=== PATIENT | female | born 1945 | race Caucasian/White ===

== ENCOUNTER → 2017-01-09 | Outpatient (CLI) | payer OTHER ==
[~2017-01-09] MED LIST: ALBU1AER9 INH; ASPCH81X PO; CHOL200010 PO; ESTR0.5T5 PO; FRS/40 PO; IRBE-37 PO; LACT10SO30 PO; MISCCAP80 PO; MULT-506 PO; NXM/40 PO; PARO1TAB27 PO; PROP1TAB PO; VITA400C3 PO
[2017-01-09 15:12] LABS: ALT/SGPT 37 U/L (12-78); AST/SGOT 30 U/L (15-37); BLOOD UREA NITROGEN 23 mg/dl (7-18); BUN/CREATININE RATIO 17.8 (10-20); CALCIUM 9.3 mg/dl (8.5-10.1); CARBON DIOXIDE 31 mmol/L (21-32); CHLORIDE 100 mmol/L (98-107); GLUCOSE 104 mg/dl (70-99); MAGNESIUM 1.8 mg/dl (1.8-2.4); POTASSIUM 3.8 mmol/L (3.5-5.1); SODIUM 140 mmol/L (136-145)
[2017-01-09 15:15] LABS: ALB/GLOB RATIO 0.9 (0.9-2); ALKALINE PHOSPHATASE 105 U/L (45-117)
[2017-01-09 15:38] LABS: BASO % 0.2 %; BASO ABS # 0.01 K/uL (0-0.2); COMPLETE YES; IG% 0.2 %; LYMPH % 35.3 %; LYMPH ABS # 1.73 K/uL (1.2-3.4); MEAN CELL VOLUME 85.5 fL (80-100); MEAN CORPUSCULAR HEMOGLOBIN 29.8 pg (25-34); MEAN CORPUSCULAR HGB CONC 34.9 g/dl (32-36); MEAN PLATELET VOLUME 11.2 fL (7.4-10.4); MONO % 11.6 %; NEUT % 51.7 %; PLATELET COUNT 78 K/uL (130-400); RED BLOOD COUNT 4.33 M/uL (4.2-5.4)
[2017-01-09 16:00] LABS: ESTIMATED AVERAGE GLUCOSE 120 mg/dl; HA1C FLAG Normal (Normal)
== END | disposition home or self-care (01) ==
LOC: C.LAB 13:18
PROVIDERS: ATTEND Internal Medicine
DX: E11.9 Type 2 diabetes mellitus without complications (principal); K74.60 Unspecified cirrhosis of liver

== ENCOUNTER → 2017-02-07 | Outpatient (CLI) | payer OTHER ==
[2017-02-07 10:20] LABS: BLOOD UREA NITROGEN 20 mg/dl (7-18); BUN/CREATININE RATIO 14.6 (10-20); CALCIUM 9.3 mg/dl (8.5-10.1); CARBON DIOXIDE 31 mmol/L (21-32); CHLORIDE 99 mmol/L (98-107); GLUCOSE 108 mg/dl (70-99); PHOSPHORUS 3.3 mg/dl (2.5-4.9); POTASSIUM 3.6 mmol/L (3.5-5.1); SODIUM 140 mmol/L (136-145)
== END | disposition home or self-care (01) ==
LOC: C.LAB 09:03
PROVIDERS: ATTEND Internal Medicine
DX: N28.9 Disorder of kidney and ureter, unspecified (principal)

== ENCOUNTER → 2017-02-22 | Outpatient (CLI) | payer OTHER ==
[~2017-02-22] MED LIST changes: +CIPR-255 PO; +GLC/500 PO; +LIRA18IN SQ; +PHEN-876 PO; +PROAIR INH
[2017-02-22 12:21] LABS: BLOOD UREA NITROGEN 14 mg/dl (7-18); BUN/CREATININE RATIO 11.1 (10-20); CALCIUM 9.1 mg/dl (8.5-10.1); CARBON DIOXIDE 32 mmol/L (21-32); CHLORIDE 102 mmol/L (98-107); GLUCOSE 144 mg/dl (70-99); PHOSPHORUS 3.4 mg/dl (2.5-4.9); POTASSIUM 3.8 mmol/L (3.5-5.1); SODIUM 139 mmol/L (136-145)
== END | disposition home or self-care (01) ==
LOC: C.LAB1850 09:37
PROVIDERS: ATTEND Physician Assistant Medical
DX: I10 Essential (primary) hypertension (principal)

== ENCOUNTER → 2017-05-30 | Outpatient (CLI) | payer OTHER ==
[~2017-05-30] MED LIST changes: -CIPR-255 PO; -GLC/500 PO; -LIRA18IN SQ; -PHEN-876 PO; -PROAIR INH
[2017-05-30 12:44] LABS: BLOOD UREA NITROGEN 22 mg/dl (7-18)
== END | disposition home or self-care (01) ==
LOC: C.LAB 10:30
PROVIDERS: ATTEND Internal Medicine
DX: K74.60 Unspecified cirrhosis of liver (principal)

== ENCOUNTER → 2017-07-17 | Outpatient (CLI) | payer OTHER ==
[2017-07-17 10:18] LABS: HEMATOCRIT 37.4 % (37-47); MEAN CELL VOLUME 88.2 fL (80-100); MEAN CORPUSCULAR HEMOGLOBIN 28.8 pg (25-34); MEAN CORPUSCULAR HGB CONC 32.6 g/dl (32-36); MEAN PLATELET VOLUME 10.6 fL (7.4-10.4); PLATELET COUNT 79 K/uL (130-400); RED BLOOD COUNT 4.24 M/uL (4.2-5.4)
[2017-07-17 10:32] LABS: BASO % 0.3 %; BASO ABS # 0.01 K/uL (0-0.2); COMPLETE YES; EOS % 1.5 %; IG% 0.3 %; LYMPH % 32.8 %; LYMPH ABS # 1.31 K/uL (1.2-3.4); MONO % 8.8 %; NEUT % 56.3 %
[2017-07-17 10:35] LABS: ESTIMATED AVERAGE GLUCOSE 123 mg/dl; HA1C FLAG Normal (Normal)
[2017-07-17 10:40] LABS: ALT/SGPT 25 U/L (12-78); BLOOD UREA NITROGEN 26 mg/dl (7-18); BUN/CREATININE RATIO 19.8 (10-20); CALCIUM 9.2 mg/dl (8.5-10.1); CARBON DIOXIDE 32 mmol/L (21-32); CHLORIDE 100 mmol/L (98-107); CHOLESTEROL 224 mg/dl (0-200); GLUCOSE 114 mg/dl (70-99); POTASSIUM 4.2 mmol/L (3.5-5.1); SODIUM 138 mmol/L (136-145); TRIGLYCERIDES 216 mg/dl (0-150); VERY LOW DENSITY LIPOPROT CALC 43 mg/dl
[2017-07-17 10:43] LABS: ALB/GLOB RATIO 0.9 (0.9-2); ALKALINE PHOSPHATASE 123 U/L (45-117); AST/SGOT 29 U/L (15-37); CHOLESTEROL/HDL RATIO 3.8; HDL CHOLESTEROL 59 mg/dl; LDL CHOLESTEROL CALCULATED 122 mg/dl
[2017-07-17 11:28] LABS: URINE APPEARANCE CLEAR (CLEAR); URINE BILIRUBIN NEG (NEG); URINE COLOR YELLOW; URINE EPITHELIAL CELL AUTO >30 /lpf (0-5); URINE NITRITE NEG (NEG); URINE PH 6.5 (4.5-7.5); URINE SPECIFIC GRAVITY 1.013 (1.000-1.030); UROBILINOGEN NEG (NEG); ZZUR CULT IF INDIC CLEAN CATCH NO
[2017-07-17 11:30] LABS: MANUAL MICROSCOPIC REQUIRED? NO; REVIEW REQ? NO
== END | disposition home or self-care (01) ==
LOC: C.LAB 09:21
PROVIDERS: ATTEND Internal Medicine
DX: E11.9 Type 2 diabetes mellitus without complications (principal); M85.80 Other specified disorders of bone density and structure, unspecified site

== ENCOUNTER → 2017-08-21 | Outpatient (CLI) | payer OTHER ==
[2017-08-21 10:18] LABS: ALT/SGPT 21 U/L (12-78); BLOOD UREA NITROGEN 23 mg/dl (7-18); BUN/CREATININE RATIO 17.5 (10-20); CALCIUM 8.9 mg/dl (8.5-10.1); CARBON DIOXIDE 29 mmol/L (21-32); CHLORIDE 102 mmol/L (98-107); GLUCOSE 120 mg/dl (70-99); POTASSIUM 3.5 mmol/L (3.5-5.1); SODIUM 139 mmol/L (136-145)
[2017-08-21 10:29] LABS: ALB/GLOB RATIO 0.9 (0.9-2); ALKALINE PHOSPHATASE 118 U/L (45-117); AST/SGOT 23 U/L (15-37)
== END ==
LOC: C.LAB 08:42
PROVIDERS: ATTEND Internal Medicine Endocrinology, Diabetes & Metabolism

== ENCOUNTER 2017-10-11 21:20 | Emergency (ER) | payer OTHER ==
[~2017-10-11] VITALS: Ht 157.5 cm; Wt 79.9 kg
[2017-10-11 21:29] VITALS: TEMP 36.5; Ht 157.5 cm; Wt 79.9 kg
[2017-10-11] MEDS ORDERED: SODIUM CHLORIDE 0.9% 1000ML 1,000 ML IV STA (21:38)
--- NOTE | 2017-10-11 21:46 | EMERGENCY ROOM VISIT NOTE ---
History Report prepared by Vega: Zuri Huffman Under the Supervision of: Dr. Thony Booker D.O. First contact with patient: 21:31 Chief Complaint: ABDOMINAL PAIN Stated Complaint: PAIN ON LEFT SIDE, POSSIBLE BLADDER INFECTION History of Present Illness The patient is a 72 year old female who presents to the Emergency Room with complaints of persistent abdominal pain starting earlier this evening. The pain is located in her lower abdomen bilaterally. She describes the pain as burning. She currently rates her discomfort as a 6/10 in severity. The pain worsens to an 8/10 in severity with urination. The patient started drinking cranberry juice yesterday. She suspected something was wrong with her urinary tract. She thinks she might have a kidney infection. She also reports right flank pain, dysuria, and hematuria. She started having diarrhea this evening. She feels cold. She denies any nausea, vomiting, or fever. She had a kidney stone last summer. She states the pain was not this bad. Source of History: patient Onset: earlier this evening Position: abdomen (bilateral lower) Symptom Intensity: 6/10, 8/10 with urination Quality: burning Timing: other (persistent) Modifying Factors (Worsening): urination Associated Symptoms: + chills, + diarrhea, + urinary symptoms, No fevers, No nausea, No vomiting Note: Pt reports right flank pain. Review of Systems See HPI for pertinent positives and negatives. A total of ten systems were reviewed and were otherwise negative. Past Medical & Surgical Medical Problems: (1) Cirrhosis (2) Hypertension (3) Kidney stone Family History Diabetes mellitus FH: cancer FH: heart disease Gallbladder disease Hypertension Social History Smoking Status: Never Smoker Marital Status: Housing Status: lives with significant other Occupation Status: retired Current/Historical Medications Scheduled Albuterol Sulfate (Proair Hfa), 2 PUFFS INH Q6HR PRN Aspirin (Aspirin Chewable), 81 MG PO QPM Cholecalciferol (Vitamin D), 1 CAP PO QAM Esomeprazole Magnesium (Nexium), 40 MG PO QAM Estradiol (Estrace), 1 TAB PO HS Furosemide (Lasix), 40 MG PO BID Irbesartan (Avapro), 150 MG PO HS Lactulose (Encephalopathy) (Lactulose), 30 ML PO QPM Multivitamin (Multivitamin), 1 TAB PO QAM Paroxetine (Paxil), 0.25 TAB PO QAM Probiotic Product (Probiotic), 1 CAP PO QAM Propranolol (Inderal), 60 MG PO QAM Vitamin E (Vitamin E 400 Iu), 400 INTER.UNIT PO QAM Allergies Coded Allergies: Morphine (Verified Allergy, Intermediate, "FIRE" SENSATION IN HEAD, ) Penicillins (Verified Allergy, Intermediate, HIVES, 09/11/16) Adhesives (Verified Adverse Reaction, Intermediate, RASH,REDNESS, 09/11/16) Physical Exam Vital Signs Date Time Temp Pulse Resp B/P (MAP) Pulse Ox O2 Delivery O2 Flow Rate FiO2 10/11/17 22:33 65 160/76 98 Room Air 10/11/17 21:59 68 10/11/17 21:29 36.5 71 18 96 Room Air Physical Exam GENERAL: Awake, alert, well-appearing, in no distress HENT: Normocephalic, atraumatic. Oropharynx unremarkable. EYES: Normal conjunctiva. Sclera non-icteric. NECK: Supple. No nuchal rigidity. FROM. No JVD. RESPIRATORY: Clear to auscultation. CARDIAC: Regular rate, normal rhythm. Extremities warm and well perfused. Pulses equal. ABDOMEN: Soft, non-distended. No tenderness to palpation. No rebound or guarding. No masses. RECTAL: Deferred. MUSCULOSKELETAL: Chest examination reveals no tenderness. The back is symmetrical on inspection without obvious abnormality. There is no CVA tenderness to palpation. No joint edema. LOWER EXTREMITIES: Calves are equal size bilaterally and non-tender. No edema. No discoloration. NEURO: Normal sensorium. No sensory or motor deficits noted. SKIN: No rash or jaundice noted. Medical Decision & Procedures ER Provider Diagnostic Interpretation: Radiology results as stated below per my review and radiologist interpretation CT SCAN OF THE ABDOMEN AND PELVIS WITHOUT IV CONTRAST CLINICAL HISTORY: Lower abdominal pain. COMPARISON STUDY: Abdominal CT dated 11/14/2012. TECHNIQUE: CT scan of the abdomen and pelvis is performed from the lung bases to the proximal femora. Images are reviewed in the axial, sagittal, and coronal planes. IV contrast was not administered for this examination as per the referring clinician. Note that the examination was performed in suboptimal fashion without oral and IV contrast. A dose lowering technique was utilized adhering to the principles of ALARA. CT DOSE: 1430.61 mGy.cm FINDINGS: Lung bases: The heart is normal in size and without pericardial effusion. There are coronary artery calcifications. There is a 5 mm right lower lobe pulmonary nodule seen on image #1. This is unchanged from 2013 and of doubtful significance. No airspace consolidation or pleural effusion is identified. There is a small hiatal hernia. Liver: The unenhanced liver is cirrhotic in morphology and heterogeneous in attenuation. There is nodularity of the surface contour with hypertrophy of the left lobe and caudate. There is no intrahepatic biliary ductal dilatation. Gallbladder: Surgically absent noting clips in the gallbladder fossa. Spleen: The spleen is mildly enlarged measuring 13.5 cm in length. Pancreas: The unenhanced pancreas is atrophic and grossly unremarkable. Adrenal glands: Unremarkable. Kidneys: The unenhanced kidneys are atrophic and without hydronephrosis. There are no renal calculi identified. There is no evidence of contour deforming renal mass lesion. A retroverted left renal vein is incidentally noted. Abdominal vasculature: The abdominal aorta is normal in course and caliber noting moderate atherosclerotic calcification. Bowel: Faint left-sided pericolonic infiltration is suggested. No colonic wall thickening is seen. No bowel obstruction is identified. The appendix is well-visualized and normal. Peritoneum: There is no intraperitoneal free air or abdominal ascites. Lymphadenopathy: None. Pelvic viscera: The the bladder wall is thickened and there is pericystic inflammation. The appearance suggests cystitis. The uterus is surgically absent. No adnexal lesion is seen. Skeletal structures: The skeletal structures are osteopenic. There is mild to moderate lumbosacral spondylosis. No lytic or blastic lesions are seen. IMPRESSION: 1. Suboptimal examination without oral and IV contrast. 2. Findings suggest cystitis. Correlation with clinical findings and urinalysis will be required. 3. Faint pericolonic infiltration is suggested. There is no colonic wall thickening. Correlate clinically for evidence of a mild nonspecific colitis. 4. Cirrhotic liver morphology. Mild splenomegaly suggests portal hypertension. 5. Additional findings as above. Electronically signed by: Hussein Lama M.D. 10/11/2017 10:29 PM Dictated Date/Time: 10/11/2017 10:22 PM Laboratory Results 10/11/17 21:51 Red Blood Count 4.64, Mean Corpuscular Volume 87.7, Mean Corpuscular Hemoglobin 29.1, Mean Corpuscular Hemoglobin Concent 33.2, Mean Platelet Volume 10.4, Neutrophils (%) (Auto) 65.5, Lymphocytes (%) (Auto) 22.3, Monocytes (%) (Auto) 11.0, Eosinophils (%) (Auto) 0.9, Basophils (%) (Auto) 0.1, Neutrophils # (Auto ) 6.04, Lymphocytes # (Auto) 2.06, Monocytes # (Auto) 1.01, Eosinophils # (Auto ) 0.08, Basophils # (Auto) 0.01 10/11/17 21:51 Test 10/11/17 21:50 10/11/17 21:51 Urine Color RED Urine Appearance CLOUDY (CLEAR) Urine pH 6.5 (4.5-7.5) Urine Specific [place] 1.020 (1.000-1.030) Urine Protein 2+ (NEG) Urine Glucose (UA) NEG (NEG) Urine Ketones NEG (NEG) Urine Occult Blood 3+ (NEG) Urine Nitrite NEG (NEG) Urine Bilirubin NEG (NEG) Urine Urobilinogen NEG (NEG) Urine Leukocyte Esterase MODERATE (NEG) Urine RBC >30 /hpf (0-4) Urine WBC >30 /hpf (0-5) Urine Epithelial Cells >30 /lpf (0-5) Urine Bacteria 1+ (NEG) White Blood Count 9.22 K/uL (4.8-10.8) Red Blood Count 4.64 M/uL (4.2-5.4) Hemoglobin 13.5 g/dL (12.0-16.0) Hematocrit 40.7 % (37-47) Mean Corpuscular Volume 87.7 fL (80-100) Mean Corpuscular Hemoglobin 29.1 pg (25-34) Mean Corpuscular Hemoglobin Concent 33.2 g/dl (32-36) Platelet Count 102 K/uL (130-400) Mean Platelet Volume 10.4 fL (7.4-10.4) Neutrophils (%) (Auto) 65.5 % Lymphocytes (%) (Auto) 22.3 % Monocytes (%) (Auto) 11.0 % Eosinophils (%) (Auto) 0.9 % Basophils (%) (Auto) 0.1 % Neutrophils # (Auto) 6.04 K/uL (1.4-6.5) Lymphocytes # (Auto) 2.06 K/uL (1.2-3.4) Monocytes # (Auto) 1.01 K/uL (0.11-0.59) Eosinophils # (Auto) 0.08 K/uL (0-0.5) Basophils # (Auto) 0.01 K/uL (0-0.2) RDW Standard Deviation 44.9 fL (36.4-46.3) RDW Coefficient of Variation 14.0 % (11.5-14.5) Immature Granulocyte % (Auto) 0.2 % Immature Granulocyte # (Auto) 0.02 K/uL (0.00-0.02) Anion Gap 6.0 mmol/L (3-11) Est Creatinine Clear Calc Drug Dose 36.9 ml/min Estimated GFR () 44.4 Estimated GFR (Non- 38.3 BUN/Creatinine Ratio 12.8 (10-20) Calcium Level 9.4 mg/dl (8.5-10.1) Laboratory results reviewed by me Medications Administered Medications (Trade) Dose Ordered Sig/Favian Route Start Time Stop Time Status Last Admin Dose Admin Sodium Chloride 1,000 ml @ 999 mls/hr Q1H1M STAT IV 10/11/17 21:38 10/11/17 22:38 DC 10/11/17 21:38 999 MLS/HR Ciprofloxacin (Cipro Tab) 500 mg NOW STAT PO 10/11/17 22:27 10/11/17 22:29 DC 10/11/17 22:32 500 MG ED Course 2133: The patient was evaluated in room A9B. A complete history and physical exam was performed. 8: NSS 1000 ml @ 999 mls/hr IV. 7: Ciprofloxacin 500 mg PO. 5: I reevaluated the patient. Discussed results and discharge instructions: she verbalized understanding and agreement. The patient is ready for discharge. Medical Decision Differential diagnoses include but are not limited to; UTI, pyelonephritis, kidney stone, dehydration. Patient resting in no distress on repeat examination. Patient will be treated for urinary tract infection. I do not think the patient is septic at this time. Patient was given Cipro as she is allergic to penicillin. Patient clearly has a urinary tract infection CT was appreciated. I discussed evaluation with the patient patient's family at bedside at 2240 Medication Reconcilliation Current Medication List: was personally reviewed by me Blood Pressure Screening Patient's blood pressure: Elevated blood pressure Blood pressure disposition: Elevated BP felt to be situational Impression Primary Impression: Acute UTI Scribe Attestation The scribe's documentation has been prepared under my direction and personally reviewed by me in its entirety. I confirm that the note above accurately reflects all work, treatment, procedures, and medical decision making performed by me. Departure Information Dispostion Home / Self-Care Prescriptions Phenazopyridine HCl (Pyridium) 200 Mg Tab 200 MG PO TID Y for Frequency/Burning w/Urination, #6 TAB Prov: Thony Booker, DO 10/11/17 Ciprofloxacin Hcl (CIPRO) 500 Mg Tab 500 MG PO BID, #20 TAB Prov: Thony Booker, DO 10/11/17 Referrals Gildardo Haywood M.D. (PCP) Patient Instructions ED UTI Cystitis Female, My [facility] Additional Instructions F/u with PMD; return for worsening symptoms
[2017-10-11 22:12] LABS: MANUAL MICROSCOPIC REQUIRED? YES; URINE APPEARANCE CLOUDY (CLEAR); URINE BILIRUBIN NEG (NEG); URINE COLOR RED; URINE NITRITE NEG (NEG); URINE PH 6.5 (4.5-7.5); UROBILINOGEN NEG (NEG)
[2017-10-11 22:13] LABS: REVIEW REQ? NO
[2017-10-11 22:15] LABS: URINE BACTERIA 1+ (NEG); URINE RBC >30 /hpf (0-4); URINE WBC >30 /hpf (0-5)
[2017-10-11 22:15] LABS: BASO % 0.1 %; BASO ABS # 0.01 K/uL (0-0.2); COMPLETE YES; EOS % 0.9 %; HEMATOCRIT 40.7 % (37-47); IG% 0.2 %; LYMPH % 22.3 %; LYMPH ABS # 2.06 K/uL (1.2-3.4); MEAN CELL VOLUME 87.7 fL (80-100); MEAN CORPUSCULAR HEMOGLOBIN 29.1 pg (25-34); MEAN CORPUSCULAR HGB CONC 33.2 g/dl (32-36); MEAN PLATELET VOLUME 10.4 fL (7.4-10.4); NEUT % 65.5 %; PLATELET COUNT 102 K/uL (130-400); RED BLOOD COUNT 4.64 M/uL (4.2-5.4); WHITE BLOOD COUNT 9.22 K/uL (4.8-10.8)
[2017-10-11] MEDS ORDERED: CIPROFLOXACIN 500 MG TAB PO STA (22:27)
--- NOTE | 2017-10-11 22:31 | DIAGNOSTIC IMAGING REPORT ---
CT SCAN OF THE ABDOMEN AND PELVIS WITHOUT IV CONTRAST CLINICAL HISTORY: Lower abdominal pain. COMPARISON STUDY: Abdominal CT dated 11/14/2012. TECHNIQUE: CT scan of the abdomen and pelvis is performed from the lung bases to the proximal femora. Images are reviewed in the axial, sagittal, and coronal planes. IV contrast was not administered for this examination as per the referring clinician. Note that the examination was performed in suboptimal fashion without oral and IV contrast. A dose lowering technique was utilized adhering to the principles of ALARA. CT DOSE: 1430.61 mGy.cm FINDINGS: Lung bases: The heart is normal in size and without pericardial effusion. There are coronary artery calcifications. There is a 5 mm right lower lobe pulmonary nodule seen on image #1. This is unchanged from 2013 and of doubtful significance. No airspace consolidation or pleural effusion is identified. There is a small hiatal hernia. Liver: The unenhanced liver is cirrhotic in morphology and heterogeneous in attenuation. There is nodularity of the surface contour with hypertrophy of the left lobe and caudate. There is no intrahepatic biliary ductal dilatation. Gallbladder: Surgically absent noting clips in the gallbladder fossa. Spleen: The spleen is mildly enlarged measuring 13.5 cm in length. Pancreas: The unenhanced pancreas is atrophic and grossly unremarkable. Adrenal glands: Unremarkable. Kidneys: The unenhanced kidneys are atrophic and without hydronephrosis. There are no renal calculi identified. There is no evidence of contour deforming renal mass lesion. A retroverted left renal vein is incidentally noted. Abdominal vasculature: The abdominal aorta is normal in course and caliber noting moderate atherosclerotic calcification. Bowel: Faint left-sided pericolonic infiltration is suggested. No colonic wall thickening is seen. No bowel obstruction is identified. The appendix is well-visualized and normal. Peritoneum: There is no intraperitoneal free air or abdominal ascites. Lymphadenopathy: None. Pelvic viscera: The the bladder wall is thickened and there is pericystic inflammation. The appearance suggests cystitis. The uterus is surgically absent. No adnexal lesion is seen. Skeletal structures: The skeletal structures are osteopenic. There is mild to moderate lumbosacral spondylosis. No lytic or blastic lesions are seen. IMPRESSION: 1. Suboptimal examination without oral and IV contrast. 2. Findings suggest cystitis. Correlation with clinical findings and urinalysis will be required. 3. Faint pericolonic infiltration is suggested. There is no colonic wall thickening. Correlate clinically for evidence of a mild nonspecific colitis. 4. Cirrhotic liver morphology. Mild splenomegaly suggests portal hypertension. 5. Additional findings as above. Electronically signed by: Hussein Lama M.D. 10/11/2017 10:29 PM Dictated Date/Time: 10/11/2017 10:22 PM
[2017-10-11 22:33] VITALS: BP 160/76; PULSE 65; O2SAT 98
[2017-10-11 22:35] LABS: BUN/CREATININE RATIO 12.8 (10-20); CALCIUM 9.4 mg/dl (8.5-10.1); CREATININE 1.39 mg/dl (0.60-1.20); POTASSIUM 3.5 mmol/L (3.5-5.1)
[2017-10-11] MEDS ORDERED: CIPR-255 PO (22:55)
[2017-10-11] MEDS ORDERED: PHEN-876 PO (22:55)
[2017-10-11] MEDS ORDERED: GLC/500 PO ×2 (23:07)
[2017-10-11] MEDS ORDERED: LIRA18IN SQ (23:07)
[2017-10-11] MEDS ORDERED: PROAIR INH (23:07)
== END 2017-10-11 22:58 | disposition home or self-care (01) ==
LOC: C.EDB 21:21 → C.EDA 22:58
DX: N39.0 Urinary tract infection, site not specified (principal); I10 Essential (primary) hypertension; K74.60 Unspecified cirrhosis of liver; Z87.442 Personal history of urinary calculi; Z79.82 Long term (current) use of aspirin; Z79.899 Other long term (current) drug therapy; Z88.0 Allergy status to penicillin; Z88.5 Allergy status to narcotic agent; Z91.09 Other allergy status, other than to drugs and biological substances; Z83.3 Family history of diabetes mellitus; Z80.9 Family history of malignant neoplasm, unspecified; Z82.49 Family history of ischemic heart disease and other diseases of the circulatory system; Z83.79 Family history of other diseases of the digestive system

== ENCOUNTER → 2017-10-28 | Outpatient (CLI) | payer OTHER ==
[~2017-10-28] MED LIST changes: -ALBU1AER9 INH; +CIPR-255 PO; +GLC/500 PO; +LIRA18IN SQ; +PHEN-876 PO; +PROAIR INH
--- NOTE | 2017-10-29 07:52 | MAMMOGRAPHY REPORT ---
BILATERAL DIGITAL SCREENING MAMMOGRAM WITH CAD: 10/28/2017 CLINICAL HISTORY: Routine screening. Patient has no complaints. TECHNIQUE: Bilateral CC and MLO views were obtained. Current study was also evaluated with a Compute r Aided Detection (CAD) system. COMPARISON: Comparison is made to exams dated: 10/24/2016 mammogram, 10/21/2015 mammogram, 4 mammogram, 10/19/2013 mammogram, 10/17/2012 mammogram, and 10/23/2013 mammogram - [facility]. BREAST COMPOSITION: The tissue of both breasts is heterogeneously dense, which may obscure small mas ses. FINDINGS: There is a 5.6 mm nodular asymmetry in the posterior left breast, along the posterior nipp le line on the CC view. Although this could represent normal overlapping fibrolinear glandular tissu e, additional spot compression tomosynthesis views and possible ultrasound are recommended. There are diffuse benign-appearing punctate microcalcifications as well as a few benign rim calcifica tions scattered in the breasts. No other suspicious mass, architectural distortion or cluster of micr ocalcifications is seen. IMPRESSION: ACR BI-RADS CATEGORY 0: INCOMPLETE EVALUATION: NEED ADDITIONAL IMAGING EVALUATION The 5.6 mm nodular asymmetry in the left posterior breast, along the posterior nipple line on the CC view, needs additional evaluation. The patient will be called to schedule an appointment. Approximately 10% of breast cancers are not detected with mammography. A negative mammographic report should not delay biopsy if a clinically suggestive mass is present. Bethany Lincoln M.D. ay/:10/28/2017 16:11:39 Early Education Teacher: Lucina RAMOS(R)(M), [facility] letter sent: Addl Imaging 0 BI-RADS Code: ACR BI-RADS Category 0: Incomplete Evaluation: Need Additional Imaging Evaluation
== END | disposition home or self-care (01) ==
LOC: C.MAMM 09:45
PROVIDERS: ATTEND Internal Medicine
DX: Z12.31 Encounter for screening mammogram for malignant neoplasm of breast (principal); R92.8 Other abnormal and inconclusive findings on diagnostic imaging of breast

== ENCOUNTER → 2017-10-31 | Outpatient (CLI) | payer OTHER ==
--- NOTE | 2017-10-31 15:16 | MAMMOGRAPHY REPORT ---
UNILATERAL LEFT DIGITAL DIAGNOSTIC MAMMOGRAM TOMOSYNTHESIS AND TARGETED LEFT ULTRASOUND: 10/31/2017 CLINICAL HISTORY: Callback from screening mammogram for left breast asymmetry. TECHNIQUE: Breast tomosynthesis in addition to standard 2D mammography was performed. Spot compress ion left CC and MLO 2-D and tomosynthesis images were obtained. COMPARISON: Comparison is made to exams dated: 10/28/2017 mammogram, 10/24/2016 mammogram, 5 mammogram, 10/20/2014 mammogram, 10/23/2013 mammogram, and 10/19/2013 mammogram - [facility]. BREAST COMPOSITION: The tissue of the left breast is heterogeneously dense, which may obscure small masses. FINDINGS: Spot compression views demonstrate a persistent 6 mm nodular asymmetry in the left retroar eolar breast on the cc view, which demonstrates irregular margins on the additional tomosynthesis cristela ges. No clear correlate is seen on the MLO spot compression view. A few round/oval circumscribed be nign-appearing masses are noted on the additional images, which likely represent cysts. Targeted ultrasound was performed of the left breast at 12:00, 6:00, and subareolar region, in the re gion of the mammographic asymmetry seen on one view only. In the left 12:00 periareolar breast, ther e is an oval hypoechoic 4 x 3 mm mass, which during real time scanning appeared cystic although the m argins do not appear completely circumscribed. Other anechoic benign cysts were seen during the exam , including a 3 mm cyst in the left breast at 12:00, 2 cm from the nipple, a 5 x 4 mm anechoic benign cyst in the left breast at 11:00, 2 cm from the nipple, and numerous anechoic benign cyst seen withi n the left subareolar breast the largest measuring 5 mm. It is unclear if the left 12:00 periareolar mass may correspond with the mammographic asymmetry. Given the irregular margins of the mammographi c asymmetry and given that a definite correlate is not seen on ultrasound, recommend tomosynthesis st ereotactic biopsy for further evaluation. IMPRESSION: ACR BI-RADS CATEGORY 4: SUSPICIOUS, TARGETED ULTRASOUND ACR BI-RADS CATEGORY 4: SUSPICIO US Persistent irregular 7 mm asymmetry in the left breast seen on one view only. No clear sonographic c orrelate is evident on ultrasound. The finding is indeterminate and tomosynthesis stereotactic biops y is recommended for further evaluation. A phone call was made to the physician's office to confirm faxed results were received. The patient has been verbally notified of the results. Approximately 10% of breast cancers are not detected with mammography. A negative mammographic report should not delay biopsy if a clinically suggestive mass is present. Janet Fox M.D. ah/:10/31/2017 12:43:26 Shell Shop Supervisor: Lucina RAMOS(R)(M), [facility] letter sent: Abnormal 4/5 BI-RADS Code: ACR BI-RADS Category 4: Suspicious Ultrasound BI-RADS: ACR BI-RADS Category 4: Suspici ous
== END | disposition home or self-care (01) ==
LOC: C.MAMM 10:22
PROVIDERS: ATTEND Internal Medicine
DX: N64.89 Other specified disorders of breast (principal)

== ENCOUNTER → 2017-11-15 | Outpatient (CLI) | payer OTHER ==
--- NOTE | 2017-11-15 09:23 | Discharge Instructions ---
Discharge Instructions Procedure Procedure Date: Nov 15, 2017. Reason for visit: Left Asymmetry. Discharge Discharge Date: Nov 15, 2017. Discharge Diagnosis: status post breast biopsy Instructions Activity Recommendations: Additional Limitations (see below) Return to School/Work: no limitations Recommended Home Diet: No Limitations Provider Instructions: ACTIVITY RECOMMENDATIONS: * No lifting, pushing, pulling or exercising the affected side for three days. RETURN TO SCHOOL/WORK: * You may return to work/school after the procedure, but do not perform any strenuous activities for 24 to 48 hours. MEDICATIONS: * Tylenol (two 325 mg) every four to six hours if needed for mild pain (if not allergic to Tylenol). DIET: * Resume previous diet. SPECIAL CARE INSTRUCTIONS: * Keep biopsy site dry for 24 hours. May shower after 24 hours, but do not soak (bathe) incision. * May remove Tegaderm (plastic patch) tomorrow AFTER showering. * Leave the steri-strips on for one week. Allow the steri-strips to fall off by themselves. If not off after one week, you may remove them. You may place a Bandaid crosswise over the strips, if desired. * Apply ice 10 minutes on and 10 minutes off as needed. * Wear a bra at bedtime to sleep more comfortably for 2-3 days. * Your referring physician should have the results after approximately 5 to 7 business days. * Call for unusual bleeding, fever, drainage, etc or if you have any questions call during normal business hours or after hours call Dr Fox, . FOLLOW UP VISIT: Follow-up with Referring Physician as scheduled. Allergies Coded Allergies: Morphine (Verified Allergy, Intermediate, "FIRE" SENSATION IN HEAD, ) Penicillins (Verified Allergy, Intermediate, HIVES, 09/11/16) Adhesives (Verified Adverse Reaction, Intermediate, RASH,REDNESS, 09/11/16) Truong Robertson Recommendations: Call your doctor if: * Temperature above 101 degrees * Pain not relieved by pain medicine ordered * There is increased drainage or redness from any incision * You have any unanswered questions or concerns. Your Doctors Instructions noted above were prepared by provider Janet Fox. Patient Signature Section: Patient Instructions Signature Page Tasneem Conde Patient (or Guardian) Signature/Date: I have read and understand the instructions given to me by my caregivers. Caregiver/RN/Doctor Signature/Date: The above-named patient and/or guardian has received patient instructions on this date. + Original Patient Signature Page (only) stays with chart. Please make copy for patient.
--- NOTE | 2017-11-15 14:34 | MAMMOGRAPHY REPORT ---
STEREOTACTIC GUIDED BIOPSY LEFT BREAST: 11/15/2017 CLINICAL HISTORY: Irregular asymmetry seen within the left retroareolar breast on the cc view posteri aroldo. PATIENT CONSENT: The procedure, risks, benefits, and alternatives of stereotactic biopsy with clip pl acement were discussed with the patient, and verbal and written consent was obtained. A timeout was performed immediately prior to the procedure. PROCEDURE DESCRIPTION: With tomosynthesis stereotactic guidance, aseptic technique, and lidocaine as a local anesthetic (1% lidocaine to anesthetize the skin and 1% lidocaine with epinephrine to anesthe tize the deeper tissues), the asymmetry of concern within the left retroareolar breast posteriorly wa s sampled multiple times with a 9-gauge vacuum-assisted biopsy needle (Plynked). The path of yamileth vides was craniocaudal. A metallic marker clip was placed at the biopsy site. This was confirmed on postprocedure mammograms. Direct pressure was applied at the biopsy site and hemostasis was readily achieved. The patient tolerated the procedure without complication. She was given wound care instr uctions. COMPARISON: Comparison is made to exams dated: 10/31/2017 mammogram, 10/31/2017 ultrasound, 10/28/20 17 mammogram, 10/24/2016 mammogram, 10/21/2015 mammogram, and 10/20/2014 mammogram - [facility]. IMPRESSION: STEREOTACTIC GUIDED BIOPSY Tomosynthesis stereotactic biopsy of asymmetry within the left retroareolar breast posteriorly, with clip placement. The patient will receive pathology results from her referring provider. Pending myriam ign pathology results, would recommend follow-up diagnostic tomosynthesis mammogram and possible ultr asound of the left breast in 6 months. Janet Fox M.D. /:11/15/2017 09:44:18 [employer] Home General Manager: Columba Lemus, [facility]
--- NOTE | 2017-11-15 14:38 | MAMMOGRAPHY REPORT ---
UNILATERAL LEFT DIGITAL DIAGNOSTIC MAMMOGRAM TOMOSYNTHESIS: 11/15/2017 CLINICAL HISTORY: Status post left breast stereotactic biopsy. TECHNIQUE: Breast tomosynthesis in addition to standard 2D mammography was performed. Postprocedura l left CC and ML tomosynthesis images including C views were obtained. COMPARISON: Comparison is made to exams dated: 11/15/2017 stereotactic biopsy, 10/31/2017 mammogram, 1 01/01/2017 ultrasound, 10/28/2017 mammogram, and 10/24/2016 mammogram - [facility]. BREAST COMPOSITION: The tissue of the left breast is heterogeneously dense, which may obscure small masses. FINDINGS: A new biopsy marker clip is seen within the left 12:00 posterior breast at the site of the biopsied asymmetry. No significant postbiopsy hematoma is seen. IMPRESSION: POST PROCEDURE IMAGING FOR MARKER PLACEMENT New biopsy marker clip status post left breast biopsy. Pathology results are pending. Pending benign pathology results, would recommend follow-up diagnostic tomosynthesis mammogram and possible ultraso und of the left breast in 6 months. Approximately 10% of breast cancers are not detected with mammography. A negative mammographic report should not delay biopsy if a clinically suggestive mass is present. Janet Fox M.D. /:11/15/2017 09:46:46 Director Of Design: Colmuba Lemus, [facility] BI-RADS Code: Post Procedure Imaging For Marker Placement
== END | disposition home or self-care (01) ==
LOC: C.MAMM 08:39
PROVIDERS: ATTEND Internal Medicine
DX: R92.8 Other abnormal and inconclusive findings on diagnostic imaging of breast (principal); N64.89 Other specified disorders of breast; C50.912 Malignant neoplasm of unspecified site of left female breast

== ENCOUNTER → 2017-12-03 | Outpatient (CLI) | payer OTHER ==
[~2017-12-03] MED LIST changes: -CIPR-255 PO; -ESTR0.5T5 PO; -MULT-506 PO; -PHEN-876 PO; +PRAV20TA PO; -PROAIR INH; +ZNTT/150 PO
[2017-12-03 12:48] LABS: ALBUMIN 3.4 gm/dl (3.4-5.0); ALT/SGPT 23 U/L (12-78); AST/SGOT 24 U/L (15-37); BLOOD UREA NITROGEN 18 mg/dl (7-18); CALCIUM 8.8 mg/dl (8.5-10.1); CARBON DIOXIDE 33 mmol/L (21-32); CREATININE 1.23 mg/dl (0.60-1.20); GLUCOSE 171 mg/dl (70-99); POTASSIUM 3.7 mmol/L (3.5-5.1); SODIUM 137 mmol/L (136-145)
[2017-12-03 12:50] LABS: ALKALINE PHOSPHATASE 112 U/L (45-117); PHOSPHORUS 3.6 mg/dl (2.5-4.9); TOTAL PROTEIN 7.3 gm/dl (6.4-8.2)
== END | disposition home or self-care (01) ==
LOC: C.LAB 10:26
PROVIDERS: ATTEND Internal Medicine Nephrology
DX: E78.5 Hyperlipidemia, unspecified (principal); N18.3 Chronic kidney disease, stage 3 (moderate)

== ENCOUNTER 2017-12-09 07:36 | Observation (INO) | payer OTHER ==
[2017-11-27 09:33] VITALS: Ht 157.5 cm; Wt 79.7 kg
--- NOTE | 2017-11-27 10:15 | PAT Medication Instructions ---
Service Date Nov 27, 2017. Current Home Medication List Aspirin (Aspirin Chewable), 81 MG PO QPM Cholecalciferol (Vitamin D), 1 CAP PO QAM Esomeprazole Magnesium (Nexium), 40 MG PO QAM Furosemide (Lasix), 40 MG PO BID Irbesartan (Avapro), 150 MG PO HS Lactulose (Encephalopathy) (Lactulose), 30 ML PO QPM Liraglutide (Victoza), 1.2 SQ QPM Metformin Hcl (Glucophage), 500 MG PO BID Paroxetine (Paxil), 10 TAB PO QAM Pravastatin (Pravachol ), 10 MG PO QPM Probiotic Product (Probiotic), 1 CAP PO QAM Propranolol (Inderal), 60 MG PO QAM Ranitidine (Zantac), 150 MG PO BID Vitamin E (Vitamin E 400 Iu), 400 INTER.UNIT PO BID Medication Instructions For Your Scheduled Surgery - Hold the following medications 2 weeks prior to surgery: Vitamin E (Vitamin E 400 Iu), 400 INTER.UNIT PO BID - Hold the following medications per your surgeon's instructions: Aspirin (Aspirin Chewable), 81 MG PO QPM - Hold the following medications the night before surgery: Furosemide (Lasix), 40 MG PO BID Irbesartan (Avapro), 150 MG PO HS - Hold the following medications 48 hours prior to surgery: Metformin Hcl (Glucophage), 500 MG PO BID - Hold the following medications the morning of surgery: Probiotic Product (Probiotic), 1 CAP PO QAM Furosemide (Lasix), 40 MG PO BID Cholecalciferol (Vitamin D), 1 CAP PO QAM - Take the following medications the morning of surgery with a sip of water: Propranolol (Inderal), 60 MG PO QAM Ranitidine (Zantac), 150 MG PO BID Paroxetine (Paxil), 10 TAB PO QAM Esomeprazole Magnesium (Nexium), 40 MG PO QAM - Take the following medications as scheduled the night before surgery: Ranitidine (Zantac), 150 MG PO BID Pravastatin (Pravachol ), 10 MG PO QPM Liraglutide (Victoza), 1.2 SQ QPM Lactulose (Encephalopathy) (Lactulose), 30 ML PO QPM If you have any questions please call us at [phone] or [phone] or [phone]
--- NOTE | 2017-11-27 11:05 | DIAGNOSTIC IMAGING REPORT ---
CHEST 2 VIEWS ROUTINE HISTORY: 72 years-old Female PAT preoperative exam. No acute chest complaints. COMPARISON: None available TECHNIQUE: PA and lateral views of the chest FINDINGS: Cardiac mediastinal and hilar silhouettes are within normal limits. No pneumothorax, pleural effusion, focal airspace consolidation or overt pulmonary edema. Atherosclerosis of the aorta. Cholecystectomy clips noted. Bones appear grossly intact. IMPRESSION: No acute process. The above report was generated using voice recognition software. It may contain grammatical, syntax or spelling errors. Electronically signed by: Crispin Marks M.D. 11/27/2017 11:04 AM Dictated Date/Time: 11/27/2017 10:48 AM
[2017-11-27 11:06] LABS: HEMATOCRIT 36.6 % (37-47); HEMOGLOBIN 12.1 g/dL (12.0-16.0); MEAN CELL VOLUME 86.3 fL (80-100); MEAN CORPUSCULAR HEMOGLOBIN 28.5 pg (25-34); MEAN CORPUSCULAR HGB CONC 33.1 g/dl (32-36); RED CELL DISTRIBUTION WIDTH CV 13.5 % (11.5-14.5); RED CELL DISTRIBUTION WIDTH SD 42.3 fL (36.4-46.3); WHITE BLOOD COUNT 5.21 K/uL (4.8-10.8)
[2017-11-27 11:16] LABS: INR 1.1 (0.9-1.1); PTT PATIENT 25.7 SECONDS (21.0-31.0)
[2017-11-27 11:25] LABS: MEAN PLATELET VOLUME 10.6 fL (7.4-10.4); PLATELET COUNT 93 K/uL (130-400)
[2017-11-27 11:26] LABS: BASO % 0.2 %; BASO ABS # 0.01 K/uL (0-0.2); EOS ABS # 0.05 K/uL (0-0.5); IG# 0.01 K/uL (0.00-0.02); LYMPH % 31.1 %; LYMPH ABS # 1.62 K/uL (1.2-3.4); MONO ABS # 0.52 K/uL (0.11-0.59); NEUT % 57.5 %
[2017-11-27 12:27] LABS: ALBUMIN 3.5 gm/dl (3.4-5.0); CREATININE 1.28 mg/dl (0.60-1.20); POTASSIUM 3.7 mmol/L (3.5-5.1)
[2017-11-27 12:30] LABS: TOTAL PROTEIN 7.4 gm/dl (6.4-8.2)
[~2017-12-09] VITALS: Ht 157.5 cm; Wt 79.7 kg
[2017-12-09] VITALS (8 sets, daily range): BP systolic 115–146; BP diastolic 67–80; PULSE 63–73; TEMP 36.4–37; O2SAT 95–99
[~2017-12-09 07:36] MED LIST changes: +CLINDAMYCIN IV 900 MG in DEXTROSE 5% 50ML IV SCH; +LACTATED RINGER'S 1000ML 1,000 ML IV SCH
[2017-12-09 08:56] LABS: HEMATOCRIT 35.7 % (37-47); HEMOGLOBIN 11.9 g/dL (12.0-16.0); MEAN CORPUSCULAR HEMOGLOBIN 28.7 pg (25-34); RED CELL DISTRIBUTION WIDTH CV 13.4 % (11.5-14.5); RED CELL DISTRIBUTION WIDTH SD 42.5 fL (36.4-46.3); WHITE BLOOD COUNT 4.62 K/uL (4.8-10.8)
[2017-12-09 09:07] LABS: MEAN CORPUSCULAR HGB CONC 33.3 g/dl (32-36); MEAN PLATELET VOLUME 10.1 fL (7.4-10.4); PLATELET COUNT 72 K/uL (130-400)
[2017-12-09] MEDS ORDERED: FENTANYL CITRATE INJ 50 MCG/1 ML 2 ML VIAL IV PRN (09:30)
[2017-12-09] MEDS ORDERED: ONDANSETRON INJ 2 MG/ML 2 ML VIAL IV PRN (09:30)
[2017-12-09] MEDS ORDERED: ATROPINE SULFATE 0.1 MG/ML 5ML SYR IV PRN (09:30)
[2017-12-09] MEDS ORDERED: EpHEDrine SULFATE INJ 50 MG/ML AMP IV PRN (09:30)
[2017-12-09] MEDS ORDERED: LIDOCAINE HCL 2% 2 ML VIAL (20MG/ML) ONE (09:49)
[2017-12-09] MEDS ORDERED: PROPOFOL IV EMULSION 10 MG/ML 20 ML VIAL IV ONE (09:49)
[2017-12-09] MEDS ORDERED: MIDAZOLAM HCL 1 MG/ML 2ML VIAL ONE (09:49)
[2017-12-09] MEDS ORDERED: ONDANSETRON INJ 2 MG/ML 2 ML VIAL ONE (09:49)
[2017-12-09] MEDS ORDERED: FENTANYL CITRATE INJ 50 MCG/1 ML 2 ML VIAL ONE ×3 (09:49→13:21)
[2017-12-09] MEDS ORDERED: DEXAMETHASONE SOD INJ 4 MG/ML VIAL ONE (09:49)
--- NOTE | 2017-12-09 09:56 | DIAGNOSTIC IMAGING REPORT ---
LYMPHOSCINTIGRAPHY BREAST CLINICAL HISTORY: 72 years-old Female presenting with left breast cancer status post needle localization, preoperative preparation for lymph node dissection. COMPARISON: Mammography from 12/09/2017 performed earlier the same day PROCEDURE: Using standard sterile technique, 5 intradermal and one deep injection of 0.516 mCi of Lymphoseek was placed in the left breast. The patient tolerated the procedure well. There were no immediate complications. The patient was subsequently transported to the surgical suite. Imaging was obtained at the referring physician's request. IMPRESSION: Injection of 0.516 mCi of Lymphoseek in the left breast. Electronically signed by: Ted Waggoner M.D. 12/09/2017 9:55 AM Dictated Date/Time: 12/09/2017 9:54 AM
[2017-12-09] MEDS ORDERED: BUPIVACAINE 0.5 % 5 MG/1 ML MPF 30ML VIAL ONE (10:45)
--- NOTE | 2017-12-09 11:33 | History & Physical Bridge Note ---
H&P Re-Evaluation Bridge Note: I have examined the patient, reviewed the History & Physical and in the interval since the performance of the History & Physical I have noted the following changes of clinical significance: No changes noted
[2017-12-09] MEDS ORDERED: GLYCOPYRROLATE INJ 0.2 MG/ML VIAL ONE (12:48)
[2017-12-09] MEDS ORDERED: BUPIVACAINE LIPOSOME 1/3% 266 MG/20 ML VIAL INFIL ONE (13:34)
--- NOTE | 2017-12-09 13:52 | [facility] Post Operative Brief Note ---
Immediate Operative Summary Operative Date Dec 09, 2017. Pre-Operative Diagnosis Left Breast Cancer Post-Operative Diagnosis Same as preoperative Procedure(s) Performed Left Breast Lumpectomy with Needle Localization and Left [place] Lymph Node Biopsy Surgeon Dr. Thony Cobb Automation Technician Surgeon(s) Phillip Fernandez PA-C Estimated Blood Loss 20ML Findings Consistent with Post-Op Diagnosis additional margins taken. 3 sentinel nodes excised Specimens FRESH: A.) Left Breast, Short Stitch Superior, Long Stitch Lateral, Double Stitch Deep Margin B.) Left Breast, [place] Lymph Nodes PERMANENT: C.) Left Breast, Lateral Border D.) Left Breast, Inferior Lateral Margin, Short Stitch Superior, Long Stitch Lateral, Double Stitch Deep Margin, 4th Stitch Wright Proximal E.) Left Breast, Deep Margin Drains None Anesthesia Type General Complication(s) none Disposition Accompanied Pt To Recover: no Disposition: Recovery Room / PACU
--- NOTE | 2017-12-09 14:13 | [facility] Operative Report ---
Operative Report Operative Date Dec 09, 2017. Pre-Operative Diagnosis Left Breast Cancer Post-Operative Diagnosis same Procedure(s) Performed Left breast wire localized lumpectomy with left axillary sentinel lymph node biopsy Surgeon Dr. Thony Cobb Multilith Operator Surgeon(s) Phillip Fernandez PA-C Estimated Blood Loss 20ML Findings 3 sentinel nodes excised, highest reading 1700 ex vivo. Axilla silent after excision. Lumpectomy performed, x-ray showed wire and clip close to inferior lateral margin. Additional inferior lateral margin taken. Specimens FRESH: A.) Left Breast, Short Stitch Superior, Long Stitch Lateral, Double Stitch Deep Margin B.) Left Breast, [place] Lymph Nodes PERMANENT: C.) Left Breast, Lateral Border D.) Left Breast, Inferior Lateral Margin, Short Stitch Superior, Long Stitch Lateral, Double Stitch Deep Margin, 4th Stitch Wright Proximal E.) Left Breast, Deep Margin Drains none Anesthesia LMA Complication(s) None Disposition Recovery Room / PACU Indications 72-year-old female with newly diagnosed triple negative breast cancer, plan for left breast wire localized lumpectomy and left x-ray sentinel lymph node biopsy. The risks of the procedure were discussed, all questions were answered , and the patient agreed to proceed with surgery as planned. Description of Procedure The patient had a localization wire placed in radiology prior to surgery. The films were reviewed for incisional planning. Patient had lymphoscintigraphy performed prior to the procedure and the axilla was examined with a gamma probe and confirmed uptake into the axilla. The patient was properly identified, consented, and taken to the operating room where she was placed in the supine position. General anesthesia] was induced. SCDs and a safety belt were placed. Preoperative antibiotics were administered. The patient's left chest and axilla were prepped and draped in the standard sterile fashion. Surgical timeout was performed and all parties were in agreement that this was the correct patient and procedure to be performed and we continued as planned. An incision was made in the left axilla and a natural skin crease and deepened down to subcutaneous tissue with electrocautery. The gamma probe was used to localize the sentinel lymph node which read 1650 in vivo, and 1700 ex vivo. The axilla was explored and additional lymph nodes were taken the registered greater than 10% of the ex vivo count of the sentinel lymph node. A total of 3 lymph nodes were excised and sent for permanent specimen, however there may have been additional lymph nodes matted in each specimen. The axilla was reexamined with the gamma probe and was silent. The wound was packed and attention turned to the breast lesion. A transverse incision was made on the left breast and deepened down through the subcutaneous tissue with electrocautery. Flaps were raised in all directions. The wire was delivered into the incision. The breast mass was circumferentially dissected, excised, and passed off the table as specimen. The specimen was oriented. A mammogram was performed of the specimen in radiology and confirmed excision of the wire and the clip, however they were close to the inferior lateral border. An additional inferior lateral margin was taken from the skin down to the chest wall with a thickness of approximately 1.5-2 cm and was oriented. Additional lateral margin and deep margin were taken. The wound was irrigated and hemostasis was confirmed. The skin was closed with interrupted 3-0 Vicryl deep dermal sutures, followed by 4- 0 Monocryl running subcuticular suture. Dermabond was placed over the wounds. The patient was extubated in the operating room and taken to the PACU where she recovered without apparent incident. All sponge, instrument and needle counts were correct at the conclusion of the procedure. The patient tolerated the procedure well. The physician's executive chef assistant was present and scrubbed for the entirety of the case and was essential in positioning, prepping and draping, retraction and exposure , excision of the specimen, and closure. I attest to the content of the Intraoperative Record and any orders documented therein. Any exceptions are noted below.
[2017-12-09] MEDS ORDERED: TRAMADOL HCL 50 MG TAB PO PRN (14:15)
[2017-12-09] MEDS ORDERED: GLUCOSE 10 TABS/TUBE PO PRN (14:15)
[2017-12-09] MEDS ORDERED: ACETAMINOPHEN 325 MG TAB PO PRN (14:15)
[2017-12-09] MEDS ORDERED: GLUCAGON FOR INJ 1 MG VIAL SQ PRN (14:15)
[2017-12-09] MEDS ORDERED: DEXTROSE 50% 50 ML SYR IV PRN (14:15)
[2017-12-09] MEDS ORDERED: MEPERIDINE HCL 25 MG/ML CARP IV PRN (14:15)
[2017-12-09] MEDS ORDERED: GLUCOSE 40% GEL 15 GM TUBE PO PRN (14:15)
[2017-12-09] MEDS ORDERED: IV FLUIDS COMPLETED PRN (15:00)
--- NOTE | 2017-12-09 15:43 | Anesthesiology Progress Note ---
Anesthesia Post Op Note Date & Time Dec 09, 2017 at 15:42 Vital Signs Pain Intensity: 0 Vital Signs Past 12 Hours Date Time Temp Pulse Resp B/P (MAP) Pulse Ox O2 Delivery O2 Flow Rate FiO2 12/09/17 15:00 68 16 138/73 100 Nasal Cannula 3 12/09/17 14:50 67 16 139/80 100 Nasal Cannula 3 12/09/17 14:40 36.3 69 16 141/74 100 Nasal Cannula 3 12/09/17 14:30 73 16 142/77 99 Nasal Cannula 3 12/09/17 14:20 74 16 126/63 98 Oxymask 5 12/09/17 14:13 36.5 74 16 149/85 98 Oxymask 5 12/09/17 09:54 36.6 63 18 134/75 (94) 97 Room Air Notes Mental Status: alert / awake / arousable, participated in evaluation Pt Amnestic to Procedure: Yes Nausea / Vomiting: adequately controlled Pain: adequately controlled Airway Patency, RR, SpO2: stable & adequate BP & HR: stable & adequate Hydration State: stable & adequate Anesthetic Complications: no major complications apparent
--- NOTE | 2017-12-09 15:50 | MAMMOGRAPHY REPORT ---
NEEDLE LOCALIZATION LEFT BREAST: 12/09/2017 CLINICAL HISTORY: Biopsy-proven left breast cancer. PROCEDURE DESCRIPTION: With imaging guidance, aseptic technique, and 1% lidocaine as the local anesth etic, the area of concern was localized with a 7.5 cm Thomas II needle. The path of approach was olivares perior. The biopsy marker clip is located along the distal portion of the wire, at the level of the hook/shelli. The needle was removed. The patient tolerated the procedure without complication. COMPARISON: Comparison is made to exams dated: 11/15/2017 mammogram, 11/15/2017 stereotactic biopsy, mammogram, 10/28/2017 mammogram, 10/24/2016 mammogram, and 10/21/2015 mammogram - [facility]. IMPRESSION: NEEDLE LOCALIZATION Mammographic guided needle localization of the residual biopsy marker clip in the left breast at appr oximately 12:00. Janet Fox M.D. ah/:12/09/2017 08:18:29 Attending Technologist: Columba Gomez RT(R)(M), [facility] Computer Engineering Technologist: Adelita Peters RT(R)(M), [facility]
[2017-12-09] MEDS: LACTATED RINGER'S 1000ML 1,000 ML IV SCH (17:04)
[2017-12-09] MEDS: FUROSEMIDE 40 MG TAB PO SCH (18:20)
[2017-12-09] MEDS: INSULIN ASPART 100 UNITS/ML 3 ML PEN SC SCH ×2 (18:22→21:26)
[2017-12-09] MEDS ORDERED: PRAVASTATIN SOD 20 MG TAB PO SCH (21:00)
[2017-12-09] MEDS ORDERED: LACTULOSE SYRUP 20 GM/30 ML UDC PO SCH (21:00)
[2017-12-09] MEDS ORDERED: IRBESARTAN 150 MG TAB PO SCH (21:00)
[2017-12-09] MEDS: RANITIDINE HCL 150 MG TAB PO SCH (21:27)
[2017-12-10 03:16] VITALS: BP 115/69; PULSE 63; TEMP 36.7; O2SAT 94
[2017-12-10 05:55] LABS: HEMATOCRIT 31.9 % (37-47); HEMOGLOBIN 10.7 g/dL (12.0-16.0); MEAN CELL VOLUME 85.1 fL (80-100); MEAN CORPUSCULAR HEMOGLOBIN 28.5 pg (25-34); MEAN CORPUSCULAR HGB CONC 33.5 g/dl (32-36); RED CELL DISTRIBUTION WIDTH CV 13.5 % (11.5-14.5); RED CELL DISTRIBUTION WIDTH SD 41.7 fL (36.4-46.3); WHITE BLOOD COUNT 8.82 K/uL (4.8-10.8)
[2017-12-10 06:05] LABS: MEAN PLATELET VOLUME 10.2 fL (7.4-10.4); PLATELET COUNT 74 K/uL (130-400)
[2017-12-10 06:18] LABS: BASO % 0.1 %; BASO ABS # 0.01 K/uL (0-0.2); IG# 0.01 K/uL (0.00-0.02); LYMPH % 13.5 %; LYMPH ABS # 1.19 K/uL (1.2-3.4); MONO ABS # 0.71 K/uL (0.11-0.59); NEUT % 78.3 %
[2017-12-10 06:28] LABS: ALBUMIN 3.1 gm/dl (3.4-5.0); CALCIUM 8.8 mg/dl (8.5-10.1); CREATININE 1.24 mg/dl (0.60-1.20)
[2017-12-10 06:31] LABS: TOTAL PROTEIN 6.7 gm/dl (6.4-8.2)
[2017-12-10] MEDS ORDERED: TRAM-453 PO (07:00)
--- NOTE | 2017-12-10 07:02 | Discharge Instructions ---
Discharge Instructions Date of Service Dec 10, 2017. Admission Reason for Admission: Left Breast Cancer, Diabetes W/Hosp Loc & Lymph Sc Discharge Discharge Diagnosis / Problem: left lumpectomy, lymph node biopsy Discharge Goals Goal(s): Therapeutic intervention Activity Recommendations Activity Limitations: as noted below Shower/Bathe: no limitations . Instructions / Follow-Up Instructions / Follow-Up Dr. Cobb in 1-2 weeks as planned, call [phone] for any questions Current Hospital Diet Patient's current hospital diet: Diabetes Type 2 Diet Discharge Diet Recommended Diet: Diabetes Type 2 Diet Procedures Procedures Performed: Left Breast Lumpectomy with Needle Localization and Left [place] Lymph Node Biopsy Pending Studies Studies pending at discharge: yes List of pending studies: pathology Medical Emergencies . Who to Call and When: Medical Emergencies: If at any time you feel your situation is an emergency, please call 911 immediately. . Non-Emergent Contact Non-Emergency issues call your: Surgeon Call Non-Emergent contact if: you have a fever, temperature is above 101.5, your pain is not controlled, wound has increased redness, wound has increased pain, you have any medication questions . "Provider Documentation" section prepared by Phillip Fernandez. . VTE Core Measure Inpt VTE Proph given/why not?: SCD's
[2017-12-10 07:54] VITALS: BP 135/76; PULSE 66; TEMP 36.7; O2SAT 95
[2017-12-10] MEDS: INSULIN ASPART 100 UNITS/ML 3 ML PEN SC SCH ×2 (08:00→12:00)
--- NOTE | 2017-12-10 08:04 | Surgery Progress Note ---
Surgery Progress Note Date of Service Dec 10, 2017. Subjective Post OP Day: 1 + feeling well, + pain controlled (no analgesics), + diet (regular), No nausea Objective Vital Signs: Date Time Temp Pulse Resp B/P (MAP) Pulse Ox O2 Delivery O2 Flow Rate FiO2 12/10/17 03:16 36.7 63 18 115/69 (84) 94 Room Air 12/09/17 23:30 95 Room Air 3.0 12/09/17 23:00 36.6 68 18 123/68 (86) 95 Room Air 12/09/17 18:23 37.0 67 16 125/72 (89) 97 Nasal Cannula 3.0 12/09/17 17:25 36.5 67 16 115/67 (83) 99 Nasal Cannula 3.0 12/09/17 16:17 36.4 64 18 126/73 (90) 99 Nasal Cannula 3.0 12/09/17 15:50 Nasal Cannula 3.0 12/09/17 15:45 36.5 73 18 146/74 (98) 98 Nasal Cannula 3.0 12/09/17 15:20 Nasal Cannula 3.0 12/09/17 15:20 Nasal Cannula 12/09/17 15:15 36.4 69 18 132/80 (97) 98 Nasal Cannula 3.0 12/09/17 15:00 68 16 138/73 100 Nasal Cannula 3 12/09/17 14:50 67 16 139/80 100 Nasal Cannula 3 12/09/17 14:40 36.3 69 16 141/74 100 Nasal Cannula 3 12/09/17 14:30 73 16 142/77 99 Nasal Cannula 3 12/09/17 14:20 74 16 126/63 98 Oxymask 5 12/09/17 14:13 36.5 74 16 149/85 98 Oxymask 5 12/09/17 09:54 36.6 63 18 134/75 (94) 97 Room Air Incision(s): intact (dressing, no hematoma) Laboratory Results: Results Past 24 Hours Test 12/09/17 08:40 12/09/17 08:50 12/09/17 14:16 12/09/17 17:03 Range/Units White Blood Count 4.62 4.8-10.8 K/uL Red Blood Count 4.15 4.2-5.4 M/uL Hemoglobin 11.9 12.0-16.0 g/dL Hematocrit 35.7 37-47 % Mean Corpuscular Volume 86.0 80-100 fL Mean Corpuscular Hemoglobin 28.7 25-34 pg Mean Corpuscular Hemoglobin Concent 33.3 32-36 g/dl RDW Standard Deviation 42.5 36.4-46.3 fL RDW Coefficient of Variation 13.4 11.5-14.5 % Platelet Count 72 130-400 K/uL Mean Platelet Volume 10.1 7.4-10.4 fL Bedside Glucose 112 117 144 70-90 mg/dl Test 12/09/17 20:34 12/10/17 05:35 Range/Units Bedside Glucose 198 70-90 mg/dl White Blood Count 8.82 4.8-10.8 K/uL Red Blood Count 3.75 4.2-5.4 M/uL Hemoglobin 10.7 12.0-16.0 g/dL Hematocrit 31.9 37-47 % Mean Corpuscular Volume 85.1 80-100 fL Mean Corpuscular Hemoglobin 28.5 25-34 pg Mean Corpuscular Hemoglobin Concent 33.5 32-36 g/dl Platelet Count 74 130-400 K/uL Mean Platelet Volume 10.2 7.4-10.4 fL Neutrophils (%) (Auto) 78.3 % Lymphocytes (%) (Auto) 13.5 % Monocytes (%) (Auto) 8.0 % Eosinophils (%) (Auto) 0.0 % Basophils (%) (Auto) 0.1 % Neutrophils # (Auto) 6.90 1.4-6.5 K/uL Lymphocytes # (Auto) 1.19 1.2-3.4 K/uL Monocytes # (Auto) 0.71 0.11-0.59 K/uL Eosinophils # (Auto) 0.00 0-0.5 K/uL Basophils # (Auto) 0.01 0-0.2 K/uL RDW Standard Deviation 41.7 36.4-46.3 fL RDW Coefficient of Variation 13.5 11.5-14.5 % Immature Granulocyte % (Auto) 0.1 % Immature Granulocyte # (Auto) 0.01 0.00-0.02 K/uL Sodium Level 136 136-145 mmol/L Potassium Level 4.0 3.5-5.1 mmol/L Chloride Level 100 98-107 mmol/L Carbon Dioxide Level 27 21-32 mmol/L Anion Gap 9.0 3-11 mmol/L Blood Urea Nitrogen 20 7-18 mg/dl Creatinine 1.24 0.60-1.20 mg/dl Est Creatinine Clear Calc Drug Dose 41.3 ml/min Estimated GFR () 51.0 Estimated GFR (Non- 44.0 BUN/Creatinine Ratio 16.5 10-20 Random Glucose 136 70-99 mg/dl Calcium Level 8.8 8.5-10.1 mg/dl Total Bilirubin 0.7 0.2-1 mg/dl Direct Bilirubin 0.2 0-0.2 mg/dl Aspartate Amino Transf (AST/SGOT) 29 15-37 U/L Alanine Aminotransferase (ALT/SGPT) 26 12-78 U/L Alkaline Phosphatase 101 45-117 U/L Total Protein 6.7 6.4-8.2 gm/dl Albumin 3.1 3.4-5.0 gm/dl Assessment & Plan s/p left lumpectomy, SLN bx doing well, AM labs stable ok for discharge
[2017-12-10] MEDS ORDERED: PANTOprazole SOD 40 MG TAB PO SCH (09:00)
[2017-12-10] MEDS ORDERED: PAROXETINE 20 MG TAB PO SCH (09:00)
[2017-12-10] MEDS ORDERED: PROPRANOLOL HCL 20 MG TAB PO SCH (09:00)
[2017-12-10] MEDS: FUROSEMIDE 40 MG TAB PO SCH (09:37)
[2017-12-10] MEDS: RANITIDINE HCL 150 MG TAB PO SCH (09:37)
[2017-12-10 11:04] VITALS: BP 135/76; PULSE 66; TEMP 36.7; O2SAT 95
[2017-12-10] MEDS: LACTATED RINGER'S 1000ML 1,000 ML IV SCH (12:00)
[2017-12-10 12:20] VITALS: BP 103/64; PULSE 63; TEMP 36.7; O2SAT 96
--- NOTE | 2017-12-10 14:41 | MAMMOGRAPHY REPORT ---
SPECIMEN LEFT BREAST: 12/09/2017 CLINICAL HISTORY: Status post left breast surgical excision. COMPARISON: Comparison is made to exams dated: 11/15/2017 mammogram, 10/31/2017 mammogram, 10/28/2017 mammogram, 10/24/2016 mammogram, and 10/21/2015 mammogram - [facility]. Findings: The radiograph was performed of the left breast surgical specimen. The localized biopsy ma rker clip is present within the specimen, along one of the images of the specimen. The tip of the wi re is also at the edge of the specimen. Results were discussed with Dr. Cobb over the telephone. He reports he will be excising additional inferomedial tissue. IMPRESSION: SPECIMEN The imaged specimen contains the preoperatively-localized biopsy marker clip. Janet Fox M.D. /:12/09/2017 15:15:28 Toy Designer: Adelita DIAZ)(M), [facility]
--- NOTE | 2017-12-11 08:30 | DISCHARGE SUMMARY ---
PRIMARY DISCHARGE DIAGNOSIS: Left breast cancer. SECONDARY DISCHARGE DIAGNOSES: 1. Type 2 diabetes. 2. Chronic kidney disease stage III. 3. Cirrhosis. 4. Gastroesophageal reflux disease. 5. Hypertension. 6. Depression 7. Sleep apnea. PROCEDURE PERFORMED: Left breast wire localized lumpectomy with left axillary sentinel lymph node biopsy. HOSPITAL COURSE: The patient is a 72-year-old female with left breast cancer and taken to the operating room for lumpectomy and sentinel lymph node biopsy. The procedure was well tolerated. She was transferred to the surgical floor for observation given her multiple medical problems. Her blood sugars were covered with sliding scale insulin. Her other routine medications were continued with the exception of metformin. Her blood pressure remained stable overnight. She was doing well on postoperative day 1. She had minimal pain and not taking any analgesics. Had Exparel and Marcaine injected at the surgical incisions. Her labs remained stable. She was stable for discharge. DISCHARGE INSTRUCTIONS: Discharged home. Follow up with Dr. Cobb as planned in approximately 1 week. DISCHARGE MEDICATIONS: Ultram 50 mg every 4 hours as needed. Resume home medications, aspirin 81 mg daily, vitamin D 2000 units daily, Nexium 40 mg daily, Lasix 40 mg b.i.d., Avapro 150 mg at bedtime, lactulose 30 mg daily, Victoza 1.2 mg subQ daily, Glucophage 500 mg b.i.d., Paxil 20 mg daily, Pravachol 10 mg daily, daily probiotic, Inderal 60 mg daily, Zantac 150 mg b.i.d. and vitamin E 400 units b.i.d.
== END 2017-12-10 13:00 | disposition home or self-care (01) ==
LOC: C.ACU 07:36 → C.MSN 08:55 → ENRESERV 14:37
PROVIDERS: ADMIT Surgery; ATTEND Surgery
DX: C50.919 Malignant neoplasm of unspecified site of unspecified female breast (principal); K74.60 Unspecified cirrhosis of liver; I12.9 Hypertensive chronic kidney disease with stage 1 through stage 4 chronic kidney disease, or unspecified chronic kidney disease; N18.3 Chronic kidney disease, stage 3 (moderate); E11.22 Type 2 diabetes mellitus with diabetic chronic kidney disease; F32.9 Major depressive disorder, single episode, unspecified; K21.9 Gastro-esophageal reflux disease without esophagitis; G47.33 Obstructive sleep apnea (adult) (pediatric); E78.5 Hyperlipidemia, unspecified; E66.9 Obesity, unspecified; Z88.5 Allergy status to narcotic agent; Z88.2 Allergy status to sulfonamides; Z91.013 Allergy to seafood; Z68.32 Body mass index [BMI] 32.0-32.9, adult; Z79.82 Long term (current) use of aspirin; Z79.899 Other long term (current) drug therapy; Z90.49 Acquired absence of other specified parts of digestive tract; Z90.710 Acquired absence of both cervix and uterus; Z90.89 Acquired absence of other organs; Z98.818 Other dental procedure status; Z98.890 Other specified postprocedural states; Z82.49 Family history of ischemic heart disease and other diseases of the circulatory system; Z82.3 Family history of stroke

== ENCOUNTER → 2017-12-30 | Outpatient (CLI) | payer OTHER ==
[~2017-12-30] MED LIST changes: -CLINDAMYCIN IV 900 MG in DEXTROSE 5% 50ML IV SCH; +GADAVIST IV PRN; -LACTATED RINGER'S 1000ML 1,000 ML IV SCH; +RANI150T85 PO; -ZNTT/150 PO
--- NOTE | 2017-12-31 15:25 | MAMMOGRAPHY REPORT ---
BREAST MRI OF BOTH BREASTS : 12/30/2017 CLINICAL HISTORY: 72-year-old woman with left breast cancer diagnosed in November 2017 status post lum pectomy. Final surgical pathology demonstrated a tumor in 2 portions of the specimen that was larger than initial mammogram imaging. Patient also has heterogeneously dense breasts. Assess for any res idual or contralateral disease. COMPARISON: Comparison is made to exams dated: 12/09/2017 localization, 11/15/2017 stereotactic biopsy, 10/31/2017 ultrasound, 10/28/2017 mammogram, 10/24/2016 mammogram, and 10/21/2015 mammogram - [facility]. TECHNIQUE: Using a 1.5 Verena magnet and dedicated breast coil, multisequence axial images were obtain ed through the breasts. After uneventful IV administration of 8.8 mL of Gadavist, dynamic multiphase contrast-enhanced axial images, and sagittal postcontrast were obtained. Temporal subtraction axial images and 3-D MIP images are provided. Everything was then reviewed on a 3-D workstation, [id number]. FINDINGS: Right breast: There is mild background parenchymal enhancement. There is a single oval circumscribed enhancing mass with faint thin nonenhancing septum in the approximate 12:00 posterior right breast m easuring 5.4 x 8.2 x 5.0 mm (axial page 66/140, sagittal page 118/148), that demonstrates mixed persi stent and plateau kinetics and is T2 hyperintense. Although this most likely represents a benign fib roadenoma, it is not definitely identified on prior mammograms to ensure long-term stability. Theref ore, targeted second look ultrasound and possible ultrasound-guided core biopsy is recommended. No other dominant enhancing mass, suspicious non-mass enhancement or suspicious kinetics are identifi ed in the right breast. No area of skin thickening or nipple retraction. The retromammary fat is in tact. No suspicious right axillary lymphadenopathy. Left breast: There is minimal background parenchymal enhancement. There is a large, predominantly T2 hyperintense circumscribed fluid collection at the site of recent lumpectomy, located 3 cm deep to t he nipple and abutting the pectoralis muscle. The fluid collection occupies most of the left upper i nner quadrant and also extends into the upper outer and lower inner quadrants, measuring approximatel y 5.6 cm in transverse by 10.6 cm in AP by 12.0 cm in craniocaudal dimension. There are amorphous an d serpiginous nonenhancing T2 isointense areas within the fluid collection, most numerous inferiorly, that most likely represent evolving blood products, and there is also a thin peripheral rim of enhan cement. Although this thin peripheral rim of enhancement can be seen with both residual disease and postsurgical change, it is uniform surrounding the entire collection without focal nodular area or fo esther thickening to suggest additional or residual disease. No other enhancing masses, non-mass enhanc ement or suspicious kinetics identified throughout the remainder of the visualized left breast. A small amount of fluid is also identified in the left axilla, in the area of prior lymph node sampli ng. There is no unexpected focal area of skin thickening or evidence of nipple retraction in the lef t breast. No suspicious left axillary lymphadenopathy. IMPRESSION: ACR BI-RADS CATEGORY 0: INCOMPLETE EVALUATION: NEED ADDITIONAL IMAGING EVALUATION 1. Postsurgical changes in the left breast, with a 5.6 x 10.6 x 12.0 cm fluid collection at the lump ectomy site, occupying most of the left upper inner breast. No definite MRI evidence of malignancy a long the periphery of the fluid collection or elsewhere throughout the visualized left breast. 2. Ovoid circumscribed enhancing 8 mm mass in the right breast at approximately 12:00 that could rep resent a benign fibroadenoma. However it is not definitely identified on prior mammograms to ensure long-term stability and therefore targeted second look ultrasound with possible ultrasound-guided cor e biopsy is recommended (45 minutes). 3. No other suspicious mass or non-mass enhancement identified in the right breast. 4. No suspicious axillary adenopathy seen bilaterally. The patient will be called to schedule an appointment. Bethany Lincoln M.D. ay/:12/30/2017 21:38:43 Crm Developer: program control analyst, [facility] letter sent: Addl Imaging 0 BI-RADS Code: ACR BI-RADS Category 0: Incomplete Evaluation: Need Additional Imaging Evaluation
== END | disposition home or self-care (01) ==
LOC: C.MRI 11:46
PROVIDERS: ATTEND Surgery
DX: C50.919 Malignant neoplasm of unspecified site of unspecified female breast (principal)

== ENCOUNTER → 2018-01-08 | Outpatient (CLI) | payer OTHER ==
[~2018-01-08] MED LIST changes: -GADAVIST IV PRN
--- NOTE | 2018-01-09 15:19 | MAMMOGRAPHY REPORT ---
SECONDLOOK ULTRASOUND OF RIGHT BREAST: 01/08/2018 CLINICAL HISTORY: 72-year-old woman with a personal history of recently diagnosed left breast cancer. At time of lumpectomy, 2 synchronous tumors were identified, and patient underwent breast MRI to ex clude the possibility of additional disease or contralateral disease. The breast MRI demonstrated an oval 8 mm enhancing mass in the approximate 12:00 right breast for which targeted second look ultras ound and possible ultrasound-guided core biopsy was recommended. COMPARISON: Comparison is made to exams dated: 10/31/2017 mammogram, 10/31/2017 ultrasound, 10/28/20 17 mammogram, 10/24/2016 mammogram, 10/21/2015 mammogram, and 10/20/2014 mammogram - [facility]. FINDINGS: Targeted ultrasound was performed throughout the superior right breast with particular atte ntion to the 12:00 and retroareolar regions. There are a few scattered anechoic cysts but no evidenc e of a discrete suspicious solid mass. In particular, no sonographic correlate for the circumscribed oval 8 mm enhancing mass seen on recent MRI. Therefore, definitive characterization with an MRI ruben ded biopsy is recommended. IMPRESSION: ACR BI-RADS CATEGORY 4: SUSPICIOUS - FOLLOW-UP RECOMMENDED 1. Targeted second look ultrasound performed in the right breast demonstrates no sonographic correla te for the oval 8 mm enhancing mass seen on recent MRI. Therefore, definitive characterization with an MRI guided biopsy is recommended. These results and recommendations were discussed with the patient at the time of the ultrasound. She tentatively scheduled the MRI guided biopsy prior to leaving the department. Bethany Lincoln M.D. ay/:01/08/2018 16:01:07 Sheriff Detective: Lucina RAMOS(R)(Xuan), [facility] letter sent: Abnormal 4/5 BI-RADS Code: ACR BI-RADS Category 4: Suspicious
== END | disposition home or self-care (01) ==
LOC: C.MAMM 12:21
PROVIDERS: ATTEND Surgery
DX: N63.10 Unspecified lump in the right breast, unspecified quadrant (principal)

== ENCOUNTER → 2018-01-10 | Outpatient (CLI) | payer OTHER ==
[~2018-01-10] MED LIST changes: +PERFLUTREN LIPID MICROSPHERE (DEFINITY) IV ONE
--- NOTE | 2018-01-10 21:10 | ECHOCARDIOGRAM REPORT ---
*NOTICE TO RECEIVING CONSTITUTION PARTY AGENCY This information is strictly Confidential and protected under [place] law. [place] law prohibits you from making any further disclosure of this information unless further disclosure is expressly permitted by the written consent of the person to whom it pertains or is authorized by law. A general authorization for the release of medical or other information is not sufficient for this purpose. Hospital accepts no responsibility if the information is made available to any other person, INCLUDING THE PATIENT. Interpretation Summary * Name: KIRSTY HERNÁNDEZ Study Date: 01/10/2018 01:39 PM BP: 106/70 mmHg * Patient Location: [facility] HR: 67 * : 1945 (M/d/yyyy) Gender: Female Height: 62 in * Age: 72 yrs Ethnicity: CA Weight: 176 lb * Ordering Physician: Franky Sanchez * Referring Physician: Franky Sanchez * Performed By: Erika Hope RDCS * * Reason For Study: BREAST CA, MR, TR, ASSESS EF PRIOR TO HERCEPTIN * BSA: 1.8 m2 * -- Conclusions -- * Left ventricular systolic function is normal. * Grade I diastolic dysfunction, (abnormal relaxation pattern). * No significant valvular disease Procedure Details * A contrast injection of Definity was performed to improve assessment of LV function. * Contrast was injected into an intravenous site in the left arm. * One vial of Definity ultrasound contrast was diluted in normal saline to a total volume of 10 ml. A total of '1' ml of solution was administered during imaging. * Lot # [id number] of Definity utilized for procedure. * Expiration date 1 DEC 30. * The attending nurse who injected the contrast agent was SONIA RAMOS RN. Left Ventricle * The left ventricle is normal in size. * There is normal left ventricular wall thickness. * Ejection Fraction = 60-65%. * Left ventricular systolic function is normal. * Grade I diastolic dysfunction, (abnormal relaxation pattern). * The left ventricular wall motion is normal. Right Ventricle * The right ventricle is normal in size and function. Atria * The left atrial size is normal. * Right atrial size is normal. Mitral Valve * The mitral valve is grossly normal. * Significant mitral regurgitation is absent. Tricuspid Valve * The tricuspid valve is not well visualized, but is grossly normal. * Significant tricuspid regurgitation is absent. Aortic Valve * The aortic valve is not well visualized. * No hemodynamically significant valvular aortic stenosis. * There is no significant aortic regurgitation. Great Vessels * The aortic root is normal size. Pericardium/Pleural * There is no pericardial effusion. MMode 2D Measurements and Calculations IVSd 1.2 cm IVSs 1.6 cm LVIDd 3.6 cm LVIDs 2.4 cm LVPWd 0.96 cm LVPWs 1.5 cm IVS/LVPW 1.3 FS 33.8 % EDV(Teich) 54.8 ml ESV(Teich) 19.9 ml EF(Teich) 63.6 % EDV(cubed) 47.0 ml ESV(cubed) 13.6 ml EF(cubed) 71.0 % % IVS thick 33.1 % % LVPW thick 59.4 % LV mass(C)d 123.7 grams LV mass(C)dI 68.3 grams/m\S\2 LV mass(C)s 131.8 grams LV mass(C)sI 72.8 grams/m\S\2 SV(Teich) 34.9 ml SI(Teich) 19.3 ml/m\S\2 SV(cubed) 33.4 ml SI(cubed) 18.5 ml/m\S\2 Ao root diam 2.9 cm Ao root area 6.5 cm\S\2 LA dimension 3.7 cm LA/Ao 1.3 Doppler Measurements and Calculations MV E max toya 75.9 cm/sec MV A max toya 106.3 cm/sec MV E/A 0.71 MV dec time 0.29 sec Ao V2 max 146.5 cm/sec Ao max PG 8.6 mmHg Ao max PG (full) 6.0 mmHg LV V1 max PG 2.6 mmHg LV V1 max 80.3 cm/sec
== END | disposition home or self-care (01) ==
LOC: C.CPL 13:35
PROVIDERS: ATTEND Internal Medicine Hematology & Oncology
DX: D05.90 Unspecified type of carcinoma in situ of unspecified breast (principal); I34.0 Nonrheumatic mitral (valve) insufficiency; I07.1 Rheumatic tricuspid insufficiency

== ENCOUNTER → 2018-01-21 | Outpatient (CLI) | payer OTHER ==
[~2018-01-21] MED LIST changes: -PERFLUTREN LIPID MICROSPHERE (DEFINITY) IV ONE
[2018-01-21 15:01] LABS: BLOOD UREA NITROGEN 22 mg/dl (7-18); CREATININE 1.25 mg/dl (0.60-1.20)
== END | disposition home or self-care (01) ==
LOC: C.LAB 13:41
PROVIDERS: ATTEND Surgery
DX: N63.10 Unspecified lump in the right breast, unspecified quadrant (principal)

== ENCOUNTER → 2018-01-22 | Outpatient (CLI) | payer OTHER ==
[~2018-01-22] MED LIST changes: +LIDO/EPINEPHRINE/SOD BICARB 20 ML VIAL INFIL ONE; +XYLOCAINE 1%/SOD BICARB 20 ML VIAL INFIL ONE
--- NOTE | 2018-01-22 12:48 | Discharge Instructions ---
Discharge Instructions Procedure Procedure Date: Jan 22, 2018. Reason for visit: Right Mass. Discharge Discharge Date: Jan 22, 2018. Discharge Diagnosis: post right breast MRI guided biopsy Instructions Activity Recommendations: Additional Limitations (see below) Return to School/Work: no limitations Recommended Home Diet: No Limitations Provider Instructions: ACTIVITY RECOMMENDATIONS: * No lifting, pushing, pulling or exercising the affected side for three days. RETURN TO SCHOOL/WORK: * You may return to work/school after the procedure, but do not perform any strenuous activities for 24 to 48 hours. MEDICATIONS: * Tylenol (two 325 mg) every four to six hours if needed for mild pain (if not allergic to Tylenol). DIET: * Resume previous diet. SPECIAL CARE INSTRUCTIONS: * Keep biopsy site dry for 24 hours. May shower after 24 hours, but do not soak (bathe) incision. * May remove Tegaderm (plastic patch) tomorrow AFTER showering. * Leave the steri-strips on for one week. Allow the steri-strips to fall off by themselves. If not off after one week, you may remove them. You may place a Bandaid crosswise over the strips, if desired. * Apply ice 10 minutes on and 10 minutes off as needed. * Wear a bra at bedtime to sleep more comfortably for 2-3 days. * Your referring physician should have the results after approximately 5 to 7 business days. * Call for unusual bleeding, fever, drainage, etc or if you have any questions call [phone] during normal business hours or after hours call Dr Lincoln, . FOLLOW UP VISIT: Follow-up with Referring Physician as scheduled. Allergies Coded Allergies: Morphine (Verified Allergy, Intermediate, "FIRE" SENSATION IN HEAD, ) Penicillins (Verified Allergy, Intermediate, HIVES, 01/22/18) Ethanol (Verified Allergy, Unknown, Stroke like symptoms, 01/22/18) Guaifenesin (Verified Allergy, Unknown, Stroke like symptoms, 01/22/18) Shellfish Allergy (Verified Allergy, Unknown, PT DEVELOPED HEPATITIS, 01/22) Verapamil (Verified Allergy, Unknown, H/A, 01/22/18) Adhesives (Verified Adverse Reaction, Intermediate, RASH,REDNESS, 01/22/18) Truong Robertson Recommendations: Call your doctor if: * Temperature above 101 degrees * Pain not relieved by pain medicine ordered * There is increased drainage or redness from any incision * You have any unanswered questions or concerns. Your Doctors Instructions noted above were prepared by provider Bethany Lincoln. Patient Signature Section: Patient Instructions Signature Page Tasneem Conde Patient (or Guardian) Signature/Date: I have read and understand the instructions given to me by my caregivers. Caregiver/RN/Doctor Signature/Date: The above-named patient and/or guardian has received patient instructions on this date. + Original Patient Signature Page (only) stays with chart. Please make copy for patient.
--- NOTE | 2018-01-22 15:38 | MAMMOGRAPHY REPORT ---
UNILATERAL RIGHT DIGITAL DIAGNOSTIC MAMMOGRAM TOMOSYNTHESIS: 01/22/2018 CLINICAL HISTORY: Status post MRI guided biopsy of an 8 mm mass in the upper outer posterior right br east. Please refer to the report from right breast MRI guided biopsy performed at the same time for full de tail. IMPRESSION: POST PROCEDURE IMAGING FOR MARKER PLACEMENT Please refer to the report from right breast MRI guided biopsy performed at the same time for full de tail. Approximately 10% of breast cancers are not detected with mammography. A negative mammographic report should not delay biopsy if a clinically suggestive mass is present. Bethany Lincoln M.D. ay/:01/22/2018 13:21:41 Public Health Inspector: Columba Lemus, [facility] BI-RADS Code: Post Procedure Imaging For Marker Placement
--- NOTE | 2018-01-23 15:17 | MAMMOGRAPHY REPORT ---
MRI BIOPSY RIGHT BREAST: 01/22/2018 CLINICAL HISTORY: 72-year-old woman with a history of left breast carcinoma status post lumpectomy fo und to have an 8 mm ovoid enhancing mass in the right upper outer quadrant approximate 12:00 axis on breast MRI. Second look ultrasound was unyielding and therefore patient presents for MRI guided biop sy. COMPARISON: Comparison is made to exams dated: 01/08/2018 ultrasound, 12/30/2017 breast MRI, 12/09/2017 specimen, 12/09/2017 localization, 11/15/2017 mammogram, and 11/15/2017 stereotactic biopsy - [facility]. PATIENT CONSENT: After explaining the risks, benefits and alternatives of the procedure to the patien t, informed consent was obtained both verbally and in writing. Specific risks include: Bleeding, inf ection, puncture of adjacent structure, medication reaction, breast or lung injury, sampling error. PROCEDURE DESCRIPTION: A timeout was performed prior to starting the procedure, and the right breast was agreed as the site for biopsy. The patient was placed prone on a 1.5 Verena MRI scanner. The lateral aspect of the right breast was cleansed with ChloraPrep. The right breast was positioned in a dedicated breast coil and MRI guidanc e grid device. After localizing sequences were obtained, pre-and postcontrast axial sequences were obtained, using 9 .5 cc Gadavist, without immediate reaction. (Initially 7.5 cc of Gadavist were administered but a por tion of the contrast spilled onto the floor from a leaking IV, and the mass was not significantly enh ancing on the postcontrast sequences. Therefore 2 additional cc of Gadavist were administered by ann denny.) The postcontrast images confirm the persistence of the dominant 8 mm enhancing mass int he u pper outer right breast. Using these images, targeting was performed using [employer] software. The skin was re-prepped with Betadine through the grid, and after local anesthesia was achieved, an i ntroducer sheath and localizing ultimate hoops scoreboard operator were placed into the right breast via a lateral approach. T he location of the obturator sheath was confirmed with additional axial images. After slight adjustm ent in the location of the obturator, 6 samples were obtained with a 9-gauge Mach[employer] vacuum-paulie galen biopsy device. Post biopsy images demonstrate partial sampling of the mass therefore 3 additional core biopsy samples were obtained and a metallic marker was placed at the site of the biopsy through the sheath. The patient tolerated the procedure well and there was no immediate complication. Hemostasis was ach ieved after several minutes of manual compression. The samples were sent to pathology in an appropri ately labeled container. Postprocedure mammography demonstrates a new dumbbell-shaped metallic biopsy marker and no significan t hematoma in the upper outer posterior right breast at the site of the biopsied 8 mm enhancing mass seen on MRI. IMPRESSION: MRI BIOPSY Status post MRI guided biopsy of an 8 mm enhancing mass in the upper outer posterior right breast, wi th dumbbell-shaped biopsy marker clip placed at the site. The patient will receive notification of the biopsy results from her referring physician. Bethany Lincoln M.D. ay/:01/22/2018 16:33:31 Inspector Welded Parts: mortgage broker, [facility]
== END | disposition home or self-care (01) ==
LOC: C.MRI 10:11
PROVIDERS: ATTEND Surgery
DX: N63.10 Unspecified lump in the right breast, unspecified quadrant (principal); D24.1 Benign neoplasm of right breast

== ENCOUNTER 2018-01-27 05:05 | Day surgery (SDC) | payer OTHER ==
[2018-01-22 08:46] VITALS: BMI 32.0
[~2018-01-27] VITALS: Ht 157.5 cm; Wt 79.5 kg
[~2018-01-27 05:05] MED LIST changes: -LIDO/EPINEPHRINE/SOD BICARB 20 ML VIAL INFIL ONE; -XYLOCAINE 1%/SOD BICARB 20 ML VIAL INFIL ONE
[2018-01-27 05:44] VITALS: BP 136/64; PULSE 75; TEMP 37.4; O2SAT 95; Ht 157.5 cm; Wt 79.5 kg
[2018-01-27] MEDS ORDERED: LACTATED RINGER'S 1000ML 500 ML IV SCH (06:00)
[2018-01-27] MEDS ORDERED: MIDAZOLAM HCL 1 MG/ML 2ML VIAL ONE (06:27)
[2018-01-27] MEDS ORDERED: PROPOFOL IV EMULSION 10 MG/ML 20 ML VIAL IV ONE ×2 (06:27→07:28)
[2018-01-27] MEDS ORDERED: FENTANYL CITRATE INJ 50 MCG/1 ML 2 ML VIAL ONE (06:27)
[2018-01-27] MEDS ORDERED: ONDANSETRON INJ 2 MG/ML 2 ML VIAL IV PRN ×2 (06:45→08:15)
[2018-01-27] MEDS ORDERED: ATROPINE SULFATE 0.1 MG/ML 5ML SYR IV PRN (06:45)
[2018-01-27] MEDS ORDERED: FENTANYL CITRATE INJ 50 MCG/1 ML 2 ML VIAL IV PRN (06:45)
[2018-01-27] MEDS ORDERED: EpHEDrine SULFATE INJ 50 MG/ML AMP IV PRN (06:45)
[2018-01-27] MEDS ORDERED: LIDOCAINE/EPINEPHRINE 1% 20 ML VIAL ONE (06:51)
[2018-01-27] MEDS ORDERED: HEPARIN SOD (PORCINE) 1000 UNIT/ML 10 ML VIAL ONE (06:51)
[2018-01-27] MEDS ORDERED: BUPIVACAINE 0.5 % 5 MG/1 ML MPF 30ML VIAL ONE (06:51)
[2018-01-27] MEDS ORDERED: CLINDAMYCIN 600 MG/54 ML D5W IV ONE (06:56)
[2018-01-27] MEDS ORDERED: NURSING VERBAL MED ORDER ONE (07:00)
--- NOTE | 2018-01-27 07:57 | [facility] Post Operative Brief Note ---
Immediate Operative Summary Operative Date Jan 27, 2018. Pre-Operative Diagnosis Invasive ductal carcinoma of breast Post-Operative Diagnosis Invasive ductal carcinoma of breast Procedure(s) Performed Insertion of Mediport, Right Internal Jugular Vein, with Flouroscopy and real-time ultrasound guidance Surgeon Dr. Cobb Water Pollution Specialist Surgeon(s) Livia Bosch PA-C Estimated Blood Loss 6 cc Findings Consistent with Post-Op Diagnosis Right internal jugular vein port placed Specimens none per surgeon Drains None Anesthesia Type MAC Complication(s) none Disposition Accompanied Pt To Recover: no Disposition: Recovery Room / PACU
--- NOTE | 2018-01-27 08:01 | [facility] Operative Report ---
Operative Report Operative Date Jan 27, 2018. Pre-Operative Diagnosis Invasive ductal carcinoma of breast Post-Operative Diagnosis Same Procedure(s) Performed Right internal jugular vein port placement with real-time ultrasound guidance and fluoroscopy Surgeon Dr. Cobb Electrical Helper Surgeon(s) Livia Bosch PA-C Estimated Blood Loss 6 cc Findings Right internal jugular vein port placed with real-time ultrasound guidance, fluoroscopy confirmed good placement of the port Specimens none per surgeon Drains None Anesthesia MAC/local Complication(s) None Disposition Recovery Room / PACU Indications 72-year-old female left breast cancer status post lumpectomy, need for port placement for chemotherapy. Plan for port placement. The risks of the procedure were discussed, all questions were answered, and the patient agreed to proceed with surgery as planned. Description of Procedure The patient was properly identified, consented, and taken to the operating room where she was placed in the supine position with both arms tucked and a shoulder roll placed vertically. Monitored anesthesia care was induced. SCDs and a safety belt were placed. Preoperative antibiotics were administered. The patient's chest and neck was prepped and draped in the standard sterile fashion. Surgical timeout was performed and all parties were in agreement that this was the correct patient and procedure to be performed and we continued as planned. The patient was placed in Trendelenburg position. Local anesthetic was injected along the skin incision. Using real-time ultrasound guidance the right internal jugular vein was accessed using the access needle. The wire was placed and the needle was removed. Fluoroscopy confirmed placement into the internal jugular vein extending into the superior vena cava. A transverse skin incision was made in the right chest and a pocket was created for the port. A hemostat was used to create a subcutaneous pathway for the catheter which was brought through the neck incision into the chest incision. The dilator and peel -away sheath were inserted over the wire. The catheter was then inserted through the peel-away sheath and fluoroscopy confirmed placement into the superior vena cava. The catheter was cut and attached to the port. The port was secured into place with 3-0 Prolene sutures. A final x-ray revealed good placement of the port. The wound was irrigated and hemostasis was confirmed. The skin was closed with interrupted 3-0 Vicryl deep dermal sutures, followed by 4-0 Monocryl running subcuticular suture. Dermabond was placed over the wound. The port was accessed and benoit blood easily and flushed easily. It was flushed with heparinized saline. The patient taken to the PACU where she recovered without apparent incident. All sponge, instrument and needle counts were correct at the conclusion of the procedure. The patient tolerated the procedure well. Chest x-ray was pending at the time of this dictation. The physician's esol teacher assistant was present and scrubbed for the entirety of the case. She was essential in positioning the patient, prepping and draping, retraction and exposure, closure of the incisions, and placement of the dressings. I attest to the content of the Intraoperative Record and any orders documented therein. Any exceptions are noted below.
--- NOTE | 2018-01-27 08:02 | [facility] Operative Report ---
Operative Report Operative Date Jan 27, 2018. Pre-Operative Diagnosis Invasive ductal carcinoma of breast Surgeon Dr. Cobb Findings Real-time ultrasound guidance was used to access right internal jugular vein. Fluoroscopy was used and interpreted by the operative surgeon throughout the procedure to assist in placement of the port. I attest to the content of the Intraoperative Record and any orders documented therein. Any exceptions are noted below.
[2018-01-27] MEDS ORDERED: SODIUM CHLORIDE 0.9% 1000ML 1,000 ML IV SCH (08:07)
--- NOTE | 2018-01-27 08:13 | Discharge Instructions ---
Discharge Instructions Date of Service Jan 27, 2018. Admission Reason for Admission: Invasive Ductal Carcinoma Of Breast Discharge Discharge Diagnosis / Problem: Invasive Ductal Carcinoma of Breast Discharge Goals Goal(s): Decrease discomfort, Improve function Activity Recommendations Activity Limitations: as noted below Lifting Limitations: no more than 10 pounds Exercise/Sports Limitations: until after follow-up appointment May Resume Sexual Activity: after follow-up appointment Shower/Bathe: tomorrow Driving or Machine Use: resume 3 days after discharge . Instructions / Follow-Up Instructions / Follow-Up You have surgical glue, Dermabond, over your incision. You may shower tomorrow. Do not soak or scrub the incision. You may use over the counter pain medication for pain control. You may use regular strength (325mg/tab) Acetaminophen 2 tabs every 4-6 hrs as needed. Do not exceed 10 tabs in a 24 hr period. Do not take more than 3000mg of Tylenol per day. Please follow-up with Dr. Cobb in the General Surgery Clinic in 1-2 weeks for incision check. Please call the office at [phone] with any questions or concerns. Current Hospital Diet Patient's current hospital diet: Discharge Diet Recommended Diet: Regular Diet Procedures Procedures Performed: Insertion of Mediport, Right Internal Jugular Vein, with Flouroscopy and real-time ultrasound guidance Pending Studies Studies pending at discharge: no Medical Emergencies . Who to Call and When: Medical Emergencies: If at any time you feel your situation is an emergency, please call 911 immediately. . Non-Emergent Contact Non-Emergency issues call your: Primary Care Provider, Surgeon Call Non-Emergent contact if: temperature is above 101.5, your pain is not controlled, wound has increased drainage, wound has increased redness . "Provider Documentation" section prepared by Livia Mata. . [place] Drug Monitoring Program Search Results: patient reviewed within database, no issues identified
--- NOTE | 2018-01-27 08:32 | DIAGNOSTIC IMAGING REPORT ---
CHEST ONE VIEW PORTABLE CLINICAL HISTORY: s/p port placement; pt in PACU tube position COMPARISON STUDY: 11/27/2017 FINDINGS: Central catheter positioned in the superior vena cava. No evidence for pneumothorax. Diaphragms are smooth. Lungs remain clear. IMPRESSION: Central catheter positioned in the superior vena cava. No evidence of pneumothorax. The above report was generated using voice recognition software. It may contain grammatical, syntax or spelling errors. Electronically signed by: Jorge Alberto Marin M.D. 01/27/2018 8:30 AM Dictated Date/Time: 01/27/2018 8:29 AM
--- NOTE | 2018-01-27 08:38 | Anesthesiology Progress Note ---
Anesthesia Post Op Note Date & Time Jan 27, 2018 at 08:38 Vital Signs Pain Intensity: 0 Vital Signs Past 12 Hours Date Time Temp Pulse Resp B/P (MAP) Pulse Ox O2 Delivery O2 Flow Rate FiO2 01/27/18 08:35 37.1 65 18 122/64 95 Nasal Cannula 2 01/27/18 08:25 66 14 119/61 94 Nasal Cannula 2 01/27/18 08:15 69 13 128/65 93 Oxymask 10 01/27/18 08:07 36.6 71 14 113/59 94 Oxymask 10 01/27/18 05:44 37.4 75 20 136/64 (88) 95 Room Air Notes Mental Status: alert / awake / arousable, participated in evaluation Pt Amnestic to Procedure: Yes Nausea / Vomiting: adequately controlled Pain: adequately controlled Airway Patency, RR, SpO2: stable & adequate BP & HR: stable & adequate Hydration State: stable & adequate Anesthetic Complications: no major complications apparent
[2018-01-27 08:45] VITALS: BP 114/59; PULSE 64; TEMP 36.8; O2SAT 95
[2018-01-27 09:15] VITALS: BP 123/62; PULSE 67; TEMP 36.2; O2SAT 91
[2018-01-27 09:45] VITALS: BP 120/57; PULSE 66; TEMP 36.1; O2SAT 91
== END 2018-01-27 09:50 | disposition home or self-care (01) ==
LOC: C.ACU 05:05
PROVIDERS: ATTEND Surgery
DX: C50.912 Malignant neoplasm of unspecified site of left female breast (principal); I12.9 Hypertensive chronic kidney disease with stage 1 through stage 4 chronic kidney disease, or unspecified chronic kidney disease; N18.3 Chronic kidney disease, stage 3 (moderate); G47.33 Obstructive sleep apnea (adult) (pediatric); E11.9 Type 2 diabetes mellitus without complications; F32.9 Major depressive disorder, single episode, unspecified; M51.36 Other intervertebral disc degeneration, lumbar region; E78.5 Hyperlipidemia, unspecified; K57.90 Diverticulosis of intestine, part unspecified, without perforation or abscess without bleeding; K21.9 Gastro-esophageal reflux disease without esophagitis; K58.9 Irritable bowel syndrome, unspecified; I34.0 Nonrheumatic mitral (valve) insufficiency; E66.9 Obesity, unspecified; E55.9 Vitamin D deficiency, unspecified; Z90.49 Acquired absence of other specified parts of digestive tract; Z90.710 Acquired absence of both cervix and uterus; Z90.722 Acquired absence of ovaries, bilateral; Z88.5 Allergy status to narcotic agent; Z88.1 Allergy status to other antibiotic agents; Z86.010 Personal history of colon polyps; Z79.890 Hormone replacement therapy; Z79.82 Long term (current) use of aspirin

== ENCOUNTER 2018-03-02 00:51 | Emergency (ER) | payer OTHER ==
[~2018-03-02] VITALS: Ht 157.5 cm; Wt 78.2 kg
[2018-03-02 00:58] VITALS: TEMP 36.9; Ht 157.5 cm; Wt 78.2 kg
[2018-03-02] MEDS ORDERED: PHENAZOPYRIDINE HCL 200 MG TAB PO STA (01:23)
[2018-03-02] MEDS ORDERED: PHENAZOPYRIDINE HOME PACK 200 MG VIAL PO ONE (01:30)
[2018-03-02] MEDS ORDERED: SULFAMETHOXAZOLE/TRIMETHOPRIM DS 800/160MG TAB PO ONE (01:30)
[2018-03-02] MEDS ORDERED: LORA-749 PO (01:34)
[2018-03-02] MEDS ORDERED: DIPH-416 PO (01:34)
[2018-03-02] MEDS ORDERED: ONDA-170 PO (01:34)
[2018-03-02] MEDS ORDERED: VITACAP37 PO (01:34)
[2018-03-02] MEDS ORDERED: PARO10TA3 PO (01:34)
[2018-03-02] MEDS ORDERED: PROC1TAB5 PO (01:34)
[2018-03-02] MEDS ORDERED: SULF800T23 PO (02:13)
--- NOTE | 2018-03-02 02:14 | EMERGENCY ROOM VISIT NOTE ---
History Report prepared by Vega: Franky Patel Under the Supervision of: Dr. Ross Enrique D.O. First contact with patient: 01:05 Chief Complaint: URINARY SYMPTOMS Stated Complaint: URINARY INFECTION History of Present Illness The patient is a 72 year old female who presents to the Emergency Room with complaints of persistent urinary pain beginning this morning. The patient states that she feels as though she has a UTI. She notes that whenever she feels like she has to urinate, she is unable to go. She reports that when she is able to urinate, it feels like a burning. She denies any fever, vomiting, and back pain. The patient states that she has a history of UTIs. Source of History: patient Onset: this morning Position: abdomen Quality: burning, other (urinary pain) Timing: other (persistent) Associated Symptoms: No fevers, No vomiting, No back pain Note: The patient states that she is unable to urinate even when she feels like she has to. Review of Systems See HPI for pertinent positives & negatives. A total of 10 systems reviewed and were otherwise negative. Past Medical & Surgical Medical Problems: (1) Breast cancer (2) Cirrhosis (3) Diabetes (4) Hypertension (5) Kidney stone (6) UTI (urinary tract infection) Surgical Problems: (1) H/O: hysterectomy (2) Hx of cholecystectomy Family History Diabetes mellitus FH: cancer FH: heart disease Gallbladder disease Hypertension Kidney disease Kidney stones Social History Smoking Status: Never Smoker Marital Status: Housing Status: lives with family Occupation Status: retired Current/Historical Medications Scheduled Aspirin (Aspirin Chewable), 81 MG PO QPM Cholecalciferol (Vitamin D), 1 CAP PO QAM Esomeprazole Magnesium (Nexium), 40 MG PO QAM Furosemide (Lasix), 40 MG PO BID Irbesartan (Avapro), 150 MG PO HS Lactulose (Encephalopathy) (Lactulose), 30 ML PO QPM Liraglutide (Victoza), 1.2 SQ QPM Metformin Hcl (Glucophage), 500 MG PO BID Paroxetine HCl (Paroxetine), 2.5 MG PO QAM Pravastatin (Pravachol ), 10 MG PO QPM Probiotic Product (Probiotic), 1 CAP PO QAM Propranolol (Inderal), 60 MG PO QAM Ranitidine (Zantac), 150 MG PO BID Sulfa/Trimethoprim (Bactrim Ds 800MG/160MG), 1 TAB PO BID Vitamin E (E-400), 400 UNITS PO BID Scheduled PRN Diphenoxylate/Atropine (Lomotil), 1 TAB PO DIRECTED PRN for Diarrhea Loratadine & Pseudoephedrine (Claritin-D 24 Hour), 1 TAB PO DIRECTED PRN for CHEMO RX Ondansetron Hcl (Zofran), 8 MG PO Q8 PRN for Nausea Prochlorperazine Maleate (Compazine), 10 MG PO Q6H PRN for Nausea or Vomiting Allergies Coded Allergies: Morphine (Verified Allergy, Intermediate, "FIRE" SENSATION IN HEAD, ) Penicillins (Verified Allergy, Intermediate, HIVES, 03/02/18) Adhesives (Verified Adverse Reaction, Intermediate, RASH,REDNESS, 03/02/18) Ethanol (Verified Adverse Reaction, Unknown, Stroke like symptoms, 03/02/18 ) Guaifenesin (Verified Adverse Reaction, Unknown, Stroke like symptoms, ) Shellfish Allergy (Verified Adverse Reaction, Unknown, PT DEVELOPED HEPATITIS, 03/02/18) Verapamil (Verified Adverse Reaction, Unknown, H/A, 03/02/18) Physical Exam Vital Signs Date Time Temp Pulse Resp B/P (MAP) Pulse Ox O2 Delivery O2 Flow Rate FiO2 03/02/18 02:24 77 20 124/70 98 03/02/18 00:58 36.9 79 18 111/59 97 Room Air Physical Exam CONSTITUTIONAL/VITAL SIGNS: Reviewed / noted above. GENERAL: Non-toxic in appearance. INTEGUMENTARY: Warm, dry, and [place]. HEAD: Normocephalic. EYES: without scleral icterus or trauma. ENT/OROPHARYNX: clear and moist. LYMPHADENOPATHY/NECK: Is supple without lymphadenopathy or meningismus. RESPIRATORY: Lungs clear and equal. CARDIOVASCULAR: Regular rate and rhythm. GI/ABDOMEN: Soft and nontender. No organomegaly or pulsatile mass. No rebound or guarding. Normal bowel sounds. EXTREMITIES: Warm and well perfused. BACK: No CVA tenderness. NEUROLOGICAL: Intact without focal deficits. PSYCHIATRIC: normal affect. MUSCULOSKELETAL: Normally developed with good muscle tone. Medical Decision & Procedures Medications Administered Medications (Trade) Dose Ordered Sig/Favian Route Start Time Stop Time Status Last Admin Dose Admin Phenazopyridine HCl (Pyridium Tab) 200 mg NOW STAT PO 03/02/18 01:23 03/02/18 01:25 DC 03/02/18 01:32 200 MG Phenazopyridine HCl (Phenazopyridine HCl 200MG Home Pack) 1 homepack UD ONCE PO 03/02/18 01:30 03/02/18 01:31 DC 03/02/18 01:32 1 HOMEPACK Trimethoprim/ Sulfamethoxazole (Septra Ds 800/ 160MG Tab) 1 tab NOW ONCE PO 03/02/18 01:30 03/02/18 01:31 DC 03/02/18 01:32 1 TAB ED Course 0107: Previous medical records were reviewed. The patient was evaluated in room B6. A complete history and physical examination was performed. 0123: Pyridium Tab 200mg PO 0130: Trimethoprim/Sulfamethoxazole 1 tab PO, Phenazopyridine HCl 1 homepack PO 0217: On reevaluation, the patient is stable. I discussed the results and findings with the patient. She verbalized agreement of the treatment plan. The patient was discharged home. Medical Decision Differential includes close head injury, intracranial bleed, facial trauma, cervical spine trauma, chest and thoracic trauma, abdominal and intra-abdominal trauma, spine neurologic trauma, extremity trauma. This is a 72-year-old female who presents to the ED with a chief complaint of urinary symptoms. Further details listed above. She denies any nausea, vomiting, fevers or flank pain. The symptoms started this morning. Her exam was unremarkable. A urine culture has been sent. The patient was placed on Pyridium as well as Bactrim. She is felt to be stable for discharge. Medication Reconcilliation Current Medication List: was personally reviewed by me Blood Pressure Screening Patient's blood pressure: Normal blood pressure Blood pressure disposition: Did not require urgent referral Impression Primary Impression: UTI (urinary tract infection) Scribe Attestation The scribe's documentation has been prepared under my direction and personally reviewed by me in its entirety. I confirm that the note above accurately reflects all work, treatment, procedures, and medical decision making performed by me. Departure Information Dispostion Home / Self-Care Prescriptions Sulfa/Trimethoprim (Bactrim Ds 800MG/160MG) Tab 1 TAB PO BID, #14 TAB Prov: Ross Enrique D.O. 03/02/18 Referrals No Doctor, Assigned (PCP) Forms HOME CARE DOCUMENTATION FORM, IMPORTANT VISIT INFORMATION Patient Instructions My [facility] Additional Instructions Bactrim as prescribed. Anticipate symptoms to improve over the next several days. Return for vomiting, fevers or worsening.
[2018-03-02 02:24] VITALS: BP 124/70; PULSE 77; O2SAT 98
== END 2018-03-02 02:26 | disposition home or self-care (01) ==
LOC: C.EDB 00:51
DX: N39.0 Urinary tract infection, site not specified (principal); Z87.442 Personal history of urinary calculi; Z87.440 Personal history of urinary (tract) infections; Z84.1 Family history of disorders of kidney and ureter; Z79.82 Long term (current) use of aspirin; Z79.84 Long term (current) use of oral hypoglycemic drugs; Z79.899 Other long term (current) drug therapy; Z88.5 Allergy status to narcotic agent; Z88.0 Allergy status to penicillin; Z88.8 Allergy status to other drugs, medicaments and biological substances; Z91.048 Other nonmedicinal substance allergy status; Z91.013 Allergy to seafood

== ENCOUNTER 2018-03-07 15:55 | Day surgery (SDC) | payer OTHER ==
[2018-03-07] VITALS (11 sets, daily range): BP systolic 99–120; BP diastolic 58–80; PULSE 67–80; TEMP 36.5–37; O2SAT 95–99
[~2018-03-07 15:55] MED LIST changes: +DIPH-416 PO; +LORA-749 PO; +ONDA-170 PO; +PARO10TA3 PO; -PARO1TAB27 PO; +PROC1TAB5 PO; +SULF800T23 PO; -VITA400C3 PO; +VITACAP37 PO
[2018-03-07] MEDS ORDERED: ACETAMINOPHEN 325 MG TAB PO SCH (17:00)
[2018-03-07] MEDS ORDERED: DiphenhydrAMINE HCL 50 MG/ML VIAL IV SCH (17:00)
== END 2018-03-07 22:46 | disposition home or self-care (01) ==
LOC: C.OPB 15:55 → C.4E 15:55 → C.OPB 22:46
PROVIDERS: ATTEND Internal Medicine Hematology & Oncology
DX: C50.111 Malignant neoplasm of central portion of right female breast (principal)

== ENCOUNTER → 2018-05-29 | Outpatient (CLI) | payer OTHER ==
[~2018-05-29] MED LIST changes: -GLC/500 PO; -LACT10SO30 PO; +PROC10TA PO; -PROC1TAB5 PO; -SULF800T23 PO
[2018-05-29 10:28] LABS: HEMOGLOBIN 10.4 g/dL (12.0-16.0); MEAN CELL VOLUME 90.4 fL (80-100); MEAN CORPUSCULAR HEMOGLOBIN 30.3 pg (25-34); MEAN CORPUSCULAR HGB CONC 33.5 g/dl (32-36); RED CELL DISTRIBUTION WIDTH CV 15.7 % (11.5-14.5); RED CELL DISTRIBUTION WIDTH SD 52.1 fL (36.4-46.3); WHITE BLOOD COUNT 2.99 K/uL (4.8-10.8)
[2018-05-29 10:34] LABS: ALBUMIN 3.2 gm/dl (3.4-5.0); ALT/SGPT 63 U/L (12-78); AST/SGOT 47 U/L (15-37); BLOOD UREA NITROGEN 15 mg/dl (7-18); CALCIUM 8.4 mg/dl (8.5-10.1); CARBON DIOXIDE 27 mmol/L (21-32); CREATININE 1.07 mg/dl (0.60-1.20); GLUCOSE 217 mg/dl (70-99); POTASSIUM 3.8 mmol/L (3.5-5.1); SODIUM 137 mmol/L (136-145)
[2018-05-29 10:37] LABS: EOS % 2.3 %; EOS ABS # 0.07 K/uL (0-0.5); IG# 0.01 K/uL (0.00-0.02); LYMPH % 18.4 %; LYMPH ABS # 0.55 K/uL (1.2-3.4); MONO % 6.4 %; MONO ABS # 0.19 K/uL (0.11-0.59); NEUT % 72.6 %; NEUT ABS # 2.17 K/uL (1.4-6.5); PLATELET COUNT 55 K/uL (130-400)
[2018-05-29 10:39] LABS: ALKALINE PHOSPHATASE 137 U/L (45-117); TOTAL PROTEIN 6.4 gm/dl (6.4-8.2)
== END | disposition home or self-care (01) ==
LOC: C.LABSPEC 09:54
PROVIDERS: ATTEND Internal Medicine Hematology & Oncology
DX: C50.111 Malignant neoplasm of central portion of right female breast (principal)

== ENCOUNTER → 2018-06-05 | Outpatient (CLI) | payer OTHER ==
[2018-06-05 10:45] LABS: HEMATOCRIT 29.6 % (37-47); MEAN CELL VOLUME 90.8 fL (80-100); MEAN CORPUSCULAR HEMOGLOBIN 30.7 pg (25-34); MEAN CORPUSCULAR HGB CONC 33.8 g/dl (32-36); MEAN PLATELET VOLUME 10.6 fL (7.4-10.4); PLATELET COUNT 68 K/uL (130-400); RED CELL DISTRIBUTION WIDTH CV 15.8 % (11.5-14.5); RED CELL DISTRIBUTION WIDTH SD 52.1 fL (36.4-46.3)
[2018-06-05 10:47] LABS: ALBUMIN 3.2 gm/dl (3.4-5.0); ALKALINE PHOSPHATASE 126 U/L (45-117); ALT/SGPT 62 U/L (12-78); AST/SGOT 39 U/L (15-37); BLOOD UREA NITROGEN 13 mg/dl (7-18); CALCIUM 8.3 mg/dl (8.5-10.1); CARBON DIOXIDE 27 mmol/L (21-32); GLUCOSE 173 mg/dl (70-99); POTASSIUM 3.7 mmol/L (3.5-5.1); SODIUM 137 mmol/L (136-145); TOTAL PROTEIN 6.4 gm/dl (6.4-8.2)
[2018-06-05 10:51] LABS: EOS % 2.9 %; EOS ABS # 0.04 K/uL (0-0.5); IG# 0.02 K/uL (0.00-0.02); LYMPH % 30.7 %; LYMPH ABS # 0.43 K/uL (1.2-3.4); MONO ABS # 0.14 K/uL (0.11-0.59); NEUT ABS # 0.77 K/uL (1.4-6.5)
== END | disposition home or self-care (01) ==
LOC: C.LABSPEC 10:15
PROVIDERS: ATTEND Nurse Practitioner Family
DX: C50.111 Malignant neoplasm of central portion of right female breast (principal)

== ENCOUNTER → 2018-06-12 | Outpatient (CLI) | payer OTHER ==
[2018-06-12 10:35] LABS: HEMATOCRIT 29.6 % (37-47); HEMOGLOBIN 9.8 g/dL (12.0-16.0); MEAN CELL VOLUME 91.4 fL (80-100); MEAN CORPUSCULAR HEMOGLOBIN 30.2 pg (25-34); MEAN CORPUSCULAR HGB CONC 33.1 g/dl (32-36); MEAN PLATELET VOLUME 10.4 fL (7.4-10.4); PLATELET COUNT 67 K/uL (130-400); RED CELL DISTRIBUTION WIDTH CV 16.1 % (11.5-14.5); RED CELL DISTRIBUTION WIDTH SD 53.8 fL (36.4-46.3)
[2018-06-12 10:48] LABS: ALBUMIN 3.1 gm/dl (3.4-5.0); ALKALINE PHOSPHATASE 125 U/L (45-117); ALT/SGPT 44 U/L (12-78); AST/SGOT 40 U/L (15-37); BLOOD UREA NITROGEN 12 mg/dl (7-18); CALCIUM 8.7 mg/dl (8.5-10.1); CARBON DIOXIDE 30 mmol/L (21-32); CREATININE 0.97 mg/dl (0.60-1.20); GLUCOSE 184 mg/dl (70-99); POTASSIUM 3.8 mmol/L (3.5-5.1); SODIUM 139 mmol/L (136-145); TOTAL PROTEIN 6.1 gm/dl (6.4-8.2)
[2018-06-12 10:56] LABS: BASO % 0.6 %; BASO ABS # 0.01 K/uL (0-0.2); EOS % 1.8 %; EOS ABS # 0.03 K/uL (0-0.5); LYMPH % 23.5 %; MONO % 20.6 %; MONO ABS # 0.35 K/uL (0.11-0.59); NEUT % 53.5 %; NEUT ABS # 0.91 K/uL (1.4-6.5)
== END | disposition home or self-care (01) ==
LOC: C.LABSPEC 10:04
PROVIDERS: ATTEND Internal Medicine Hematology & Oncology
DX: C50.111 Malignant neoplasm of central portion of right female breast (principal)

== ENCOUNTER → 2018-06-19 | Outpatient (CLI) | payer OTHER ==
[2018-06-19 10:25] LABS: HEMATOCRIT 33.8 % (37-47); HEMOGLOBIN 11.2 g/dL (12.0-16.0); MEAN CELL VOLUME 91.8 fL (80-100); MEAN CORPUSCULAR HEMOGLOBIN 30.4 pg (25-34); MEAN CORPUSCULAR HGB CONC 33.1 g/dl (32-36); RED CELL DISTRIBUTION WIDTH CV 15.7 % (11.5-14.5); RED CELL DISTRIBUTION WIDTH SD 52.8 fL (36.4-46.3); WHITE BLOOD COUNT 4.51 K/uL (4.8-10.8)
[2018-06-19 10:46] LABS: ALBUMIN 3.2 gm/dl (3.4-5.0); ALKALINE PHOSPHATASE 142 U/L (45-117); ALT/SGPT 53 U/L (12-78); AST/SGOT 41 U/L (15-37); BLOOD UREA NITROGEN 18 mg/dl (7-18); CALCIUM 8.9 mg/dl (8.5-10.1); CARBON DIOXIDE 29 mmol/L (21-32); CREATININE 1.12 mg/dl (0.60-1.20); EOS % 1.8 %; EOS ABS # 0.08 K/uL (0-0.5); GLUCOSE 219 mg/dl (70-99); IG# 0.03 K/uL (0.00-0.02); LYMPH % 12.2 %; LYMPH ABS # 0.55 K/uL (1.2-3.4); MEAN PLATELET VOLUME 9.6 fL (7.4-10.4); MONO % 11.8 %; MONO ABS # 0.53 K/uL (0.11-0.59); NEUT % 73.5 %; NEUT ABS # 3.32 K/uL (1.4-6.5); PLATELET COUNT 56 K/uL (130-400); POTASSIUM 3.9 mmol/L (3.5-5.1); SODIUM 138 mmol/L (136-145); TOTAL PROTEIN 6.4 gm/dl (6.4-8.2)
== END | disposition home or self-care (01) ==
LOC: C.LABSPEC 10:15
PROVIDERS: ATTEND Internal Medicine Hematology & Oncology
DX: C50.111 Malignant neoplasm of central portion of right female breast (principal)

== ENCOUNTER → 2018-06-26 | Outpatient (CLI) | payer OTHER ==
[2018-06-26 10:20] LABS: HEMATOCRIT 30.3 % (37-47); HEMOGLOBIN 9.9 g/dL (12.0-16.0); MEAN CORPUSCULAR HEMOGLOBIN 29.7 pg (25-34); MEAN CORPUSCULAR HGB CONC 32.7 g/dl (32-36); RED CELL DISTRIBUTION WIDTH CV 15.2 % (11.5-14.5); RED CELL DISTRIBUTION WIDTH SD 51.4 fL (36.4-46.3); WHITE BLOOD COUNT 2.63 K/uL (4.8-10.8)
[2018-06-26 10:23] LABS: MEAN PLATELET VOLUME 10.7 fL (7.4-10.4); PLATELET COUNT 59 K/uL (130-400)
[2018-06-26 10:39] LABS: ALBUMIN 3.1 gm/dl (3.4-5.0); ALKALINE PHOSPHATASE 137 U/L (45-117); ALT/SGPT 58 U/L (12-78); AST/SGOT 39 U/L (15-37); BLOOD UREA NITROGEN 16 mg/dl (7-18); CALCIUM 8.8 mg/dl (8.5-10.1); CARBON DIOXIDE 26 mmol/L (21-32); CREATININE 1.05 mg/dl (0.60-1.20); GLUCOSE 236 mg/dl (70-99); POTASSIUM 4.3 mmol/L (3.5-5.1); SODIUM 138 mmol/L (136-145); TOTAL PROTEIN 6.4 gm/dl (6.4-8.2)
[2018-06-26 10:50] LABS: BASO % 0.4 %; BASO ABS # 0.01 K/uL (0-0.2); EOS % 2.3 %; EOS ABS # 0.06 K/uL (0-0.5); IG# 0.01 K/uL (0.00-0.02); LYMPH % 16.7 %; LYMPH ABS # 0.44 K/uL (1.2-3.4); MONO % 5.3 %; MONO ABS # 0.14 K/uL (0.11-0.59); NEUT % 74.9 %; NEUT ABS # 1.97 K/uL (1.4-6.5)
== END | disposition home or self-care (01) ==
LOC: C.LABSPEC 09:57
PROVIDERS: ATTEND Internal Medicine Hematology & Oncology
DX: C50.111 Malignant neoplasm of central portion of right female breast (principal)

== ENCOUNTER → 2018-07-03 | Outpatient (CLI) | payer OTHER ==
[2018-07-03 10:24] LABS: ALT/SGPT 67 U/L (12-78); AST/SGOT 42 U/L (15-37); BLOOD UREA NITROGEN 16 mg/dl (7-18); CALCIUM 8.3 mg/dl (8.5-10.1); CARBON DIOXIDE 24 mmol/L (21-32); CREATININE 1.21 mg/dl (0.60-1.20); GLUCOSE 236 mg/dl (70-99); POTASSIUM 4.2 mmol/L (3.5-5.1); SODIUM 136 mmol/L (136-145)
[2018-07-03 10:25] LABS: HEMOGLOBIN 9.6 g/dL (12.0-16.0); MEAN CELL VOLUME 90.6 fL (80-100); MEAN CORPUSCULAR HGB CONC 33.1 g/dl (32-36); MEAN PLATELET VOLUME 10.4 fL (7.4-10.4); PLATELET COUNT 73 K/uL (130-400); RED CELL DISTRIBUTION WIDTH CV 15.6 % (11.5-14.5); WHITE BLOOD COUNT 1.24 K/uL (4.8-10.8)
[2018-07-03 10:26] LABS: ALKALINE PHOSPHATASE 128 U/L (45-117); TOTAL PROTEIN 6.2 gm/dl (6.4-8.2)
[2018-07-03 10:47] LABS: BASO % 0.8 %; BASO ABS # 0.01 K/uL (0-0.2); EOS % 2.4 %; EOS ABS # 0.03 K/uL (0-0.5); LYMPH % 37.1 %; LYMPH ABS # 0.46 K/uL (1.2-3.4); MONO % 12.1 %; MONO ABS # 0.15 K/uL (0.11-0.59); NEUT % 47.6 %; NEUT ABS # 0.59 K/uL (1.4-6.5)
== END | disposition home or self-care (01) ==
LOC: C.LABSPEC 09:52
PROVIDERS: ATTEND Internal Medicine Hematology & Oncology
DX: C50.111 Malignant neoplasm of central portion of right female breast (principal)

== ENCOUNTER 2021-07-28 09:39 | Inpatient (IN) ==
--- NOTE | 2021-07-28 10:29 | Emergency Department Note ---
Impression & Plan Acute upper gastrointestinal bleeding, Anemia, Abdominal ascites, Thrombocytopenia, BENNY (acute kidney injury) ED Provider Note INFORMANT: Patient ED PROVIDER(S): Franc Mathews MD CHIEF COMPLAINT: Abdominal distention PLAN: Disposition: Admitted Condition: Guarded Outpatient prescription management: none Referral: None MEDICAL DECISION MAKING: Patient presented because of abdominal distention also noted blood per stool. Hemoccult was performed and was positive. The patient had laboratory testing that showed BENNY with an elevated BUN. This is concerning for both acute kidney injury as well as an upper GI bleed. Patient's INR slightly elevated at 1.3. Her hemoglobin has dropped from 9.7-8.6. She is thrombocytopenic. The patient was given a Protonix bolus and drip. IV Pepcid and IV Zofran also administered. The patient was hydrated. Further management in the hospital be necessary. CT imaging of the abdomen pelvis did reveal significant ascites without any other a cute pathology noted. Consultation was made with the not any hospitalist service. Patient was evaluated in the ER and admitted for further management. Triage Nursing notes reviewed and agree them. Vital Signs: reviewed and remarkable for no significant abnormalities Differential diagnosis: End-stage liver disease, symptomatic ascites, peptic ulcer disease, variceal bleed, gastritis, Diverticulosis, AVM, coagulopathy, colitis, inflammatory bowel disease, malignancy, Livia-Mandujano tear, esophagitis, epistaxis, fissure, hemorrhoids, as well as other pathologies. Diagnostics interpreted by me: EC Lead ECG performed and revealed Normal sinus rhythym at 82, normal [place], QRS low voltage. No elevation or depression. No PACs or PVCs. Septal Q wave. Cardiac Monitoring: Cardiac monitoring ordered by me: The patient was placed on continuous cardiac monitoring and observed. It revealed a normal sinus rhythm at 77 beats per minute without ectopy or evidence of dysrhythmia. Imaging studies: CT scan of the pelvis. I refer you to the EMR for further details. HPI: The patient is a 76 year old female who presents to the Emergency Room with complaints of abdominal swelling. This started today and is persistent. Has history of ascites and paracentesis done one month ago. The patient also notes the following associated symptoms, vomiting, dark stool, diarrhea. The patient has taken no medication today for relieving factors. Current pain is rated as 0/10. Hx of BEASLEY. Pt denies LOC, headache, fevers, chills, diaphoresis, visual changes, neck pain, chest pain, breathing difficulties, nausea, vomiting, abdominal pain, back pain, melena, hematochezia, urinary symptoms, numbness, weakness, lymphadenopathy, rash, or other complaints. ROS: See above HPI for pertinent positives & negatives. A total of 10 systems reviewed and were otherwise negative. PAST MEDICAL HISTORY:See Below , ascites, breast CA PAST SURGICAL HISTORY:See Below, FAMILY HISTORY:See Below SOCIAL HISTORY:See Below, retired HOME MEDICATIONS:See Below ALLERGIES:See Below VITALS:See Below PHYSICAL EXAMINATION: GENERAL: Awake, alert, well-appearing, in no distress HENT: Normocephalic, atraumatic. Oropharynx unremarkable. EYES: Normal conjunctiva. Sclera non-icteric. NECK: Inspection normal. Non-tender. Supple. No nuchal rigidity. FROM. No masses. RESPIRATORY: Clear to auscultation. No wheezes. No rales. Normal respiratory effort. CARDIAC: Normal rate. Normal rhythm. No murmurs. No rubs. Extremities warm and well perfused. Pulses equal. No JVD. GI: Soft, moderately distended. No tenderness to palpation. No rebound or guarding. No masses. RECTAL: Deferred. MUSCULOSKELETAL: Atraumatic. Chest examination reveals no tenderness. The back is symmetrical on inspection without obvious abnormality. There is no CVA tenderness to palpation. No joint edema. LOWER EXTREMITIES: Calves are equal size bilaterally and non-tender. No edema. No discoloration. NEURO: Normal sensorium. No sensory or motor deficits noted. SKIN: No rash or jaundice noted. Franc Mathews MD Past Med/Surg History Medical History (Updated 07/28/21 @ 16:27 by Frnac Mathews MD) Anemia HX Asthma INHALERS JUST FOR WINTER > COLD TAKES BREATH AWAY> NO ACTUAL ASTHMA DX Cancer of left breast 2016--sx/chemo/radiation > PORT TO RIGHT CHEST PRESENT Cardiac murmur follows with Dr. Iglesias Cirrhosis Depression Diabetes mellitus, type 2 GERD (gastroesophageal reflux disease) Hyperlipidemia Hypertension IBS (irritable colon syndrome) Mitral valve regurgitation UNSURE OF DETAILS, DOESNT FOLLOW CARDIO Nonalcoholic fatty liver disease Sinus bradycardia PATIENT SAID SHE REMEMBERS SOMEONE TELLING HER OF THIS ON AN EKG ONE TIME, BUT DOESN'T THINK ITS A CHRONIC PROBLEM Sleep apnea cpap Tricuspid valve regurgitation UNSURE OF DETAILS, DOESNT FOLLOW CARDIO Surgical History History of cholecystectomy History of colonoscopy History of dilatation and curettage History of esophagogastroduodenoscopy (EGD) History of left cataract surgery left. 12/23/2019. 2 mg versed. no issues. History of lumpectomy of left breast History of tonsillectomy History of tooth extraction History of total hysterectomy with bilateral salpingo-oophorectomy (BSO) History of vascular access device right side APort in place History of wisdom tooth extraction Hx of left breast biopsy malignant Hx of right breast biopsy benign Family History Grandmother (Maternal) Family history of diabetes mellitus Grandmother (Maternal) No problems noted. Grandmother (Paternal) Breast cancer Aunt Breast cancer Uncle Colorectal cancer Father Hypertension Other Colonic polyp No family history of adverse response to anesthesia Denies family history of Ovarian cancer Prostate cancer Myocardial infarction Social History Smoking Status: Never smoker Second Hand Exposure: No; Hx Alcohol Use: No Hx Substance Use: No Preferred Language: Ethiopian Communication Ability: Effective Environmental Aide Required: No Beliefs That Will Affect Care: None Current Living Situation: Spouse current occupational status: retired Feels Safe at Home: Yes Childhood Exposure to Second-Hand Smoke: Yes caffeine: No Dental Care, Regularly: Yes Physical Activity Frequency: Declines to Answer Physical Activity Frequency Comment: Not very much right now due to present fluid retention issues Seatbelt Use: always Assistive Devices: Glasses Allergies Allergies Allergy/AdvReac Type Severity Reaction Status Date / Time guaifenesin Allergy Severe Stroke Verified 07/28/21 13:11 like symptoms morphine Allergy Intermediate "FIRE" Verified 07/28/21 13:11 SENSATION IN HEAD Penicillins Allergy Intermediate HIVES Verified 07/28/21 13:11 ethyl alcohol AdvReac Severe STROKE Verified 07/28/21 13:11 LIKE SYMPTOMS shellfish derived AdvReac Severe PT Verified 07/28/21 13:11 DEVELOPED HEPATITIS adhesive AdvReac Intermediate RASH,REDNES Verified 07/28/21 13:11 S verapamil AdvReac Mild H/A Verified 07/28/21 13:11 Home Meds Home Medications Medication Instructions Recorded Confirmed aspirin 81 mg tablet,delayed 81 mg PO HS 07/08/19 07/28/21 release (Aspirin Low Dose) losartan 25 mg tablet 25 mg PO DAILY tab 10/28/20 07/28/21 vitamin E 400 unit capsule 400 unit PO HS cap 10/28/20 07/28/21 calcitriol 0.25 mcg capsule 0.25 mcg PO 3XWK cap 06/21/21 07/28/21 (Rocaltrol) cholecalciferol (vitamin D3) 25 1,000 unit PO BID 07/28/21 07/28/21 mcg (1,000 unit) capsule (Vitamin D3) insulin glargine 100 unit/mL (3 10 unit SUBCUT QDD 07/28/21 07/28/21 mL) subcutaneous pen (Lantus Solostar U-100 Insulin) spironolactone 100 mg tablet 100 mg PO QAM 07/28/21 07/28/21 (Aldactone) Previous Rx's Medication Instructions Recorded OneTouch Verio test strips (blood #200 ea NS 09/06/20 sugar diagnostic) esomeprazole magnesium 40 mg 40 mg PO QAM #30 cap 01/24/21 capsule,delayed release (Nexium) OneTouch Delica Plus Lancet 33 #200 ea NS 01/30/21 gauge (lancets) BD Ultra-Fine Obdulia Pen Needle 32 #200 ea NS 02/14/21 gauge x 5/32" (pen needle, diabetic) furosemide 40 mg tablet 40 mg PO .COMPLEX #270 tab 06/21/21 spironolactone 50 mg tablet 50 mg PO DAILY #90 tab 06/21/21 pravastatin 20 mg tablet 20 mg PO QPM #90 tab 07/18/21 colestipol 1 gram tablet 1 g PO DAILY #30 tab 07/24/21 Results & Data (ED) Vital Signs Vital Signs - 24 hr 07/28/21 09:43 07/28/21 11:40 07/28/21 12:30 Temperature 36.3 C L Temperature Source Temporal Artery Scan Pulse Rate 82 72 Pulse Rate [Apical] 77 Pulse Rhythm [Apical] Regular Pulse Strength [Apical] Normal Respiratory Rate 20 18 15 Respiratory Effort / Characteristics Non-Labored Non-Labored Spontaneous Respiratory Depth Normal Normal Blood Pressure 150/71 H 142/79 H Blood Pressure [Right Arm] 134/89 Blood Pressure Mean 97 100 Blood Pressure Mean [Right Arm] 104 Pulse Oximetry 99 96 96 Oxygen Delivery Method Room Air Room Air Sepsis Recent Fever Within 48 Hours No Sepsis New/Unexplained Change in Mental Status N/A Sepsis Action Taken by Nursing No Action Required 07/28/21 13:00 Temperature Temperature Source Pulse Rate 72 Pulse Rate [Apical] Pulse Rhythm [Apical] Pulse Strength [Apical] Respiratory Rate 23 Respiratory Effort / Characteristics Respiratory Depth Blood Pressure 131/68 Blood Pressure [Right Arm] Blood Pressure Mean 89 Blood Pressure Mean [Right Arm] Pulse Oximetry 95 Oxygen Delivery Method Sepsis Recent Fever Within 48 Hours Sepsis New/Unexplained Change in Mental Status Sepsis Action Taken by Nursing Laboratory Data Result diagrams: 07/28/21 12:04 07/28/21 12:04 Lab Results 07/28/21 07/28/21 07/28/21 Range/Units 12:02 12:04 12:04 WBC 5.79 (4.8-10.8) K/uL RBC 3.08 L (4.2-5.4) M/uL Hgb 8.6 L (12.0-16.0) g/dL Hct 27.6 L (37-47) % MCV 89.6 (80-100) fL MCH 27.9 (25-34) pg MCHC 31.2 L (32-36) g/dL RDW Std Deviation 60.7 H (36.4-46.3) fL RDW Coeff of Carmelina 18.6 H (11.5-14.5) % Plt Count 71 L (130-400) K/uL MPV 9.1 (7.4-10.4) fL Immature Gran % (Auto) 0.2 % Neut % (Auto) 66.3 % Lymph % (Auto) 26.6 % [place] % (Auto) 6.6 % Eos % (Auto) 0.3 % Baso % (Auto) 0.0 % Neut # (Auto) 3.84 (1.4-6.5) K/uL Lymph # (Auto) 1.54 (1.2-3.4) K/uL [place] # (Auto) 0.38 (0.11-0.59) K/uL Eos # (Auto) 0.02 (0-0.5) K/uL Baso # (Auto) 0.00 (0-0.2) K/uL Immature Gran # (Auto) 0.01 (0.00-0.02) K/uL Platelet Estimate Decreased L (Normal) PT (9.0-12.0) Seconds INR (0.9-1.1) Sodium 137 (136-145) mmol/L Potassium 4.6 (3.5-5.1) mmol/L Chloride 108 H (98-107) mmol/L Carbon Dioxide 20 L (21-32) mmol/L Anion Gap 9.0 (3-11) BUN 65 H (7-18) mg/dl Creatinine 2.30 H (0.6-1.2) mg/dl Est Cr Clr Drug Dosing Not Reportable Est GFR ( Amer) 23.5 ml/min Est GFR (Non-Af Amer) 20.3 ml/min BUN/Creatinine Ratio 28.1 H (10-20) Glucose 143 H (70-99) mg/dl Calcium 8.7 (8.5-10.1) mg/dl Total Bilirubin 1.2 H (0.2-1) mg/dl AST 25 (15-37) U/L ALT 13 (12-78) U/L Alkaline Phosphatase 75 (45-117) U/L Total Protein 6.4 (6.4-8.2) gm/dl Albumin 2.6 L (3.4-5.0) gm/dl Globulin 3.8 (2.5-4.0) gm/dl Albumin/Globulin Ratio 0.7 L (0.9-2) Lipase 97 (73-393) U/L Urine Color Urine Appearance (Clear) Urine pH (4.5-7.5) Ur Specific [place] (1.000-1.030) Urine Protein (Negative) Urine Glucose (UA) (Negative) Urine Ketones (Negative) Urine Blood (Negative) Urine Nitrite (Negative) Urine Bilirubin (Negative) Urine Urobilinogen (Negative) Ur Leukocyte Esterase (Negative) Urine WBC (Auto) (0-5) /hpf Urine RBC (Auto) (0-4) /hpf U Hyaline Cast (Auto) (0-5) /lpf U Epithel Cells (Auto) (0-5) /lpf Urine Bacteria (Auto) (Negative) COVID-19 Eval Order SARS-CoV-2 (PCR) (Negative) Blood Type O Negative Antibody Screen NEGATIVE 07/28/21 07/28/21 07/28/21 Range/Units 12:34 13:25 13:25 WBC (4.8-10.8) K/uL RBC (4.2-5.4) M/uL Hgb (12.0-16.0) g/dL Hct (37-47) % MCV (80-100) fL MCH (25-34) pg MCHC (32-36) g/dL RDW Std Deviation (36.4-46.3) fL RDW Coeff of Carmelina (11.5-14.5) % Plt Count (130-400) K/uL MPV (7.4-10.4) fL Immature Gran % (Auto) % Neut % (Auto) % Lymph % (Auto) % [place] % (Auto) % Eos % (Auto) % Baso % (Auto) % Neut # (Auto) (1.4-6.5) K/uL Lymph # (Auto) (1.2-3.4) K/uL [place] # (Auto) (0.11-0.59) K/uL Eos # (Auto) (0-0.5) K/uL Baso # (Auto) (0-0.2) K/uL Immature Gran # (Auto) (0.00-0.02) K/uL Platelet Estimate (Normal) PT 12.7 H (9.0-12.0) Seconds INR 1.3 H (0.9-1.1) Sodium (136-145) mmol/L Potassium (3.5-5.1) mmol/L Chloride (98-107) mmol/L Carbon Dioxide (21-32) mmol/L Anion Gap (3-11) BUN (7-18) mg/dl Creatinine (0.6-1.2) mg/dl Est Cr Clr Drug Dosing Est GFR ( Amer) ml/min Est GFR (Non-Af Amer) ml/min BUN/Creatinine Ratio (10-20) Glucose (70-99) mg/dl Calcium (8.5-10.1) mg/dl Total Bilirubin (0.2-1) mg/dl AST (15-37) U/L ALT (12-78) U/L Alkaline Phosphatase (45-117) U/L Total Protein (6.4-8.2) gm/dl Albumin (3.4-5.0) gm/dl Globulin (2.5-4.0) gm/dl Albumin/Globulin Ratio (0.9-2) Lipase (73-393) U/L Urine Color Urine Appearance (Clear) Urine pH (4.5-7.5) Ur Specific [place] (1.000-1.030) Urine Protein (Negative) Urine Glucose (UA) (Negative) Urine Ketones (Negative) Urine Blood (Negative) Urine Nitrite (Negative) Urine Bilirubin (Negative) Urine Urobilinogen (Negative) Ur Leukocyte Esterase (Negative) Urine WBC (Auto) (0-5) /hpf Urine RBC (Auto) (0-4) /hpf U Hyaline Cast (Auto) (0-5) /lpf U Epithel Cells (Auto) (0-5) /lpf Urine Bacteria (Auto) (Negative) COVID-19 Eval Order Covid19 at [facility] SARS-CoV-2 (PCR) NEGATIVE (Negative) Blood Type Antibody Screen 07/28/21 Range/Units 13:40 WBC (4.8-10.8) K/uL RBC (4.2-5.4) M/uL Hgb (12.0-16.0) g/dL Hct (37-47) % MCV (80-100) fL MCH (25-34) pg MCHC (32-36) g/dL RDW Std Deviation (36.4-46.3) fL RDW Coeff of Carmelina (11.5-14.5) % Plt Count (130-400) K/uL MPV (7.4-10.4) fL Immature Gran % (Auto) % Neut % (Auto) % Lymph % (Auto) % [place] % (Auto) % Eos % (Auto) % Baso % (Auto) % Neut # (Auto) (1.4-6.5) K/uL Lymph # (Auto) (1.2-3.4) K/uL [place] # (Auto) (0.11-0.59) K/uL Eos # (Auto) (0-0.5) K/uL Baso # (Auto) (0-0.2) K/uL Immature Gran # (Auto) (0.00-0.02) K/uL Platelet Estimate (Normal) PT (9.0-12.0) Seconds INR (0.9-1.1) Sodium (136-145) mmol/L Potassium (3.5-5.1) mmol/L Chloride (98-107) mmol/L Carbon Dioxide (21-32) mmol/L Anion Gap (3-11) BUN (7-18) mg/dl Creatinine (0.6-1.2) mg/dl Est Cr Clr Drug Dosing Est GFR ( Amer) ml/min Est GFR (Non-Af Amer) ml/min BUN/Creatinine Ratio (10-20) Glucose (70-99) mg/dl Calcium (8.5-10.1) mg/dl Total Bilirubin (0.2-1) mg/dl AST (15-37) U/L ALT (12-78) U/L Alkaline Phosphatase (45-117) U/L Total Protein (6.4-8.2) gm/dl Albumin (3.4-5.0) gm/dl Globulin (2.5-4.0) gm/dl Albumin/Globulin Ratio (0.9-2) Lipase (73-393) U/L Urine Color Yellow Urine Appearance Cloudy A (Clear) Urine pH 5.5 (4.5-7.5) Ur Specific [place] 1.013 (1.000-1.030) Urine Protein Negative (Negative) Urine Glucose (UA) Negative (Negative) Urine Ketones Negative (Negative) Urine Blood 1+ H (Negative) Urine Nitrite Negative (Negative) Urine Bilirubin Negative (Negative) Urine Urobilinogen Negative (Negative) Ur Leukocyte Esterase 3+ H (Negative) Urine WBC (Auto) >30 H (0-5) /hpf Urine RBC (Auto) 0-4 (0-4) /hpf U Hyaline Cast (Auto) 1-5 (0-5) /lpf U Epithel Cells (Auto) >30 H (0-5) /lpf Urine Bacteria (Auto) 4+ H (Negative) COVID-19 Eval Order SARS-CoV-2 (PCR) (Negative) Blood Type Antibody Screen Administered Medications Pantoprazole Sodium 40 mg/ (Dextrose) 100 mls @ 20 mls/hr IV Q5H JESI Stop: 08/27/21 12:44 Last Admin: 07/28/21 13:13 Dose: 8 mg/hr, 20 mls/hr Documented by: [id number] Sodium Chloride (Nss 1000ml) 1,000 mls @ 125 mls/hr IV .Q8H STA Stop: 07/28/21 21:06 Last Admin: 07/28/21 13:14 Dose: 125 mls/hr Documented by: [id number] Discontinued Medications Furosemide (Furosemide 40 Mg/4 Ml Vial) 40 mg IV NOW STA Stop: 07/28/21 14:09 Last Admin: 07/28/21 15:13 Dose: 40 mg Documented by: [id number] Pantoprazole Sodium (Protonix Bolus/Drip) 0 mls @ 1 mls/hr IV ONE STA Stop: 07/28/21 12:22 Last Admin: 07/28/21 13:14 Dose: Not Given Documented by: [id number] Pantoprazole Sodium 80 mg/ (Dextrose) 120 mls @ 400 mls/hr IV NOW ONE Stop: 07/28/21 12:38 Last Infusion: 07/28/21 13:38 Dose: 0 mls/hr Documented by: [id number] Admin: 07/28/21 13:13 Dose: 400 mls/hr Documented by: [id number] Famotidine (Pepcid 20mg Iv Push) 20 mg in 5 mls @ 2.5 mls/min IV NOW STA Stop: 07/28/21 12:22 Last Admin: 07/28/21 13:13 Dose: 2.5 mls/min Documented by: [id number] Ondansetron HCl (Ondansetron Inj 2 Mg/Ml 2 Ml Vial) 4 mg IV NOW STA Stop: 07/28/21 12:22 Last Admin: 07/28/21 13:13 Dose: 4 mg Documented by: [id number] Imaging Data Radiologist's Impression: Abdomen/Pelvis CT 07/28/21 11:[address] WITHOUT CONTRAST CT DOSE: 1324.89 mGy.cm HISTORY: Acute nausea and vomiting with ascites vomiting, ascites TECHNIQUE: Multiaxial CT images of the abdomen and pelvis were performed without contrast. A dose lowering technique was utilized adhering to the principles of ALARA. COMPARISON STUDY: CT liver 09/30/2018, ultrasound-guided paracentesis 06/29/2021, MRI abdomen 09/08/2019 FINDINGS: Coronary artery calcifications. Small pleural effusions, right greater than left. Minimal bibasilar atelectasis. No pneumatosis or pneumoperitoneum. L imited evaluation of the solid abdominal organs without the use of IV contrast. The spleen is mildly enlarged measuring up to 13.5 cm. Unremarkable pancreas and adrenal glands. Cholecystectomy. Cirrhotic liver disease. No hepatic mass identified. Unremarkable kidneys with bilateral perinephric stranding. Pelvic floor relaxation with small cystocele. The uterus is either atrophic or surgically absent. No adnexal mass lesions. Atherosclerosis of the aorta without aneurysm. Retroaortic left renal vein. Prominent periportal lymph nodes. 9 mm retroperitoneal nodule lateral to the IVC on image 232 series 3 is likely a lymph node. Moderate sized hiatal hernia with possible distal esophageal varices. Recanalization of the umbilical vein. No bowel obstruction or bowel wall thickening. The appendix is not diagnostically visualized and is reportedly surgically absent. Large 5 abdominal pelvic ascites. Mild generalized body wall edema. Degenerative changes of the spine, pelvis and hips. IMPRESSION: 1. Cirrhotic liver disease with stigmata of portal venous hypertension including splenomegaly with large volume of abdominal pelvic ascites. 2. Small pleural effusions. 3. No bowel obstruction or bowel wall thickening. 4. Moderate sized hiatal hernia. 5. Additional findings as above. ACT 112: Negative or not required by law. The above report was generated using voice recognition software. It may contain grammatical, syntax or spelling errors. Electronically signed by: Omega Marks M.D. 07/28/2021 12:33 PM Discharge Plan Visit Data Chief Complaint: Swelling/Edema to Extremity Stated Complaint: SEVERE ABDOMINAL BLOATING, L SIDE PAIN, SWOLL LEG ED Provider: Franc Mathews ED Midlevel Provider: Inocencio Burrows Discharge Problem: Acute upper gastrointestinal bleeding, Anemia, Abdominal ascites, Thrombocytopenia, BENNY (acute kidney injury) Patient Disposition: Admitted As Inpatient Discharge Instructions Interventions: ED Discharge Assessment Last Done: 07/28/21 16:09
[2021-07-28] MEDS ORDERED: PANTOPRAZOLE BOLUS/DRIP 1 EA IV STA (12:21)
[2021-07-28] MEDS ORDERED: ONDANSETRON INJ 2 MG/ML 2 ML VIAL IV STA (12:21)
[2021-07-28] MEDS ORDERED: PANTOprazole 80 MG in DEXTROSE 5% 100 ML IV ONE (12:21)
[2021-07-28] MEDS ORDERED: FAMOTIDINE 20MG IV PUSH 20 MG/5 ML SYR IV STA (12:21)
--- NOTE | 2021-07-28 12:34 | CT Scan Report ---
ABDOMEN AND PELVIS CT WITHOUT CONTRAST CT DOSE: 1324.89 mGy.cm HISTORY: Acute nausea and vomiting with ascites vomiting, ascites TECHNIQUE: Multiaxial CT images of the abdomen and pelvis were performed without contrast. A dose lo wering technique was utilized adhering to the principles of ALARA. COMPARISON STUDY: CT liver 09/30/2018, ultrasound-guided paracentesis 06/29/2021, MRI abdomen 09/08/20 19 FINDINGS: Coronary artery calcifications. Small pleural effusions, right greater than left. Minimal b ibasilar atelectasis. No pneumatosis or pneumoperitoneum. Limited evaluation of the solid abdominal o rgans without the use of IV contrast. The spleen is mildly enlarged measuring up to 13.5 cm. Unremark able pancreas and adrenal glands. Cholecystectomy. Cirrhotic liver disease. No hepatic mass identifie d. Unremarkable kidneys with bilateral perinephric stranding. Pelvic floor relaxation with small cystoce le. The uterus is either atrophic or surgically absent. No adnexal mass lesions. Atherosclerosis of t he aorta without aneurysm. Retroaortic left renal vein. Prominent periportal lymph nodes. 9 mm retrop eritoneal nodule lateral to the IVC on image 232 series 3 is likely a lymph node. Moderate sized hiatal hernia with possible distal esophageal varices. Recanalization of the umbilical vein. No bowel obstruction or bowel wall thickening. The appendix is not diagnostically visualized a nd is reportedly surgically absent. Large 5 abdominal pelvic ascites. Mild generalized body wall oskar a. Degenerative changes of the spine, pelvis and hips. IMPRESSION: 1. Cirrhotic liver disease with stigmata of portal venous hypertension including splenomegaly with la rge volume of abdominal pelvic ascites. 2. Small pleural effusions. 3. No bowel obstruction or bowel wall thickening. 4. Moderate sized hiatal hernia. 5. Additional findings as above. ACT 112: Negative or not required by law. The above report was generated using voice recognition software. It may contain grammatical, syntax o r spelling errors. Electronically signed by: Omega Marks M.D. 07/28/2021 12:33 PM
[2021-07-28 12:41] LABS: Hematocrit (blood only) 27.6 % (37-47); Hemoglobin 8.6 g/dL (12.0-16.0); Mean Corpuscular Hemoglobin 27.9 pg (25-34); Mean Corpuscular Hgb Conc 31.2 g/dL (32-36); Mean Corpuscular Volume 89.6 fL (80-100); RDW Coefficient of Variation 18.6 % (11.5-14.5); RDW Standard Deviation 60.7 fL (36.4-46.3); Red Blood Count 3.08 M/uL (4.2-5.4); White Blood Count 5.79 K/uL (4.8-10.8)
[2021-07-28 12:46] LABS: Mean Platelet Volume 9.1 fL (7.4-10.4); Platelet Count 71 K/uL (130-400)
[2021-07-28 12:47] LABS: Eosinophils # (auto) 0.02 K/uL (0-0.5); Eosinophils % (auto) 0.3 %; Immature Granulocytes # (auto) 0.01 K/uL (0.00-0.02); Immature Granulocytes % (auto) 0.2 %; Lymphocytes # (auto) 1.54 K/uL (1.2-3.4); Lymphocytes % (auto) 26.6 %; Monocytes # (auto) 0.38 K/uL (0.11-0.59); Monocytes % (auto) 6.6 %; Neutrophils # (auto) 3.84 K/uL (1.4-6.5); Neutrophils % (auto) 66.3 %
[2021-07-28 12:49] LABS: Alanine Aminotransferase 13 U/L (12-78); Albumin Level 2.6 gm/dl (3.4-5.0); Aspartate Aminotransferase 25 U/L (15-37); BUN Creatinine Ratio 28.1 (10-20); Blood Urea Nitrogen 65 mg/dl (7-18); Calcium 8.7 mg/dl (8.5-10.1); Carbon Dioxide 20 mmol/L (21-32); Chloride 108 mmol/L (98-107); Est GFR (African American) 23.5 ml/min; Est GFR (Non-African American) 20.3 ml/min; Glucose 143 mg/dl (70-99); Lipase 97 U/L (73-393); Potassium 4.6 mmol/L (3.5-5.1); Sodium 137 mmol/L (136-145)
[2021-07-28 12:52] LABS: Albumin Globulin Ratio 0.7 (0.9-2); Alkaline Phosphatase 75 U/L (45-117); Bilirubin,Total 1.2 mg/dl (0.2-1); Globulin 3.8 gm/dl (2.5-4.0); Total Protein 6.4 gm/dl (6.4-8.2)
[2021-07-28 13:00] LABS: INR 1.3 (0.9-1.1); Prothrombin Time 12.7 Seconds (9.0-12.0)
[2021-07-28] MEDS ORDERED: SODIUM CHLORIDE 0.9% 1000ML 1,000 ML IV STA (13:07)
[2021-07-28 13:08] LABS: Platelet Estimate Decreased (Normal)
[2021-07-28] MEDS: PANTOprazole 40 MG in DEXTROSE 5% 100 ML IV SCH ×3 (13:13→22:33)
[2021-07-28] MEDS ORDERED: FUROSEMIDE 40 MG/4 ML VIAL IV STA (14:08)
[2021-07-28 14:09] LABS: Appearance Urine Cloudy (Clear); Bacteria Urine Automated 4+ (Negative); Bilirubin Urine Negative (Negative); Blood Urine 1+ (Negative); Color Urine Yellow; Epithelial Cell Urine Auto >30 /lpf (0-5); Glucose Urine UA Negative (Negative); Ketones Urine Negative (Negative); Leukocyte Esterase Urine 3+ (Negative); Nitrite Urine Negative (Negative); Protein Urine Negative (Negative); RBC Urine Automated 0-4 /hpf (0-4); Specific Gravity Urine 1.013 (1.000-1.030); Urobilinogen Urine Negative (Negative); WBC Urine Automated >30 /hpf (0-5); pH Urine 5.5 (4.5-7.5)
--- NOTE | 2021-07-28 14:27 | History & Physical Report ---
Date of Service July 28, 2021 Assessment & Plan (1) GI bleed: Plan: GI bleed unspecified presumed upper - Burning gastric pain, dark stools, BUN elevated to 65 - Blatchford score -12 - Denies any NSAID other than daily asa, social ETOH, no smoker, no caffiene use - Protonix drip started already so will continue - Unsure of her variceal component- will cover with Rocephin for now - No hematemesis - HGB 8.6- not currently symptomatic and hemodynamics stable - consented for blood by Dr. Leger, Type and cross performed - NPO - Hold aspirin, hold on chemoprophylaxis for VTE (2) Ascites: Plan: Large volume- would benefit from paracentesis - stabilize GI bleed and ensure hemodynamic stability - INR 1.3 mildly elevated from 1.1 - PLT count 71- stable as she is chronically thrombocytopenic - Paracentesis from 06/29/21- color Yellow, turbid, WBC 540, total protein 2.5, albumin 1.3-Gram stain negative and no organisms seen- no serums - Cytology- negative for malignancy- numerous reactive mesothelial cells - Consider paracentesis when GI bleed evaluated - Continue diuretics- will give Lasix 40 mg IV x 1 now (3) Liver cirrhosis secondary to BEASLEY: Plan: As above- LFTs normal - Tbili stable - INR trending up over past 2 months --1.1-1.2-1.3 (4) Obstructive sleep apnea: Plan: Continue home therapy- 11CM H20 - Patient compliant (5) GERD (gastroesophageal reflux disease): Plan: - Hold oral PPI - Continue on IV PPI Protonix drip - restart when able (6) Mitral regurgitation: Plan: Stable per last ECHo (7) Hyperlipidemia: Plan: Continue pravastatin (8) Type 2 diabetes mellitus, uncontrolled: Plan: Continue Lantus- half dose 5 subq while NPO - sliding scale coverage if needed if remains consistently >180 (9) Chronic kidney disease, stage 3: Plan: BUN increased to 65-- likely consistent with UGI bleed - Creatinine 2.3- baseline 1.3-1.6 - Hold ARB - continue diuretics at this time--- 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 variceals History of Present Illness Chief Complaint: Melena Primary Care Provider: Gildardo Haywood MD 76 YOF with past medical history of: Breast Cancer- invasive ductal carcinoma grade 3 (treated with XRT Taxol and Herceptin), medi-port placement, BEASLEY cirrhosis, ascites, GERD, HTN, DM, PAM, HLD. Patient comes to the emergency room today for complaint of 1 day of dark tarry stools. The patient endorses that yesterday she started to experience sharp burning abdominal pain over her left upper quadrant. This got worse with food so she did not eat much over the past 24 hours. She had 2 dark stools yesterday and 1 dark stool this morning, she does not endorse any gerard blood or clots on the toilet paper or in the toilet. This was associated with some dizziness and light headedness this morning. She denies any new chest pain/pressure or dyspnea with exertion. She has periodically over the past 6 months been having a pressure in the center of her chest that comes and goes, but she states that this has never came on with activity or causing her physial limitations. In the EMD the patient had routine labs drawn, chest x-ray performed, Hemoccult performed (+), and CT scan of the abdomen and pelvis, which did reveal large amount of ascites. The patient's labs revealed HGB decrease to 8.6, BUN increase to 65, Platelet count decreased to 71. Patient was started on Protonix drip in the emergency department already, so will continue. She is unsure of whether she has varices or not and complete review of the record does not clarify, will place on Rocephin. Patient is usually followed by [facility] for her initial work ups, however she was referred to [facility] last month for increasing ascites, where she did have a paracentesis done. Her abdomen today is ascitic appearing and she feels that her weight is up about 20 pounds over the past 3-4 weeks. She is not having any other abdominal pain and no jaundice. Patient will be admitted to medical telemetry unit, follow her HGB and HCT, NPO, GI consult placed for evaluation for her presumed UGI bleed. Patient will likely benefit from another paracentesis, but this is not emergent and can likely do when her coagulopathy and platelet count is improved. Patient has received her COVID vaccine and her COVID test on admission is: NEGATIVE Allergies Allergy/AdvReac Type Severity Reaction Status Date / Time guaifenesin Allergy Severe Stroke Verified 07/28/21 13:11 like symptoms morphine Allergy Intermediate "FIRE" Verified 07/28/21 13:11 SENSATION IN HEAD Penicillins Allergy Intermediate HIVES Verified 07/28/21 13:11 ethyl alcohol AdvReac Severe STROKE Verified 07/28/21 13:11 LIKE SYMPTOMS shellfish derived AdvReac Severe PT Verified 07/28/21 13:11 DEVELOPED HEPATITIS adhesive AdvReac Intermediate RASH,REDNES Verified 07/28/21 13:11 S verapamil AdvReac Mild H/A Verified 07/28/21 13:11 Home Medications Medication Instructions Recorded Confirmed Type aspirin 81 mg tablet,delayed 81 mg PO HS 07/08/19 07/28/21 History release (Aspirin Low Dose) OneTouch Verio test strips (blood #200 ea NS 09/06/20 07/24/21 Rx sugar diagnostic) losartan 25 mg tablet 25 mg PO DAILY tab 10/28/20 07/28/21 History vitamin E 400 unit capsule 400 unit PO HS cap 10/28/20 07/28/21 History esomeprazole magnesium 40 mg 40 mg PO QAM #30 cap 01/24/21 07/28/21 Rx capsule,delayed release (Nexium) OneTouch Delica Plus Lancet 33 #200 ea NS 01/30/21 07/24/21 Rx gauge (lancets) BD Ultra-Fine Obdulia Pen Needle 32 #200 ea NS 02/14/21 07/24/21 Rx gauge x 5/32" (pen needle, diabetic) calcitriol 0.25 mcg capsule 0.25 mcg PO 3XWK cap 06/21/21 07/28/21 History (Rocaltrol) furosemide 40 mg tablet 40 mg PO .COMPLEX #270 tab 06/21/21 07/28/21 Rx spironolactone 50 mg tablet 50 mg PO DAILY #90 tab 06/21/21 07/28/21 Rx pravastatin 20 mg tablet 20 mg PO QPM #90 tab 07/18/21 07/28/21 Rx colestipol 1 gram tablet 1 g PO DAILY #30 tab 07/24/21 07/28/21 Rx cholecalciferol (vitamin D3) 25 1,000 unit PO BID 07/28/21 07/28/21 History mcg (1,000 unit) capsule (Vitamin D3) insulin glargine 100 unit/mL (3 10 unit SUBCUT QDD 07/28/21 07/28/21 History mL) subcutaneous pen (Lantus Solostar U-100 Insulin) spironolactone 100 mg tablet 100 mg PO QAM 07/28/21 07/28/21 History (Aldactone) Past Med/Surg History Medical History (Updated 07/28/21 @ 16:27 by Franc Mathews MD) Anemia HX Asthma INHALERS JUST FOR WINTER > COLD TAKES BREATH AWAY> NO ACTUAL ASTHMA DX Cancer of left breast 2016--sx/chemo/radiation > PORT TO RIGHT CHEST PRESENT Cardiac murmur follows with Dr. Iglesias Cirrhosis Depression Diabetes mellitus, type 2 GERD (gastroesophageal reflux disease) Hyperlipidemia Hypertension IBS (irritable colon syndrome) Mitral valve regurgitation UNSURE OF DETAILS, DOESNT FOLLOW CARDIO Nonalcoholic fatty liver disease Sinus bradycardia PATIENT SAID SHE REMEMBERS SOMEONE TELLING HER OF THIS ON AN EKG ONE TIME, BUT DOESN'T THINK ITS A CHRONIC PROBLEM Sleep apnea cpap Tricuspid valve regurgitation UNSURE OF DETAILS, DOESNT FOLLOW CARDIO Surgical History History of cholecystectomy History of colonoscopy History of dilatation and curettage History of esophagogastroduodenoscopy (EGD) History of left cataract surgery left. 12/23/2019. 2 mg versed. no issues. History of lumpectomy of left breast History of tonsillectomy History of tooth extraction History of total hysterectomy with bilateral salpingo-oophorectomy (BSO) History of vascular access device right side APort in place History of wisdom tooth extraction Hx of left breast biopsy malignant Hx of right breast biopsy benign Family History Grandmother (Maternal) Family history of diabetes mellitus Grandmother (Maternal) No problems noted. Grandmother (Paternal) Breast cancer Aunt Breast cancer Uncle Colorectal cancer Father Hypertension Other Colonic polyp No family history of adverse response to anesthesia Denies family history of Ovarian cancer Prostate cancer Myocardial infarction Social History Smoking Status: Never smoker Second Hand Exposure: No; Hx Alcohol Use: Yes Alcohol type: beer Hx Substance Use: No Preferred Language: Somali Communication Ability: Effective Supervisor Building Maintenance Required: No Beliefs That Will Affect Care: None Current Living Situation: Spouse current occupational status: retired Feels Safe at Home: Yes and No Is there a partner from a previous relationship who is making you feel unsafe now?: No Childhood Exposure to Second-Hand Smoke: Yes caffeine: No Dental Care, Regularly: Yes Physical Activity Frequency: Declines to Answer Physical Activity Frequency Comment: Not very much right now due to present fluid retention issues Seatbelt Use: always Assistive Devices: Glasses Review of Systems Review of Systems: REVIEW OF SYSTEMS: Constitutional: (+) dizziness this morning, No fever, sweats or chills Eyes: No diplopia, no worsening or blurred vision ENT: normal hearing, no trouble swallowing Respiratory: (+) chronic cough, No sputum, dyspnea at rest or on exertion Cardiovascular: No chest pain, tightness or palpitations Abdomen: (+) pain, nausea, vomiting, diarrhea, NO constipation Musculoskeletal: No joint pain, calf pain, swelling Neurologic: No weakness, numbness/tingling, or balance problems Psychiatric: No anxiety or depression Skin: No rash or itch Physical Exam Physical Exam: PHYSICAL EXAM: General: awake, alert, no apparent distress Head: Normocephalic, atraumatic ENT: PERRL, EOMI, no pharyngeal exudate, mucous membranes moist Neuro: AAO x 3, speech clear and appropriate, strength intact bilaterally 5/5, sensation intact and equal all extremities and dermatomes, no pronator drift Chest: equal rise and fall of the chest, no accessory muscle use, no heaves or thrills, Clear to auscultation, on room air, Cardiac: Regular rate and rhythm, telemetry reviewed- NSR, skin warm dry, cap refill <3 seconds, peripheral pulses +2 no JVD, Grade II systolic murmur, no edema GI: distended, ascitic, no pain with palpation, no rebound, guarding or tenderness : Spontaneously voiding, no pain, no CVA tenderness, Extremities: Normal inspection, no peripheral edema or erythema, calfs nontender to palpation Psych: Normal mood and affect Skin: no rash or erythema Results & Data Results & Data ([facility]) Vital Signs (Past 12 Hours) Vital Signs Temp Pulse Pulse Resp BP BP Pulse Ox 07/28/21 13:00 72 23 131/68 95 07/28/21 12:30 72 15 142/79 H 96 07/28/21 11:40 77 18 134/89 96 07/28/21 09:43 36.3 C L 82 20 150/71 H 99 Laboratory Results Abnormal lab results 07/28/21 07/28/21 07/28/21 Range/Units 12:04 12:04 12:34 RBC 3.08 L (4.2-5.4) M/uL Hgb 8.6 L (12.0-16.0) g/dL Hct 27.6 L (37-47) % MCHC 31.2 L (32-36) g/dL RDW Std Deviation 60.7 H (36.4-46.3) fL RDW Coeff of Carmelina 18.6 H (11.5-14.5) % Plt Count 71 L (130-400) K/uL Platelet Estimate Decreased L (Normal) PT 12.7 H (9.0-12.0) Seconds INR 1.3 H (0.9-1.1) Chloride 108 H (98-107) mmol/L Carbon Dioxide 20 L (21-32) mmol/L BUN 65 H (7-18) mg/dl Creatinine 2.30 H (0.6-1.2) mg/dl BUN/Creatinine Ratio 28.1 H (10-20) Glucose 143 H (70-99) mg/dl Total Bilirubin 1.2 H (0.2-1) mg/dl Albumin 2.6 L (3.4-5.0) gm/dl Albumin/Globulin Ratio 0.7 L (0.9-2) Urine Appearance (Clear) Urine Blood (Negative) Ur Leukocyte Esterase (Negative) Urine WBC (Auto) (0-5) /hpf U Epithel Cells (Auto) (0-5) /lpf Urine Bacteria (Auto) (Negative) 07/28/21 Range/Units 13:40 RBC (4.2-5.4) M/uL Hgb (12.0-16.0) g/dL Hct (37-47) % MCHC (32-36) g/dL RDW Std Deviation (36.4-46.3) fL RDW Coeff of Carmelina (11.5-14.5) % Plt Count (130-400) K/uL Platelet Estimate (Normal) PT (9.0-12.0) Seconds INR (0.9-1.1) Chloride (98-107) mmol/L Carbon Dioxide (21-32) mmol/L BUN (7-18) mg/dl Creatinine (0.6-1.2) mg/dl BUN/Creatinine Ratio (10-20) Glucose (70-99) mg/dl Total Bilirubin (0.2-1) mg/dl Albumin (3.4-5.0) gm/dl Albumin/Globulin Ratio (0.9-2) Urine Appearance Cloudy A (Clear) Urine Blood 1+ H (Negative) Ur Leukocyte Esterase 3+ H (Negative) Urine WBC (Auto) >30 H (0-5) /hpf U Epithel Cells (Auto) >30 H (0-5) /lpf Urine Bacteria (Auto) 4+ H (Negative) Diagnostic Findings Abdomen/Pelvis CT 07/28/21 11:[address] WITHOUT CONTRAST CT DOSE: 1324.89 mGy.cm HISTORY: Acute nausea and vomiting with ascites vomiting, ascites TECHNIQUE: Multiaxial CT images of the abdomen and pelvis were performed without contrast. A dose lowering technique was utilized adhering to the principles of ALARA. COMPARISON STUDY: CT liver 09/30/2018, ultrasound-guided paracentesis 06/29/2021, MRI abdomen 09/08/2019 FINDINGS: Coronary artery calcifications. Small pleural effusions, right greater than left. Minimal bibasilar atelectasis. No pneumatosis or pneumoperitoneum. Limited evaluation of the solid abdominal organs without the use of IV contrast. The spleen is mildly enlarged measuring up to 13.5 cm. Unremarkable pancreas and adrenal glands. Cholecystectomy. Cirrhotic liver disease. No hepatic mass identified. Unremarkable kidneys with bilateral perinephric stranding. Pelvic floor relaxation with small cystocele. The uterus is either atrophic or surgically absent. No adnexal mass lesions. Atherosclerosis of the aorta without aneurysm. Retroaortic left renal vein. Prominent periportal lymph nodes. 9 mm retroperitoneal nodule lateral to the IVC on image 232 series 3 is likely a lymph node. Moderate sized hiatal hernia with possible distal esophageal varices. Recanalization of the umbilical vein. No bowel obstruction or bowel wall thickening. The appendix is not diagnostically visualized and is reportedly surgically absent. Large 5 abdominal pelvic ascites. Mild generalized body wall edema. Degenerative changes of the spine, pelvis and hips. IMPRESSION: 1. Cirrhotic liver disease with stigmata of portal venous hypertension including splenomegaly with large volume of abdominal pelvic ascites. 2. Small pleural effusions. 3. No bowel obstruction or bowel wall thickening. 4. Moderate sized hiatal hernia. 5. Additional findings as above. ACT 112: Negative or not required by law. The above report was generated using voice recognition software. It may contain grammatical, syntax or spelling errors. Electronically signed by: Omega Marks M.D. 07/28/2021 12:33 PM Medications Administered Pantoprazole Sodium 40 mg/ (Dextrose) 100 mls @ 20 mls/hr IV Q5H JESI Stop: 08/27/21 12:44 Last Admin: 07/28/21 13:13 Dose: 8 mg/hr, 20 mls/hr Documented by: [id number] Sodium Chloride (Nss 1000ml) 1,000 mls @ 125 mls/hr IV .Q8H STA Stop: 07/28/21 21:06 Last Admin: 07/28/21 13:14 Dose: 125 mls/hr Documented by: [id number] Discontinued Medications Pantoprazole Sodium (Protonix Bolus/Drip) 0 mls @ 1 mls/hr IV ONE STA Stop: 07/28/21 12:22 Last Admin: 07/28/21 13:14 Dose: Not Given Documented by: [id number] Pantoprazole Sodium 80 mg/ (Dextrose) 120 mls @ 400 mls/hr IV NOW ONE Stop: 07/28/21 12:38 Last Infusion: 07/28/21 13:38 Dose: 0 mls/hr Documented by: [id number] Admin: 07/28/21 13:13 Dose: 400 mls/hr Documented by: [id number] Famotidine (Pepcid 20mg Iv Push) 20 mg in 5 mls @ 2.5 mls/min IV NOW STA Stop: 07/28/21 12:22 Last Admin: 07/28/21 13:13 Dose: 2.5 mls/min Documented by: [id number] Ondansetron HCl (Ondansetron Inj 2 Mg/Ml 2 Ml Vial) 4 mg IV NOW STA Stop: 07/28/21 12:22 Last Admin: 07/28/21 13:13 Dose: 4 mg Documented by: [id number] ECG Additional Comments: Pending on admission Code Status & VTE Plan Code Status CODE: FULL VTE: SCDs, ambulation VTE Prophylaxis Plan VTE Prophylaxis will be ordered: Yes Supervising Physician Co-Signing Physician Notes I personally saw and examined the patient. I verified all parish points and agree with HOSSEIN Smith with the following exceptions and/or additions: 76yo female with known BEASLEY liver cirrhosis presents with melena for 1 day. No hematemesis. O/E well appearing, HS 1+2, RRR, no murmurs, Abdo distended, ascites fluid wave present, SNT, BS normal. A/P Melena with acute blood loss anemia - suspect esophageal varices until proven otherwise. H&H Q6H. Pantoprazole IV drip. Ceftriaxone for prophylaxis. NPO, contacted GI (Dr Jimenez) for EGD. Ascites - plan paracentesis following stability of GI bleed as above, do not suspect sBP based on exam. Last paracentesis 06/29. PG Care Time/CCT Total # of Minutes Spent Total Time Spent with Patient: Total time spent is greater than 50% in coordination of care (as documented) at patient's floor/unit and/or counseling patient: Coding Level of Care Code 01652 Initial Inpt Care Lvl 3 Diagnoses GI bleed K92.2 Ascites R18.8 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 Obstructive sleep apnea G47.33 Mitral regurgitation I34.0 Hyperlipidemia E78.5 Type 2 diabetes mellitus, uncontrolled E11.65 Chronic kidney disease, stage 3 N18.3 Osteopenia M85.80 Malignant neoplasm of central portion of left breast in female, estrogen receptor negative C50.112; Z17.1 Thrombocytopenia D69.6 UTI (urinary tract infection) N39.0 GERD (gastroesophageal reflux disease) K21.9
--- NOTE | 2021-07-28 15:45 | Gastrointestinal Consultation ---
Date of Consultation July 28, 2021 Assessment & Plan (1) GI bleed: EGD. Procedure and risks explained to patient which include but not limited to medication reaction, bleeding, perforation, aspiration, and missed lesions. ascites---needs abx because of bleeding and also recommend tap to check for SBP History of Present Illness Reason for Consultation: Melena Requesting Physician: DR Leger History of Present Illness Pt with complaint of abd pain, vomiting of coffee grounds and passing black stools. CT a/p on admit showed cirrhosis, large ascites, possible esohageal varices. Pt has seen by DR Epps in the past and noted to have cirrhosis likely from BEASLEY. REviewed scopes done by DR Epps at [facility] in 07/2019. EGD showed grade 1 esohageal varices and colonoscopy was normal. She most recently saw DR Marcano office and had paracentesis of 4 liters of ascites done 06/29/21. Pt indicated to DR Leger she wanted to stay in [facility] system so we were consulted. Hgb on admit 8.6 vs 9.6 baseline 06/05/21. Allergies Allergy/AdvReac Type Severity Reaction Status Date / Time guaifenesin Allergy Severe Stroke Verified 07/28/21 13:11 like symptoms morphine Allergy Intermediate "FIRE" Verified 07/28/21 13:11 SENSATION IN HEAD Penicillins Allergy Intermediate HIVES Verified 07/28/21 13:11 ethyl alcohol AdvReac Severe STROKE Verified 07/28/21 13:11 LIKE SYMPTOMS shellfish derived AdvReac Severe PT Verified 07/28/21 13:11 DEVELOPED HEPATITIS adhesive AdvReac Intermediate RASH,REDNES Verified 07/28/21 13:11 S verapamil AdvReac Mild H/A Verified 07/28/21 13:11 Home Medications Medication Instructions Recorded Confirmed Type aspirin 81 mg tablet,delayed 81 mg PO HS 07/08/19 07/28/21 History release (Aspirin Low Dose) OneTouch Verio test strips (blood #200 ea NS 09/06/20 07/24/21 Rx sugar diagnostic) losartan 25 mg tablet 25 mg PO DAILY tab 10/28/20 07/28/21 History vitamin E 400 unit capsule 400 unit PO HS cap 10/28/20 07/28/21 History esomeprazole magnesium 40 mg 40 mg PO QAM #30 cap 01/24/21 07/28/21 Rx capsule,delayed release (Nexium) OneTouch Delica Plus Lancet 33 #200 ea NS 01/30/21 07/24/21 Rx gauge (lancets) BD Ultra-Fine Obdulia Pen Needle 32 #200 ea NS 02/14/21 07/24/21 Rx gauge x 5/32" (pen needle, diabetic) calcitriol 0.25 mcg capsule 0.25 mcg PO 3XWK cap 06/21/21 07/28/21 History (Rocaltrol) furosemide 40 mg tablet 40 mg PO .COMPLEX #270 tab 06/21/21 07/28/21 Rx spironolactone 50 mg tablet 50 mg PO DAILY #90 tab 06/21/21 07/28/21 Rx pravastatin 20 mg tablet 20 mg PO QPM #90 tab 07/18/21 07/28/21 Rx colestipol 1 gram tablet 1 g PO DAILY #30 tab 07/24/21 07/28/21 Rx cholecalciferol (vitamin D3) 25 1,000 unit PO BID 07/28/21 07/28/21 History mcg (1,000 unit) capsule (Vitamin D3) insulin glargine 100 unit/mL (3 10 unit SUBCUT QDD 07/28/21 07/28/21 History mL) subcutaneous pen (Lantus Solostar U-100 Insulin) spironolactone 100 mg tablet 100 mg PO QAM 07/28/21 07/28/21 History (Aldactone) Patient History Medical History (Updated 07/28/21 @ 15:06 by HOSSEIN Sadler) Anemia HX Asthma INHALERS JUST FOR WINTER > COLD TAKES BREATH AWAY> NO ACTUAL ASTHMA DX Cancer of left breast 2016--sx/chemo/radiation > PORT TO RIGHT CHEST PRESENT Cardiac murmur follows with Dr. Iglesias Cirrhosis Depression Diabetes mellitus, type 2 GERD (gastroesophageal reflux disease) Hyperlipidemia Hypertension IBS (irritable colon syndrome) Mitral valve regurgitation UNSURE OF DETAILS, DOESNT FOLLOW CARDIO Nonalcoholic fatty liver disease Sinus bradycardia PATIENT SAID SHE REMEMBERS SOMEONE TELLING HER OF THIS ON AN EKG ONE TIME, BUT DOESN'T THINK ITS A CHRONIC PROBLEM Sleep apnea cpap Tricuspid valve regurgitation UNSURE OF DETAILS, DOESNT FOLLOW CARDIO Surgical History History of cholecystectomy History of colonoscopy History of dilatation and curettage History of esophagogastroduodenoscopy (EGD) History of left cataract surgery left. 12/23/2019. 2 mg versed. no issues. History of lumpectomy of left breast History of tonsillectomy History of tooth extraction History of total hysterectomy with bilateral salpingo-oophorectomy (BSO) History of vascular access device right side APort in place History of wisdom tooth extraction Hx of left breast biopsy malignant Hx of right breast biopsy benign Family History Grandmother (Maternal) Family history of diabetes mellitus Grandmother (Maternal) No problems noted. Grandmother (Paternal) Breast cancer Aunt Breast cancer Uncle Colorectal cancer Father Hypertension Other Colonic polyp No family history of adverse response to anesthesia Denies family history of Ovarian cancer Prostate cancer Myocardial infarction Social History Smoking Status: Never smoker Second Hand Exposure: No; Hx Alcohol Use: No Hx Substance Use: No Preferred Language: Pashto Communication Ability: Effective Prevention Specialist Required: No Beliefs That Will Affect Care: None Current Living Situation: Spouse current occupational status: retired Feels Safe at Home: Yes Childhood Exposure to Second-Hand Smoke: Yes caffeine: No Dental Care, Regularly: Yes Physical Activity Frequency: Declines to Answer Physical Activity Frequency Comment: Not very much right now due to present fluid retention issues Seatbelt Use: always Assistive Devices: Glasses Review of Systems Review of Systems: All systems reviewed & are unremarkable except as noted in HPI & below Physical Exam Constitutional: WD/WN, vitals as above Eyes: PERRL, conjunctivae normal, anicteric sclerae Neck: trachea midline, no thyromegaly Respiratory: normal respiratory effort, lungs clear to auscultation Cardiovascular: RRR, no murmur, no edema Rate/Rhythm: regular rate Gastrointestinal (Abdomen): positive bowel sounds, protuberant, firm abdomen from ascites, no guarding nor rebound Neurologic: PERRL, EOMI, accommodation nl, no face palsy, no dysarthria Psychiatric: A+Ox3, euthymic affect Results & Data ([facility]) Vital Signs (Past 12 Hours) Vital Signs Temp Pulse Pulse Resp BP BP Pulse Ox 07/28/21 15:00 75 18 129/92 95 07/28/21 13:00 72 23 131/68 95 07/28/21 12:30 72 15 142/79 H 96 07/28/21 11:40 77 18 134/89 96 07/28/21 09:43 36.3 C L 82 20 150/71 H 99
[2021-07-28] MEDS ORDERED: GLUCOSE 10 TABS/TUBE PO PRN (15:50)
[2021-07-28] MEDS ORDERED: ONDANSETRON INJ 2 MG/ML 2 ML VIAL IV PRN (15:50)
[2021-07-28] MEDS ORDERED: GLUCOSE 40% GEL 15 GM TUBE PO PRN (15:50)
[2021-07-28] MEDS ORDERED: DEXTROSE 50% 50 ML SYRINGE IV PRN (15:50)
[2021-07-28] MEDS ORDERED: CARBOHYDRATES FOR HYPOGLYCEMIA PO PRN (15:50)
[2021-07-28] MEDS ORDERED: GLUCAGON FOR INJ 1 MG VIAL SQ PRN (15:50)
--- NOTE | 2021-07-28 16:00 | Anesthesiology Consultation ---
Date of Service July 28, 2021 Assessment & Plan Chart Review Chart Review: Acceptable Risk for Surgery and Patient NOT seen in Pre Admission Testing Consults Requested none ASA ASA4 Proposed Anesthesia Anesthesia Type: MAC Risk / Benefits Reviewed With: PT / POA / Parent / Guardian, Accepts Plan and Informed Consent Obtained History Surgery Operation Date: 07/28/21 17:15 Proposed Procedures p Esophagogastroduodenoscopy Dr Jimenez - Victor Manuel Jimenez Height/Weight Height: 5 ft 2 in Allergies Allergy/AdvReac Type Severity Reaction Status Date / Time guaifenesin Allergy Severe Stroke Verified 07/28/21 13:11 like symptoms morphine Allergy Intermediate "FIRE" Verified 07/28/21 13:11 SENSATION IN HEAD Penicillins Allergy Intermediate HIVES Verified 07/28/21 13:11 ethyl alcohol AdvReac Severe STROKE Verified 07/28/21 13:11 LIKE SYMPTOMS shellfish derived AdvReac Severe PT Verified 07/28/21 13:11 DEVELOPED HEPATITIS adhesive AdvReac Intermediate RASH,REDNES Verified 07/28/21 13:11 S verapamil AdvReac Mild H/A Verified 07/28/21 13:11 Medications Home Medications Medication Instructions Recorded Confirmed Last Taken aspirin 81 mg tablet,delayed 81 mg PO HS 07/08/19 07/28/21 07/27/21 release (Aspirin Low Dose) OneTouch Verio test strips (blood #200 ea NS 09/06/20 07/24/21 Unknown sugar diagnostic) losartan 25 mg tablet 25 mg PO DAILY tab 10/28/20 07/28/21 07/27/21 vitamin E 400 unit capsule 400 unit PO HS cap 10/28/20 07/28/21 07/27/21 esomeprazole magnesium 40 mg 40 mg PO QAM #30 cap 01/24/21 07/28/21 07/27/21 capsule,delayed release (Nexium) OneTouch Delica Plus Lancet 33 #200 ea NS 01/30/21 07/24/21 Unknown gauge (lancets) BD Ultra-Fine Obdulia Pen Needle 32 #200 ea NS 02/14/21 07/24/21 Unknown gauge x 5/32" (pen needle, diabetic) calcitriol 0.25 mcg capsule 0.25 mcg PO 3XWK cap 06/21/21 07/28/21 07/26/21 (Rocaltrol) furosemide 40 mg tablet 40 mg PO .COMPLEX #270 tab 06/21/21 07/28/21 07/27/21 spironolactone 50 mg tablet 50 mg PO DAILY #90 tab 06/21/21 07/28/21 07/27/21 pravastatin 20 mg tablet 20 mg PO QPM #90 tab 07/18/21 07/28/21 07/27/21 colestipol 1 gram tablet 1 g PO DAILY #30 tab 07/24/21 07/28/21 07/27/21 cholecalciferol (vitamin D3) 25 1,000 unit PO BID 07/28/21 07/28/21 07/27/21 mcg (1,000 unit) capsule (Vitamin D3) insulin glargine 100 unit/mL (3 10 unit SUBCUT QDD 07/28/21 07/28/21 07/27/21 mL) subcutaneous pen (Lantus Solostar U-100 Insulin) spironolactone 100 mg tablet 100 mg PO QAM 07/28/21 07/28/21 07/27/21 (Aldactone) Active Medications Generic Name Dose Route Start Last Admin Trade Name Freq PRN Reason Stop Dose Admin Pantoprazole Sodium 40 mg/ 100 mls @ 20 mls/hr 07/28/21 12:45 07/28/21 13:13 Dextrose IV 08/27/21 12:44 8 mg/hr Q5H JESI 20 mls/hr Administration 8 MG/HR Sodium Chloride 1,000 mls @ 125 mls/hr 07/28/21 13:07 07/28/21 13:14 Nss 1000ml IV 07/28/21 21:06 125 mls/hr .Q8H STA Administration NPO Date Last Intake of Fluids: 07/28/21 Time Last Intake of Fluids: 06:00 Date Last Intake of Solids: 07/26/21 Time Last Intake of Solids: 08:00 Past Medical History Medical History (Updated 07/28/21 @ 15:06 by HOSSEIN Sadler) Anemia HX Asthma INHALERS JUST FOR WINTER > COLD TAKES BREATH AWAY> NO ACTUAL ASTHMA DX Cancer of left breast 2016--sx/chemo/radiation > PORT TO RIGHT CHEST PRESENT Cardiac murmur follows with Dr. Iglesias Cirrhosis Depression Diabetes mellitus, type 2 GERD (gastroesophageal reflux disease) Hyperlipidemia Hypertension IBS (irritable colon syndrome) Mitral valve regurgitation UNSURE OF DETAILS, DOESNT FOLLOW CARDIO Nonalcoholic fatty liver disease Sinus bradycardia PATIENT SAID SHE REMEMBERS SOMEONE TELLING HER OF THIS ON AN EKG ONE TIME, BU T DOESN'T THINK ITS A CHRONIC PROBLEM Sleep apnea cpap Tricuspid valve regurgitation UNSURE OF DETAILS, DOESNT FOLLOW CARDIO Exercise / Class Metabolic Activity II 4-5 Yardwork/Stairs/Walk up hill Past Family History Family History Grandmother (Maternal) Family history of diabetes mellitus Grandmother (Maternal) No problems noted. Grandmother (Paternal) Breast cancer Aunt Breast cancer Uncle Colorectal cancer Father Hypertension Other Colonic polyp No family history of adverse response to anesthesia Denies family history of Ovarian cancer Prostate cancer Myocardial infarction Past Surgical History Surgical History History of cholecystectomy History of colonoscopy History of dilatation and curettage History of esophagogastroduodenoscopy (EGD) History of left cataract surgery left. 12/23/2019. 2 mg versed. no issues. History of lumpectomy of left breast History of tonsillectomy History of tooth extraction History of total hysterectomy with bilateral salpingo-oophorectomy (BSO) History of vascular access device right side APort in place History of wisdom tooth extraction Hx of left breast biopsy malignant Hx of right breast biopsy benign Past Anesthesia History No Hx of Anesthesia Complications and No Family Hx of Anesthesia Complications History of PONV No Hx of PONV and No Hx of Motion Sickness Social History Smoking Status: Never smoker Hx Alcohol Use: No Hx Substance Use: No substance use type: does not use Physical Exam Vital Signs Last Vital Signs Temp 36.1 C L 07/28/21 15:50 Pulse 72 07/28/21 15:50 Resp 18 07/28/21 15:50 BP 146/100 H 07/28/21 15:50 Pulse Ox 98 07/28/21 15:50 ENMT Mouth: no dentition abnormality Thyromental Distance: > or= 3.5 Finger Breadths Mallampati Class: II Neck normal visual inspection Respiratory normal respiratory effort Auscultation: lungs clear to auscultation bilaterally Cardiovascular Rate/Rhythm: regular rate and regular rhythm Psychiatric Orientation: alert Testing Laboratory Results 07/28/21 12:04 07/28/21 12:04 PT 12.7 Seconds (9.0-12.0) H 07/28/21 12:34 INR 1.3 (0.9-1.1) H 07/28/21 12:34 Urine Color Yellow 07/28/21 13:40 Urine Appearance Cloudy (Clear) A 07/28/21 13:40 Urine pH 5.5 (4.5-7.5) 07/28/21 13:40 Ur Specific [employer] 1.013 (1.000-1.030) 07/28/21 13:40 Urine Protein Negative (Negative) 07/28/21 13:40 Urine Glucose (UA) Negative (Negative) 07/28/21 13:40 Urine Ketones Negative (Negative) 07/28/21 13:40 Urine Nitrite Negative (Negative) 07/28/21 13:40 Ur Leukocyte Esterase 3+ (Negative) H 07/28/21 13:40 Urine WBC (Auto) >30 /hpf (0-5) H 07/28/21 13:40 Urine RBC (Auto) 0-4 /hpf (0-4) 07/28/21 13:40 U Hyaline Cast (Auto) 1-5 /lpf (0-5) 07/28/21 13:40 U Epithel Cells (Auto) >30 /lpf (0-5) H 07/28/21 13:40 Urine Bacteria (Auto) 4+ (Negative) H 07/28/21 13:40 Blood Type O Negative 07/28/21 12:02 Antibody Screen NEGATIVE 07/28/21 12:02
[2021-07-28] MEDS ORDERED: LIDOCAINE 2% 2 ML VIAL/AMP(20MG/ML) INFIL ONE (16:18)
[2021-07-28] MEDS ORDERED: PROPOFOL IV EMULSION 10 MG/ML 20 ML VIAL IV ONE (16:18)
--- NOTE | 2021-07-28 16:22 | Electrocardiogram Report ---
Test Reason : Blood Pressure : / mmHG Vent. Rate : 073 BPM Atrial Rate : 073 BPM P-R Int : 160 ms QRS Dur : 126 ms QT Int : 418 ms P-R-T Axes : -07 -46 007 degrees QTc Int : 460 ms Sinus rhythm with Premature supraventricular complexes Incomplete right bundle branch block Left anterior fascicular block Bifascicular block Poor R wave progression, consider anterior [place] vs. lead placement vs. LVH Abnormal ECG When compared with ECG of 27-NOV-2017 10:24, Premature supraventricular complexes are now Present Borderline criteria for Lateral infarct are now Present Confirmed by Jarred Salgado ([id number]) on 07/28/2021 4:22:24 PM Referred By: REFERRED SELF Confirmed By:Jarred Salgado
--- NOTE | 2021-07-28 16:23 | GI REPORT ---
Patient Name: Tasneem Conde Procedure Date: 07/28/2021 3:59 PM Date of : 1945 Admit Type: Inpatient Age: 76 Gender: Female Attending MD: Victor Manuel Jimenez MD Procedure: Upper GI endoscopy Providers: Victor Manuel Jimenez MD Referring MD: Bryan Leger Md Indications: Coffee-ground emesis, Melena Medicines: Monitored Anesthesia Care Complications: No immediate complications. Estimated blood loss: None. Estimated Blood Loss: Estimated blood loss: none. Procedure: Pre-Anesthesia Assessment: - The risks and benefits of the procedure and the sedation options and risks were discussed with the patient. All questions were answered and informed consent was obtained. After obtaining informed consent, the endoscope was passed under direct vision. Throughout the procedure, the patient's blood pressure, pulse, and oxygen saturations were monitored continuously. The Endoscope was introduced through the mouth, and advanced to the second part of duodenum. The upper GI endoscopy was accomplished without difficulty. The patient tolerated the procedure well. Procedure and risks explained to patient which include but not limited to medication reaction, bleeding, perforation, aspiration , and missed lesions. Judicious gas insufflation was used and gas removal done on the way out. The lumen was always visualized when advancing the scope. Prep was good. Washes and suctioning used as needed to get good visualization of the mucosa. Retroflexion to look at the fundus and cardia of the stomach and GE junction was done. Findings: Esophagogastric landmarks were identified: the Z-line was found at 35 cm from the incisors. Large (> 5 mm) varices were found in the middle third of the esophagus and in the lower third of the esophagus. LA Grade C (one or more mucosal breaks continuous between tops of 2 or more mucosal folds, less than 75% circumference) esophagitis with no bleeding was found in the distal esophagus. The stomach was normal. The examined duodenum was normal. No fresh nor old blood noted througout exam. Impression: - Esophagogastric landmarks identified. - Large (> 5 mm) esophageal varices. - LA Grade C erosive esophagitis. - Normal stomach. - Normal examined duodenum. - No fresh nor old blood noted througout exam. - No specimens collected. Recommendation: - [facility]. - Suspect erosive esophagitis is the source of bleeding in absence of gerard red hematemsis which is more likely with variceal bleed. PPI for erosive esohagitis and eventual Propranalol or Carvadilol or Nadalol for control of portal HTN. Victor Manuel Jimenez M.D. Victor Manuel Jimenez MD 07/28/2021 4:23:21 PM This report has been signed electronically. Note Initiated On: 07/28/2021 3:59 PM Number of Addenda: 0 I attest to the content of the Intraoperative Record and orders documented therein, exceptions below {[id number]}
--- NOTE | 2021-07-28 16:41 | Anesthesiology Progress Note ---
Date of Service July 28, 2021 Anesthesia Post Procedure Vital Signs Vital Signs: Temp Pulse Pulse Resp BP BP Pulse Ox 07/28/21 16:31 72 16 133/72 96 07/28/21 16:16 77 16 123/72 96 07/28/21 16:08 110/88 97 07/28/21 15:50 36.1 C L 72 18 146/100 H 98 07/28/21 15:00 75 18 129/92 95 07/28/21 13:00 72 23 131/68 95 07/28/21 12:30 72 15 142/79 H 96 07/28/21 11:40 77 18 134/89 96 07/28/21 09:43 36.3 C L 82 20 150/71 H 99 Transfer of Care Handoff Completed per policy Notes Mental Status: alert / awake / arousable Patient Amnestic to Procedure: Yes Nausea / Vomiting: adequately controlled Pain: adequately controlled Airway Patency, RR, SpO2: stable & adequate BP & HR: stable & adequate Hydration State: stable & adequate Anesthetic Complications: no major complications apparent
[2021-07-28] MEDS: cefTRIAXone SODIUM 2,000 MG in DEXTROSE 5% 50 ML IV SCH (18:22)
[2021-07-28] MEDS: INSULIN GLARGINE SOLOSTAR 100 UNITS/ML 3 ML PEN SQ SCH (18:24)
[2021-07-28 19:26] LABS: Hematocrit (blood only) 25.9 % (37-47); Hemoglobin 8.2 g/dL (12.0-16.0); Mean Corpuscular Hemoglobin 27.7 pg (25-34); Mean Corpuscular Hgb Conc 31.7 g/dL (32-36); Mean Corpuscular Volume 87.5 fL (80-100); RDW Coefficient of Variation 18.6 % (11.5-14.5); RDW Standard Deviation 60.7 fL (36.4-46.3); Red Blood Count 2.96 M/uL (4.2-5.4); White Blood Count 4.89 K/uL (4.8-10.8)
[2021-07-28 19:38] LABS: Mean Platelet Volume 9.3 fL (7.4-10.4); Platelet Count 69 K/uL (130-400)
[2021-07-28 19:47] LABS: Basophils # (auto) 0.01 K/uL (0-0.2); Basophils % (auto) 0.2 %; Echinocytes 1+; Eosinophils # (auto) 0.05 K/uL (0-0.5); Lymphocytes # (auto) 1.57 K/uL (1.2-3.4); Lymphocytes % (auto) 32.1 %; Monocytes # (auto) 0.41 K/uL (0.11-0.59); Monocytes % (auto) 8.4 %; Neutrophils # (auto) 2.85 K/uL (1.4-6.5); Neutrophils % (auto) 58.3 %
[2021-07-28] MEDS: PRAVASTATIN SOD 20 MG TAB PO SCH (22:36)
[2021-07-29 01:28] LABS: Hematocrit (blood only) 24.9 % (37-47); Hemoglobin 7.8 g/dL (12.0-16.0); Mean Corpuscular Hgb Conc 31.3 g/dL (32-36); Mean Corpuscular Volume 89.2 fL (80-100); RDW Coefficient of Variation 18.6 % (11.5-14.5); RDW Standard Deviation 61.3 fL (36.4-46.3); Red Blood Count 2.79 M/uL (4.2-5.4); White Blood Count 4.73 K/uL (4.8-10.8)
[2021-07-29 02:10] LABS: Basophilic Stippling 1+; Eosinophils # (auto) 0.09 K/uL (0-0.5); Eosinophils % (auto) 1.9 %; Lymphocytes # (auto) 1.64 K/uL (1.2-3.4); Lymphocytes % (auto) 34.7 %; Mean Platelet Volume 9.2 fL (7.4-10.4); Monocytes # (auto) 0.35 K/uL (0.11-0.59); Monocytes % (auto) 7.4 %; Neutrophils # (auto) 2.65 K/uL (1.4-6.5); Ovalocytes 1+; Platelet Count 63 K/uL (130-400)
[2021-07-29] MEDS: PANTOprazole 40 MG in DEXTROSE 5% 100 ML IV SCH ×5 (03:19→23:09)
--- NOTE | 2021-07-29 07:55 | Hospitalist Progress Note ---
Date of Service July 29, 2021 Assessment & Plan (1) GI bleed: Plan: Tasneem is a 76-year-old female with a past medical history of Beasley with cirrhosis, esophageal varices, erosive-itis, CKD 3, PAM, hyperlipidemia, and ascites who presented with epigastric pain and who on EGD was found to have large nonbleeding esophageal varices and erosive esophagitis likely the cause of an upper GI bleed. She has tense abdominal ascites and is currently pending a therapeutic (and potentially diagnostic, GI recommended screening for SBP) paracentesis anticipated for Tuesday 07/31. GI bleed 2/2 erosive esophagitis, nonbleeding large varices appreciated on EGD EGD 07/28: Erosive esophagitis likely the cause of bleeding, nonbleeding large esophageal varices - Blatchford score -12 - Denies any NSAID other than daily asa, social ETOH, no smoking, no caffeine use - Protonix drip continue for another 24 hours hours then convert to p.o. twice daily -Hemoglobin downtrending to 7.8 from 8.2 in ER and 9.6 prior - consented for blood by Dr. Leger, Type and cross performed -Clear liquid - Hold aspirin, hold on chemoprophylaxis for VTE (2) Ascites: Plan: Large volume- would benefit from paracentesis - stabilize GI bleed and ensure hemodynamic stability - INR 1.3 mildly elevated from 1.1 - PLT count 71- stable as she is chronically thrombocytopenic - Paracentesis from 06/29/21- color Yellow, turbid, WBC 540, total protein 2.5, albumin 1.3-Gram stain negative and no organisms seen- no serums . Cytology- negative for malignancy- numerous reactive mesothelial cells -Pending diagnostic and therapeutic paracentesis, anticipate likely Saturday with gastroenterology. Continue SBP prophylaxis (3) Liver cirrhosis secondary to BEASLEY: Plan: As above- LFTs normal - Tbili stable - INR trending up over past 2 months --1.1-1.2-1.3 - CMP daily Patient follows with [facility] as outpatient (4) Obstructive sleep apnea: Plan: Continue home therapy- 11CM H20 - Patient compliant (5) GERD (gastroesophageal reflux disease): Plan: - PPI as otherwise noted (6) Mitral regurgitation: Plan: Stable per last ECHo (7) Hyperlipidemia: Plan: Continue pravastatin (8) Type 2 diabetes mellitus, uncontrolled: Plan: Continue Lantus- half dose 5 subq while NPO -Morning BSG 122, may add conservative sliding scale if persistent hyperglycemia occurs (9) Chronic kidney disease, stage 3: Plan: Multifactorial occluding prerenal with poor forward flow and acute GI bleed - BUN increased to 65-- likely consistent with UGI bleed - Creatinine increased sulema admit 2.3 - baseline 1.3-1.6 - Hold ARB - 07/29 Cr 2.34 (10) Osteopenia: Plan: Hold calcium and Vitamin D for now - can start once tolerating regular diet following GI evaluation (11) Malignant neoplasm of central portion of left breast in female, estrogen receptor negative: Plan: Stable - remains with [facility] - completed therapy as per HPI - Follows with mammography and MRI (12) Thrombocytopenia: Plan: Chronic- baseline is 70-90 - Likely related to her cirrhosis (13) UTI (urinary tract infection): Plan: Asymptomatic bacteriuria Covered with Rocephin added for SBP prophylaxis (14) Esophageal varices: Plan: Large, known to patient Nonbleeding on EGD Patient would likely benefit from addition of nebivolol or propranolol as outpatient, she reports that she was on propranolol but was stopped and cannot remember why. Will discuss/follow-up with [facility] regarding bleeding prophylaxis (15) Erosive esophagitis: Plan: PPI therapy as noted, continue IV Protonix for another 24 hours then convert to p.o. twice daily Rocephin SBP prophylaxis as otherwise noted Admission and Anticipated Discharge Date Admission Date: July 28, 2021 Dominic Boateng is seen at the bedside this morning. She was sitting up, in no acute distress. Reports she feels tired and a lot of pressure in her belly, and the pressure makes it slightly difficult to breathe. Otherwise she feels improved today, has some epigastric pressure but minimal to no tenderness. She has various questions about the pathogenesis of her illness which are discussed with her at bedside, no additional questions or concerns. She reports if possible she would like to have a therapeutic paracentesis as the fluid in her belly is causing her discomfort making it difficult for her to breathe. She reports she has had this performed 1 time in the past. She also is aware that she has esophageal varices, reports that she was originally on propranolol by her outpatient GI physician but this was discontinued and she is not sure why. Review of Systems Review of Systems: Constitutional: Denies fever, chills. Endorses fatigue ENT: Denies ear pain, sore throat, sinus pain Cardiovascular: Denies Chest pain, chest pressure, palpitations. Endorses lower extremity swelling chronically Respiratory: As noted in HPI, denies cough Gastrointestinal: As noted in HPI Genitourinary: Denies dysuria, urinary frequency Musculoskeletal: Denies acute focal weakness, muscle aches/pain, joint aches/pain Integumentary:Denies acute rash, lesions, bruising Neurological: Denies numbness, tingling, focal weakness Results & Data Results & Data ([facility]) Vital Signs (Past 12 Hours) Vital Signs Temp Pulse Pulse Resp BP Pulse Ox 07/29/21 03:42 36.7 C 69 16 134/77 97 07/29/21 01:51 73 07/28/21 23:32 36.7 C 72 18 111/75 98 PG Care Time/CCT Total # of Minutes Spent Total Time Spent with Patient: Total time spent is greater than 50% in coordination of care (as documented) at patient's floor/unit and/or counseling patient: Coding Level of Care Code 31269 Subseq Hosp Care Lvl 3 Diagnoses GI bleed K92.2 Ascites R18.8 Liver cirrhosis secondary to BAESLEY K75.81; K74.60 Obstructive sleep apnea G47.33 GERD (gastroesophageal reflux disease) K21.9 Mitral regurgitation I34.0 Hyperlipidemia E78.5 Type 2 diabetes mellitus, uncontrolled E11.65 Chronic kidney disease, stage 3 N18.3 Osteopenia M85.80 Malignant neoplasm of central portion of left breast in female, estrogen receptor negative C50.112; Z17.1 Thrombocytopenia D69.6 UTI (urinary tract infection) N39.0 Esophageal varices I85.00 Erosive esophagitis K22.10
[2021-07-29 08:17] LABS: Hemoglobin 7.6 g/dL (12.0-16.0); Mean Corpuscular Hemoglobin 27.6 pg (25-34); Mean Corpuscular Hgb Conc 31.7 g/dL (32-36); Mean Corpuscular Volume 87.3 fL (80-100); RDW Coefficient of Variation 18.9 % (11.5-14.5); RDW Standard Deviation 60.3 fL (36.4-46.3); Red Blood Count 2.75 M/uL (4.2-5.4); White Blood Count 4.38 K/uL (4.8-10.8)
[2021-07-29 08:29] LABS: Mean Platelet Volume 9.2 fL (7.4-10.4); Platelet Count 59 K/uL (130-400)
[2021-07-29 08:43] LABS: Basophils # (auto) 0.01 K/uL (0-0.2); Basophils % (auto) 0.2 %; Eosinophils # (auto) 0.08 K/uL (0-0.5); Eosinophils % (auto) 1.8 %; Lymphocytes # (auto) 1.46 K/uL (1.2-3.4); Lymphocytes % (auto) 33.3 %; Monocytes # (auto) 0.34 K/uL (0.11-0.59); Monocytes % (auto) 7.8 %; Neutrophils # (auto) 2.49 K/uL (1.4-6.5); Neutrophils % (auto) 56.9 %; RBC Morphology Unremarkable
[2021-07-29] MEDS ORDERED: SPIRONOLACTONE 25 MG TAB PO SCH (09:00)
[2021-07-29] MEDS ORDERED: SPIRONOLACTONE 100 MG TAB PO SCH (09:00)
[2021-07-29 09:22] LABS: BUN Creatinine Ratio 27.9 (10-20); Calcium 8.6 mg/dl (8.5-10.1); Creatinine Clr Calc Pharmacy 22.8 ml/min; Est GFR (Non-African American) 19.8 ml/min; Potassium 4.1 mmol/L (3.5-5.1)
[2021-07-29 09:23] LABS: Magnesium 2.4 mg/dl (1.8-2.4)
[2021-07-29] MEDS: COLESTIPOL HCL 1 GM TAB PO SCH (09:41)
--- NOTE | 2021-07-29 17:17 | Gastroenterology Progress Note ---
Date of Service July 29, 2021 Assessment & Plan (1) GI bleed: Plan: There was no bleeding at time of EGD but the history of coffee ground emesis is more suggestive of erosive esophagitis as etiology and not varices. Continue PPI. Even though H and H trending down the stools are becoming brown per patient. Will advance to low sodium soft diet. varices--eventual Carvedilol vs Nadalol vs propranalol to help with portal HTN ascites---therapeutic paracentesis per radiology ordered for saturday---because of renal issues would limit paracentesis to 6 liters to reduce risk of intravascular volume depletion and worsening renal functtion renal insufficiency--spike in BUN and CR so Lasix was stopped but I stopped aldactone as well. Hopefully will stabilize but if does not would get renal involved to help with possible hepatorenal syndrome. acute blood loss anemia--transfuse prn. Clinically no longer bleeding so suspect trend is equilibration. I spoke with daughter at length yesterday and some with patient today regarding this is end stage liver disease and we can only manage the side effects of the liver and not improve liver function. Discussed at her age not likely to be liver transplant candidate and she is not particularly interested in pursuing that even if it is possible. Given renal function and lack of diuretics preventing reaccumulation of fluid, she will most likely need outpt regularly scheduled paracentesis perhaps every 2-3 weeks. Discussed with patient and daugther likely need for scheduled paracentesis and critical to follow 2 gm sodium diet. Admission and Anticipated Discharge Date Admission Date: July 28, 2021 Subjective cc black stools HPI Per patient several black stools today but last stool with brown also. She denies abd pain. Review of Systems Respiratory: no dyspnea Cardiovascular: no chest pain Physical Exam Constitutional: WD/WN, vitals as above Respiratory: normal respiratory effort, lungs clear to auscultation Gastrointestinal (Abdomen): protuberant firm abdomen from ascites but not guarding nor rebound, pos bs Psychiatric: A+Ox3, euthymic affect Results & Data ([facility]) Vital Signs (Past 12 Hours) Vital Signs Temp Pulse Resp BP Pulse Ox 07/29/21 16:12 36.7 C 79 16 128/69 96 07/29/21 11:08 36.7 C 77 16 167/77 H 92 07/29/21 08:29 36.6 C 72 16 122/70 96
[2021-07-29] MEDS: cefTRIAXone SODIUM 2,000 MG in DEXTROSE 5% 50 ML IV SCH (17:57)
[2021-07-29] MEDS: INSULIN GLARGINE SOLOSTAR 100 UNITS/ML 3 ML PEN SQ SCH (19:01)
[2021-07-29] MEDS: PRAVASTATIN SOD 20 MG TAB PO SCH (20:34)
[2021-07-29] MEDS: PATIENT'S HEIGHT AND/OR WEIGHT NEEDED SCH ×2 (22:01→22:02)
[2021-07-30] MEDS: PANTOprazole 40 MG in DEXTROSE 5% 100 ML IV SCH (04:03)
[2021-07-30 06:14] LABS: Hematocrit (blood only) 23.2 % (37-47); Hemoglobin 7.7 g/dL (12.0-16.0); Mean Corpuscular Hemoglobin 28.7 pg (25-34); Mean Corpuscular Hgb Conc 33.2 g/dL (32-36); Mean Corpuscular Volume 86.6 fL (80-100); RDW Coefficient of Variation 18.6 % (11.5-14.5); RDW Standard Deviation 58.9 fL (36.4-46.3); Red Blood Count 2.68 M/uL (4.2-5.4); White Blood Count 4.31 K/uL (4.8-10.8)
[2021-07-30 06:30] LABS: Platelet Count 62 K/uL (130-400)
[2021-07-30 06:37] LABS: BUN Creatinine Ratio 24.4 (10-20); Calcium 8.6 mg/dl (8.5-10.1); Creatinine Clr Calc Pharmacy 21.3 ml/min; Est GFR (African American) 20.8 ml/min; Magnesium 2.2 mg/dl (1.8-2.4); Potassium 3.8 mmol/L (3.5-5.1)
[2021-07-30 06:57] LABS: Anisocytosis Present; Basophils # (auto) 0.01 K/uL (0-0.2); Basophils % (auto) 0.2 %; Eosinophils # (auto) 0.09 K/uL (0-0.5); Eosinophils % (auto) 2.1 %; Lymphocytes # (auto) 1.45 K/uL (1.2-3.4); Lymphocytes % (auto) 33.6 %; Monocytes % (auto) 9.3 %; Neutrophils # (auto) 2.36 K/uL (1.4-6.5); Neutrophils % (auto) 54.8 %
[2021-07-30] MEDS ORDERED: ALBUMIN 25% 12.5 GM/50 ML VIAL IV SCH (08:00)
[2021-07-30] MEDS: COLESTIPOL HCL 1 GM TAB PO SCH (09:44)
[2021-07-30] MEDS: PANTOprazole 40 MG TAB PO SCH ×2 (09:44→20:25)
--- NOTE | 2021-07-30 10:20 | Hospitalist Progress Note ---
Date of Service July 30, 2021 Assessment & Plan (1) GI bleed: Plan: Tasneem is a 76-year-old female with a past medical history of Beasley with cirrhosis, esophageal varices, erosive-itis, CKD 3, PAM, hyperlipidemia, and ascites who presented with epigastric pain and who on EGD was found to have large nonbleeding esophageal varices and erosive esophagitis likely the cause of an upper GI bleed. She has tense abdominal ascites and is currently pending a therapeutic (and potentially diagnostic, GI recommended screening for SBP) paracentesis anticipated for Tuesday 07/31. GI bleed 2/2 erosive esophagitis, nonbleeding large varices appreciated on EGD EGD 07/28: Erosive esophagitis likely the cause of bleeding, nonbleeding large esophageal varices - Blatchford score -12 - Denies any NSAID other than daily asa, social ETOH, no smoking, no caffeine use -Tonics drip converted to p.o. twice daily 40 mg, continue x6 weeks -Hemoglobin stable today, 7.6-7.7 - consented for blood by Dr. Leger, Type and cross performed - Hold aspirin, hold on chemoprophylaxis for VTE Stools improving Diet advanced by GI, low-sodium soft (2) Ascites: Plan: Large volume- would benefit from paracentesis - stabilize GI bleed and ensure hemodynamic stability - INR 1.3 mildly elevated from 1.1 -Chronically thrombocytopenic, stable ranging from approximately 60s to 70s - Paracentesis from 06/29/21- color Yellow, turbid, WBC 540, total protein 2.5, albumin 1.3-Gram stain negative and no organisms seen- no serums . Cytology- negative for malignancy- numerous reactive mesothelial cells -Pending diagnostic and therapeutic paracentesis, anticipate likely Saturday with radiology. Continue SBP prophylaxis (3) Liver cirrhosis secondary to BEASLEY: Plan: As above- LFTs normal - Tbili stable - INR trending up over past 2 months --1.1-1.2-1.3 - CMP daily Patient follows with [facility] as outpatient (4) BENNY (acute kidney injury): Plan: 2/2 multifactorial including acute GI bleed, ?hepatorenal - baseline 1.3-1.6 - On admit BUN increased to 65-- likely consistent with UGI bleed - Creatinine increased on admit 2.3 - Hold ARB, spironolactone also held 07/29 - Cr uptrending 07/30. If no improvement with holding jacob & lasix consult nephrology and consider addition of midodrine 5mg TID PO +/- albumin (5) Chronic kidney disease, stage 3: Plan: - baseline 1.3-1.6 (6) Obstructive sleep apnea: Plan: Continue home therapy- 11CM H20 - Patient compliant (7) GERD (gastroesophageal reflux disease): Plan: - PPI as otherwise noted (8) Mitral regurgitation: Plan: Stable per last ECHo (9) Hyperlipidemia: Plan: Continue pravastatin (10) Type 2 diabetes mellitus, uncontrolled: Plan: Continue Lantus- half dose 5 subq while NPO -Adequate glycemic control, may add conservative sliding scale if persistent hyperglycemia occurs (11) Osteopenia: Plan: Hold calcium and Vitamin D for now - can start once tolerating regular diet following GI evaluation (12) Malignant neoplasm of central portion of left breast in female, estrogen receptor negative: Plan: Stable - remains with [facility] - completed therapy as per HPI - Follows with mammography and MRI (13) Thrombocytopenia: Plan: Chronic- baseline is 70-90 - Likely related to her cirrhosis (14) UTI (urinary tract infection): Plan: Asymptomatic bacteriuria Covered with Rocephin added for SBP prophylaxis (15) Esophageal varices: Plan: Large, known to patient Nonbleeding on EGD Patient would likely benefit from addition of nebivolol or propranolol as outpatient, she reports that she was on propranolol but was stopped and cannot remember why. Will discuss/follow-up with [facility] regarding bleeding prophylaxis (16) Erosive esophagitis: Plan: PPI therapy as noted, tonics IV converted to p.o. twice daily Rocephin SBP prophylaxis as otherwise noted Admission and Anticipated Discharge Date Admission Date: July 28, 2021 Subjective Seen at bedside this morning. She is in no acute distress, reports she feels okay. Her belly continues to be very tight and she is looking forward to her paracentesis. She has not had any fever, chills, lightheadedness, dizziness, chest pain, syncope, presyncope, cough, shortness of breath, difficulty breathing. Her abdomen feels tight but is not tender this morning. She feels she has been peeing normally, is has not had pain with urination. Reviewed her medical case and labs today, no additional questions or concerns at time of bedside visit. Endorses brown bowel movements, no black bowel movements Review of Systems Review of Systems: Constitutional: Denies fever, chills. Endorses fatigue ENT: Denies ear pain, sore throat, sinus pain Cardiovascular: Denies Chest pain, chest pressure, palpitations. Endorses lower extremity swelling chronically Respiratory: Endorses some pressure one breathing due to her abdominal swelling, denies cough. No shortness of breath at rest, but does endorse difficulty taking a full breath due to her ascites. Gastrointestinal: As noted in HPI Genitourinary: Denies dysuria, urinary frequency Musculoskeletal: Denies acute focal weakness, muscle aches/pain, joint aches/pain Integumentary:Denies acute rash, lesions, bruising Neurological: Denies numbness, tingling, focal weakness Physical Exam Constitutional: WD/WN, vitals as above Eyes: PERRL, conjunctivae normal, anicteric sclerae Neck: trachea midline, no thyromegaly Respiratory: normal respiratory effort, lungs clear to auscultation Cardiovascular: RRR, no murmur, no edema Rate/Rhythm: regular rate Gastrointestinal (Abdomen): Firmly distended, fluid wave present, trace diffuse tenderness without guarding/rebound tenderness. Neurologic: PERRL, EOMI, accommodation nl, no face palsy, no dysarthria Psychiatric: A+Ox3, euthymic affect Results & Data Results & Data ([facility]) Vital Signs (Past 12 Hours) Vital Signs Temp Pulse Pulse Resp BP BP Pulse Ox 07/30/21 03:20 36.7 C 81 20 149/80 H 98 07/29/21 23:00 36.9 C 82 18 147/60 H 99 07/29/21 22:20 82 PG Care Time/CCT Total # of Minutes Spent Total Time Spent with Patient: Total time spent is greater than 50% in coordination of care (as documented) at patient's floor/unit and/or counseling patient: Coding Level of Care Code 18687 Subseq Hosp Care Lvl 2 Diagnoses GI bleed K92.2 Ascites R18.8 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 Obstructive sleep apnea G47.33 GERD (gastroesophageal reflux disease) K21.9 Mitral regurgitation I34.0 Hyperlipidemia E78.5 Type 2 diabetes mellitus, uncontrolled E11.65 Chronic kidney disease, stage 3 N18.3 Osteopenia M85.80 Malignant neoplasm of central portion of left breast in female, estrogen receptor negative C50.112; Z17.1 Thrombocytopenia D69.6 UTI (urinary tract infection) N39.0 Esophageal varices I85.00 Erosive esophagitis K22.10 BENNY (acute kidney injury) N17.9
--- NOTE | 2021-07-30 16:16 | Gastroenterology Progress Note ---
Date of Service July 30, 2021 Assessment & Plan (1) GI bleed: Plan: There was no bleeding at time of EGD but the history of coffee ground emesis is more suggestive of erosive esophagitis as etiology and not varices. Continue PPI. H and H stable. Continue soft diet. PPI po bid to continue. varices--eventual Carvedilol vs Nadalol vs propranalol to help with portal HTN ascites---therapeutic paracentesis per radiology ordered for saturday---because of renal issues would limit paracentesis to 6 liters to reduce risk of intravascular volume depletion and worsening renal functtion--also recommend 50 gm IV albumin post paracentesis. renal insufficiency--spike in BUN and CR so Lasix and Aldactone stopped. CR somewhat worse today. Hopefully will stabilize but if does not would get renal involved to help with possible hepatorenal syndrome. acute blood loss anemia--transfuse prn. Clinically no longer bleeding. Given worsening renal insufficiency at least for now will need to use low sodium diet and periodic paracentesis to control ascites. Admission and Anticipated Discharge Date Admission Date: July 28, 2021 Subjective cc f/u GI bleeding HPI Pt states stools are brown at present. Abdomen full but not painful. Physical Exam Respiratory: normal respiratory effort, lungs clear to auscultation Gastrointestinal (Abdomen): abdomen tense but no guarding nor rebound, positive bowel sounds Results & Data ([facility]) Vital Signs (Past 12 Hours) Vital Signs Temp Pulse Resp BP BP Pulse Ox 07/30/21 15:13 36.4 C L 77 18 154/82 H 99 07/30/21 11:13 36.4 C L 78 18 131/74 100
[2021-07-30] MEDS: INSULIN GLARGINE SOLOSTAR 100 UNITS/ML 3 ML PEN SQ SCH (17:17)
[2021-07-30] MEDS: cefTRIAXone SODIUM 2,000 MG in DEXTROSE 5% 50 ML IV SCH (18:15)
[2021-07-30] MEDS: HEPARIN 100 UNIT/ML 5ML FLUSH FLUSH PRN (20:25)
[2021-07-30] MEDS: PRAVASTATIN SOD 20 MG TAB PO SCH (20:25)
[2021-07-31 07:46] LABS: Hematocrit (blood only) 23.1 % (37-47); Hemoglobin 7.4 g/dL (12.0-16.0); Mean Corpuscular Hemoglobin 27.8 pg (25-34); Mean Corpuscular Volume 86.8 fL (80-100); RDW Coefficient of Variation 18.8 % (11.5-14.5); RDW Standard Deviation 59.4 fL (36.4-46.3); Red Blood Count 2.66 M/uL (4.2-5.4); White Blood Count 3.32 K/uL (4.8-10.8)
[2021-07-31 07:52] LABS: Mean Platelet Volume 8.7 fL (7.4-10.4); Platelet Count 51 K/uL (130-400)
[2021-07-31 08:03] LABS: Basophils # (auto) 0.01 K/uL (0-0.2); Basophils % (auto) 0.3 %; Eosinophils # (auto) 0.06 K/uL (0-0.5); Eosinophils % (auto) 1.8 %; Lymphocytes # (auto) 1.02 K/uL (1.2-3.4); Lymphocytes % (auto) 30.7 %; Monocytes # (auto) 0.27 K/uL (0.11-0.59); Monocytes % (auto) 8.1 %; Neutrophils # (auto) 1.96 K/uL (1.4-6.5); Neutrophils % (auto) 59.1 %; Ovalocytes 1+
[2021-07-31 08:15] LABS: Albumin Level 2.7 gm/dl (3.4-5.0); BUN Creatinine Ratio 22.9 (10-20); Calcium 8.5 mg/dl (8.5-10.1); Creatinine Clr Calc Pharmacy 21.7 ml/min; Est GFR (African American) 21.4 ml/min; Est GFR (Non-African American) 18.5 ml/min; Magnesium 2.7 mg/dl (1.8-2.4); Potassium 3.9 mmol/L (3.5-5.1)
[2021-07-31 08:17] LABS: Albumin Globulin Ratio 0.8 (0.9-2); Bilirubin,Total 0.7 mg/dl (0.2-1); Globulin 3.5 gm/dl (2.5-4.0); Total Protein 6.2 gm/dl (6.4-8.2)
[2021-07-31] MEDS: PANTOprazole 40 MG TAB PO SCH ×2 (08:34→19:55)
[2021-07-31] MEDS: COLESTIPOL HCL 1 GM TAB PO SCH (08:34)
[2021-07-31] MEDS ORDERED: FOLIC ACID 1 MG in SYRINGE 9.8 ML IV STA (09:43)
[2021-07-31] MEDS ORDERED: IRON SUCROSE 200 MG in 0.9 % SODIUM CHLORIDE 100 ML IV ONE (10:00)
[2021-07-31] MEDS: ALBUMIN 25% 12.5 GM/50 ML VIAL IV SCH ×4 (12:15→14:56)
--- NOTE | 2021-07-31 12:30 | Ultrasound Report ---
PROCEDURE: Ultrasound-Guided Diagnostic/Therapeutic Paracentesis CLINICAL INDICATION: MN ^therapeutic BEASLEY cirrhosis, diag R/o SBP ^litter and stickers please. MEDICATIONS: Subcutaneous Lidocaine 2%. PROCEDURE: The procedure itself was explained to the patient carefully. The patient was brought into the IR suite and a time-out was performed. The patient was positioned supine on the table. Preliminar y ultrasound of the abdomen was performed to determine a safe needle entry site. The most appropriat e approach for safe needle entry site was planned and the site for puncture was marked. The right low er quadrant was prepped and draped in the usual sterile fashion. Subcutaneous 2% lidocaine was used f or local anesthesia along the expected needle tract. Under ultrasound-guidance, an 5 [place] Yueh needle-sheath was inserted carefully into the peritoneal space towards the abdominal ascites fluid collection. The needle was removed and the sheath was conn ected to tubing and a vacuum suction device. A total of 6000 cc of serous ascites was aspirated. The sheath was removed and a sterile dressing applied. The patient tolerated the procedure well without i mmediate complications. Sample of ascites was sent for analysis. IMPRESSION: Ultrasound-guided diagnositc/therapeutic paracentesis. Electronically signed by: Manish Bacon M.D. 07/31/2021 12:29 PM
[2021-07-31 14:04] LABS: Appearance Peritoneal Fluid TURBID; Basophils, Fluid 0 %; Color Peritoneal Fluid AMBER; Eosinophils, Fluid 0 %; Lymphocytes, Fluid 65 %; Mono,Macrophage,Mesothelial 29 %; Neutrophils, Fluid 6 %; RBC Peritoneal Fluid (A) 18000 /uL; WBC Peritoneal Fluid (A) 329 /ul (0-300)
[2021-07-31 14:13] LABS: Glucose Peritoneal Fluid 136 mg/dl
[2021-07-31 14:24] LABS: Amylase Peritoneal Fluid 19 U/L; LDH Peritoneal Fluid 59 U/L; Lipase Peritoneal Fluid 127 U/L; Triglyceride Peritoneal Fluid 300 mg/dl
--- NOTE | 2021-07-31 16:11 | Gastroenterology Progress Note ---
Date of Service July 31, 2021 Assessment & Plan (1) GI bleed: Plan: There was no bleeding at time of EGD but the history of coffee ground emesis is more suggestive of erosive esophagitis as etiology and not varices. Continue PPI. H and H stable. Continue soft diet. PPI po bid to continue. varices--eventual Carvedilol vs Nadalol vs propranalol to help with portal HTN ascites---s/p paracentesis 6 L 07/31/21. SAAG 1.7 c/w port HTN. Neutrophils only 20 so no evidence of SBP and abx can be DCed from my standpoint. renal insufficiency---BUN/CR trending down off diuretics. acute blood loss anemia--transfuse prn. Clinically no longer bleeding. Avoid diuretics for now and will treat ascites with low sodium diet and every 2 week paracentesis. Admission and Anticipated Discharge Date Admission Date: July 28, 2021 Subjective cc f/u GI bleeding HPI Stools not black. There are normal color per patient. She is tolerating so lid diet. She had paracentesis of 6 L fluid today and abdomen feels much better. She denies abd pain. Review of Systems Respiratory: no dyspnea Cardiovascular: no chest pain Physical Exam Constitutional: WD/WN, vitals as above Respiratory: normal respiratory effort, lungs clear to auscultation Cardiovascular: Rate/Rhythm: regular rate Extremities: + edema Gastrointestinal (Abdomen): positive bowel sounds, soft, no guarding nor rebound Results & Data ([facility]) Vital Signs (Past 12 Hours) Vital Signs Temp Pulse Resp BP BP Pulse Ox 07/31/21 15:18 36.4 C L 71 18 111/68 97 07/31/21 14:06 36.8 C 78 18 118/71 100 07/31/21 13:17 36.5 C 80 16 126/62 98 07/31/21 12:35 36.4 C L 82 13 152/76 H 100 07/31/21 12:12 36.4 C L 84 18 155/76 H 98 07/31/21 07:40 36.7 C 83 18 138/83 98 07/31/21 04:33 36.5 C 80 16 123/70 98
[2021-07-31] MEDS: INSULIN GLARGINE SOLOSTAR 100 UNITS/ML 3 ML PEN SQ SCH (17:10)
--- NOTE | 2021-07-31 17:55 | Hospitalist Progress Note ---
Date of Service July 31, 2021 Assessment & Plan (1) Acute upper gastrointestinal bleeding: Plan: 2nd to erosive esophagitis as confirmed on EGD - 07/28/21 - Dr Jimenez. Cont PPI BID. Holding aspirin. Varices were seen on EGD, but felt NOT to be the cause of her presenting bleeding. H/H are low but stable x 48 hours. (2) Erosive esophagitis: Plan: As seen on EGD this admission. see above. (3) Acute blood loss anemia: Plan: 2nd to upper GI bleeding from erosive esophagitis. H/H stable x 48+ hours. Transferrin sat <20% - elected to give additional IV venofer today. Replace low folate. Repeat cbc in am. If Hb is close to 7 -- transfuse 1 unit PRBCs. (4) Ascites: Plan: 2nd to #5. s/p paracentesis today - 6 liters removed. cell counts NOT c/w SBP. stop rocephin. holding diuretics due to BENNY. albumin IV ordered by Dr Jimenez for post-paracentesis. (5) Liver cirrhosis secondary to BEASLEY: Plan: Decompensated given severe ascites, LE edema, etc. s/p paracentesis today - diagnostic/therapeutic. s/p albumin post-paracentesis. Resume diuretics once creatinine improves. (6) BENNY (acute kidney injury): Plan: Baseline creatinine 1.3-1.6. Peak Cr 2.5. Cr today slightly improved. Suspect 2nd to #1. Cont supportive care. Hold diuretics. Transfuse as necessary. (7) Chronic kidney disease, stage 3: Plan: Baseline creatinine 1.3-1.6. BMP am. (8) Obstructive sleep apnea: Plan: Continue home CPAP - 11CM H20. (9) GERD (gastroesophageal reflux disease): Plan: PPI (10) Mitral regurgitation: (11) Hyperlipidemia: Plan: Continue pravastatin (12) Osteopenia: (13) Malignant neoplasm of central portion of left breast in female, estrogen receptor negative: Plan: s/p Rx several years ago (14) Thrombocytopenia: Plan: Chronic- baseline is 70-90 2nd BEASLEY cirrhosis Folate def could be contributing (15) UTI (urinary tract infection): Plan: s/p 3 days of rocephin d/c rocephin; change to keflex x 2 more days then stop abx (16) Esophageal varices: Plan: as seen on EGD this admission needs nonselective BB at discharge (nadalol, etc) (17) Pancytopenia: Plan: cirrhosis, folate deficiency, etc all could be contributing cbc in am (18) Folate deficiency: Plan: folate 1mg IV daily then PO supplementation at discharge (19) Diabetes mellitus: Plan: a1c 6.4% May 2021 control adequate while here with lantus (20) Chronic diarrhea: Plan: patient reports that her symptoms are markedly worse with cereal, bread, etc. check TTGs in am for celiac Plan: left message for on [employer] 07/31 Admission and Anticipated Discharge Date Admission Date: July 28, 2021 Subjective saw patient post-paracentesis was resting comfortably 6 L fluid removed during paracentesis her breathing is more comfortable, and she can move more easily with the fluid gone denies any hematemesis or melena tolerating a diet no dysphagia, odynophagia, or burning in her chest with eating/drinking denies abdominal pain tele overnight wnl Review of Systems Review of Systems: gen - no fevers CV - no chest pain pulm - no dyspnea; cough improved s/p paracentesis GI - no nausea/emesis Physical Exam Physical Exam: gen - NAD, pleasant; a/o x 3 skin - generalized pallor mouth - MMM neck - no JVD heart - RRR, s1 s2, 2/6 ADRIANNA LSB lungs - CTA b/l abd - protuberant, BS+, NT, soft, paracentesis site L abdomen clean (no leaking) ext - 1-2+ edema b/l psych - oriented x 3 Results & Data Results & Data ([facility]) Vital Signs (Past 12 Hours) Vital Signs Temp Pulse Pulse Resp BP BP Pulse Ox 07/31/21 17:45 80 07/31/21 15:18 36.4 C L 71 18 111/68 97 07/31/21 14:06 36.8 C 78 18 118/71 100 07/31/21 13:17 36.5 C 80 16 126/62 98 07/31/21 12:35 36.4 C L 82 13 152/76 H 100 07/31/21 12:12 36.4 C L 84 18 155/76 H 98 07/31/21 07:40 36.7 C 83 18 138/83 98 07/31/21 07:30 72 Laboratory Results Laboratory Results - last 24 hr 07/30/21 07/31/21 07/31/21 19:53 07:28 07:28 WBC 3.32 L RBC 2.66 L Hgb 7.4 L Hct 23.1 L MCV 86.8 MCH 27.8 MCHC 32.0 RDW Std Deviation 59.4 H RDW Coeff of Carmelina 18.8 H Plt Count 51 L MPV 8.7 Immature Gran % (Auto) 0.0 Neut % (Auto) 59.1 Lymph % (Auto) 30.7 [place] % (Auto) 8.1 Eos % (Auto) 1.8 Baso % (Auto) 0.3 Neut # (Auto) 1.96 Lymph # (Auto) 1.02 L [place] # (Auto) 0.27 Eos # (Auto) 0.06 Baso # (Auto) 0.01 Immature Gran # (Auto) 0.00 Ovalocytes 1+ Sodium 135 L Potassium 3.9 Chloride 104 Carbon Dioxide 22 Anion Gap 9.0 BUN 57 H Creatinine 2.48 H Est Cr Clr Drug Dosing 21.7 Est GFR ( Amer) 21.4 Est GFR (Non-Af Amer) 18.5 BUN/Creatinine Ratio 22.9 H Glucose 126 H POC Glucose 148 H Calcium 8.5 Magnesium 2.7 H Iron Transferrin Transferrin % Sat Ferritin Total Bilirubin 0.7 AST 24 ALT 12 Alkaline Phosphatase 70 Total Protein 6.2 L Albumin 2.7 L Globulin 3.5 Albumin/Globulin Ratio 0.8 L Folate Fluid Neutrophils % Fluid Lymphocytes % Fluid Eosinophils % Fluid Basophils % Fluid Meso/Macro/[place] % Fluid Comment Peritoneal Color Peritoneal Appearance Peritoneal WBC Peritoneal RBC Peritoneal Tot Protein Peritoneal Albumin Peritoneal LDH Peritoneal Glucose Peritoneal Amylase Peritoneal Lipase Peritoneal Triglycerid 07/31/21 07/31/21 07/31/21 07:34 08:24 08:24 WBC RBC Hgb Hct MCV MCH MCHC RDW Std Deviation RDW Coeff of Carmelina Plt Count MPV Immature Gran % (Auto) Neut % (Auto) Lymph % (Auto) [place] % (Auto) Eos % (Auto) Baso % (Auto) Neut # (Auto) Lymph # (Auto) [place] # (Auto) Eos # (Auto) Baso # (Auto) Immature Gran # (Auto) Ovalocytes Sodium Potassium Chloride Carbon Dioxide Anion Gap BUN Creatinine Est Cr Clr Drug Dosing Est GFR ( Amer) Est GFR (Non-Af Amer) BUN/Creatinine Ratio Glucose POC Glucose 118 H Calcium Magnesium Iron 38 Transferrin 185 L Transferrin % Sat 14 L Ferritin 271.0 Total Bilirubin AST ALT Alkaline Phosphatase Total Protein Albumin Globulin Albumin/Globulin Ratio Folate 2.90 L Fluid Neutrophils % Fluid Lymphocytes % Fluid Eosinophils % Fluid Basophils % Fluid Meso/Macro/[place] % Fluid Comment Peritoneal Color Peritoneal Appearance Peritoneal WBC Peritoneal RBC Peritoneal Tot Protein Peritoneal Albumin Peritoneal LDH Peritoneal Glucose Peritoneal Amylase Peritoneal Lipase Peritoneal Triglycerid 07/31/21 07/31/21 07/31/21 12:06 16:06 Unknown WBC RBC Hgb Hct MCV MCH MCHC RDW Std Deviation RDW Coeff of Carmelina Plt Count MPV Immature Gran % (Auto) Neut % (Auto) Lymph % (Auto) [place] % (Auto) Eos % (Auto) Baso % (Auto) Neut # (Auto) Lymph # (Auto) [place] # (Auto) Eos # (Auto) Baso # (Auto) Immature Gran # (Auto) Ovalocytes Sodium Potassium Chloride Carbon Dioxide Anion Gap BUN Creatinine Est Cr Clr Drug Dosing Est GFR ( Amer) Est GFR (Non-Af Amer) BUN/Creatinine Ratio Glucose POC Glucose 129 H 127 H Calcium Magnesium Iron Transferrin Transferrin % Sat Ferritin Total Bilirubin AST ALT Alkaline Phosphatase Total Protein Albumin Globulin Albumin/Globulin Ratio Folate Fluid Neutrophils % 6 Fluid Lymphocytes % 65 Fluid Eosinophils % 0 Fluid Basophils % 0 Fluid Meso/Macro/[place] % 29 Fluid Comment Peritoneal Color ALLISON Peritoneal Appearance TURBID Peritoneal WBC 329 H [place]itoneal [place] [address] Peritoneal Tot Protein 2.0 Peritoneal Albumin 1.0 Peritoneal LDH 59 Peritoneal Glucose 136 Peritoneal Amylase 19 Peritoneal Lipase 127 Peritoneal Triglycerid 300 PG Care Time/CCT Total # of Minutes Spent Total Time Spent with Patient: Total time spent is greater than 50% in coordination of care (as documented) at patient's floor/unit and/or counseling patient: Coding Level of Care Code 90620 Subseq Hosp Care Lvl 3 Diagnoses Ascites R18.8 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 BENNY (acute kidney injury) N17.9 Chronic kidney disease, stage 3 N18.3 Obstructive sleep apnea G47.33 GERD (gastroesophageal reflux disease) K21.9 Mitral regurgitation I34.0 Hyperlipidemia E78.5 Osteopenia M85.80 Malignant neoplasm of central portion of left breast in female, estrogen receptor negative C50.112; Z17.1 Thrombocytopenia D69.6 UTI (urinary tract infection) N39.0 Esophageal varices I85.00 Erosive esophagitis K22.10 Acute blood loss anemia D62 Pancytopenia D61.818 Acute upper gastrointestinal bleeding K92.2 Folate deficiency E53.8 Diabetes mellitus E11.9 Chronic diarrhea K52.9
[2021-07-31] MEDS: cefTRIAXone SODIUM 2,000 MG in DEXTROSE 5% 50 ML IV SCH (19:13)
[2021-07-31] MEDS: cephALEXin 500 MG CAP PO SCH (19:55)
[2021-07-31] MEDS: PRAVASTATIN SOD 20 MG TAB PO SCH (19:55)
[2021-07-31] MEDS: HEPARIN 100 UNIT/ML 5ML FLUSH FLUSH PRN (19:56)
[2021-08-01 06:37] LABS: Hematocrit (blood only) 22.9 % (37-47); Hemoglobin 7.1 g/dL (12.0-16.0); Mean Corpuscular Hemoglobin 28.1 pg (25-34); Mean Corpuscular Volume 90.5 fL (80-100); Mean Platelet Volume 9.1 fL (7.4-10.4); Platelet Count 55 K/uL (130-400); RDW Coefficient of Variation 19.1 % (11.5-14.5); RDW Standard Deviation 61.8 fL (36.4-46.3); Red Blood Count 2.53 M/uL (4.2-5.4); White Blood Count 2.83 K/uL (4.8-10.8)
[2021-08-01 07:19] LABS: BUN Creatinine Ratio 22.7 (10-20); Calcium 8.7 mg/dl (8.5-10.1); Creatinine Clr Calc Pharmacy 26.1 ml/min; Est GFR (African American) 26.7 ml/min
[2021-08-01] MEDS ORDERED: SODIUM CHLORIDE 0.9% 250 ML IV PRN (08:11)
[2021-08-01] MEDS ORDERED: ACETAMINOPHEN 500 MG TAB PO ONE (08:12)
[2021-08-01] MEDS: cephALEXin 500 MG CAP PO SCH ×2 (08:33→20:13)
[2021-08-01] MEDS: COLESTIPOL HCL 1 GM TAB PO SCH (08:33)
[2021-08-01] MEDS: FOLIC ACID 1 MG in SYRINGE 9.8 ML IV SCH (08:34)
[2021-08-01] MEDS: PANTOprazole 40 MG TAB PO SCH ×2 (09:56→20:13)
[2021-08-01] MEDS ORDERED: ACETAMINOPHEN 500 MG TAB ONE (10:59)
--- NOTE | 2021-08-01 14:53 | Gastroenterology Progress Note ---
Date of Service August 01, 2021 Assessment & Plan (1) GI bleed: Plan: There was no bleeding at time of EGD but the history of coffee ground emesis is more suggestive of erosive esophagitis as etiology and not varices. Continue PPI. H and H slow drigt. . Continue soft diet. PPI po bid to continue. varices--eventual Carvedilol vs Nadalol vs propranalol to help with portal HTN ascites---s/p paracentesis 6 L 07/31/21. SAAG 1.7 c/w port HTN. Neutrophils only 20 so no evidence of SBP. renal insufficiency---BUN/CR trending down off diuretics. acute blood loss anemia--transfuse prn. Clinically no longer bleeding. Avoid diuretics for now and will treat ascites with low sodium diet and every 2 week paracentesis. Admission and Anticipated Discharge Date Admission Date: July 28, 2021 Subjective cc f/u GI bleed HPI Stool normal color. NO abd pain. Tolerating po well. Review of Systems Respiratory: no dyspnea Cardiovascular: no chest pain Physical Exam Respiratory: normal respiratory effort, lungs clear to auscultation Cardiovascular: Rate/Rhythm: regular rate Extremities: + pedal edema Gastrointestinal (Abdomen): positive bowel sounds, soft no guarding nor rebound Results & Data ([facility]) Vital Signs (Past 12 Hours) Vital Signs Temp Pulse Pulse Resp BP BP Pulse Ox 08/01/21 13:40 36.7 C 76 18 126/55 L 100 08/01/21 13:00 36.7 C 77 16 125/75 98 08/01/21 12:30 36.7 C 79 18 133/75 99 08/01/21 12:00 36.9 C 79 16 147/72 H 98 08/01/21 11:45 36.7 C 77 18 131/70 99 08/01/21 11:30 36.6 C 77 16 160/68 H 100 08/01/21 11:27 36.6 C 77 16 160/68 H 100 08/01/21 11:15 36.8 C 78 18 138/75 100 08/01/21 09:31 84 08/01/21 07:45 36.7 C 83 18 137/76 98 08/01/21 03:40 36.9 C 58 L 18 121/69 97
[2021-08-01 16:52] LABS: Hematocrit (blood only) 26.4 % (37-47); Hemoglobin 8.5 g/dL (12.0-16.0)
[2021-08-01] MEDS: INSULIN GLARGINE SOLOSTAR 100 UNITS/ML 3 ML PEN SQ SCH (17:39)
[2021-08-01] MEDS: PATIENT'S HEIGHT AND/OR WEIGHT NEEDED SCH ×4 (19:17→20:30)
[2021-08-01] MEDS: PRAVASTATIN SOD 20 MG TAB PO SCH (20:13)
--- NOTE | 2021-08-01 20:57 | Hospitalist Progress Note ---
Date of Service August 01, 2021 Assessment & Plan (1) Acute upper gastrointestinal bleeding: Plan: 2nd to erosive esophagitis as confirmed on EGD done 07/28/21 Dr Jimenez. Cont PPI BID. Holding aspirin. Varices were seen on EGD, but felt NOT to be the cause of her presenting bleeding. HB now close to 7 today; Tx 1 unit PRBCs. Repeat h/h later today then again in am. (2) Erosive esophagitis: Plan: As seen on EGD this admission. see above. (3) Acute blood loss anemia: Plan: 2nd to upper GI bleeding from erosive esophagitis. Hb 7.1 today - but overall trend last 2 days is that of relative stability/no active GI bleeding. Tx 1 unit PRBCs. Did receive IV venofer yesterday. Replace low folate. Repeat cbc in am. (4) Ascites: Plan: 2nd to #5. s/p paracentesis 08/01 - 6 liters removed. cell counts NOT c/w SBP. cytologies negative. culture thus far negative. holding diuretics due to BENNY. Hopefully can resume tomorrow. (5) Liver cirrhosis secondary to BEASLEY: Plan: Decompensated given severe ascites, LE edema, etc. s/p paracentesis 08/01 - diagnostic/therapeutic. s/p albumin post-paracentesis. Resume diuretics once creatinine nears her baseline. Start inderal 10mg BID and titrate as tolerated. (6) BENNY (acute kidney injury): Plan: Baseline creatinine 1.3-1.6. Peak Cr 2.5. Cr now 2. BMP am. Suspect 2nd to #1. Cont supportive care. Cont to Hold diuretics. (7) Chronic kidney disease, stage 3: Plan: Baseline creatinine 1.3-1.6. BMP am. (8) Obstructive sleep apnea: Plan: Continue home CPAP - 11CM H20. (9) GERD (gastroesophageal reflux disease): Plan: PPI (10) Mitral regurgitation: (11) Hyperlipidemia: Plan: Continue pravastatin (12) Osteopenia: (13) Malignant neoplasm of central portion of left breast in female, estrogen receptor negative: Plan: s/p treatment several years ago (14) Thrombocytopenia: Plan: Chronic- baseline is 70-90 2nd BEASLEY cirrhosis Folate def could be contributing Replacing folate (15) UTI (urinary tract infection): Plan: s/p 3 days of rocephin now on keflex x 4 additional days (16) Esophageal varices: Plan: as seen on EGD this admission start inderal 10mg BID and watch overnight on tele (17) Pancytopenia: Plan: cirrhosis, folate deficiency, etc all could be contributing cbc in am for stability (18) Folate deficiency: Plan: folate 1mg IV daily then PO supplementation at discharge (19) Diabetes mellitus: Plan: a1c 6.4% May 2021 control satisfactory (20) Chronic diarrhea: Plan: patient reports that her symptoms are markedly worse with cereal, bread, etc. TTGs pending but doubt celiac Plan: left message for on [employer] 07/31 spoke directly to pt's daughter this evening and gave long update hopeful for d/c home tomorrow with Admission and Anticipated Discharge Date Admission Date: July 28, 2021 Subjective patient receiving her PRBCs during the visit she states "I'm feeling good today" eating decently without any GI upset, dysphagia or odynophagia, etc no overt GI bleeding seen denies dizziness hoping for d/c home tomorrow tele overnight wnl Review of Systems Review of Systems: gen - no fever, mild fatigue CV - no chest pain, no orthopnea; some LE edema pulm - no cough GI - no pain, nausea or vomiting Physical Exam Physical Exam: gen - NAD, pleasant; a/o x 3 skin - generalized pallor unchanged mouth - MMM neck - no JVD heart - RRR, s1 s2, 2/6 ADRIANNA LSB lungs - CTA b/l abd - protuberant (2nd ascites), BS+, NT, soft ext - 1+ edema b/l Results & Data Results & Data ([facility]) Vital Signs (Past 12 Hours) Vital Signs Temp Pulse Pulse Resp BP BP Pulse Ox 08/01/21 19:00 36.8 C 84 20 149/75 H 98 08/01/21 16:14 72 08/01/21 16:10 36.3 C L 75 18 136/74 96 08/01/21 13:40 36.7 C 76 18 126/55 L 100 08/01/21 13:00 36.7 C 77 16 125/75 98 08/01/21 12:30 36.7 C 79 18 133/75 99 08/01/21 12:00 36.9 C 79 16 147/72 H 98 08/01/21 11:45 36.7 C 77 18 131/70 99 08/01/21 11:30 36.6 C 77 16 160/68 H 100 08/01/21 11:27 36.6 C 77 16 160/68 H 100 08/01/21 11:15 36.8 C 78 18 138/75 100 08/01/21 09:31 84 Laboratory Results Laboratory Results - last 24 hr 08/01/21 08/01/21 08/01/21 06:16 06:16 06:16 WBC 2.83 L RBC 2.53 L Hgb 7.1 L Hct 22.9 L MCV 90.5 MCH 28.1 MCHC 31.0 L RDW Std Deviation 61.8 H RDW Coeff of Carmelina 19.1 H Plt Count 55 L MPV 9.1 Sodium 138 Potassium 4.0 Chloride 108 H Carbon Dioxide 22 Anion Gap 8.0 BUN 47 H Creatinine 2.07 H D Est Cr Clr Drug Dosing 26.1 Est GFR ( Amer) 26.7 Est GFR (Non-Af Amer) 23.0 BUN/Creatinine Ratio 22.7 H Glucose 111 H POC Glucose Calcium 8.7 Tiss Transglutamin IgG Pending Tiss Transglutamin IgA Pending Blood Type Antibody Screen Crossmatch 08/01/21 08/01/21 08/01/21 07:30 09:05 16:20 WBC RBC Hgb 8.5 L Hct 26.4 L MCV MCH MCHC RDW Std Deviation RDW Coeff of Carmelina Plt Count MPV Sodium Potassium Chloride Carbon Dioxide Anion Gap BUN Creatinine Est Cr Clr Drug Dosing Est GFR ( Amer) Est GFR (Non-Af Amer) BUN/Creatinine Ratio Glucose POC Glucose 123 H Calcium Tiss Transglutamin IgG Tiss Transglutamin IgA Blood Type O Negative Antibody Screen NEGATIVE Crossmatch See Detail 08/01/21 20:12 WBC RBC Hgb Hct MCV MCH MCHC RDW Std Deviation RDW Coeff of Carmelina Plt Count MPV Sodium Potassium Chloride Carbon Dioxide Anion Gap BUN Creatinine Est Cr Clr Drug Dosing Est GFR ( Amer) Est GFR (Non-Af Amer) BUN/Creatinine Ratio Glucose POC Glucose 151 H Calcium Tiss Transglutamin IgG Tiss Transglutamin IgA Blood Type Antibody Screen Crossmatch PG Care Time/CCT Total # of Minutes Spent Total Time Spent with Patient: Total time spent is greater than 50% in coordination of care (as documented) at patient's floor/unit and/or counseling patient: Coding Level of Care Code 87872 Subseq Hosp Care Lvl 3 Diagnoses Acute upper gastrointestinal bleeding K92.2 Erosive esophagitis K22.10 Acute blood loss anemia D62 Ascites R18.8 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 BENNY (acute kidney injury) N17.9 Chronic kidney disease, stage 3 N18.3 Obstructive sleep apnea G47.33 GERD (gastroesophageal reflux disease) K21.9 Mitral regurgitation I34.0 Hyperlipidemia E78.5 Osteopenia M85.80 Malignant neoplasm of central portion of left breast in female, estrogen receptor negative C50.112; Z17.1 Thrombocytopenia D69.6 UTI (urinary tract infection) N39.0 Esophageal varices I85.00 Pancytopenia D61.818 Folate deficiency E53.8 Diabetes mellitus E11.9 Chronic diarrhea K52.9
[2021-08-01] MEDS: PROPRANOLOL HCL 10 MG TAB PO SCH (22:07)
[2021-08-02 07:30] LABS: Hematocrit (blood only) 28.1 % (37-47); Mean Corpuscular Hemoglobin 28.8 pg (25-34); Mean Corpuscular Volume 90.1 fL (80-100); RDW Standard Deviation 60.8 fL (36.4-46.3); Red Blood Count 3.12 M/uL (4.2-5.4); White Blood Count 4.21 K/uL (4.8-10.8)
[2021-08-02 07:37] LABS: Mean Platelet Volume 9.1 fL (7.4-10.4); Platelet Count 64 K/uL (130-400)
[2021-08-02 08:00] LABS: BUN Creatinine Ratio 19.9 (10-20); Calcium 8.7 mg/dl (8.5-10.1); Creatinine Clr Calc Pharmacy 26.4 ml/min; Est GFR (Non-African American) 23.3 ml/min; Potassium 4.1 mmol/L (3.5-5.1)
[2021-08-02] MEDS: HEPARIN 100 UNIT/ML 5ML FLUSH FLUSH PRN (08:02)
[2021-08-02] MEDS: PROPRANOLOL HCL 10 MG TAB PO SCH ×2 (08:02→20:08)
[2021-08-02] MEDS: FOLIC ACID 1 MG in SYRINGE 9.8 ML IV SCH (08:02)
[2021-08-02] MEDS: PANTOprazole 40 MG TAB PO SCH ×2 (08:02→20:07)
[2021-08-02] MEDS: COLESTIPOL HCL 1 GM TAB PO SCH (08:02)
[2021-08-02] MEDS: cephALEXin 500 MG CAP PO SCH ×2 (08:02→20:09)
[2021-08-02 09:56] LABS: Sodium Random Urine < 5 mmol/L
--- NOTE | 2021-08-02 12:51 | Gastroenterology Progress Note ---
Date of Service August 02, 2021 Assessment & Plan (1) GI bleed: Plan: There was no bleeding at time of EGD but the history of coffee ground emesis is more suggestive of erosive esophagitis as etiology and not varices. Continue PPI. H and H improved post transfusion. . Continue soft diet. PPI po bid to continue. varices--Propranalol started by hospitalist ascites---s/p paracentesis 6 L 07/31/21. SAAG 1.7 c/w port HTN. Neutrophils only 20 so no evidence of SBP. renal insufficiency---BUN/CR trending down off diuretics. acute blood loss anemia--transfuse prn. improved post transfusion. Avoid diuretics for now and will treat ascites with low sodium diet and every 2 week paracentesis. Admission and Anticipated Discharge Date Admission Date: July 28, 2021 Subjective cc f/u GI bleeding, ascites HPI No abd pain. Ascites reaccumulating. Review of Systems Respiratory: no dyspnea Cardiovascular: no chest pain Physical Exam Constitutional: WD/WN, vitals as above Gastrointestinal (Abdomen): positive bowel sounds, moderate distension secondary to ascites but not tense, no guarding nor rebound Results & Data ([facility]) Vital Signs (Past 12 Hours) Vital Signs Temp Pulse Resp BP BP Pulse Ox 08/02/21 11:23 36.6 C 66 16 119/69 100 08/02/21 07:32 37.1 C 77 18 122/79 99 08/02/21 03:00 36.9 C 72 18 124/74 96
[2021-08-02] MEDS: INSULIN GLARGINE SOLOSTAR 100 UNITS/ML 3 ML PEN SQ SCH (16:11)
[2021-08-02 16:16] LABS: Transglutaminase, Tissue IgA <1.0 U/mL; Transglutaminase, Tissue IgG <1.0 U/mL
[2021-08-02 17:48] LABS: Est GFR (African American) 27.8 ml/min
[2021-08-02] MEDS: PRAVASTATIN SOD 20 MG TAB PO SCH (20:07)
[2021-08-02] MEDS ORDERED: cephALEXin 250 MG CAP PO SCH (21:00)
--- NOTE | 2021-08-02 22:22 | Hospitalist Progress Note ---
Date of Service August 02, 2021 Assessment & Plan (1) Acute upper gastrointestinal bleeding: Plan: 2nd to erosive esophagitis as confirmed on EGD done 07/28/21 Dr Jimenez. Cont PPI BID. Holding aspirin. Varices were seen on EGD, but felt NOT to be the cause of her presenting bleeding. s/p 1 unit PRBCs this admission w/ stable H/H since that time. (2) Erosive esophagitis: Plan: As seen on EGD this admission. see above. (3) Acute blood loss anemia: Plan: 2nd to upper GI bleeding from erosive esophagitis. s/p 1 unit PRBCs. s/p 1 dose of IV venofer this admission. Replace low folate. CBC stable today. CBC again in am. (4) Ascites: Plan: 2nd to #5. s/p paracentesis 08/01 - 6 liters removed. cell counts NOT c/w SBP. cytologies negative. culture negative. holding diuretics due to BENNY. Hopefully can resume next 48 hours once Cr improves. ascites is reaccumulating. will likely need tap again in the next 2 weeks. inderal started this admission for portal HTN. if ascites ultimately remains refractory - TIPS down the line? (5) Liver cirrhosis secondary to BEASLEY: Plan: Decompensated given severe ascites, LE edema, etc. s/p paracentesis 08/01 - diagnostic/therapeutic. s/p albumin post-paracentesis. Resume diuretics once creatinine nears her baseline (close to 1.5). Startd inderal 10mg BID and tolerating this thus far. (6) BENNY (acute kidney injury): Plan: Baseline creatinine 1.3-1.6. Peak Cr 2.5. Cr now 2 this am and again this afternoon. BMP am. FeNa near 0 and Urine Na <5 all c/w prerenal etiology. GI bleeding, diuretics, volume depletion - all contributed. Holding diuretics until there is more renal recovery. HRS not suspected at this time. (7) Chronic kidney disease, stage 3: Plan: Baseline creatinine 1.3-1.6. BMP am. (8) Obstructive sleep apnea: Plan: Continue home CPAP - 11CM H20. (9) GERD (gastroesophageal reflux disease): Plan: PPI (10) Mitral regurgitation: (11) Hyperlipidemia: Plan: Continue pravastatin (12) Osteopenia: (13) Malignant neoplasm of central portion of left breast in female, estrogen receptor negative: Plan: s/p treatment several years ago (14) Thrombocytopenia: Plan: Chronic- baseline is 70-90 2nd BEASLEY cirrhosis Folate def could be contributing Replacing folate (15) UTI (urinary tract infection): Plan: s/p 3 days of rocephin now on keflex x 4 additional days (16) Esophageal varices: Plan: as seen on EGD this admission started inderal 10mg BID (17) Pancytopenia: Plan: cirrhosis, folate deficiency, etc all could be contributing cbc in am for stability (18) Folate deficiency: Plan: folate 1mg IV daily then PO supplementation at discharge (19) Diabetes mellitus: Plan: a1c 6.4% May 2021 control satisfactory (20) Chronic diarrhea: Plan: patient reports that her symptoms are markedly worse with cereal, bread, etc. TTGs sent; negative etiology? Plan: left message for on voicemail 07/31 spoke directly to pt's daughter on 08/01 hopeful for d/c home tomorrow with if creatinine is better Admission and Anticipated Discharge Date Admission Date: July 28, 2021 Subjective no events overnight tele stable "I feel good" denies any new complaints eating well, tolerating such, no upper GI symptoms no dizziness or lightheadedness Review of Systems Review of Systems: gen - no fevers, no fatigue CV - no chest pain or orthopnea pulm - no cough or wheeze abd - distension present (ascites); no pain, no nausea, no BRBPR or further melena Physical Exam Physical Exam: gen - NAD, pleasant; a/o x 3; lying comfortably flat in bed skin - generalized pallor unchanged mouth - MMM neck - no JVD heart - RRR, s1 s2, 2/6 ADRIANNA LSB lungs - CTA b/l; decreased BS b/l bases abd - ascites - worse today; but BS+, NT ext - 1+ edema b/l, pulses 2+ b/l Results & Data Results & Data ([facility]) Vital Signs (Past 12 Hours) Vital Signs Temp Pulse Resp BP Pulse Ox 08/02/21 20:03 36.9 C 79 18 149/83 H 98 08/02/21 15:08 36.8 C 65 16 154/78 H 99 08/02/21 11:23 36.6 C 66 16 119/69 100 Laboratory Results Laboratory Results - last 24 hr 08/01/21 08/02/21 08/02/21 06:16 07:14 07:14 WBC 4.21 L RBC 3.12 L Hgb 9.0 L Hct 28.1 L MCV 90.1 MCH 28.8 MCHC 32.0 RDW Std Deviation 60.8 H RDW Coeff of Carmelina 19.0 H Plt Count 64 L MPV 9.1 Sodium 136 Potassium 4.1 Chloride 107 Carbon Dioxide 22 Anion Gap 7.0 BUN 41 H Creatinine 2.05 H Est Cr Clr Drug Dosing 26.4 Est GFR ( Amer) 27.0 Est GFR (Non-Af Amer) 23.3 BUN/Creatinine Ratio 19.9 Glucose 112 H POC Glucose Calcium 8.7 Ur Random Creatinine Ur Random Sodium Tiss Transglutamin IgG <1.0 Tiss Transglutamin IgA <1.0 08/02/21 08/02/21 08/02/21 07:40 11:22 16:42 WBC RBC Hgb Hct MCV MCH MCHC RDW Std Deviation RDW Coeff of Carmelina Plt Count MPV Sodium Potassium Chloride Carbon Dioxide Anion Gap BUN Creatinine Est Cr Clr Drug Dosing Est GFR ( Amer) Est GFR (Non-Af Amer) BUN/Creatinine Ratio Glucose POC Glucose 103 H 134 H 144 H Calcium Ur Random Creatinine Ur Random Sodium Tiss Transglutamin IgG Tiss Transglutamin IgA 08/02/21 08/02/21 08/02/21 17:16 19:59 Unknown WBC RBC Hgb Hct MCV MCH MCHC RDW Std Deviation RDW Coeff of Carmelina Plt Count MPV Sodium Potassium Chloride Carbon Dioxide Anion Gap BUN Creatinine 2.00 H Est Cr Clr Drug Dosing 27.0 Est GFR ( Amer) 27.8 Est GFR (Non-Af Amer) 24.0 BUN/Creatinine Ratio Glucose POC Glucose 170 H Calcium Ur Random Creatinine 126.0 Ur Random Sodium < 5 Tiss Transglutamin IgG Tiss Transglutamin IgA PG Care Time/CCT Total # of Minutes Spent Total Time Spent with Patient: Total time spent is greater than 50% in coordination of care (as documented) at patient's floor/unit and/or counseling patient: Coding Level of Care Code 59101 Subseq Hosp Care Lvl 2 Diagnoses Acute upper gastrointestinal bleeding K92.2 Erosive esophagitis K22.10 Acute blood loss anemia D62 Ascites R18.8 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 BENNY (acute kidney injury) N17.9 Chronic kidney disease, stage 3 N18.3 Obstructive sleep apnea G47.33 GERD (gastroesophageal reflux disease) K21.9 Mitral regurgitation I34.0 Hyperlipidemia E78.5 Osteopenia M85.80 Malignant neoplasm of central portion of left breast in female, estrogen receptor negative C50.112; Z17.1 Thrombocytopenia D69.6 UTI (urinary tract infection) N39.0 Esophageal varices I85.00 Pancytopenia D61.818 Folate deficiency E53.8 Diabetes mellitus E11.9 Chronic diarrhea K52.9
[2021-08-03 08:16] LABS: Hematocrit (blood only) 26.9 % (37-47); Hemoglobin 8.7 g/dL (12.0-16.0); Mean Corpuscular Hemoglobin 28.9 pg (25-34); Mean Corpuscular Hgb Conc 32.3 g/dL (32-36); Mean Corpuscular Volume 89.4 fL (80-100); RDW Coefficient of Variation 19.4 % (11.5-14.5); RDW Standard Deviation 60.9 fL (36.4-46.3); Red Blood Count 3.01 M/uL (4.2-5.4)
[2021-08-03 08:21] LABS: Mean Platelet Volume 8.8 fL (7.4-10.4); Platelet Count 63 K/uL (130-400)
[2021-08-03] MEDS: PANTOprazole 40 MG TAB PO SCH (08:43)
[2021-08-03] MEDS: cephALEXin 500 MG CAP PO SCH (08:43)
[2021-08-03] MEDS: FOLIC ACID 1 MG in SYRINGE 9.8 ML IV SCH (08:44)
[2021-08-03] MEDS: PROPRANOLOL HCL 10 MG TAB PO SCH (08:44)
[2021-08-03] MEDS: COLESTIPOL HCL 1 GM TAB PO SCH (08:44)
[2021-08-03 08:48] LABS: BUN Creatinine Ratio 20.5 (10-20); Calcium 8.7 mg/dl (8.5-10.1); Creatinine Clr Calc Pharmacy 26.3 ml/min; Est GFR (African American) 28.3 ml/min; Est GFR (Non-African American) 24.4 ml/min; Potassium 4.2 mmol/L (3.5-5.1)
--- NOTE | 2021-08-03 11:15 | Discharge Summary ---
Date of Service date of admission - July 28, 2021 date of discharge - August 03, 2021 Admission HPI Per Admitting Provider 76 YOF with past medical history of: Breast Cancer- invasive ductal carcinoma grade 3 (treated with XRT Taxol and Herceptin), medi-port placement, BEASLEY cir rhosis, ascites, GERD, HTN, DM, PAM, HLD. Patient comes to the emergency room today for complaint of 1 day of dark tarry stools. The patient endorses that yesterday she started to experience sharp burning abdominal pain over her left upper quadrant. This got worse with food so she did not eat much over the past 24 hours. She had 2 dark stools yesterday and 1 dark stool this morning, she does not endorse any gerard blood or clots on the toilet paper or in the toilet. This was associated with some dizziness and light headedness this morning. She denies any new chest pain/pressure or dyspnea with exertion. She has periodically over the past 6 months been having a pressure in the center of her chest that comes and goes, but she states that this has never came on with activity or causing her physial limitations. In the EMD the patient had routine labs drawn, chest x-ray performed, Hemoccult performed (+), and CT scan of the abdomen and pelvis, which did reveal large amount of ascites. The patient's labs revealed HGB decrease to 8.6, BUN increase to 65, Platelet count decreased to 71. Patient was started on Protonix drip in the emergency department already, so will continue. She is unsure of whether she has varices or not and complete review of the record does not clarify, will place on Rocephin. Patient is usually followed by [facility] for her initial work ups, however she was referred to [place] [facility] last month for increasing ascites, where she did have a paracentesis done. Her abdomen today is ascitic appearing and she feels that her weight is up about 20 pounds over the past 3-4 weeks. She is not having any other abdominal pain and no jaundice. Patient will be admitted to medical telemetry unit, follow her HGB and HCT, NPO, GI consult placed for evaluation for her presumed UGI bleed. Patient will likely benefit from another paracentesis, but this is not emergent and can likely do when her coagulopathy and platelet count is improved. Patient has received her COVID vaccine and her COVID test on admission is: NEGATIVE Principal Diagnosis 1. acute blood loss anemia 2nd to upper GI bleeding 2. erosive esophagitis leading to #1 3. BEASLEY cirrhosis 4. severe ascites s/p paracentesis 5. acute kidney injury Discharge Exam Gen: NAD, obese, pleasant Eyes: no icterus Mouth: MMM Neck: no JVD Heart: 2/6 ADRIANNA LSB, RRR, s1 s2 Lungs: CTA b/l Abd: distended with ascites, BS+, NT Ext: 1-2+ edema b/l, pulses 2+ b/l Skin: mild pallor Discharge Data Allergies Allergy/AdvReac Type Severity Reaction Status Date / Time guaifenesin Allergy Severe Stroke Verified 08/08/21 10:37 like symptoms morphine Allergy Intermediate "FIRE" Verified 08/08/21 10:37 SENSATION IN HEAD Penicillins Allergy Intermediate HIVES Verified 08/08/21 10:37 ethyl alcohol AdvReac Severe STROKE Verified 08/08/21 10:37 LIKE SYMPTOMS shellfish derived AdvReac Severe PT Verified 08/08/21 10:37 DEVELOPED HEPATITIS adhesive AdvReac Intermediate RASH,REDNES Verified 08/08/21 10:37 S verapamil AdvReac Mild H/A Verified 08/08/21 10:37 Consultations [facility]enter[facility] Procedures Performed 1. Operation Date: 07/28/21 17:15 Actual Procedures p Esophagogastroduodenoscopy - Victor Manuel Jimenez Findings: Esophagogastric landmarks were identified: the Z-line was found at 35 cm from the incisors. Large (> 5 mm) varices were found in the middle third of the esophagus and in the lower third of the esophagus. LA Grade C (one or more mucosal breaks continuous between tops of 2 or more mucosal folds, less than 75% circumference) esophagitis with no bleeding was found in the distal esophagus. The stomach was normal. The examined duodenum was normal. No fresh nor old blood noted throughout exam. 2. PRBCs x 1 unit 3. U/s-guided paracentesis by radiology - removal of 6 liters of ascites. Ordered Studies Abdomen/Pelvis CT 07/28/21 11:[address] WITHOUT CONTRAST CT DOSE: 1324.89 mGy.cm HISTORY: Acute nausea and vomiting with ascites vomiting, ascites TECHNIQUE: Multiaxial CT images of the abdomen and pelvis were performed without contrast. A dose lowering technique was utilized adhering to the principles of ALARA. COMPARISON STUDY: CT liver 09/30/2018, ultrasound-guided paracentesis 06/29/2021, MRI abdomen 09/08/2019 FINDINGS: Coronary artery calcifications. Small pleural effusions, right greater than left. Minimal bibasilar atelectasis. No pneumatosis or pneumoperitoneum. Limited evaluation of the solid abdominal organs without the use of IV contrast. The spleen is mildly enlarged measuring up to 13.5 cm. Unremarkable pancreas and adrenal glands. Cholecystectomy. Cirrhotic liver disease. No hepatic mass identified. Unremarkable kidneys with bilateral perinephric stranding. Pelvic floor relaxation with small cystocele. The uterus is either atrophic or surgically absent. No adnexal mass lesions. Atherosclerosis of the aorta without aneurysm. Retroaortic left renal vein. Prominent periportal lymph nodes. 9 mm retroperitoneal nodule lateral to the IVC on image 232 series 3 is likely a lymph node. Moderate sized hiatal hernia with possible distal esophageal varices. Recanalization of the umbilical vein. No bowel obstruction or bowel wall thickening. The appendix is not diagnostically visualized and is reportedly surgically absent. Large 5 abdominal pelvic ascites. Mild generalized body wall edema. Degenerative changes of the spine, pelvis and hips. IMPRESSION: 1. Cirrhotic liver disease with stigmata of portal venous hypertension including splenomegaly with large volume of abdominal pelvic ascites. 2. Small pleural effusions. 3. No bowel obstruction or bowel wall thickening. 4. Moderate sized hiatal hernia. 5. Additional findings as above. ACT 112: Negative or not required by law. The above report was generated using voice recognition software. It may contain grammatical, syntax or spelling errors. Electronically signed by: Omega Marks M.D. 07/28/2021 12:33 PM Paracentesis Ultrasound 07/31/21 11:00 PROCEDURE: Ultrasound-Guided Diagnostic/Therapeutic Paracentesis CLINICAL INDICATION: [place] ^therapeutic BEASLEY cirrhosis, diag R/o SBP ^litter and stickers please. MEDICATIONS: Subcutaneous Lidocaine 2%. PROCEDURE: The procedure itself was explained to the patient carefully. The patient was brought into the IR suite and a time-out was performed. The patient was positioned supine on the table. Preliminary ultrasound of the abdomen was performed to determine a safe needle entry site. The most appropriate approach for safe needle entry site was planned and the site for puncture was marked. The right lower quadrant was prepped and draped in the usual sterile fashion. Subcutaneous 2% lidocaine was used for local anesthesia along the expected needle tract. Under ultrasound-guidance, an 5 [place] Yueh needle-sheath was inserted carefully into the peritoneal space towards the abdominal ascites fluid collection. The needle was removed and the sheath was connected to tubing and a vacuum suction device. A total of 6000 cc of serous ascites was aspirated. The sheath was removed and a sterile dressing applied. The patient tolerated the procedure well without immediate complications. Sample of ascites was sent for analysis. IMPRESSION: Ultrasound-guided diagnostic/therapeutic paracentesis. Electronically signed by: Manish Bacon M.D. 07/31/2021 12:29 PM Hospital Course (1) Acute upper gastrointestinal bleedinnd to erosive esophagitis as confirmed on EGD done 07/28/[address] Victor Manuel Jimenez of [facility]. Initially was on IV protonix then was converted to oral pantoprazole 40mg BID. Aspirin was held during the stay and she was asked to discontinue it completely post-discharge. Varices were seen on EGD, but felt NOT to be the cause of her presenting blee ding. s/p 1 unit PRBCs during the admission. Lowest hemoglobin - 7.1. Discharge hemoglobin - 8.7. (2) Erosive esophagitis: As seen on EGD this admission. see above. (3) Acute blood loss anemia: 2nd to upper GI bleeding from erosive esophagitis. s/p 1 unit PRBCs. s/p 1 dose of IV venofer this admission. Replacing low folate as well. Discharge hemoglobin 8.7. (4) Ascites: 2nd to #5. s/p paracentesis 08/01/21 - 6 liters removed. cell counts NOT c/w SBP. cytologies negative. culture negative. Diuretics were held during the stay due to BENNY. Unfortunately it was apparent that her ascites was reaccumulating shortly after her paracentesis. A repeat therapeutic paracentesis is scheduled for 2 weeks post-discharge. 6 liters asked to be removed on the future tap. Low-dose inderal was started this admission for portal HTN. If ascites ultimately remains refractory - TIPS down the line? Hopefully at time of hospital follow-up her creatinine has stabilized and her diuretics can be resumed. (5) Liver cirrhosis secondary to BEASLEY: Decompensated state during this admission given her severe ascites, LE edema, etc. s/p paracentesis 08/01/21 - diagnostic/therapeutic. s/p albumin post-paracentesis. Diuretics held this admission due to BENNY. Started inderal 10mg BID this admission for portal HTN and tolerated such with stable HRs/BPs. (6) BENNY (acute kidney injury): Baseline creatinine 1.3-1.6. Peak Cr 2.5 during the stay. Discharge Cr 1.9. FeNa near 0 and Urine Na <5 all c/w prerenal etiology. GI bleeding, diuretics, volume depletion - all likely contributed. Holding diuretics until there is more renal recovery. Holding losartan. HRS not suspected at this time. Will need repeat BMP shortly after discharge to ensure creatinine is nearing her baseline. (7) Chronic kidney disease, stage 3: Baseline creatinine 1.3-1.6. (8) Obstructive sleep apnea: Continue home CPAP - 11CM H20. (9) GERD (gastroesophageal reflux disease): PPI (10) Mitral regurgitation: (11) Hyperlipidemia: Continue pravastatin (12) Osteopenia: (13) Malignant neoplasm of central portion of left breast in female, estrogen receptor negative: s/p treatment several years ago (14) Thrombocytopenia: Chronic- baseline is 70-90 2nd BEASLEY cirrhosis Folate deficiency could be contributing Replacing folate Discharge platelet count 63 Aspirin discontinued in the face of #1 and the low platelets (15) UTI (urinary tract infection): s/p 3 days of rocephin, followed by keflex x 4 additional days (16) Esophageal varices: as seen on EGD this admission started inderal 10mg BID for portal HTN fortunately varices were NOT felt to be the cause of her presenting GI bleeding (17) Pancytopenia: cirrhosis, folate deficiency, etc all could be contributing (18) Folate deficiency: folate 1mg daily x 30 days for such folate level was 2.9 (19) Diabetes mellitus: a1c 6.4% May 2021 control satisfactory with once daily lantus (20) Chronic diarrhea: patient reports that her symptoms are markedly worse with cereal, bread, etc. TTGs sent; negative; thus, celiac highly unlikely etiology? f/u with GI as needed Prognosis is guarded given her quickly reaccumulating ascites and need for frequent paracentesis Goals of care, etc should continue to be discussed as an outpatient in light of poor prognosis Total Time Total Time Spent Total Time Spent (In Minutes): 50 Discharge Plan Discharge Items Patient Disposition: Home - Self-Care Reason For Visit: Severe ascites (fluid in abdomen) Discharge Diagnosis: 1. severe ascites due to cirrhosis of the liver - removal of 6 liters of fluid this admission ("paracentesis"). 2. upper gastrointestinal bleeding due to severe esophagitis (irritation of the esophagus lining). 3. esophageal varices as seen on endoscopy. 4. anemia due to bleeding - 1 unit of blood given; 1 round of IV iron given. 5. acute kidney injury (rise in creatinine/kidney number) - due to #2 - improving; discharge creatinine 1.9. 6. urinary tract infection. 7. chronic diarrhea - no evidence of celiac disease on blood work. 8. folic acid deficiency. Activity: Resume your previous activity Activity Comment: as tolerated Non-emergency contact: Primary Care Provider and Non Destructive Tester Call non-emergency contact if: you have any medication questions, your symptoms worsen and you have a fever Follow-up/Referrals: Gildardo Haywood MD [Primary Care Provider] - 08/08/21 10:10 am (Saturday or Saturday of this coming week please.) Victor Manuel Jimenez [Physician] - (2 week follow-up.) Diet: Carb Consistent or DM2 and Low Sodium (2gm) Addtl Attending Provider Instructions: Mrs Conde, You were admitted to the hospital because of worsening fluid build-up in your abdomen (ascites) as well as discomfort with eating. You were found to have evidence of gastrointestinal bleeding and underwent an upper endoscopy by Dr Jimenez. This showed esophagitis (irritation of the lining of the esophagus). This was the likely cause of your bleeding. Esophageal varices were also found but were not bleeding. (see handouts) You did need 1 unit of blood and 1 run of IV iron while here for your anemia. Your hemoglobin level at discharge is 8.7. Your lowest hemoglobin was about 7. We found that you were folate deficient. This makes your anemia worse. Foods that are high in folate (folic acid) include fortified breakfast cereals, breads, and other grains. Folate is also found in leafy green vegetables, beans, nuts, and some fruits. Finally, in the midst of your illness, your kidney number chance to a peak of 2.5. Today it is 1.9 and slowly improving. You typically sit about 1.5/1.6. Recommendations - 1. follow a 2 gram sodium restricted diet. See handout. 2. HOLD the following medications - * aspirin * spironolactone * furosemide * losartan * nexium acid mirror inspector 3. check your weight daily on the same scale. write your weights down in a notebook. be sure to show these values to your doctors. 4. have another paracentesis at [facility] in ~2 weeks; we will arrange for you. 5. START the following medications - * propranolol 10mg twice daily - for your cirrhosis * cephalexin 250mg three times daily for 2 days; this is your antibiotic for your urinary tract infection * pantoprazole 40mg twice daily; this is your new acid mirror inspector to heal your esophagus * folic acid 1mg daily x 30 days 6. DO NOT TAKE [id number] motrin, ibuprofen, alleve, naprosyn, goodie powders, etc. Follow-up - * Dr Haywood on 08/08/21 * [address] Jimenez's office - [facility] * paracentesis at [facility] within 2 weeks - date/time to be arranged Return to [facility] if - * you have fevers over 100 degrees * you have worsening shortness of breath * you are severely dizzy or lightheaded * you see black, tarry stools or have bright red blood in your stools * your ascites gets so severe that it is making it difficult to breathe or sleep * you have abdominal pains * any other concerns It was our pleasure caring for you at [facility]! -Dr Stover Pending Studies at Discharge: No Stand-Alone Forms: My [facility], Smoking Cessation Medications and DC Order Prescriptions: New propranolol 10 mg Tablet 10 mg PO BID Qty: 60 RF: 5 pantoprazole 40 mg Tablet,Delayed Release (Dr/Ec) 40 mg PO BID Qty: 60 RF: 2 folic acid 1 mg tablet 1,000 mcg PO DAILY 30 Days Qty: 30 RF: 0 Continued (DME) OneTouch Verio test strips Strip See Dose Instructions .ROUTE .MEDSUPPLY Qty: 200 RF: 3 (DME) lancets [OneTouch Delica Plus Lancet] 33 gauge misc See Dose Instructions .ROUTE .MEDSUPPLY Qty: 200 RF: 5 (DME) pen needle, diabetic [BD Ultra-Fine Obdulia Pen Needle] 32 gauge x 5/32" needle See Rx Instructions [id number] .MEDSUPPLY Qty: 200 RF: 3 pravastatin 20 mg tablet 20 mg PO QPM Qty: 90 RF: 3 colestipol 1 gram tablet 1 g PO DAILY Qty: 30 RF: 6 calcitriol [Rocaltrol] 0.25 mcg capsule 0.25 mcg PO 3XWK RF: 0 vitamin E 400 unit capsule 400 unit PO HS RF: 0 cholecalciferol (vitamin D3) [Vitamin D3] 25 mcg (1,000 unit) Capsule 1,000 unit PO BID RF: 0 Lantus Solostar U-100 Insulin 100 unit/mL (3 mL) insulin pen 10 unit subcut QDD RF: 0 Discontinued esomeprazole magnesium [Nexium] 40 mg capsule,delayed release(DR/EC) 40 mg PO QAM Qty: 30 RF: 11 losartan 25 mg tablet 25 mg PO DAILY RF: 0 spironolactone 50 mg tablet 50 mg PO DAILY Qty: 90 RF: 2 furosemide 40 mg tablet 40 mg PO .COMPLEX Qty: 270 RF: 5 aspirin [Aspirin Low Dose] 81 mg Tablet,Delayed Release (Dr/Ec) 81 mg PO HS RF: 0 spironolactone [Aldactone] 100 mg tablet 100 mg PO QAM RF: 0 Discharge Orders: Discharge Order (Routine); Ordered 08/03/21 Ordered By: Bryan Tolentino/Other Patient Handouts: Esophagitis, Esophageal Varices, ED Low-Salt Diet Admission Data Admit Date/Time: 07/28/21 14:08 Attending Provider: Bryan Stover Admit Provider: Bryan Leger Primary Care Provider: Gildardo Haywood Other Providers: Bryan Leger ; Victor Manuel Jimenez Other Interventions: Discharge Summary Assessment (RN) Last Done: 08/03/21 11:27 Coding Level of Care Code D/C DAY MANAGEMENT >30 MINS Diagnoses Acute upper gastrointestinal bleeding K92.2 Erosive esophagitis K22.10 Acute blood loss anemia D62 Ascites R18.8 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 BENNY (acute kidney injury) N17.9 Chronic kidney disease, stage 3 N18.3 Obstructive sleep apnea G47.33 GERD (gastroesophageal reflux disease) K21.9 Mitral regurgitation I34.0 Hyperlipidemia E78.5 Osteopenia M85.80 Malignant neoplasm of central portion of left breast in female, estrogen receptor negative C50.112; Z17.1 Thrombocytopenia D69.6 UTI (urinary tract infection) N39.0 Esophageal varices I85.00 Pancytopenia D61.818 Folate deficiency E53.8 Diabetes mellitus E11.9 Chronic diarrhea K52.9
[2021-08-03 11:27] VITALS: BP 148/81; PULSE 75; TEMP 97.9; O2SAT 98
[2021-08-03] MEDS ORDERED: cephALEXin 250 MG CAP PO SCH (21:00)
== END 2021-08-03 12:05 | disposition home or self-care (01) | DRG 369 ==
LOC: ED 09:39 → EDINP 14:08 → SUATTDRO 14:08 → EDINP 16:09 → 2N 17:47
DX: D61.818 Other pancytopenia; Z88.8 Allergy status to other drugs, medicaments and biological substances; Z85.3 Personal history of malignant neoplasm of breast; K74.69 Other cirrhosis of liver; R18.8 Other ascites; M85.80 Other specified disorders of bone density and structure, unspecified site; D62 Acute posthemorrhagic anemia; N39.0 Urinary tract infection, site not specified; G47.33 Obstructive sleep apnea (adult) (pediatric); E11.22 Type 2 diabetes mellitus with diabetic chronic kidney disease; N18.30 Chronic kidney disease, stage 3 unspecified; Z83.3 Family history of diabetes mellitus; K21.9 Gastro-esophageal reflux disease without esophagitis; Z79.82 Long term (current) use of aspirin; Z88.5 Allergy status to narcotic agent; I34.0 Nonrheumatic mitral (valve) insufficiency; J45.909 Unspecified asthma, uncomplicated; K20.81 Other esophagitis with bleeding; Z82.49 Family history of ischemic heart disease and other diseases of the circulatory system; Z79.4 Long term (current) use of insulin; Z79.899 Other long term (current) drug therapy; K76.6 Portal hypertension; Z91.013 Allergy to seafood; Z88.0 Allergy status to penicillin; K52.9 Noninfective gastroenteritis and colitis, unspecified; K75.81 Nonalcoholic steatohepatitis (NASH); E78.5 Hyperlipidemia, unspecified; Z91.048 Other nonmedicinal substance allergy status; N17.9 Acute kidney failure, unspecified; E53.8 Deficiency of other specified B group vitamins; K72.90 Hepatic failure, unspecified without coma; D69.59 Other secondary thrombocytopenia; Z80.3 Family history of malignant neoplasm of breast; I85.10 Secondary esophageal varices without bleeding

== ENCOUNTER 2021-11-16 21:47 | Inpatient (IN) ==
[2021-11-16] MEDS ORDERED: PANTOprazole 80 MG in DEXTROSE 5% 100 ML IV ONE (22:06)
[2021-11-16] MEDS ORDERED: OCTREOTIDE ACETATE 50 MCG in SYRINGE 9.5 ML IV STA (22:06)
[2021-11-16] MEDS ORDERED: SODIUM CHLORIDE 0.9% 250 ML IV PRN (22:06)
[2021-11-16] MEDS ORDERED: PANTOPRAZOLE BOLUS/DRIP 1 EA IV STA (22:06)
--- NOTE | 2021-11-16 22:22 | Emergency Department Note ---
History of Present Illness General Chief complaint: GI Bleed Stated complaint: Vomiting Time Seen by Provider: 11/16/21 22:00 History of Present Illness Maximum Pain Intensity: 6 This is a 76-year-old female who presents to the ED with a chief complaint of upper GI bleeding. The patient states that she vomited once and it was coffee- ground like. She then vomited 4 additional times that was bloody. The patient states that this occurred between 4 and 5 PM. She came to the ED for evaluation. She denies any lightheadedness, dizziness, chest pains or shortness of breath. She does have a history of cirrhosis. She sees Dr. Carbajal from [facility]. She had paracentesis on November 02 for 6 L the patient denies any other specific complaints at this time. She has not passed any dark black stools or bloody stools. No additional complaints at this time. She did not take anything for her symptoms Home Medications Medication Instructions Recorded Confirmed Type vitamin E 400 unit capsule 400 unit PO HS cap 10/28/20 11/06/21 History OneTouch Delica Plus Lancet 33 #200 ea NS 01/30/21 10/30/21 Rx gauge (lancets) BD Ultra-Fine Obdulia Pen Needle 32 #200 ea NS 02/14/21 10/30/21 Rx gauge x 5/32" (pen needle, diabetic) colestipol 1 gram tablet 1 g PO DAILY #30 tab 07/24/21 11/06/21 Rx cholecalciferol (vitamin D3) 25 1,000 unit PO BID 07/28/21 11/06/21 History mcg (1,000 unit) capsule (Vitamin D3) pantoprazole 40 mg tablet,delayed 40 mg PO BID #60 tab 08/03/21 11/06/21 Rx release blood sugar diagnostic (OneTouch ea 08/09/21 10/30/21 History Verio test strips) calcitriol 0.25 mcg capsule 0.25 mcg PO 3XWK #12 cap 09/25/21 11/06/21 Rx (Rocaltrol) pravastatin 20 mg tablet 10 mg PO QPM #90 tab 10/19/21 11/06/21 Rx famotidine 20 mg tablet 20 mg PO DAILY PRN #30 tab 11/06/21 Rx Allergies Allergy/AdvReac Type Severity Reaction Status Date / Time guaifenesin Allergy Severe Stroke Verified 11/16/21 23:18 like symptoms morphine Allergy Intermediate "FIRE" Verified 11/16/21 23:18 SENSATION IN HEAD Penicillins Allergy Intermediate HIVES Verified 11/16/21 23:18 ethyl alcohol AdvReac Severe STROKE Verified 11/16/21 23:18 LIKE SYMPTOMS shellfish derived AdvReac Severe PT Verified 11/16/21 23:18 DEVELOPED HEPATITIS adhesive AdvReac Intermediate RASH,REDNES Verified 11/16/21 23:18 S verapamil AdvReac Mild H/A Verified 11/16/21 23:18 Past Med/Surg History Medical History Abdominal ascites Acute upper gastrointestinal bleeding BENNY (acute kidney injury) Anemia HX Asthma INHALERS JUST FOR WINTER > COLD TAKES BREATH AWAY> NO ACTUAL ASTHMA DX Cancer of left breast 2016--sx/chemo/radiation > PORT TO RIGHT CHEST PRESENT Cardiac murmur follows with Dr. Iglesias Cirrhosis Depression Diabetes mellitus, type 2 GERD (gastroesophageal reflux disease) Hypertension IBS (irritable colon syndrome) Malignant neoplasm of central portion of left breast in female, estrogen receptor negative (11/15/17) Mitral regurgitation Mitral valve regurgitation UNSURE OF DETAILS, DOESNT FOLLOW CARDIO Nonalcoholic fatty liver disease Osteopenia Sinus bradycardia PATIENT SAID SHE REMEMBERS SOMEONE TELLING HER OF THIS ON AN EKG ONE TIME, BUT DOESN'T THINK ITS A CHRONIC PROBLEM Sleep apnea cpap T2DM (type 2 diabetes mellitus) Thrombocytopenia Tricuspid valve regurgitation UNSURE OF DETAILS, DOESNT FOLLOW CARDIO Surgical History History of cholecystectomy History of colonoscopy History of dilatation and curettage History of esophagogastroduodenoscopy (EGD) History of left cataract surgery left. 12/23/2019. 2 mg versed. no issues. History of lumpectomy of left breast History of tonsillectomy History of tooth extraction History of total hysterectomy with bilateral salpingo-oophorectomy (BSO) History of vascular access device right side APort in place History of wisdom tooth extraction Hx of left breast biopsy malignant Hx of right breast biopsy benign Family History Grandmother (Maternal) Family history of diabetes mellitus Grandmother (Maternal) No problems noted. Grandmother (Paternal) Breast cancer Aunt Breast cancer Uncle Colorectal cancer Father Hypertension Other Colonic polyp No family history of adverse response to anesthesia Denies family history of Ovarian cancer Prostate cancer Myocardial infarction Social History Smoking Status: Never smoker Second Hand Exposure: No; Hx Alcohol Use: Yes Alcohol type: beer Hx Substance Use: No Preferred Language: Maldivian Communication Ability: Effective Healthcare Advisory Services Manager Required: No Beliefs That Will Affect Care: None marital status: Current Living Situation: Spouse current occupational status: retired Feels Safe at Home: Yes Childhood Exposure to Second-Hand Smoke: Yes caffeine: No Dental Care, Regularly: Yes Physical Activity Frequency: Declines to Answer Physical Activity Frequency Comment: Not very much right now due to present fluid retention issues Seatbelt Use: always Assistive Devices: CPAP and Glasses Review of Systems A total of 10 systems reviewed and were otherwise negative Physical Exam Vital Signs Vital Signs - 24 hr 11/16/21 21:55 Temperature 36.6 C Temperature Source Oral Pulse Rate 90 Respiratory Rate 20 Respiratory Effort / Characteristics Non-Labored Spontaneous Respiratory Depth Normal Blood Pressure 115/92 Blood Pressure Mean 99 Pulse Oximetry 99 Oxygen Delivery Method Room Air Sepsis Recent Fever Within 48 Hours No Sepsis New/Unexplained Change in Mental Status No Sepsis Action Taken by Nursing No Action Required CONSTITUTIONAL/VITAL SIGNS: Reviewed / noted above. GENERAL: Non-toxic in appearance. INTEGUMENTARY: Warm, dry, and Terry. HEAD: Normocephalic. EYES: without scleral icterus or trauma. ENT/OROPHARYNX: clear and moist. LYMPHADENOPATHY/NECK: Is supple without lymphadenopathy or meningismus. RESPIRATORY: Clear to auscultation bilaterally. No increased work of breathing. CARDIOVASCULAR: Regular rate and rhythm. GI/ABDOMEN: Soft and nontender. No organomegaly or pulsatile mass. EXTREMITIES: Warm and well perfused. BACK: No CVA tenderness. NEUROLOGICAL: Intact without focal deficits. PSYCHIATRIC: normal affect. MUSCULOSKELETAL: Normally developed with good muscle tone. TRIAGE NURSING DOCUMENTATION REVIEWED. Critical Care Time Critical Care Time: Yes Total Critical Care Time: 30 I have personally spent 30 minutes of critical care time in the direct management of this patient. This includes bedside care, interpretation of diagnostic studies, and testing, discussion with consultants, patient, and family members, and other required patient management activities. This 30 minutes is in excess of all separately billable procedures. Medical Decision Making Differential Diagnosis Differential includes acute coronary syndrome, myocardial infarction, CVA, TIA, anemia, infection, pneumonia, UTI, pyelonephritis, poor nutrition, dehydration, electrolyte disturbance,hypoglycemia. Medical Records Attestation: I reviewed the patient's medical records. Home Medications Current Medication List: was personally reviewed by me Laboratory Data Attestation: I reviewed the patient's lab results. Result diagrams: 11/16/21 22:21 11/16/21 22:21 Lab Results 11/16/21 11/16/21 11/16/21 Range/Units 22:21 22:21 22:21 WBC 7.66 (4.8-10.8) K/uL RBC 3.15 L (4.2-5.4) M/uL Hgb 9.2 L (12.0-16.0) g/dL Hct 28.2 L (37-47) % MCV 89.5 (80-100) fL MCH 29.2 (25-34) pg MCHC 32.6 (32-36) g/dL RDW Std Deviation 56.2 H (36.4-46.3) fL RDW Coeff of Carmelina 17.0 H (11.5-14.5) % Plt Count 107 L (130-400) K/uL MPV 8.9 (7.4-10.4) fL Immature Gran % (Auto) 0.1 % Neut % (Auto) 79.2 % Lymph % (Auto) 11.7 % Delta % (Auto) 8.1 % Eos % (Auto) 0.8 % Baso % (Auto) 0.1 % Neut # (Auto) 6.06 (1.4-6.5) K/uL Lymph # (Auto) 0.90 L (1.2-3.4) K/uL Delta # (Auto) 0.62 H (0.11-0.59) K/uL Eos # (Auto) 0.06 (0-0.5) K/uL Baso # (Auto) 0.01 (0-0.2) K/uL Immature Gran # (Auto) 0.01 (0.00-0.02) K/uL PT Cancelled INR Cancelled APTT Cancelled PTT Ratio Cancelled Sodium (136-145) mmol/L Potassium (3.5-5.1) mmol/L Chloride (98-107) mmol/L Carbon Dioxide (21-32) mmol/L Anion Gap (3-11) BUN (7-18) mg/dl Creatinine (0.6-1.2) mg/dl Est Cr Clr Drug Dosing ml/min Est GFR ( Amer) ml/min Est GFR (Non-Af Amer) ml/min BUN/Creatinine Ratio (10-20) Glucose (70-99) mg/dl Calcium (8.5-10.1) mg/dl Total Bilirubin (0.2-1) mg/dl AST (15-37) U/L ALT (12-78) Alkaline Phosphatase (45-117) U/L Total Protein (6.4-8.2) gm/dl Albumin (3.4-5.0) gm/dl Globulin (2.5-4.0) gm/dl Albumin/Globulin Ratio (0.9-2) Crossmatch See Detail 11/16/21 Range/Units 22:21 WBC (4.8-10.8) K/uL RBC (4.2-5.4) M/uL Hgb (12.0-16.0) g/dL Hct (37-47) % MCV (80-100) fL MCH (25-34) pg MCHC (32-36) g/dL RDW Std Deviation (36.4-46.3) fL RDW Coeff of Carmelina (11.5-14.5) % Plt Count (130-400) K/uL MPV (7.4-10.4) fL Immature Gran % (Auto) % Neut % (Auto) % Lymph % (Auto) % Delta % (Auto) % Eos % (Auto) % Baso % (Auto) % Neut # (Auto) (1.4-6.5) K/uL Lymph # (Auto) (1.2-3.4) K/uL Delta # (Auto) (0.11-0.59) K/uL Eos # (Auto) (0-0.5) K/uL Baso # (Auto) (0-0.2) K/uL Immature Gran # (Auto) (0.00-0.02) K/uL PT INR APTT PTT Ratio Sodium 133 L (136-145) mmol/L Potassium 6.1 H* (3.5-5.1) mmol/L Chloride 107 (98-107) mmol/L Carbon Dioxide 19 L (21-32) mmol/L Anion Gap 6.0 (3-11) BUN 65 H (7-18) mg/dl Creatinine 2.78 H (0.6-1.2) mg/dl Est Cr Clr Drug Dosing 16.6 ml/min Est GFR ( Amer) 18.7 ml/min Est GFR (Non-Af Amer) 16.1 ml/min BUN/Creatinine Ratio 23.2 H (10-20) Glucose 144 H (70-99) mg/dl Calcium 8.4 L (8.5-10.1) mg/dl Total Bilirubin 1.5 H (0.2-1) mg/dl AST 25 (15-37) U/L ALT 14 (12-78) Alkaline Phosphatase 89 (45-117) U/L Total Protein 6.5 (6.4-8.2) gm/dl Albumin 2.7 L (3.4-5.0) gm/dl Globulin 3.8 (2.5-4.0) gm/dl Albumin/Globulin Ratio 0.7 L (0.9-2) Crossmatch ECG Data Attestation: I personally reviewed and interpreted this ECG as follows: Additional Comments: Twelve-lead EKG done by EMS just prior to arrival: Per my interpretation there is a sinus rhythm at a rate of 91. Right bundle branch block. No ST elevation. No peak T waves. PVC. MDM Narrative Patient presents with upper GI bleeding. She states that it occurred around 16 to 1700 hours. She states that she feels up about 2 inches of a small bucket vomiting blood. Denies any other symptoms at this time. Has a history of nonalcoholic cirrhosis. Vital signs are normal. Physical exam reveals a somewhat distended abdomen but otherwise unremarkable. Chest x-ray did not show acute process. Hemoglobin today is 9.2. On November 06 it was 11. Potassium is 6.1. EKG did not show any peaked T waves or or widened QRS complex. Showed a sinus rhythm at a rate of 90. BUN is 65 and creatinine is 2.78. Baseline creatinine is 2.5. Other tests were unremarkable. The patient was treated with IV pantoprazole bolus and drip as well as IV octreotide bolus and drip. CT scan was not done because of the patient's creatinine. The patient will be seen by the hospitalist for further inpatient evaluation and care. The patient does not have any unstable vital signs during her ED stay. She did not have any a dditional vomiting of blood during her ED stay. She appears comfortable and is awake, alert and oriented. Daughter was present. She is listed as the primary contact. Patient has been typed and crossed for 2 units but not transfused. Impression & Plan Acute upper GI bleed Discharge Plan Visit Data Chief Complaint: GI Bleed Stated Complaint: Vomiting ED Provider: Ross Enrique Discharge Problem: Acute upper GI bleed Patient Disposition: Being Evaluated by Hospitalist Forms Stand Alone Forms: [facility] [employer] Prescriptions Prescriptions: No Action (DME) lancets [OneTouch Delica Plus Lancet] 33 gauge misc See Dose Instructions .ROUTE .MEDSUPPLY Qty: 200 RF: 5 (DME) pen needle, diabetic [BD Ultra-Fine Obdulia Pen Needle] 32 gauge x 5/32" needle See Rx Instructions [id number] .MEDSUPPLY Qty: 200 RF: 3 calcitriol [Rocaltrol] 0.25 mcg capsule 0.25 mcg PO 3XWK Qty: 12 RF: 5 pravastatin 20 mg tablet 10 mg PO QPM Qty: 90 RF: 3 colestipol 1 gram tablet 1 g PO DAILY Qty: 30 RF: 6 (DME) OneTouch Verio test strips Strip See Rx Instructions .ROUTE .MEDSUPPLY RF: 0 vitamin E 400 unit capsule 400 unit PO HS RF: 0 cholecalciferol (vitamin D3) [Vitamin D3] 25 mcg (1,000 unit) Capsule 1,000 unit PO BID RF: 0 pantoprazole 40 mg Tablet,Delayed Release (Dr/Ec) 40 mg PO BID Qty: 60 RF: 2 famotidine 20 mg tablet 20 mg PO DAILY PRN (Reason: acid reflux) Qty: 30 RF: 0 Referrals Referrals: Gildardo Haywood MD [Primary Care Provider] -
[2021-11-16 22:31] LABS: Basophils # (auto) 0.01 K/uL (0-0.2); Basophils % (auto) 0.1 %; Eosinophils # (auto) 0.06 K/uL (0-0.5); Eosinophils % (auto) 0.8 %; Hematocrit (blood only) 28.2 % (37-47); Hemoglobin 9.2 g/dL (12.0-16.0); Immature Granulocytes # (auto) 0.01 K/uL (0.00-0.02); Immature Granulocytes % (auto) 0.1 %; Lymphocytes % (auto) 11.7 %; Mean Corpuscular Hemoglobin 29.2 pg (25-34); Mean Corpuscular Hgb Conc 32.6 g/dL (32-36); Mean Corpuscular Volume 89.5 fL (80-100); Mean Platelet Volume 8.9 fL (7.4-10.4); Monocytes # (auto) 0.62 K/uL (0.11-0.59); Monocytes % (auto) 8.1 %; Neutrophils # (auto) 6.06 K/uL (1.4-6.5); Neutrophils % (auto) 79.2 %; Platelet Count 107 K/uL (130-400); RDW Standard Deviation 56.2 fL (36.4-46.3); Red Blood Count 3.15 M/uL (4.2-5.4); White Blood Count 7.66 K/uL (4.8-10.8)
[2021-11-16 22:54] LABS: Albumin Globulin Ratio 0.7 (0.9-2); Albumin Level 2.7 gm/dl (3.4-5.0); BUN Creatinine Ratio 23.2 (10-20); Calcium 8.4 mg/dl (8.5-10.1); Creatinine Clr Calc Pharmacy 16.6 ml/min; Est GFR (African American) 18.7 ml/min; Est GFR (Non-African American) 16.1 ml/min; Globulin 3.8 gm/dl (2.5-4.0); Potassium 6.1 mmol/L (3.5-5.1); Total Protein 6.5 gm/dl (6.4-8.2)
[2021-11-16 23:04] LABS: Bilirubin,Total 1.5 mg/dl (0.2-1)
--- NOTE | 2021-11-16 23:30 | History & Physical Report ---
Date of Service November 16, 2021 Assessment & Plan (1) Cirrhosis, non-alcoholic: Plan: 76-year-old female with a past medical history of NAFLD, nonalcoholic cirrhosis, GERD/esophagitis, type 2 diabetes, CKD stage IV, diverticulosis, hypertension, type cuspid regurg, breast cancer status post chemotherapy and radiation admitted to the hospital for management of hyperkalemia and concern for upper GI bleed. Hyperkalemia Potassium of 6.1, received 10 units of IV regular insulin as well as dextrose 50 and calcium gluconate in ER Canceled Kayexalate given history of emesis/nausea Follow-up BMP Upper GI bleed Patient denies history of varices however EGD from 07/28/2021 reports the following: * Large greater than 5 mm esophageal varices * LA grade C erosive esophagitis Recommendation at that time for patient to be started on PPI for erosive esophagitis and would eventually need beta-estrada for control of portal hypertension Received bolus of octreotide in ER, transitioned to drip Started on PPI drip in ER Consented for blood transfusion Hemoglobin 11.0 on 11/06/2021, 9.2 today. Currently hemodynamically stable and asymptomatic. 2 units of packed red blood cells currently held will transfuse if hemoglobin less than 7 or symptomatic CBC a.m., n.p.o. Consider initiating beta-estrada after resolution of presumed variceal bleed Nonalcoholic fatty liver disease/nonalcoholic cirrhosis Follows with [facility] GI, consult placed Meld score of 25, 14 to 15% 90-day mortality Received paracenteses every 2 weeks per patient report. She states her last was around Maciej time. No concern for SBP at this time Paracentesis with labs ordered Trend LFTs Anorexia Secondary to progressing disease? Albumin of 2.7, could be mix of cirrhosis and decreasing oral intake Would benefit from protein supplementation after paracentesis Can consider dietary consult to try and prevent malnutrition History of breast cancer Status post radiation and therapy treatment. Currently cancer free Right-sided chest port for ease of lab draws given patient's frequency of outpatient labs and being a hard stick Hyperlipidemia Continue pravastatin DVT ppx: contraindictated in bleeding patient FEN/GI: NPO, on PPI + octreotide drip Code Status: Conditional Code. DNR, okay for intubation. Would not want to be on ventilator skilled nursing. goal is to be functional. Dispo: Med/Tele (2) Acute upper GI bleed: (3) T2DM (type 2 diabetes mellitus): (4) GERD (gastroesophageal reflux disease): (5) Nonalcoholic fatty liver disease: (6) Cancer of left breast: (7) Sleep apnea: (8) Tricuspid regurgitation: (9) Acute kidney injury superimposed on CKD: (10) Acute hyperkalemia: (11) Vomiting: (12) Esophageal varices determined by endoscopy: (13) Erosive esophagitis: History of Present Illness Primary Care Provider: Gildardo Haywood MD Patient is a 76-year-old female with past medical history of nonalcoholic fatty liver disease, cirrhosis, hypertension, tricuspid regurg, GERD, type 2 diabetes who presents to the emergency department for worsening abdominal distention and multiple episodes of emesis. She states that she had been feeling well until earlier today she started to feel nauseous. She had an episode of coffee-ground emesis followed by multiple bouts of bloody emesis. She states that the total amount of blood that came up was about a cup full and concerned her. She denies ever having any bloody emesis before. She states that she gets paracenteses done at the hospital approximately every 2 weeks to help treat her ascites. She states that she had an EGD approximately a year ago that was normal. She denies any known history of varices. She denies any history of alcohol abuse. She denies any recent fever, chills. She does attest to having had some weight loss likely secondary to anorexia. She states that she remembers eating well around Maciej but since then says that food has tasted like "metal" and she has not had much of an appetite. She denies any issues with confusion however says that she does get easily distracted at home and will frequently forget what she is doing. Occasionally during conversation has forgotten what questions she was answering or what she was trying to say. She denies any melena, bright red blood per rectum, abdominal pain. Allergies Allergy/AdvReac Type Severity Reaction Status Date / Time guaifenesin Allergy Severe Stroke Verified 11/16/21 23:18 like symptoms morphine Allergy Intermediate "FIRE" Verified 11/16/21 23:18 SENSATION IN HEAD Penicillins Allergy Intermediate HIVES Verified 11/16/21 23:18 ethyl alcohol AdvReac Severe STROKE Verified 11/16/21 23:18 LIKE SYMPTOMS shellfish derived AdvReac Severe PT Verified 11/16/21 23:18 DEVELOPED HEPATITIS adhesive AdvReac Intermediate RASH,REDNES Verified 11/16/21 23:18 S verapamil AdvReac Mild H/A Verified 11/16/21 23:18 Home Medications Medication Instructions Recorded Confirmed Type vitamin E 400 unit capsule 400 unit PO HS cap 10/28/20 11/16/21 History OneTouch Delica Plus Lancet 33 #200 ea NS 01/30/21 10/30/21 Rx gauge (lancets) BD Ultra-Fine Obdulia Pen Needle 32 #200 ea NS 02/14/21 10/30/21 Rx gauge x 5/32" (pen needle, diabetic) colestipol 1 gram tablet 1 g PO DAILY #30 tab 07/24/21 11/16/21 Rx cholecalciferol (vitamin D3) 25 1,000 unit PO BID 07/28/21 11/16/21 History mcg (1,000 unit) capsule (Vitamin D3) pantoprazole 40 mg tablet,delayed 40 mg PO BID #60 tab 08/03/21 11/16/21 Rx release blood sugar diagnostic (OneTouch ea 08/09/21 10/30/21 History Verio test strips) calcitriol 0.25 mcg capsule 0.25 mcg PO 3XWK #12 cap 09/25/21 11/16/21 Rx (Rocaltrol) pravastatin 20 mg tablet 10 mg PO QPM #90 tab 10/19/21 11/16/21 Rx famotidine 20 mg tablet 20 mg PO DAILY PRN #30 tab 11/06/21 11/16/21 Rx Past Med/Surg History Medical History (Updated 11/17/21 @ 12:08 by Nagi Shook MD) Abdominal ascites Acute upper gastrointestinal bleeding BENNY (acute kidney injury) Anemia HX Asthma INHALERS JUST FOR WINTER > COLD TAKES BREATH AWAY> NO ACTUAL ASTHMA DX Cancer of left breast Hx of, cancer free 2021. s/p chemo/radiation > PORT TO RIGHT CHEST PRESENT Cardiac murmur follows with Dr. Iglesias Cirrhosis Depression Diabetes mellitus, type 2 Erosive esophagitis Esophageal varices determined by endoscopy GERD (gastroesophageal reflux disease) Hypertension IBS (irritable colon syndrome) Malignant neoplasm of central portion of left breast in female, estrogen receptor negative (11/15/17) Mitral regurgitation Mitral valve regurgitation UNSURE OF DETAILS, DOESNT FOLLOW CARDIO Nonalcoholic fatty liver disease Obesity (BMI 30-39.9) Osteopenia Sinus bradycardia PATIENT SAID SHE REMEMBERS SOMEONE TELLING HER OF THIS ON AN EKG ONE TIME, BUT DOESN'T THINK ITS A CHRONIC PROBLEM Sleep apnea cpap T2DM (type 2 diabetes mellitus) Thrombocytopenia Tricuspid valve regurgitation UNSURE OF DETAILS, DOESNT FOLLOW CARDIO Surgical History History of cholecystectomy History of colonoscopy History of dilatation and curettage History of esophagogastroduodenoscopy (EGD) History of left cataract surgery left. 12/23/2019. 2 mg versed. no issues. History of lumpectomy of left breast History of tonsillectomy History of tooth extraction History of total hysterectomy with bilateral salpingo-oophorectomy (BSO) History of vascular access device right side APort in place History of wisdom tooth extraction Hx of left breast biopsy malignant Hx of right breast biopsy benign Family History Grandmother (Maternal) Family history of diabetes mellitus Grandmother (Maternal) No problems noted. Grandmother (Paternal) Breast cancer Aunt Breast cancer Uncle Colorectal cancer Father Hypertension Other Colonic polyp No family history of adverse response to anesthesia Denies family history of Ovarian cancer Prostate cancer Myocardial infarction Social History Smoking Status: Never smoker Second Hand Exposure: No; Hx Alcohol Use: No Hx Substance Use: No Preferred Language: Honduran Communication Ability: Effective Crab Backer Required: No Beliefs That Will Affect Care: None marital status: Current Living Situation: Spouse Current Living Situation Comment: Lives with . current occupational status: retired Feels Safe at Home: Yes Safety Concerns: Feels Safe At This Time Childhood Exposure to Second-Hand Smoke: Yes caffeine: No Dental Care, Regularly: Yes Physical Activity Frequency: Declines to Answer Physical Activity Frequency Comment: Not very much right now due to present fluid retention issues Seatbelt Use: always Assistive Devices: None Review of Systems Review of Systems: All systems reviewed & are unremarkable except as noted in Subjective Physical Exam Physical Exam: Constitutional: chronically ill appearing female, fatigued, laying in bed Eyes: EOMI, pupils equal and reactive bilaterally, no scleral icterus Cardiac: RRR, diastolic murmur over LLSB, no gallops or rubs Chest: Port present in R Chest Pulm: CTA BL, no wheezes, rhonchi, crackles or rubs, poor inspiratory effort Abd: soft, nontender, distended, no visible fluid shift, normal bowel sounds, no rebound or guarding Extremities: 2+ peripheral pulses, no edema Neuro: no focal deficits, moving all 4 limbs, A&Ox3 Skin: petechiae and old bruises covering arms bilaterally Results & Data Results & Data ([facility]) Vital Signs (Past 12 Hours) Vital Signs Temp Pulse Resp BP Pulse Ox 11/16/21 21:55 36.6 C 90 20 115/92 99 Laboratory Results Laboratory Results WBC 7.66 K/uL (4.8-10.8) 11/16/21 22:21 RBC 3.15 M/uL (4.2-5.4) L 11/16/21 22:21 Hgb 9.2 g/dL (12.0-16.0) L 11/16/21 22:21 Hct 28.2 % (37-47) L 11/16/21 22:21 MCV 89.5 fL (80-100) 11/16/21 22:21 MCH 29.2 pg (25-34) 11/16/21 22:21 MCHC 32.6 g/dL (32-36) 11/16/21 22:21 RDW Std Deviation 56.2 fL (36.4-46.3) H 11/16/21 22:21 RDW Coeff of Carmelina 17.0 % (11.5-14.5) H 11/16/21 22:21 Plt Count 107 K/uL (130-400) L 11/16/21 22:21 MPV 8.9 fL (7.4-10.4) 11/16/21 22:21 Immature Gran % (Auto) 0.1 % 11/16/21 22:21 Neut % (Auto) 79.2 % 11/16/21 22:21 Lymph % (Auto) 11.7 % 11/16/21 22:21 [place] % (Auto) 8.1 % 11/16/21 22:21 Eos % (Auto) 0.8 % 11/16/21 22:21 Baso % (Auto) 0.1 % 11/16/21 22:21 Neut # (Auto) 6.06 K/uL (1.4-6.5) 11/16/21 22:21 Lymph # (Auto) 0.90 K/uL (1.2-3.4) L 11/16/21 22:21 [place] # (Auto) 0.62 K/uL (0.11-0.59) H 11/16/21 22:21 Eos # (Auto) 0.06 K/uL (0-0.5) 11/16/21 22:21 Baso # (Auto) 0.01 K/uL (0-0.2) 11/16/21 22:21 Immature Gran # (Auto) 0.01 K/uL (0.00-0.02) 11/16/21 22:21 PT 14.4 Seconds (9.0-12.0) H 11/16/21 23:16 INR 1.5 (0.9-1.1) H 11/16/21 23:16 APTT 32.4 Seconds (21.0-31.0) H 11/16/21 23:16 PTT Ratio 1.2 11/16/21 23:16 Sodium 133 mmol/L (136-145) L 11/16/21 22:21 Potassium 6.1 mmol/L (3.5-5.1) H* 11/16/21 22:21 Chloride 107 mmol/L (98-107) 11/16/21 22:21 Carbon Dioxide 19 mmol/L (21-32) L 11/16/21 22:21 Anion Gap 6.0 (3-11) 11/16/21 22:21 BUN 65 mg/dl (7-18) H 11/16/21 22:21 Creatinine 2.78 mg/dl (0.6-1.2) H 11/16/21 22:21 Est Cr Clr Drug Dosing 16.6 ml/min 11/16/21 22:21 Est GFR ( Amer) 18.7 ml/min 11/16/21 22:21 Est GFR (Non-Af Amer) 16.1 ml/min 11/16/21 22:21 BUN/Creatinine Ratio 23.2 (10-20) H 11/16/21 22:21 Glucose 144 mg/dl (70-99) H 11/16/21 22:21 POC Glucose 165 mg/dl (70-99) H 11/17/21 01:01 Calcium 8.4 mg/dl (8.5-10.1) L 11/16/21 22:21 Total Bilirubin 1.5 mg/dl (0.2-1) H 11/16/21 22:21 AST 25 U/L (15-37) 11/16/21 22:21 ALT 14 (12-78) 11/16/21 22:21 Alkaline Phosphatase 89 U/L (45-117) 11/16/21 22:21 Total Protein 6.5 gm/dl (6.4-8.2) 11/16/21 22:21 Albumin 2.7 gm/dl (3.4-5.0) L 11/16/21 22:21 Globulin 3.8 gm/dl (2.5-4.0) 11/16/21 22:21 Albumin/Globulin Ratio 0.7 (0.9-2) L 11/16/21 22:21 SARS-CoV-2, RNA, NAAT NEGATIVE (NEGATIVE) 11/16/21 23:59 Blood Type O Negative 11/16/21 22:21 Antibody Screen NEGATIVE 11/16/21 22:21 Crossmatch See Detail 11/16/21 22:21 Supervising Physician Co-Signing Physician Notes Attending addendum: I have physically seen this patient, have supervised the medical residents activities, and agree with the H&P unless as otherwise noted. Assessment and Plan: Upper GI bleed/BEASLEY/LA grade C erosive esophagitis/esophageal varices/nonalcoholic cirrhosis- NPO Protonix drip Octreotide drip Serial H&H every 6 hours Serial CBC with differential and chemistry profile Type and screen, transfuse if additional bleeding Consult [facility] gastroenterology Paracentesis orders as noted Remaining orders and notations as noted Resident Activity Tracking Resident Involvement: Resident Care Provided Care Provided: Adult Hospital Medicine (1) Vomiting Nausea presence: with nausea Vomiting type: unspecified Qualified Code(s): R11.2 - Nausea with vomiting, unspecified
[2021-11-16] MEDS ORDERED: CALCIUM GLUCONATE 1,000 MG/60 ML BAG IV STA (23:31)
[2021-11-16] MEDS ORDERED: SODIUM CHLORIDE 0.9% 500 ML IV ONE (23:31)
[2021-11-16] MEDS ORDERED: DEXTROSE 50% 50 ML SYRINGE IV STA (23:31)
[2021-11-16] MEDS ORDERED: SODIUM POLYSTYRENE SULFONATE 15G/60ML SUSP PO STA (23:31)
[2021-11-16] MEDS ORDERED: NovoLIN-R INSULIN PER UNIT CHARGE IV STA (23:31)
[2021-11-16 23:35] LABS: INR 1.5 (0.9-1.1); Partial Thromboplastin Ratio 1.2; Partial Thromboplastin Time 32.4 Seconds (21.0-31.0); Prothrombin Time 14.4 Seconds (9.0-12.0)
[2021-11-16] MEDS ORDERED: INSULIN HUMAN REGULAR PER UNIT 10 UNITS in SYRINGE 9.9 ML IV ONE (23:45)
[2021-11-16] MEDS: PANTOprazole 40 MG in DEXTROSE 5% 100 ML IV SCH (23:52)
[2021-11-16] MEDS ORDERED: NovoLIN-R INSULIN PER UNIT CHARGE ONE (23:55)
[2021-11-17] MEDS: OCTREOTIDE ACETATE 500 MCG in 0.9 % SODIUM CHLORIDE 100 ML IV SCH ×3 (01:07→18:04)
[2021-11-17] MEDS ORDERED: FAMOTIDINE 20 MG TAB PO PRN (01:56)
[2021-11-17 02:00] LABS: BUN Creatinine Ratio 24.1 (10-20); Calcium 8.5 mg/dl (8.5-10.1); Creatinine Clr Calc Pharmacy 16.9 ml/min; Est GFR (African American) 19.1 ml/min; Est GFR (Non-African American) 16.5 ml/min; Potassium 5.6 mmol/L (3.5-5.1)
[2021-11-17] MEDS ORDERED: HEPARIN 100 UNIT/ML 5ML FLUSH FLUSH PRN (02:20)
[2021-11-17] MEDS ORDERED: ONDANSETRON INJ 2 MG/ML 2 ML VIAL IV PRN ×2 (02:47→13:07)
[2021-11-17] MEDS ORDERED: NITROGLYCERIN SL 0.4 MG/TAB TAB SL PRN (02:47)
[2021-11-17] MEDS ORDERED: ACETAMINOPHEN 325 MG TAB PO PRN (02:47)
[2021-11-17 04:57] LABS: Hematocrit (blood only) 24.2 % (37-47); Hemoglobin 7.9 g/dL (12.0-16.0); Mean Corpuscular Hemoglobin 29.2 pg (25-34); Mean Corpuscular Hgb Conc 32.6 g/dL (32-36); Mean Corpuscular Volume 89.3 fL (80-100); RDW Standard Deviation 55.9 fL (36.4-46.3); Red Blood Count 2.71 M/uL (4.2-5.4); White Blood Count 6.54 K/uL (4.8-10.8)
[2021-11-17] MEDS: PANTOprazole 40 MG in DEXTROSE 5% 100 ML IV SCH ×5 (05:02→23:23)
[2021-11-17] MEDS: SODIUM CHLORIDE 0.9% 1000ML 1,000 ML IV SCH ×3 (05:02→18:12)
[2021-11-17 05:04] LABS: INR 1.5 (0.9-1.1); Prothrombin Time 14.6 Seconds (9.0-12.0)
[2021-11-17 05:35] LABS: Mean Platelet Volume 9.2 fL (7.4-10.4); Platelet Count 80 K/uL (130-400)
[2021-11-17 05:37] LABS: Basophils # (auto) 0.01 K/uL (0-0.2); Basophils % (auto) 0.2 %; Eosinophils # (auto) 0.03 K/uL (0-0.5); Eosinophils % (auto) 0.5 %; Immature Granulocytes # (auto) 0.01 K/uL (0.00-0.02); Immature Granulocytes % (auto) 0.2 %; Lymphocytes # (auto) 1.19 K/uL (1.2-3.4); Lymphocytes % (auto) 18.2 %; Monocytes # (auto) 0.61 K/uL (0.11-0.59); Monocytes % (auto) 9.3 %; Neutrophils # (auto) 4.69 K/uL (1.4-6.5); Neutrophils % (auto) 71.6 %; Platelet Estimate Decreased (Normal); RBC Morphology Unremarkable
[2021-11-17 05:51] LABS: Albumin Globulin Ratio 0.8 (0.9-2); Albumin Level 2.6 gm/dl (3.4-5.0); BUN Creatinine Ratio 24.5 (10-20); Bilirubin,Total 1.3 mg/dl (0.2-1); Calcium 8.7 mg/dl (8.5-10.1); Creatinine Clr Calc Pharmacy 17.2 ml/min; Est GFR (African American) 19.4 ml/min; Est GFR (Non-African American) 16.8 ml/min; Globulin 3.3 gm/dl (2.5-4.0); Potassium 6.1 mmol/L (3.5-5.1); Total Protein 5.9 gm/dl (6.4-8.2)
[2021-11-17] MEDS ORDERED: DEXTROSE 50% 50 ML SYRINGE IV ONE (06:04)
[2021-11-17] MEDS ORDERED: INSULIN HUMAN REGULAR PER UNIT 10 UNITS in SYRINGE 9.9 ML IV ONE (06:30)
[2021-11-17] MEDS ORDERED: CALCIUM GLUCONATE 10% 1,000 MG in SODIUM CHLORIDE 0.9% 50 ML IV ONE (06:30)
[2021-11-17] MEDS: COLESTIPOL HCL 1 GM TAB PO SCH (07:47)
--- NOTE | 2021-11-17 08:37 | Gastrointestinal Consultation ---
Date of Consultation November 17, 2021 Assessment & Plan (1) Cirrhosis, non-alcoholic: The patient is a pleasant 76-year-old female who presented to the hospital with complaints of hematemesis with a history of decompensated nonalcoholic cirrhosis. Hematemesis: Patient does have history of decompensated nonalcoholic cirrhosis. Most recent EGD obtained 07/2021 demonstrated erosive esophagitis as well as large esophageal varices. She reports that she began experiencing hematemesis including gerard red blood and coffee-ground emesis 11/13/2021. Admitting hemoglobin 7.9/hematocrit 24.2. Continue IV Protonix and famotidine. Octreotide initiated by admitting physician. Maintain n.p.o. status in anticipation of EGD today. Continue to supportive care measures and IV fluids. Recommend antibiotic prophylaxis with ceftriaxone 1 gm daily x 7 days beginning prior to endoscopy due to history of cirrhosis with esophageal varices. Cirrhosis: Patient has been maintained on biweekly paracentesis due to recurrent ascites. Paracentesis is ordered for this morning with fluid analysis ordered as well by the admitting physician. Please refer to supervising physician addendum for further recommendations. (2) Hematemesis: Supervising Physician Co-Signing Physician Notes I have seen and examined the patient. I agree with note above by HOSSEIN Lr except as noted below. HPI Pt denies abd pain. Had paracentesis today and states abdomen softer. No melena. No hematemesis since last night. Pt states she had been taking PPI regularly since her diagnosis of grade C esophagitis on EGD 07/2021. PE Abdomen pos bs, soft, no guarding nor rebound A/P UGI bleeding ---I suspect variceal bleeding the time given PPI treatment. Discussed with patient about potential esophageal banding this session and can require several sesssions. EGD today. Procedure and risks explained to patient which include but not limited to medication reaction, bleeding, perforation, aspiration, and missed lesions. IV Abx recommended as prophylaxis in setting of GI bleed in cirrhotic patient reducing infection, recurrent variceal bleeding with possible reduction of mortality. History of Present Illness Reason for Consultation: GI bleeding Attending Physician: Delmer Mcgee DO History of Present Illness The patient is a pleasant 76-year-old female with a past medical history to include nonalcoholic fatty liver disease, cirrhosis, hypertension, tricuspid regurgitation, GERD, type 2 diabetes who presented to the emergency department 11/16/2021 with complaints of hematemesis first beginning on 11/13/2021 and worsening day of presentation to the emergency department. The patient is a known patient to the [facility] GI service and we were consulted accordingly. Prior records are reviewed: 11/01/2021: Ultrasound guided paracentesis obtained due to history of cirrhosis and ascites was performed with removal of 6 L of ascites. 07/28/2021: EGD obtained due to history of coffee-ground emesis and melena which demonstrated Z-line found 35 cm from the incisors; large (greater than 5 mm) varices found in the middle third of the esophagus and in the lower third of the esophagus. LA grade C esophagitis with no bleeding was found in the distal esophagus. Normal stomach and examined duodenum. No fresh or old blood noted through the exam. No specimens were collected. On exam/interview today, the patient reports that she began experiencing hemat emesis on 11/13/2021. She states she was vomiting bright red blood. She states this slowed down over few days but then worsened again on , 11/16/2021 prompting her to present to the emergency department. She states it has been coffee-ground like and bloody. The last several episodes have been bloody. She states that she has had decreased appetite over the last several days as anything she eats comes backs up. She states she has been trying to continue to drink water. Denies any specific abdominal pain. She reports a bowel movement on that had red-colored stool. Denies any melena. Does note some nausea with vomiting is noted. Denies any specific chest pain, shortness of breath, lightheadedness or dizziness. She follows with [facility] in [place] due to history of cirrhosis requiring biweekly paracentesis. Most recent paracentesis 11/01/2021 removing 6 L of acetic fluid at that time. She denies any current use of anticoagulants including aspirin or NSAIDs. She is maintained on pantoprazole 40 mg twice daily. She reports that diuretics have been changed and she is not currently using any. Reports that she has been compliant with a low 2 g sodium diet at home. She is a lifetime non-smoker. She denies any alcohol intake. Denies use of recreational drugs including marijuana. She is retired. 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 She is and lives at home with her . She has 2 adult children as well as several grandchildren and a great grandchild. Allergies Allergy/AdvReac Type Severity Reaction Status Date / Time guaifenesin Allergy Severe Stroke Verified 11/16/21 23:18 like symptoms morphine Allergy Intermediate "FIRE" Verified 11/16/21 23:18 SENSATION IN HEAD Penicillins Allergy Intermediate HIVES Verified 11/16/21 23:18 ethyl alcohol AdvReac Severe STROKE Verified 11/16/21 23:18 LIKE SYMPTOMS shellfish derived AdvReac Severe PT Verified 11/16/21 23:18 DEVELOPED HEPATITIS adhesive AdvReac Intermediate RASH,REDNES Verified 11/16/21 23:18 S verapamil AdvReac Mild H/A Verified 11/16/21 23:18 Home Medications Medication Instructions Recorded Confirmed Type vitamin E 400 unit capsule 400 unit PO HS cap 10/28/20 11/16/21 History OneTouch Delica Plus Lancet 33 #200 ea NS 01/30/21 10/30/21 Rx gauge (lancets) BD Ultra-Fine Obdulia Pen Needle 32 #200 ea NS 02/14/21 10/30/21 Rx gauge x 5/32" (pen needle, diabetic) colestipol 1 gram tablet 1 g PO DAILY #30 tab 07/24/21 11/16/21 Rx cholecalciferol (vitamin D3) 25 1,000 unit PO BID 07/28/21 11/16/21 History mcg (1,000 unit) capsule (Vitamin D3) pantoprazole 40 mg tablet,delayed 40 mg PO BID #60 tab 08/03/21 11/16/21 Rx release blood sugar diagnostic (OneTouch ea 08/09/21 10/30/21 History Verio test strips) calcitriol 0.25 mcg capsule 0.25 mcg PO 3XWK #12 cap 09/25/21 11/16/21 Rx (Rocaltrol) pravastatin 20 mg tablet 10 mg PO QPM #90 tab 10/19/21 11/16/21 Rx famotidine 20 mg tablet 20 mg PO DAILY PRN #30 tab 11/06/21 11/16/21 Rx Patient History Medical History (Updated 11/17/21 @ 12:08 by Nagi Shook MD) Abdominal ascites Acute upper gastrointestinal bleeding BENNY (acute kidney injury) Anemia HX Asthma INHALERS JUST FOR WINTER > COLD TAKES BREATH AWAY> NO ACTUAL ASTHMA DX Cancer of left breast Hx of, cancer free 2021. s/p chemo/radiation > PORT TO RIGHT CHEST PRESENT Cardiac murmur follows with Dr. Iglesias Cirrhosis Depression Diabetes mellitus, type 2 Erosive esophagitis Esophageal varices determined by endoscopy GERD (gastroesophageal reflux disease) Hypertension IBS (irritable colon syndrome) Malignant neoplasm of central portion of left breast in female, estrogen receptor negative (11/15/17) Mitral regurgitation Mitral valve regurgitation UNSURE OF DETAILS, DOESNT FOLLOW CARDIO Nonalcoholic fatty liver disease Obesity (BMI 30-39.9) Osteopenia Sinus bradycardia PATIENT SAID SHE REMEMBERS SOMEONE TELLING HER OF THIS ON AN EKG ONE TIME, BUT DOESN'T THINK ITS A CHRONIC PROBLEM Sleep apnea cpap T2DM (type 2 diabetes mellitus) Thrombocytopenia Tricuspid valve regurgitation UNSURE OF DETAILS, DOESNT FOLLOW CARDIO Surgical History History of cholecystectomy History of colonoscopy History of dilatation and curettage History of esophagogastroduodenoscopy (EGD) History of left cataract surgery left. 12/23/2019. 2 mg versed. no issues. History of lumpectomy of left breast History of tonsillectomy History of tooth extraction History of total hysterectomy with bilateral salpingo-oophorectomy (BSO) History of vascular access device right side APort in place History of wisdom tooth extraction Hx of left breast biopsy malignant Hx of right breast biopsy benign Family History Grandmother (Maternal) Family history of diabetes mellitus Grandmother (Maternal) No problems noted. 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 current occupational status: retired Feels Safe at Home: Yes Safety Concerns: Feels Safe At This Time Childhood Exposure to Second-Hand Smoke: Yes caffeine: No Dental Care, Regularly: Yes Physical Activity Frequency: Declines to Answer Physical Activity Frequency Comment: Not very much right now due to present fluid retention issues Seatbelt Use: always Assistive Devices: Glasses Review of Systems Gastrointestinal: as per Subjective / HPI Physical Exam Constitutional: + ill appearing (Chronically); no acute distress Neck: normal visual inspection Respiratory: normal respiratory effort; no respiratory distress and no labored breathing Cardiovascular: Rate/Rhythm: regular rate and regular rhythm Extremities: no edema Gastrointestinal (Abdomen): Inspection/Auscultation: + abdomen distended Percussion/Palpation: + ascites and + dullness to percussion; abdomen nontender, no guarding and abdomen not rigid Musculoskeletal: Head/Neck/Chest: normocephalic Neurologic: PERRL, EOMI, accommodation nl, no face palsy, no dysarthria Psychiatric: A+Ox3, euthymic affect Results & Data ([facility]) Vital Signs (Past 12 Hours) Vital Signs Temp Pulse Pulse Resp BP BP Pulse Ox 11/17/21 07:32 36.8 C 85 16 118/63 99 11/17/21 05:57 36.6 C 11/17/21 05:26 81 13 124/66 99 11/17/21 01:36 88 16 135/80 99 11/16/21 23:55 89 16 126/68 99 11/16/21 22:13 88 16 99 11/16/21 21:55 36.6 C 90 20 115/92 99 Pulse Ox 11/17/21 07:32 11/17/21 05:57 11/17/21 05:26 98 11/17/21 01:36 11/16/21 23:55 11/16/21 22:13 11/16/21 21:55 Laboratory Results Laboratory Results - last 24 hr 11/16/21 11/16/21 11/16/21 22:21 22:21 22:21 WBC 7.66 RBC 3.15 L Hgb 9.2 L Hct 28.2 L MCV 89.5 MCH 29.2 MCHC 32.6 RDW Std Deviation 56.2 H RDW Coeff of Carmelina 17.0 H Plt Count 107 L MPV 8.9 Immature Gran % (Auto) 0.1 Neut % (Auto) 79.2 Lymph % (Auto) 11.7 Charlotte % (Auto) 8.1 Eos % (Auto) 0.8 Baso % (Auto) 0.1 Neut # (Auto) 6.06 Lymph # (Auto) 0.90 L Charlotte # (Auto) 0.62 H Eos # (Auto) 0.06 Baso # (Auto) 0.01 Immature Gran # (Auto) 0.01 Platelet Estimate RBC Morphology PT Cancelled INR Cancelled APTT Cancelled PTT Ratio Cancelled Sodium Potassium Chloride Carbon Dioxide Anion Gap BUN Creatinine Est Cr Clr Drug Dosing Est GFR ( Amer) Est GFR (Non-Af Amer) BUN/Creatinine Ratio Glucose POC Glucose Calcium Total Bilirubin AST ALT Alkaline Phosphatase Total Protein Albumin Globulin Albumin/Globulin Ratio SARS-CoV-2, RNA, NAAT Blood Type O Negative Antibody Screen NEGATIVE Crossmatch See Detail 11/16/21 11/16/21 11/16/21 22:21 23:16 23:59 WBC RBC Hgb Hct MCV MCH MCHC RDW Std Deviation RDW Coeff of Carmelina Plt Count MPV Immature Gran % (Auto) Neut % (Auto) Lymph % (Auto) Charlotte % (Auto) Eos % (Auto) Baso % (Auto) Neut # (Auto) Lymph # (Auto) Charlotte # (Auto) Eos # (Auto) Baso # (Auto) Immature Gran # (Auto) Platelet Estimate RBC Morphology PT 14.4 H INR 1.5 H APTT 32.4 H PTT Ratio 1.2 Sodium 133 L Potassium 6.1 H* Chloride 107 Carbon Dioxide 19 L Anion Gap 6.0 BUN 65 H Creatinine 2.78 H Est Cr Clr Drug Dosing 16.6 Est GFR ( Amer) 18.7 Est GFR (Non-Af Amer) 16.1 BUN/Creatinine Ratio 23.2 H Glucose 144 H POC Glucose Calcium 8.4 L Total Bilirubin 1.5 H AST 25 ALT 14 Alkaline Phosphatase 89 Total Protein 6.5 Albumin 2.7 L Globulin 3.8 Albumin/Globulin Ratio 0.7 L SARS-CoV-2, RNA, NAAT NEGATIVE Blood Type Antibody Screen Crossmatch 11/17/21 11/17/21 11/17/21 01:01 01:30 04:45 WBC 6.54 RBC 2.71 L Hgb 7.9 L Hct 24.2 L MCV 89.3 MCH 29.2 MCHC 32.6 RDW Std Deviation 55.9 H RDW Coeff of Carmelina 17.0 H Plt Count 80 L MPV 9.2 Immature Gran % (Auto) 0.2 Neut % (Auto) 71.6 Lymph % (Auto) 18.2 Charlotte % (Auto) 9.3 Eos % (Auto) 0.5 Baso % (Auto) 0.2 Neut # (Auto) 4.69 Lymph # (Auto) 1.19 L Charlotte # (Auto) 0.61 H Eos # (Auto) 0.03 Baso # (Auto) 0.01 Immature Gran # (Auto) 0.01 Platelet Estimate Decreased L RBC Morphology Unremarkable PT INR APTT PTT Ratio Sodium 133 L Potassium 5.6 H Chloride 109 H Carbon Dioxide 19 L Anion Gap 5.0 BUN 66 H Creatinine 2.73 H Est Cr Clr Drug Dosing 16.9 Est GFR ( Amer) 19.1 Est GFR (Non-Af Amer) 16.5 BUN/Creatinine Ratio 24.1 H Glucose 155 H POC Glucose 165 H Calcium 8.5 Total Bilirubin AST ALT Alkaline Phosphatase Total Protein Albumin Globulin Albumin/Globulin Ratio SARS-CoV-2, RNA, NAAT Blood Type Antibody Screen Crossmatch 11/17/21 11/17/21 11/17/21 04:45 04:45 06:43 WBC RBC Hgb Hct MCV MCH MCHC RDW Std Deviation RDW Coeff of Carmelina Plt Count MPV Immature Gran % (Auto) Neut % (Auto) Lymph % (Auto) Charlotte % (Auto) Eos % (Auto) Baso % (Auto) Neut # (Auto) Lymph # (Auto) Charlotte # (Auto) Eos # (Auto) Baso # (Auto) Immature Gran # (Auto) Platelet Estimate RBC Morphology PT 14.6 H INR 1.5 H APTT PTT Ratio Sodium 132 L Potassium 6.1 H* Chloride 107 Carbon Dioxide 19 L Anion Gap 6.0 BUN 66 H Creatinine 2.69 H Est Cr Clr Drug Dosing 17.2 Est GFR ( Amer) 19.4 Est GFR (Non-Af Amer) 16.8 BUN/Creatinine Ratio 24.5 H Glucose 138 H POC Glucose 131 H Calcium 8.7 Total Bilirubin 1.3 H AST 22 ALT 15 Alkaline Phosphatase 77 Total Protein 5.9 L Albumin 2.6 L Globulin 3.3 Albumin/Globulin Ratio 0.8 L SARS-CoV-2, RNA, NAAT Blood Type Antibody Screen Crossmatch
[2021-11-17] MEDS: cefTRIAXone SODIUM 1,000 MG in DEXTROSE 5% 50 ML IV SCH (10:33)
[2021-11-17 10:47] LABS: BUN Creatinine Ratio 24.5 (10-20); Calcium 8.9 mg/dl (8.5-10.1); Creatinine Clr Calc Pharmacy 18.1 ml/min; Est GFR (African American) 20.3 ml/min; Est GFR (Non-African American) 17.5 ml/min; Potassium 5.4 mmol/L (3.5-5.1)
[2021-11-17] MEDS ORDERED: CALCITRIOL 0.25 MCG CAPSULE PO SCH (11:30)
--- NOTE | 2021-11-17 12:03 | Anesthesiology Consultation ---
Date of Service November 17, 2021 The patient has a history of large esophageal varices and presented with coffee ground emesis. She will have the procedure done in the main OR due to the chance of emergent intubation being required during the procedure. Assessment & Plan (1) Encounter for pre-operative examination: Chart Review Chart Review: Acceptable Risk for Surgery (necessary procedure) and Patient NOT seen in Pre Admission Testing Consults Requested none History Surgery Operation Date: 11/17/21 09:05 Proposed Procedures p Esophagogastroduodenoscopy - Victor Manuel Jimenez Height/Weight Height: 5 ft 2 in Weight: 75.3 kg Allergies Allergy/AdvReac Type Severity Reaction Status Date / Time guaifenesin Allergy Severe Stroke Verified 11/16/21 23:18 like symptoms morphine Allergy Intermediate "FIRE" Verified 11/16/21 23:18 SENSATION IN HEAD Penicillins Allergy Intermediate HIVES Verified 11/16/21 23:18 ethyl alcohol AdvReac Severe STROKE Verified 11/16/21 23:18 LIKE SYMPTOMS shellfish derived AdvReac Severe PT Verified 11/16/21 23:18 DEVELOPED HEPATITIS adhesive AdvReac Intermediate RASH,REDNES Verified 11/16/21 23:18 S verapamil AdvReac Mild H/A Verified 11/16/21 23:18 Medications Home Medications Medication Instructions Recorded Confirmed Last Taken vitamin E 400 unit capsule 400 unit PO HS cap 10/28/20 11/16/21 11/05/21 OneTouch Delica Plus Lancet 33 #200 ea NS 01/30/21 10/30/21 Unknown gauge (lancets) BD Ultra-Fine Obdulia Pen Needle 32 #200 ea NS 02/14/21 10/30/21 Unknown gauge x 5/32" (pen needle, diabetic) colestipol 1 gram tablet 1 g PO DAILY #30 tab 07/24/21 11/16/21 11/05/21 cholecalciferol (vitamin D3) 25 1,000 unit PO BID 07/28/21 11/16/21 11/05/21 mcg (1,000 unit) capsule (Vitamin D3) pantoprazole 40 mg tablet,delayed 40 mg PO BID #60 tab 08/03/21 11/16/21 11/06/21 08:00 release blood sugar diagnostic (OneTouch ea 08/09/21 10/30/21 Unknown Verio test strips) calcitriol 0.25 mcg capsule 0.25 mcg PO 3XWK #12 cap 09/25/21 11/16/21 11/03/21 (Rocaltrol) pravastatin 20 mg tablet 10 mg PO QPM #90 tab 10/19/21 11/16/21 11/05/21 famotidine 20 mg tablet 20 mg PO DAILY PRN #30 tab 11/06/21 11/16/21 Unknown Active Medications Generic Name Dose Route Start Last Admin Trade Name Freq PRN Reason Stop Dose Admin Calcitriol 0.25 mcg 11/17/21 11:30 11/17/21 11:57 Calcitriol 0.25 Mcg Capsule PO 12/17/21 11:29 Not Given [id number]@1130 JESI Colestipol HCl 1 gm 11/17/21 07:00 11/17/21 07:47 Colestipol Hcl 1 Gm Tab PO 12/17/21 06:59 Not Given DAILY@0700 JESI Octreotide Acetate 500 mcg/ 105 mls @ 10.5 mls/hr 11/16/21 22:15 11/17/21 09:53 Sodium Chloride IV 12/16/21 22:14 50 mcg/hr .Q10H JESI 10.5 mls/hr Administration 50 MCG/HR Pantoprazole Sodium 40 mg/ 100 mls @ 20 mls/hr 11/16/21 22:30 11/17/21 09:51 Dextrose IV 12/16/21 22:29 8 mg/hr Q5H JESI 20 mls/hr Administration 8 MG/HR Sodium Chloride 1,000 mls @ 125 mls/hr 11/17/21 03:00 11/17/21 11:56 Nss 1000ml IV 12/17/21 02:59 125 mls/hr .Q8H JESI Administration Ceftriaxone Sodium 1,000 mg/ 50 mls @ 100 mls/hr 11/17/21 10:15 11/17/21 11:11 Dextrose IV 11/27/21 10:14 Infused Q24H JESI Infusion Protocol Past Medical History Medical History (Updated 11/17/21 @ 12:08 by aNgi Shook MD) Abdominal ascites Acute upper gastrointestinal bleeding BENNY (acute kidney injury) Anemia HX Asthma INHALERS JUST FOR WINTER > COLD TAKES BREATH AWAY> NO ACTUAL ASTHMA DX Cancer of left breast Hx of, cancer free 2021. s/p chemo/radiation > PORT TO RIGHT CHEST PRESENT Cardiac murmur follows with Dr. Iglesias Cirrhosis Depression Diabetes mellitus, type 2 Erosive esophagitis Esophageal varices determined by endoscopy GERD (gastroesophageal reflux disease) Hypertension IBS (irritable colon syndrome) Malignant neoplasm of central portion of left breast in female, estrogen receptor negative (11/15/17) Mitral regurgitation Mitral valve regurgitation UNSURE OF DETAILS, DOESNT FOLLOW CARDIO Nonalcoholic fatty liver disease Obesity (BMI 30-39.9) Osteopenia Sinus bradycardia PATIENT SAID SHE REMEMBERS SOMEONE TELLING HER OF THIS ON AN EKG ONE TIME, BUT DOESN'T THINK ITS A CHRONIC PROBLEM Sleep apnea cpap T2DM (type 2 diabetes mellitus) Thrombocytopenia Tricuspid valve regurgitation UNSURE OF DETAILS, DOESNT FOLLOW CARDIO Past Family History Family History Grandmother (Maternal) Family history of diabetes mellitus Grandmother (Maternal) No problems noted. Grandmother (Paternal) Breast cancer Aunt Breast cancer Uncle Colorectal cancer Father Hypertension Other Colonic polyp No family history of adverse response to anesthesia Denies family history of Ovarian cancer Prostate cancer Myocardial infarction Past Surgical History Surgical History History of cholecystectomy History of colonoscopy History of dilatation and curettage History of esophagogastroduodenoscopy (EGD) History of left cataract surgery left. 12/23/2019. 2 mg versed. no issues. History of lumpectomy of left breast History of tonsillectomy History of tooth extraction History of total hysterectomy with bilateral salpingo-oophorectomy (BSO) History of vascular access device right side APort in place History of wisdom tooth extraction Hx of left breast biopsy malignant Hx of right breast biopsy benign Social History Smoking Status: Never smoker Hx Alcohol Use: No Alcohol type: beer alcohol intake frequency: holidays/special occasions only Hx Substance Use: No substance use type: does not use Physical Exam Vital Signs Last Vital Signs Temp 36.7 C 11/17/21 11:53 Pulse 86 11/17/21 11:53 Resp 18 11/17/21 11:53 BP 132/76 11/17/21 11:53 Pulse Ox 97 11/17/21 11:53 Testing Laboratory Results 11/17/21 04:45 11/17/21 10:07 PT 14.6 Seconds (9.0-12.0) H 11/17/21 04:45 INR 1.5 (0.9-1.1) H 11/17/21 04:45 APTT 32.4 Seconds (21.0-31.0) H 11/16/21 23:16 Blood Type O Negative 11/16/21 22:21 Antibody Screen NEGATIVE 11/16/21 22:21 11/17/21 11/17/21 06:43 01:01 POC Glucose 131 H 165 H Electrocardiogram Date: 11/17/21 SR with sinus arrythmia, rate 86, RBBB, Left anterior fascicle block Chest X-Ray Date: 11/06/21 SINGLE VIEW CHEST CLINICAL HISTORY: Atypical chest pain. FINDINGS: An AP, portable, upright chest radiograph is compared to study dated 01/27/2018. A right internal jugular central venous infusion port is unchanged in position. The cardiomediastinal silhouette is unremarkable noting atherosclerotic calcification of the thoracic aorta. There are small pleural effusions, right larger than left with dependent atelectasis. No airspace consolidation is seen typical for pneumonia. No pneumothorax is identified. The skeletal structures are osteopenic. The bony thorax is grossly intact. IMPRESSION: Small pleural effusions. ACT 112: Negative or not required by law. Electronically signed by: Hussein Lama M.D. 11/06/2021 6:37 PM Dictated:[id number] Transcribed: [id number] Other Testing PARACENTESIS UNDER ULTRASOUND GUIDANCE CLINICAL HISTORY: Abdominal ascites COMPARISON STUDY: Abdominal CT dated 11/06/2021. PROCEDURE: The risks, benefits, and alternatives to the procedure were discussed with the patient who voiced understanding. Written informed consent was obtained. Following real-time ultrasound localization of a suitable pocket of fluid in the left lower quadrant, the abdomen was prepped and draped in the usual sterile fashion. The skin and soft tissues were anesthetized with 1% li docaine. The sheathed paracentesis needle was inserted and approximately 6 liters of straw-colored ascitic fluid was removed by vacuum suction. The procedure was well tolerated and without immediate complication. The patient left the department in satisfactory condition. IMPRESSION: Successful ultrasound-guided paracentesis with removal of approximately 6 liters of ascitic fluid. ACT 112: Negative or not required by law. Electronically signed by: Hussein Lama M.D. 11/17/2021 12:01 PM Dictated:11/17/21 1159 Transcribed: 11/17/21 1159
--- NOTE | 2021-11-17 12:03 | Ultrasound Report ---
PARACENTESIS UNDER ULTRASOUND GUIDANCE CLINICAL HISTORY: Abdominal ascites COMPARISON STUDY: Abdominal CT dated 11/06/2021. PROCEDURE: The risks, benefits, and alternatives to the procedure were discussed with the patient who voiced understanding. Written informed consent was obtained. Following real-time ultrasound localiza tion of a suitable pocket of fluid in the left lower quadrant, the abdomen was prepped and draped in the usual sterile fashion. The skin and soft tissues were anesthetized with 1% lidocaine. The sheathe d paracentesis needle was inserted and approximately 6 liters of straw-colored ascitic fluid was alan rusty by vacuum suction. The procedure was well tolerated and without immediate complication. The patie nt left the department in satisfactory condition. IMPRESSION: Successful ultrasound-guided paracentesis with removal of approximately 6 liters of ascit ic fluid. ACT 112: Negative or not required by law. Electronically signed by: Hussein Lama M.D. 11/17/2021 12:01 PM
[2021-11-17] MEDS ORDERED: cefTRIAXone SODIUM 1,000 MG in DEXTROSE 5% 50 ML IV SCH (12:15)
[2021-11-17] MEDS ORDERED: LIDOCAINE 2% 2 ML VIAL/AMP(20MG/ML) INFIL ONE (12:31)
[2021-11-17] MEDS ORDERED: PROPOFOL IV EMULSION 10 MG/ML 20 ML VIAL IV ONE (12:31)
[2021-11-17] MEDS ORDERED: KETAMINE 50 MG/5 ML SYRINGE ONE (12:40)
[2021-11-17] MEDS ORDERED: fentaNYL citrate 100 MCG/2 ML VIAL ONE (13:04)
[2021-11-17 13:07] LABS: Albumin Peritoneal Fluid 0.7 g/dl
[2021-11-17] MEDS ORDERED: LABETALOL HCL IV 5 MG/ML 20ML IV PRN (13:07)
[2021-11-17] MEDS ORDERED: fentaNYL citrate 100 MCG/2 ML VIAL IV PRN (13:07)
[2021-11-17] MEDS ORDERED: ATROPINE SULFATE 0.1 MG/ML 10ML SYR IV PRN (13:07)
[2021-11-17] MEDS ORDERED: ePHEDrine sulfate 50 MG/ML AMP IV PRN (13:07)
[2021-11-17] MEDS ORDERED: PHENYLEPHRINE 100MCG/ML 5ML SYR IV PRN (13:07)
[2021-11-17 13:22] LABS: Total Protein Peritoneal Fluid 1.5 g/dl
[2021-11-17 13:40] LABS: Appearance Peritoneal Fluid CLOUDY; Basophils, Fluid 0 %; Color Peritoneal Fluid STRAW; Eosinophils, Fluid 0 %; Lymphocytes, Fluid 52 %; Mono,Macrophage,Mesothelial 42 %; Neutrophils, Fluid 6 %; RBC Peritoneal Fluid (A) 7000 /uL; WBC Peritoneal Fluid (A) 158 /ul (0-300)
--- NOTE | 2021-11-17 13:40 | GI REPORT ---
Patient Name: Tasneem Conde Procedure Date: 11/17/2021 1:06 PM Date of : 1945 Admit Type: Inpatient Age: 76 Gender: Female Attending MD: Victor Manuel Jimenez MD Procedure: Upper GI endoscopy Providers: Victor Manuel Jimenez MD Referring MD: Referred Self Indications: Hematemesis Medicines: General Anesthesia Complications: No immediate complications. Estimated blood loss: None. Estimated Blood Loss: Estimated blood loss: none. Procedure: Pre-Anesthesia Assessment: - The risks and benefits of the procedure and the sedation options and risks were discussed with the patient. All questions were answered and informed consent was obtained. After obtaining informed consent, the endoscope was passed under direct vision. Throughout the procedure, the patient's blood pressure, pulse, and oxygen saturations were monitored continuously. The Endoscope was introduced through the mouth, and advanced to the second part of duodenum. The upper GI endoscopy was accomplished without difficulty. The patient tolerated the procedure well. Procedure and risks explained to patient which include but not limited to medication reaction, bleeding, perforation, aspiration , and missed lesions. Judicious gas insufflation was used and gas removal done on the way out. The lumen was always visualized when advancing the scope. Prep was good. Washes and suctioning used as needed to get good visualization of the mucosa. Retroflexion to look at the fundus and cardia of the stomach and GE junction was done. Findings: Esophagogastric landmarks were identified: the Z-line was found at 38 cm from the incisors. Large (> 5 mm) varices were found in the middle third of the esophagus and in the lower third of the esophagus. LA Grade C (one or more mucosal breaks continuous between tops of 2 or more mucosal folds, less than 75% circumference) esophagitis with no active bleeding was found in the lower third of the esophagus. Stigmata of recent bleeding noted. The stomach was normal. The examined duodenum was normal. The exam was otherwise without abnormality. Impression: - Esophagogastric landmarks identified. - Large (> 5 mm) esophageal varices. - LA Grade C erosive esophagitis. - Normal stomach. - Normal examined duodenum. - The examination was otherwise normal. - No specimens collected. Recommendation: - [facility]. - Feel that the erosive esophagitis more likely the cause of bleeding. Also the erosions were located where banding would be done causing more bleeding potential for variceal banding. No biopsied taken due to recent bleeding. Confirm that patient is indeed taking Protonix 40 mg bid and if so, add carafate supsension ac and qhs to regimen. Can DC octreotide and continue PPI. Clear liquid diet. Victor Manuel Jimenez M.D. Victor Manuel Jimenez MD 11/17/2021 1:39:51 PM This report has been signed electronically. Note Initiated On: 11/17/2021 1:06 PM Number of Addenda: 0 I attest to the content of the Intraoperative Record and orders documented therein, exceptions below {[id number]}
--- NOTE | 2021-11-17 14:25 | Anesthesiology Progress Note ---
Date of Service November 17, 2021 Anesthesia Post Procedure Vital Signs Vital Signs: Temp Pulse Pulse Pulse Resp BP BP 11/17/21 14:15 76 17 104/60 11/17/21 14:05 83 14 119/63 11/17/21 13:55 85 15 130/59 L 11/17/21 13:49 96.8 F L 88 18 136/55 L 11/17/21 12:43 98.1 F 84 20 139/57 L 11/17/21 12:15 97.9 F 85 16 119/64 11/17/21 11:53 98.1 F 86 18 132/76 11/17/21 07:32 98.2 F 85 16 118/63 11/17/21 05:57 97.9 F 11/17/21 05:26 81 13 124/66 11/17/21 01:36 88 16 135/80 11/16/21 23:55 89 16 126/68 11/16/21 22:13 88 16 11/16/21 21:55 97.9 F 90 20 115/92 Pulse Ox Pulse Ox 11/17/21 14:15 100 11/17/21 14:05 97 11/17/21 13:55 96 11/17/21 13:49 93 11/17/21 12:43 100 11/17/21 12:15 99 11/17/21 11:53 97 11/17/21 07:32 99 11/17/21 05:57 11/17/21 05:26 99 98 11/17/21 01:36 99 11/16/21 23:55 99 11/16/21 22:13 99 11/16/21 21:55 99 Pain Intensity Abdomen: Pain Intensity: 6 Transfer of Care Handoff Completed per policy Notes Mental Status: alert / awake / arousable and participated in evaluation Patient Amnestic to Procedure: Yes Nausea / Vomiting: adequately controlled Pain: adequately controlled Airway Patency, RR, SpO2: stable & adequate BP & HR: stable & adequate Hydration State: stable & adequate Anesthetic Complications: no major complications apparent and Pt Satisfied with anesthetic care
--- NOTE | 2021-11-17 14:30 | Anesthesiology Progress Note ---
Date of Service November 17, 2021 Anesthesia Post Procedure Vital Signs Vital Signs: Temp Pulse Pulse Pulse Resp BP BP 11/17/21 14:25 36.1 C L 76 16 112/60 11/17/21 14:15 76 17 104/60 11/17/21 14:05 83 14 119/63 11/17/21 13:55 85 15 130/59 L 11/17/21 13:49 36.0 C L 88 18 136/55 L 11/17/21 12:43 36.7 C 84 20 139/57 L 11/17/21 12:15 36.6 C 85 16 119/64 11/17/21 11:53 36.7 C 86 18 132/76 11/17/21 07:32 36.8 C 85 16 118/63 11/17/21 05:57 36.6 C 11/17/21 05:26 81 13 124/66 11/17/21 01:36 88 16 135/80 11/16/21 23:55 89 16 126/68 11/16/21 22:13 88 16 11/16/21 21:55 36.6 C 90 20 115/92 Pulse Ox Pulse Ox 11/17/21 14:25 99 11/17/21 14:15 100 11/17/21 14:05 97 11/17/21 13:55 96 11/17/21 13:49 93 11/17/21 12:43 100 11/17/21 12:15 99 11/17/21 11:53 97 11/17/21 07:32 99 11/17/21 05:57 11/17/21 05:26 99 98 11/17/21 01:36 99 11/16/21 23:55 99 11/16/21 22:13 99 11/16/21 21:55 99 Pain Intensity Abdomen: Pain Intensity: 1 Transfer of Care Handoff Completed per policy Notes Mental Status: alert / awake / arousable Patient Amnestic to Procedure: Yes Nausea / Vomiting: adequately controlled Pain: adequately controlled Airway Patency, RR, SpO2: stable & adequate BP & HR: stable & adequate Hydration State: stable & adequate Anesthetic Complications: no major complications apparent and Pt Satisfied with anesthetic care Notes: The patient is awake and comfortable.
--- NOTE | 2021-11-17 16:13 | Electrocardiogram Report ---
Test Reason : Blood Pressure : / mmHG Vent. Rate : 090 BPM Atrial Rate : 090 BPM P-R Int : 132 ms QRS Dur : 126 ms QT Int : 376 ms P-R-T Axes : 006 -58 -19 degrees QTc Int : 459 ms Normal sinus rhythm Right bundle branch block Left anterior fascicular block Bifascicular block Abnormal ECG When compared with ECG of 06-NOV-2021 18:09, No significant change was found Confirmed by Jarred Salgado ([id number]) on 11/17/2021 4:13:43 PM Referred By: REFERRED SELF Confirmed By:Jarred Salgado
--- NOTE | 2021-11-17 16:17 | Electrocardiogram Report ---
Test Reason : Blood Pressure : / mmHG Vent. Rate : 086 BPM Atrial Rate : 086 BPM P-R Int : 156 ms QRS Dur : 128 ms QT Int : 398 ms P-R-T Axes : -13 -48 -12 degrees QTc Int : 476 ms Normal sinus rhythm with sinus arrhythmia Right bundle branch block Left anterior fascicular block Bifascicular block Abnormal ECG When compared with ECG of 16-NOV-2021 22:14, (unconfirmed) No significant change was found Confirmed by Jarerd Salgado ([id number]) on 11/17/2021 4:17:26 PM Referred By: REFERRED SELF Confirmed By:Jarred Salgado
--- NOTE | 2021-11-17 19:19 | Hospitalist Progress Note ---
Date of Service November 17, 2021 Assessment & Plan (1) Erosive esophagitis: Plan: Upper GI bleeding appears to be related to esophagitis. She is really not certain of what she is taking at hometherefore it is a little bit difficult to determine what her home regimen will be. Discussed with patient/ multiple times to have him please bring her medications tomorrow so that we can review what she is actually taking/when she is not. Continue acid suppression and ceftriaxone (will have to ask GI how long this definitely needs to be IV, versus when we could potentially transition to an oral cephalosporin), can stop octreotide Hyperkalemia Improving, K down to 5.4. Creatinine also down to 2.59 (baseline seems to be variable, but this is not that far from the high end of her normal range) Nonalcoholic fatty liver disease/nonalcoholic cirrhosis Follows with [facility] GI, input greatly appreciated Meld score of 25, 14 to 15% 90-day mortality Received paracenteses every 2 weeks per patient report. Performed yesterday, fluid studies reassuring No concern for SBP at this time Anorexia Secondary to progressing disease? Albumin of 2.7, could be mix of cirrhosis and decreasing oral intakebut concerning for moderate protein malnutrition Would benefit from protein supplementation, dietitian consult History of breast cancer Status post radiation and therapy treatment. Currently cancer free Right-sided chest port for ease of lab draws given patient's frequency of outpatient labs and being a hard stick Hyperlipidemia Continue pravastatin DVT ppx: contraindictated in bleeding patient FEN/GI: Clear liquid diet, advance as tolerated Code Status: Conditional Code. DNR, okay for intubation. 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 goal is to be functional. Dispo: anticipate home once doing better Admission and Anticipated Discharge Date Admission Date: November 16, 2021 Results & Data Results & Data ([facility]) Vital Signs (Past 12 Hours) Vital Signs Temp Pulse Pulse Pulse Resp BP Pulse Ox 11/17/21 17:00 80 11/17/21 16:45 98.2 F 68 16 112/60 95 11/17/21 14:42 97.3 F L 80 18 116/63 97 11/17/21 14:25 97.0 F L 76 16 112/60 99 11/17/21 14:15 76 17 104/60 100 11/17/21 14:05 83 14 119/63 97 11/17/21 13:55 85 15 130/59 L 96 11/17/21 13:49 96.8 F L 88 18 136/55 L 93 11/17/21 12:43 98.1 F 84 20 139/57 L 100 11/17/21 12:15 97.9 F 85 16 119/64 99 11/17/21 11:53 98.1 F 86 18 132/76 97 11/17/21 07:32 98.2 F 85 16 118/63 99 PG Care Time/CCT Total # of Minutes Spent Total Time Spent with Patient: Total time spent is greater than 50% in coordination of care (as documented) at patient's floor/unit and/or counseling patient: Coding Level of Care Code 05457 Subseq Hosp Care Lvl 3 Diagnoses Erosive esophagitis K22.10
[2021-11-17] MEDS: PRAVASTATIN SOD 10 MG TAB PO SCH (21:17)
[2021-11-18] MEDS: SODIUM CHLORIDE 0.9% 1000ML 1,000 ML IV SCH ×4 (02:27→23:51)
--- NOTE | 2021-11-18 03:02 | Billing Data ---
Date of Service November 18, 2021 Coding Level of Care Code 13836 Initial Inpt Care Lvl 3
--- NOTE | 2021-11-18 03:03 | Billing Data ---
Date of Service November 18, 2021 Coding Level of Care Code 27902 Initial Inpt Care Lvl 3
[2021-11-18] MEDS: PANTOprazole 40 MG in DEXTROSE 5% 100 ML IV SCH ×5 (04:23→23:48)
[2021-11-18] MEDS: COLESTIPOL HCL 1 GM TAB PO SCH (06:03)
[2021-11-18] MEDS: cefTRIAXone SODIUM 1,000 MG in DEXTROSE 5% 50 ML IV SCH (07:58)
[2021-11-18 08:02] LABS: INR 1.4 (0.9-1.1)
[2021-11-18 08:06] LABS: BUN Creatinine Ratio 23.7 (10-20); Calcium 8.4 mg/dl (8.5-10.1); Creatinine Clr Calc Pharmacy 18.9 ml/min; Est GFR (African American) 21.5 ml/min; Est GFR (Non-African American) 18.6 ml/min; Potassium 5.6 mmol/L (3.5-5.1)
[2021-11-18 08:51] LABS: Hematocrit (blood only) 21.9 % (37-47); Hemoglobin 7.1 g/dL (12.0-16.0); Mean Corpuscular Hemoglobin 29.2 pg (25-34); Mean Corpuscular Hgb Conc 32.4 g/dL (32-36); Mean Corpuscular Volume 90.1 fL (80-100); RDW Coefficient of Variation 17.1 % (11.5-14.5); RDW Standard Deviation 56.8 fL (36.4-46.3); Red Blood Count 2.43 M/uL (4.2-5.4); White Blood Count 4.88 K/uL (4.8-10.8)
[2021-11-18 09:11] LABS: Mean Platelet Volume 8.9 fL (7.4-10.4); Platelet Count 69 K/uL (130-400)
[2021-11-18 09:12] LABS: Basophils # (auto) 0.01 K/uL (0-0.2); Basophils % (auto) 0.2 %; Eosinophils # (auto) 0.06 K/uL (0-0.5); Eosinophils % (auto) 1.2 %; Immature Granulocytes # (auto) 0.01 K/uL (0.00-0.02); Immature Granulocytes % (auto) 0.2 %; Lymphocytes # (auto) 1.04 K/uL (1.2-3.4); Lymphocytes % (auto) 21.3 %; Monocytes # (auto) 0.46 K/uL (0.11-0.59); Monocytes % (auto) 9.4 %; Neutrophils % (auto) 67.7 %; RBC Morphology Unremarkable
--- NOTE | 2021-11-18 10:49 | Gastroenterology Progress Note ---
Date of Service November 18, 2021 Assessment & Plan (1) Cirrhosis, non-alcoholic: Plan: Decompensated BEASLEY, c/b refractory ascites, EV3, and HE - no evience of SBP - cont outpatient management w/ paracentesis - would consider lactulose titrate 2-3 BM/d given forgetfulness - start coreg 3.125 mg BID - CKD4, MELD 22 today, hx of breast CA 2018 but in remission, has transplant eval at [facility] end Nov, 2021 (2) Erosive esophagitis: Plan: - OK to switch to PPI BID - d/c octreotide - cont 7 days abx, OK to switch PO once ready for discharge - OK to advance to regular diet (3) Acute blood loss anemia: Plan: - Hgb down trending, check CBC this afternoon - anemia work up - will consider repeat EGD in 8 weeks as outpatinent Admission and Anticipated Discharge Date Admission Date: November 16, 2021 Subjective EGD yesterday with esophagitis, tolerating diet well, no further GI bleeding, has repeat transplant evaluation at [facility] end of Nov 2021. She is unclear if taking PPI at home. Denies abd pain, f/c, n/v. Reports life long symptoms of heartburn and regurgitation. Reports some confused thinking at home Review of Systems Review of Systems: All of systems are negative unless stated in above HPI. Gastrointestinal: as per Subjective / HPI Physical Exam Physical Exam: NAD resting in bed Eyes: no scleral icterus Respiratory: no resp distress Cardiovascular: rrr Gastrointestinal (Abdomen): moderately distended, NT, soft Musculoskeletal: 1+ pitting edema b/l LE Skin: warm dry intact Neurologic: no asterixis, moves all 4 ext Psychiatric: appropriate mood and affect Results & Data ([facility]) Vital Signs (Past 12 Hours) Vital Signs Temp Pulse Pulse Resp BP Pulse Ox 11/18/21 08:03 36.6 C 87 18 109/66 98 11/18/21 07:32 72 11/18/21 03:42 36.3 C L 74 18 137/93 98 11/17/21 23:00 36.6 C 77 18 111/69 98
[2021-11-18] MEDS: PATIROMER CALCIUM SORBITEX 8.4 GM PACK PO SCH (14:08)
--- NOTE | 2021-11-18 20:24 | Hospitalist Progress Note ---
Date of Service November 18, 2021 Assessment & Plan (1) Erosive esophagitis: Plan: Upper GI bleeding appears to be related to esophagitis. now stabilized. PPI, ceftriaxone. advnace diet Hyperkalemia creatinine improving, K still up - ongoing darrell Nonalcoholic fatty liver disease/nonalcoholic cirrhosis Follows with [facility] GI, input greatly appreciated Meld score of 25, 14 to 15% 90-day mortality Received paracenteses every 2 weeks per patient report. Performed yesterday, fluid studies reassuring No concern for SBP at this time Anorexia Secondary to progressing disease? Albumin of 2.7, could be mix of cirrhosis and decreasing oral intakebut concerning for moderate protein malnutrition Would benefit from protein supplementation, dietitian consult History of breast cancer Status post radiation and therapy treatment. Currently cancer free Right-sided chest port for ease of lab draws given patient's frequency of outpatient labs and being a hard stick Hyperlipidemia Continue pravastatin DVT ppx: contraindictated in bleeding patient FEN/GI: advance diet Code Status: Conditional Code. DNR, okay for intubation. 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 goal is to be functional. Dispo: anticipate home once doing better Admission and Anticipated Discharge Date Admission Date: November 16, 2021 Subjective feeling better eating full liquids well brought meds except seh notes that he forgot the purple one that smells bad. takes colestipol 1g daily zoloft 50mg daily calcitriol 0.25mg m/w/ protonix 40mg daily pravachol 10mg bid vitamin d 2000 IU daily purple smelly pill not sure what it is no other acute complaints Review of Systems Review of Systems: All systems reviewed & are unremarkable except as noted in HPI & below Physical Exam Physical Exam: gen aao pleasant nad heent nc at mmm breathing unlabored no accessory muscles good effort skin no rashes no pallor or icterus neuro no focal deficits Results & Data Results & Data ([facility]) Vital Signs (Past 12 Hours) Vital Signs Temp Pulse Pulse Resp BP Pulse Ox 11/18/21 19:00 97.7 F 79 18 119/68 98 11/18/21 15:23 79 11/18/21 15:19 97.9 F 73 19 119/77 99 11/18/21 11:52 97.7 F 67 18 109/68 98 PG Care Time/CCT Total # of Minutes Spent Total Time Spent with Patient: Total time spent is greater than 50% in coordination of care (as documented) at patient's floor/unit and/or counseling patient: Coding Level of Care Code 85834 Subs Hosp Care [facility] 3 Diagnoses Erosive esophagitis K22.10
[2021-11-18] MEDS: PRAVASTATIN SOD 10 MG TAB PO SCH (21:13)
[2021-11-19] MEDS: PANTOprazole 40 MG in DEXTROSE 5% 100 ML IV SCH ×3 (04:39→16:35)
[2021-11-19] MEDS: COLESTIPOL HCL 1 GM TAB PO SCH (06:18)
[2021-11-19] MEDS: SODIUM CHLORIDE 0.9% 1000ML 1,000 ML IV SCH (07:05)
[2021-11-19] MEDS: PATIROMER CALCIUM SORBITEX 8.4 GM PACK PO SCH (08:34)
[2021-11-19 09:09] LABS: Hemoglobin 7.8 g/dL (12.0-16.0); Mean Corpuscular Hemoglobin 29.5 pg (25-34); Mean Corpuscular Hgb Conc 32.5 g/dL (32-36); Mean Corpuscular Volume 90.9 fL (80-100); RDW Coefficient of Variation 17.4 % (11.5-14.5); RDW Standard Deviation 57.9 fL (36.4-46.3); Red Blood Count 2.64 M/uL (4.2-5.4)
[2021-11-19 09:23] LABS: Mean Platelet Volume 9.1 fL (7.4-10.4); Platelet Count 84 K/uL (130-400)
[2021-11-19] MEDS: cefTRIAXone SODIUM 1,000 MG in DEXTROSE 5% 50 ML IV SCH (09:23)
[2021-11-19 09:27] LABS: Calcium 7.9 mg/dl (8.5-10.1); Creatinine Clr Calc Pharmacy 19.1 ml/min; Est GFR (Non-African American) 18.1 ml/min; Potassium 5.1 mmol/L (3.5-5.1)
[2021-11-19 09:33] LABS: Basophils # (auto) 0.01 K/uL (0-0.2); Basophils % (auto) 0.2 %; Echinocytes 1+; Eosinophils # (auto) 0.09 K/uL (0-0.5); Eosinophils % (auto) 1.6 %; Immature Granulocytes # (auto) 0.01 K/uL (0.00-0.02); Immature Granulocytes % (auto) 0.2 %; Lymphocytes # (auto) 1.16 K/uL (1.2-3.4); Lymphocytes % (auto) 20.4 %; Monocytes # (auto) 0.41 K/uL (0.11-0.59); Monocytes % (auto) 7.2 %; Neutrophils # (auto) 4.02 K/uL (1.4-6.5); Neutrophils % (auto) 70.4 %
--- NOTE | 2021-11-19 11:31 | Gastroenterology Progress Note ---
Date of Service November 19, 2021 Assessment & Plan (1) Cirrhosis, non-alcoholic: Plan: Decompensated BEASLEY, c/b refractory ascites, EV3, and HE - no evience of SBP - gets routine paracentesis - would consider lactulose titrate 2-3 BM/d given forgetfulness - start coreg 3.125 mg daily for 2-3 days and if tolerates then BID, can be uptitrated to 6.25mg BID as outpatient - transplant eval at [facility] end Nov, 2021 (2) Erosive esophagitis: Plan: - cont PPI BID - cont 7 days abx, OK to switch PO once ready for discharge - OK to advance to regular diet - will consider repeat EGD in ~8 weeks as outpatient (3) Acute blood loss anemia: Plan: - monitor CBC daily - anemia work up, baseline normocytic anemia 9-11s Admission and Anticipated Discharge Date Admission Date: November 16, 2021 Subjective [place] diet, reports no further GI bleeding. No abd pain, f/c, n/v. Sleeping when I entered. Review of Systems Review of Systems: All of systems are negative unless stated in above HPI. Gastrointestinal: as per Subjective / HPI Physical Exam Physical Exam: NAD resting in bed Respiratory: no resp distress Cardiovascular: rrr Gastrointestinal (Abdomen): distended, soft, NT Skin: warm dry intact Neurologic: no asterixis, moves all 4 ext Psychiatric: appropriate mood and affect Results & Data ([place]) Vital Signs (Past 12 Hours) Vital Signs Temp Pulse Pulse Resp BP Pulse Ox 11/19/21 07:19 86 11/19/21 07:13 36.8 C 85 18 137/71 98 11/19/21 03:23 36.8 C 82 18 150/74 H 95
[2021-11-19 12:28] VITALS: BP 127/72; TEMP 97.3; O2SAT 100
[2021-11-19 15:50] VITALS: PULSE 71
--- NOTE | 2021-11-19 17:51 | Electrocardiogram Report ---
Test Reason : Blood Pressure : / mmHG Vent. Rate : 077 BPM Atrial Rate : 077 BPM P-R Int : 140 ms QRS Dur : 126 ms QT Int : 418 ms P-R-T Axes : -05 -55 -11 degrees QTc Int : 473 ms Normal sinus rhythm Right bundle branch block Left anterior fascicular block Bifascicular block Nonspecific T wave abnormality Abnormal ECG When compared with ECG of 17-NOV-2021 09:37, No significant change was found Confirmed by Huy Garcia ([id number]) on 11/19/2021 5:51:14 PM Referred By: REFERRED SELF Confirmed By:Huy Garcia
--- NOTE | 2021-11-19 18:49 | Discharge Summary ---
Date of Service November 19, 2021 Admission HPI Per Admitting Provider Patient is a 76-year-old female with past medical history of nonalcoholic fatty liver disease, cirrhosis, hypertension, tricuspid regurg, GERD, type 2 diabetes who presents to the emergency department for worsening abdominal distention and multiple episodes of emesis. She states that she had been feeling well until earlier today she started to feel nauseous. She had an episode of coffee-ground emesis followed by multiple bouts of bloody emesis. She states that the total amount of blood that came up was about a cup full and concerned her. She denies ever having any bloody emesis before. She states that she gets paracenteses done at the hospital approximately every 2 weeks to help treat her ascites. She states that she had an EGD approximately a year ago that was normal. She denies any known history of varices. She denies any history of alcohol abuse. She denies any recent fever, chills. She does attest to having had some weight loss likely secondary to anorexia. She states that she remembers eating well around [place] but since then says that food has tasted like "metal" and she has not had much of an appetite. She denies any issues with confusion however says that she does get easily distracted at home and will frequently forget what she is doing. Occasionally during conversation has forgotten what questions she was answering or what she was trying to say. She denies any melena, bright red blood per rectum, abdominal pain. Principal Diagnosis GI bleeding due to erosive esophagitis Discharge Exam In general she is awake and alert pleasant no distress. HEENT normocephalic atraumatic mucous membranes moist. Breathing unlabored no accessory muscle use good effort. Skin shows no rashes no pallor or icterus. Neuro without focal deficits. Discharge Data Allergies Allergy/AdvReac Type Severity Reaction Status Date / Time guaifenesin Allergy Severe Stroke Verified 11/16/21 23:18 like symptoms morphine Allergy Intermediate "FIRE" Verified 11/16/21 23:18 SENSATION IN HEAD Penicillins Allergy Intermediate HIVES Verified 11/16/21 23:18 ethyl alcohol AdvReac Severe STROKE Verified 11/16/21 23:18 LIKE SYMPTOMS shellfish derived AdvReac Severe PT Verified 11/16/21 23:18 DEVELOPED HEPATITIS adhesive AdvReac Intermediate RASH,REDNES Verified 11/16/21 23:18 S verapamil AdvReac Mild H/A Verified 11/16/21 23:18 Consultations 11/16/21 23:13 ED Decision to Admit Stat 11/17/21 01:40 Consult Gastroenterology Routine Procedures Performed Operation Date: 11/17/21 09:05 Actual Procedures p Esophagogastroduodenoscopy - Victor Manuel Jimenez Ordered Studies 11/17/21 11:00 US paracentesis abd w/image Routine Hospital Course (1) Erosive esophagitis: Upper GI bleeding appears to be related to esophagitis. now stabilized. Tolerating regular diet, stable for home. Acid suppression with twice daily PPI, H2 for nowover time probably drop the H2 in a week or so, and may be slowly build to reduce the PPI over the coming weeks to months. Finish course of antibiotics (was on 3 days ceftriaxonefinish with 4 more days of Cipro to complete 7 days total) Hyperkalemia creatinine improved, K now 5.1. Outpatient basic metabolic panel early this coming week. Lactulose for cirrhosis should help in removing some potassium with bowel movements. Nonalcoholic fatty liver disease/nonalcoholic cirrhosis Follows with [facility], input greatly appreciated Meld score of 25, 14 to 15% 90-day mortality Received paracenteses every 2 weeks per patient report. Performed yesterday, fluid studies reassuring No concern for SBP at this time -Lactulose for cirrhosis/mild confusion -Low-dose of Coreg, titrate as tolerated Anorexia Secondary to progressing disease? Albumin of 2.7, could be mix of cirrhosis and decreasing oral intakebut concerning for moderate protein malnutrition Outpatient PCP follow-up History of breast cancer Status post radiation and therapy treatment. Currently cancer free Hyperlipidemia Continue pravastatin DVT ppx: contraindictated in bleeding patient Code Status: Conditional Code. DNR, okay for intubation. Would not want to be on ventilator nursing home. goal is to be functional. Dispo: Stable for home, close outpatient follow-up Total Time Total Time Spent Total Time Spent (In Minutes): <30 Discharge Plan Discharge Items Patient Disposition: Home - Self-Care Reason For Visit: HEMATEMESIS Discharge Diagnosis: esophagitis Activity: Resume your previous activity Non-emergency contact: Primary Care Provider and Shower Room Attendant Call non-emergency contact if: you have any medication questions and your symptoms worsen Follow-up/Referrals: Gildardo Haywood MD [Primary Care Provider] - 11/30/21 8:30 am Diet: Low Sodium (2gm) Addtl Attending Provider Instructions: Bleeding -The bleeding most likely was from "erosive esophagitis"inflamed ulcerations of your esophagus -Fortunately the bleeding appears to have stoppedand the main thing that we will need to do is treat to prevent rebleeding, and allow the esophagitis to heal over -Given the risk of infection with situations like this, we have had you on an IV antibiotic. We will need to finish out a total of 7 days (IV plus oral) of antibiotic treatmentciprofloxacin 500 mg daily for 4 more daysnext dose louann orrow -We also will need to increase acid suppression to allow things to heal over more. We will do this with famotidine (Pepcid) 20 mg twice a day for a week, and we will increase your Protonix (pantoprazole) to 40 mg twice a day for the foreseeable future (this may not be a permanent change in your meds, but we will need to leave the timeline open ended for when it can be reduced again) -Follow-up with your PCP as well as gastroenterology to follow how you are healing -I would recommend that you have blood count lab work checked again early this week (CBC) at your PCPs office Liver disease -Given that you do have some easy confusion and forgetfulness, this is most likely because when our liver is not working as well as it should, some of the toxins her liver normally processes build up in our bloodstreammaking us more easily confused. -Unfortunately the most effective way to get rid of those toxins is utilizing lactulose. The lactulose does often cause gassy/crampy diarrhea, but unlike other medicines that simply "make you poop" the lactulose truly does change how your intestines process some of these toxins so that you cannot reabsorb them. We are going to try to start lowat just 10 g (15 mL) once a daywith the hopes of trying to minimize the gassy/crampy, while still trying to help get rid of some of the ammonia/liver toxins that can lead to confusion -Given that you have varicose veins around your esophagus, we also should get you on a beta-estrada medicinewhat that does not helps relax those veins and make it less likely for them to bleedwe will start with carvedilol (Coreg) at the lowest dose they make3.125 mg just once a dayand depending on how that is going, they can gradually bump it up, if needed, in the office Elevated potassium -Your potassium levels were quite elevated whenever you were admittedthey have come down nicelybut we definitely want people to keep an eye on it. The lactulose will also likely help you "poop out" some of that extra potassiummaking it a medicine that could help with 2 different problems. -I would also recommend that you have lab work checked either tomorrow or Saturdaybac metabolic panel (BMP) at your PCPs office at the same time they check your CBC Pending Studies at Discharge: No Stand-Alone Forms: [facility] Medications and DC Order Prescriptions: New ciprofloxacin HCl 500 mg tablet 500 mg PO DAILY Qty: 4 RF: 0 lactulose 10 gram/15 mL solution 10 g PO DAILY Qty: 237 RF: 0 carvedilol [Coreg] 3.125 mg tablet 3.125 mg PO DAILY Qty: 30 RF: 0 Continued (DME) lancets [OneTouch Delica Plus Lancet] 33 gauge misc See Dose Instructions .ROUTE .MEDSUPPLY Qty: 200 RF: 5 (DME) pen needle, diabetic [BD Ultra-Fine Obdulia Pen Needle] 32 gauge x 5/32" needle See Rx Instructions [id number] .MEDSUPPLY Qty: 200 RF: 3 calcitriol [Rocaltrol] 0.25 mcg capsule 0.25 mcg PO [id number] Qty: 12 RF: 5 pravastatin 20 mg tablet 10 mg PO QPM Qty: 90 RF: 3 colestipol 1 gram tablet 1 g PO DAILY Qty: 30 RF: 6 (DME) OneTouch Verio test strips Strip See Rx Instructions .ROUTE .MEDSUPPLY RF: 0 vitamin E 400 unit capsule 400 unit PO HS RF: 0 cholecalciferol (vitamin D3) [Vitamin D3] 25 mcg (1,000 unit) Capsule 1,000 unit PO BID RF: 0 pantoprazole 40 mg Tablet,Delayed Release (Dr/Ec) 40 mg PO BID Qty: 60 RF: 2 Changed famotidine 20 mg tablet 20 mg PO BID 7 Days Qty: 30 RF: 0 Discharge Orders: Discharge Order (Routine); Ordered 11/19/21 Ordered By: Delmer Mcgee Admission Data Admit Date/Time: 11/16/21 23:30 Attending Provider: Delmer Mcgee Admit Provider: Gisselle Marin Primary Care Provider: Gildardo Haywood Other Providers: Victor Manuel Jimenez ; [place] Other Interventions: Discharge Summary Assessment (RN) Last Done: 11/19/21 14:49 Coding Level of Care Code D/C DAY MANAGEMENT <30 MINS Diagnoses Erosive esophagitis K22.10
--- NOTE | 2021-11-20 06:07 | Electrocardiogram Report ---
Test Reason : Blood Pressure : / mmHG Vent. Rate : 085 BPM Atrial Rate : 085 BPM P-R Int : 140 ms QRS Dur : 120 ms QT Int : 406 ms P-R-T Axes : -18 -55 001 degrees QTc Int : 483 ms Sinus rhythm with Premature supraventricular complexes Low voltage QRS Right bundle branch block Left anterior fascicular block Bifascicular block Abnormal ECG When compared with ECG of 18-NOV-2021 06:13, Premature supraventricular complexes are now Present Confirmed by Huy Garcia ([id number]) on 11/20/2021 6:06:56 AM Referred By: REFERRED SELF Confirmed By:Huy Garcia
== END 2021-11-19 16:50 | disposition home or self-care (01) | DRG 369 ==
LOC: ED 21:47 → EDINP 23:30 → SUATTDRO 23:30 → EDINP 11-17 02:09 → 2N 11-17 16:33

== ENCOUNTER 2021-11-24 17:21 | Inpatient (IN) ==
[2021-11-24 18:21] LABS: Basophils # (auto) 0.01 K/uL (0-0.2); Basophils % (auto) 0.2 %; Eosinophils # (auto) 0.06 K/uL (0-0.5); Eosinophils % (auto) 0.9 %; Hematocrit (blood only) 22.7 % (37-47); Hemoglobin 7.6 g/dL (12.0-16.0); Immature Granulocytes # (auto) 0.01 K/uL (0.00-0.02); Immature Granulocytes % (auto) 0.2 %; Lymphocytes % (auto) 19.8 %; Mean Corpuscular Hemoglobin 29.9 pg (25-34); Mean Corpuscular Hgb Conc 33.5 g/dL (32-36); Mean Corpuscular Volume 89.4 fL (80-100); Mean Platelet Volume 8.8 fL (7.4-10.4); Monocytes # (auto) 0.66 K/uL (0.11-0.59); Monocytes % (auto) 10.1 %; Neutrophils # (auto) 4.52 K/uL (1.4-6.5); Neutrophils % (auto) 68.8 %; Platelet Count 103 K/uL (130-400); RDW Coefficient of Variation 17.4 % (11.5-14.5); RDW Standard Deviation 57.4 fL (36.4-46.3); Red Blood Count 2.54 M/uL (4.2-5.4); White Blood Count 6.56 K/uL (4.8-10.8)
[2021-11-24] MEDS ORDERED: SODIUM CHLORIDE 0.9% 1000ML 500 ML IV ONE ×2 (18:26→19:25)
[2021-11-24 18:40] LABS: Echinocytes 1+; Polychromasia 1+
--- NOTE | 2021-11-24 18:41 | Emergency Department Note ---
Impression & Plan BENNY (acute kidney injury), Metabolic syndrome, Anemia, Acute hyperkalemia, Acute hyponatremia ED Provider Note NAME: KIRSTY HERNÁNDEZ AGE: 76 SEX: F : 1945 ARRIVES VIA: Walk-In INFORMANT: Patient, ED PROVIDER(S): Jarred Rosales DO CHIEF COMPLAINT: Weakness HPI: The patient is a 76-year-old female who presented to emergency department at the request of her primary care physician for an evaluation of generalized weakness. The patient was recently discharged to our facility for upper GI bleeding. She has a history of nonalcoholic hepatitis history of esophageal varices as well as gastritis who presented to the emergency department for an evaluation of generalized weakness. The patient was discharged to our facility approximately 5 days ago. She was feeling better but had follow-up laboratory studies with her family doctor. She was called today and told to go to the emergency department because of her labs being abnormal. The patient denies having any black or bloody bowel movements. She denies having any chest pain. She does complain of some difficulty breathing especially with exertion. She does notice some abdominal distention. She denies having any recent trauma. She has had no fever. She denies having any hemoptysis. ROS: See above HPI for pertinent positives & negatives. A total of 10 systems reviewed and were otherwise negative. PAST MEDICAL HISTORY: See Below PAST SURGICAL HISTORY: See Below FAMILY HISTORY: See Below SOCIAL HISTORY: See Below HOME MEDICATIONS: See Below ALLERGIES: See Below VITALS: See Below PHYSICAL EXAMINATION: GENERAL: Patient is awake alert in no acute distress patient is resting comfortably and showing no signs of anxiety EYES: The conjunctivae are pale. The pupils are round and reactive. EARS, NOSE, MOUTH AND THROAT: The nose is without any evidence of any deformity. NECK: The neck is nontender and supple. RESPIRATORY: Normal respiratory effort is noted there is no evidence of wheezing rhonchi or rales CARDIOVASCULAR: Regular rate and rhythm noted there no murmurs rubs or gallops normal S1 normal S2. GASTROINTESTINAL: The abdomen is soft. Abdomen is nontender. MUSCULOSKELETAL/EXTREMITIES: There is no evidence of gross deformity full range of motion is noted in the hips and shoulders. SKIN: Skin is warm dry. Trace pedal edema was noted bilaterally. NEUROLOGIC: Patient is awake alert and oriented x3 MEDICAL DECISION MAKING: The patient is a 76-year-old female who presented to emergency department for an evaluation of generalized weakness. The patient has a history of hepatitis. She also has a history of GI bleeding. The patient had outpatient laboratory s tudies and was found to have abnormal electrolytes. She was sent to the emergency department for further evaluation. She was treated with IV fluids in the emergency department. She was reevaluated multiple times. I discussed the patient's laboratory results with her. She was found to have anemia which is not new for her however it appears to be slightly below her baseline. She reports no rectal bleeding. I [facility] the [facility] have agreed to evaluate the patient in the emergency department for further management and disposition. Triage Nursing notes reviewed. Prior medical records reviewed Vital Signs: reviewed and remarkable for elevated blood pressure. Differential diagnosis: Infection, dehydration, metabolic abnormality, hypo/hyperglycemia, electrolyte disturbance, anemia, hypoxia, cardiac sources, intracerebral event, toxicologic, neurologic, as well as other pathologies. ER treatment provided: See below Diagnostics interpreted by me: ECG: EKG was obtained in the emergency department. My interpretation is sinus rhythm at 73 bpm. Right bundle branch block pattern was favored. There was no PVCs noted. This was compared to a tracing from 11/19/2021. No changes were noted Cardiac Monitoring: An order was placed for continuous cardiac monitoring. The monitor shows a rate of 74 bpm with sinus rhythm. Laboratory studies: As stated above and show below. Imaging studies: See below Consultation(s): I discussed this case with Dr. Oliveira who [facility] They will evaluate the patient in the emergency department for further management and disposition Past Med/Surg History Medical History Abdominal ascites Acute upper gastrointestinal bleeding BENNY (acute kidney injury) Anemia HX Asthma INHALERS JUST FOR WINTER > COLD TAKES BREATH AWAY> NO ACTUAL ASTHMA DX Cancer of left breast Hx of, cancer free 2021. s/p chemo/radiation > PORT TO RIGHT CHEST PRESENT Cardiac murmur follows with Dr. Iglesias Cirrhosis Depression Diabetes mellitus, type 2 Erosive esophagitis Esophageal varices determined by endoscopy GERD (gastroesophageal reflux disease) Hypertension IBS (irritable colon syndrome) Malignant neoplasm of central portion of left breast in female, estrogen receptor negative (11/15/17) Mitral regurgitation Mitral valve regurgitation UNSURE OF DETAILS, DOESNT FOLLOW CARDIO Nonalcoholic fatty liver disease Obesity (BMI 30-39.9) Osteopenia Sinus bradycardia PATIENT SAID SHE REMEMBERS SOMEONE TELLING HER OF THIS ON AN EKG ONE TIME, BUT DOESN'T THINK ITS A CHRONIC PROBLEM Sleep apnea cpap T2DM (type 2 diabetes mellitus) Thrombocytopenia Tricuspid valve regurgitation UNSURE OF DETAILS, DOESNT FOLLOW CARDIO Surgical History History of cholecystectomy History of colonoscopy History of dilatation and curettage History of esophagogastroduodenoscopy (EGD) History of left cataract surgery left. 12/23/2019. 2 mg versed. no issues. History of lumpectomy of left breast History of tonsillectomy History of tooth extraction History of total hysterectomy with bilateral salpingo-oophorectomy (BSO) History of vascular access device right side APort in place History of wisdom tooth extraction Hx of left breast biopsy malignant Hx of right breast biopsy benign Family History Grandmother (Maternal) Family history of diabetes mellitus Grandmother (Maternal) No problems noted. Grandmother (Paternal) Breast cancer Aunt Breast cancer Uncle Colorectal cancer Father Hypertension Other Colonic polyp No family history of adverse response to anesthesia Denies family history of Ovarian cancer Prostate cancer Myocardial infarction Social History Smoking Status: Never smoker Second Hand Exposure: No; Hx Alcohol Use: No Hx Substance Use: No Preferred Language: Dutch Communication Ability: Effective Machine Molder Required: No Beliefs That Will Affect Care: None marital status: Current Living Situation: Spouse Current Living Situation Comment: Lives with . current occupational status: retired Feels Safe at Home: Yes Childhood Exposure to Second-Hand Smoke: Yes caffeine: No Dental Care, Regularly: Yes Physical Activity Frequency: Declines to Answer Physical Activity Frequency Comment: Not very much right now due to present fluid retention issues Seatbelt Use: always Assistive Devices: None Allergies Allergies Allergy/AdvReac Type Severity Reaction Status Date / Time guaifenesin Allergy Severe Stroke Verified 11/24/21 21:14 like symptoms morphine Allergy Intermediate "FIRE" Verified 11/24/21 21:14 SENSATION IN HEAD Penicillins Allergy Intermediate HIVES Verified 11/24/21 21:14 ethyl alcohol AdvReac Severe STROKE Verified 11/24/21 21:14 LIKE SYMPTOMS shellfish derived AdvReac Severe PT Verified 11/24/21 21:14 DEVELOPED HEPATITIS adhesive AdvReac Intermediate RASH,REDNES Verified 11/24/21 21:14 S verapamil AdvReac Mild H/A Verified 11/24/21 21:14 Home Meds Home Medications Medication Instructions Recorded Confirmed vitamin E 400 unit capsule 400 unit PO HS cap 10/28/20 11/24/21 cholecalciferol (vitamin D3) 25 1,000 unit PO BID 07/28/21 11/24/21 mcg (1,000 unit) capsule (Vitamin D3) blood sugar diagnostic (OneTouch ea 08/09/21 11/21/21 Verio test strips) spironolactone 100 mg tablet 100 mg PO DAILY 11/24/21 11/24/21 Previous Rx's Medication Instructions Recorded OneTouch Delica Plus Lancet 33 #200 ea NS 01/30/21 gauge (lancets) BD Ultra-Fine Obdulia Pen Needle 32 #200 ea NS 02/14/21 gauge x 5/32" (pen needle, diabetic) colestipol 1 gram tablet 1 g PO DAILY #30 tab 07/24/21 calcitriol 0.25 mcg capsule 0.25 mcg PO 3XWK #12 cap 09/25/21 (Rocaltrol) pravastatin 20 mg tablet 10 mg PO QPM #90 tab 10/19/21 carvedilol 3.125 mg tablet (Coreg) 3.125 mg PO DAILY #30 tab 11/19/21 ciprofloxacin HCl 500 mg tablet 500 mg PO DAILY #4 tab 11/19/21 famotidine 20 mg tablet 20 mg PO BID 7 Days #30 tab 11/19/21 lactulose 10 gram/15 mL oral 10 g PO DAILY #237 ml 11/19/21 solution pantoprazole 40 mg tablet,delayed 40 mg PO BID #60 tab 11/19/21 release Results & Data (ED) Vital Signs Vital Signs - 24 hr 11/24/21 17:37 11/24/21 19:45 Temperature 36.2 C L Temperature Source Temporal Artery Scan Pulse Rate 77 Pulse Rate [Apical] 74 Pulse Rhythm Regular Pulse Strength Normal Respiratory Rate 20 20 Respiratory Effort / Characteristics Non-Labored Spontaneous Non-Labored Respiratory Depth Normal Normal Respiratory Pattern Regular Blood Pressure 123/51 L Blood Pressure [Right Arm] 168/77 H Blood Pressure Mean 75 Blood Pressure Mean [Right Arm] 107 Blood Pressure Position Sitting Pulse Oximetry 99 99 Oxygen Delivery Method Room Air Room Air Sepsis Recent Fever Within 48 Hours No Sepsis New/Unexplained Change in Mental Status No Sepsis Action Taken by Nursing No Action Required Home Medications Current Medication List: was personally reviewed by me Laboratory Data Attestation: I reviewed the patient's lab results. Result diagrams: 11/24/21 18:13 11/24/21 18:13 Lab Results 11/24/21 11/24/21 11/24/21 Range/Units 18:13 18:13 18:13 WBC 6.56 (4.8-10.8) K/uL RBC 2.54 L (4.2-5.4) M/uL Hgb 7.6 L (12.0-16.0) g/dL Hct 22.7 L (37-47) % MCV 89.4 (80-100) fL MCH 29.9 (25-34) pg MCHC 33.5 (32-36) g/dL RDW Std Deviation 57.4 H (36.4-46.3) fL RDW Coeff of Carmelina 17.4 H (11.5-14.5) % Plt Count 103 L (130-400) K/uL MPV 8.8 (7.4-10.4) fL Immature Gran % (Auto) 0.2 % Neut % (Auto) 68.8 % Lymph % (Auto) 19.8 % [place] % (Auto) 10.1 % Eos % (Auto) 0.9 % Baso % (Auto) 0.2 % Neut # (Auto) 4.52 (1.4-6.5) K/uL Lymph # (Auto) 1.30 (1.2-3.4) K/uL [place] # (Auto) 0.66 H (0.11-0.59) K/uL Eos # (Auto) 0.06 (0-0.5) K/uL Baso # (Auto) 0.01 (0-0.2) K/uL Immature Gran # (Auto) 0.01 (0.00-0.02) K/uL Polychromasia 1+ Echinocytes 1+ Sodium 125 L (136-145) mmol/L Potassium 5.3 H (3.5-5.1) mmol/L Chloride 105 (98-107) mmol/L Carbon Dioxide 13 L (21-32) mmol/L Anion Gap 7 (3-11) BUN 63 H (6-23) mg/dl Creatinine 3.44 H (0.6-1.2) mg/dl Est Cr Clr Drug Dosing 13.8 ml/min Est GFR ( Amer) 14.4 ml/min Est GFR (Non-Af Amer) 12.5 ml/min BUN/Creatinine Ratio 18.3 (10-20) Glucose 139 H (70-99) mg/dl Osmolality (280-300) mOsm/kg Calcium 8.5 (8.5-10.1) mg/dl Total Bilirubin 1.3 H (0.2-1.0) mg/dl AST 31 (13-39) U/L ALT 11 (7-52) U/L Alkaline Phosphatase 101 (34-104) U/L Troponin I 0.03 (0-0.04) ng/ml Total Protein 6.2 (6.0-8.3) gm/dl Albumin 3.0 L (3.4-5.0) gm/dl Globulin 3.2 (2.5-4.0) gm/dl Albumin/Globulin Ratio 0.9 (0.9-2) SARS-CoV-2, RNA, NAAT (NEGATIVE) 11/24/21 11/24/21 Range/Units 18:13 19:42 WBC (4.8-10.8) K/uL RBC (4.2-5.4) M/uL Hgb (12.0-16.0) g/dL Hct (37-47) % MCV (80-100) fL MCH (25-34) pg MCHC (32-36) g/dL RDW Std Deviation (36.4-46.3) fL RDW Coeff of Carmelina (11.5-14.5) % Plt Count (130-400) K/uL MPV (7.4-10.4) fL Immature Gran % (Auto) % Neut % (Auto) % Lymph % (Auto) % [place] % (Auto) % Eos % (Auto) % Baso % (Auto) % Neut # (Auto) (1.4-6.5) K/uL Lymph # (Auto) (1.2-3.4) K/uL [place] # (Auto) (0.11-0.59) K/uL Eos # (Auto) (0-0.5) K/uL Baso # (Auto) (0-0.2) K/uL Immature Gran # (Auto) (0.00-0.02) K/uL Polychromasia Echinocytes Sodium (136-145) mmol/L Potassium (3.5-5.1) mmol/L Chloride (98-107) mmol/L Carbon Dioxide (21-32) mmol/L Anion Gap (3-11) BUN (6-23) mg/dl Creatinine (0.6-1.2) mg/dl Est Cr Clr Drug Dosing ml/min Est GFR ( Amer) ml/min Est GFR (Non-Af Amer) ml/min BUN/Creatinine Ratio (10-20) Glucose (70-99) mg/dl Osmolality 292 (280-300) mOsm/kg Calcium (8.5-10.1) mg/dl Total Bilirubin (0.2-1.0) mg/dl AST (13-39) U/L ALT (7-52) U/L Alkaline Phosphatase (34-104) U/L Troponin I (0-0.04) ng/ml Total Protein (6.0-8.3) gm/dl Albumin (3.4-5.0) gm/dl Globulin (2.5-4.0) gm/dl Albumin/Globulin Ratio (0.9-2) SARS-CoV-2, RNA, NAAT NEGATIVE (NEGATIVE) Administered Medications Discontinued Medications Sodium Chloride (Nss 1000ml) 500 mls @ 999 mls/hr IV .Q31M ONE Stop: 11/24/21 18:56 Last Infusion: 11/24/21 20:38 Dose: 0 mls/hr Documented by: [id number] Admin: 11/24/21 20:07 Dose: 999 mls/hr Documented by: [id number] Sodium Chloride (Nss 1000ml) 500 mls @ 999 mls/hr IV .Q31M ONE Stop: 11/24/21 19:55 Last Infusion: 11/24/21 20:38 Dose: 0 mls/hr Documented by: [id number] Admin: 11/24/21 20:07 Dose: 999 mls/hr Documented by: [id number] Imaging Data Radiologist's Impression: Venous Doppler Study 11/24/21 20:25 US venous doppler LE BI CLINICAL HISTORY: Bilateral lower extremity edema COMPARISON: None available at the time of this dictation. TECHNIQUE: Bilateral lower extremity real-time compression venous ultrasound with Color Doppler imaging. Utilizing real-time ultrasonic imaging multiple real time high-resolution ultrasonic images with compression and noncompression maneuvers of the deep venous system in addition to color doppler imaging were performed from the common femoral vein through the proximal calf veins. FINDINGS: Currently there is normal compressibility of the deep venous system from the common femoral vein through the proximal calf veins. No current evidence of acute thrombosis is identified. Impression: No evidence of deep venous thrombus. ACT 112: Negative or not required by law. Electronically signed by: Zi Arteaga M.D. 11/24/2021 9:29 PM Discharge Plan Visit Data Chief Complaint: Abnormal Labs/Diagnostic Testing Stated Complaint: HAD BLOOD WORK DONE-ABNORMAL ED Provider: Jarred Rosales Discharge Problem: BENNY (acute kidney injury), Metabolic syndrome, Anemia, Acute hyperkalemia, Acute hyponatremia Patient Disposition: Being Evaluated by Hospitalist Forms Stand Alone Forms: [facility] Prescriptions Prescriptions: No Action (DME) lancets [OneTouch Delica Plus Lancet] 33 gauge misc See Dose Instructions .ROUTE .MEDSUPPLY Qty: 200 RF: 5 (DME) pen needle, diabetic [BD Ultra-Fine Obdulia Pen Needle] 32 gauge x 5/32" needle See Rx Instructions [id number] .MEDSUPPLY Qty: 200 RF: 3 calcitriol [Rocaltrol] 0.25 mcg capsule 0.25 mcg PO 3XWK Qty: 12 RF: 5 pravastatin 20 mg tablet 10 mg PO QPM Qty: 90 RF: 3 colestipol 1 gram tablet 1 g PO DAILY Qty: 30 RF: 6 (DME) OneTouch Verio test strips Strip See Rx Instructions .ROUTE .MEDSUPPLY RF: 0 vitamin E 400 unit capsule 400 unit PO HS RF: 0 cholecalciferol (vitamin D3) [Vitamin D3] 25 mcg (1,000 unit) Capsule 1,000 unit PO BID RF: 0 ciprofloxacin HCl 500 mg tablet 500 mg PO DAILY Qty: 4 RF: 0 lactulose 10 gram/15 mL solution 10 g PO DAILY Qty: 237 RF: 0 carvedilol [Coreg] 3.125 mg tablet 3.125 mg PO DAILY Qty: 30 RF: 0 famotidine 20 mg tablet 20 mg PO BID 7 Days Qty: 30 RF: 0 pantoprazole 40 mg Tablet,Delayed Release (Dr/Ec) 40 mg PO BID Qty: 60 RF: 2 spironolactone 100 mg tablet 100 mg PO DAILY RF: 0 Referrals Referrals: Gildardo Haywood MD [Primary Care Provider] -
[2021-11-24 18:54] LABS: Albumin Globulin Ratio 0.9 (0.9-2); BUN Creatinine Ratio 18.3 (10-20); Bilirubin,Total 1.3 mg/dl (0.2-1.0); Calcium 8.5 mg/dl (8.5-10.1); Creatinine Clr Calc Pharmacy 13.8 ml/min; Est GFR (African American) 14.4 ml/min; Est GFR (Non-African American) 12.5 ml/min; Globulin 3.2 gm/dl (2.5-4.0); Potassium 5.3 mmol/L (3.5-5.1); Total Protein 6.2 gm/dl (6.0-8.3)
--- NOTE | 2021-11-24 20:17 | History & Physical Report ---
Date of Service November 24, 2021 Assessment & Plan (1) Acute hyponatremia: Plan: Check urine and serum osm (2) Acute hyperkalemia: Plan: Veltassa x 1 dose -Monitor (3) Anemia: Plan: Monitor Transfuse if further drop Patient denies acute blood loss (4) Nonalcoholic fatty liver disease: Plan: Lactulose (5) GERD (gastroesophageal reflux disease): Plan: Protonix BID Pepcid BID (6) CKD (chronic kidney disease) stage 4, GFR 15-29 ml/min: Plan: Albumin administered Monitor renal function, electrolytes, UOP and weight Consider additional workup for hepatorenal syndrome Continue Rocaltrol History of Present Illness Chief Complaint: LE edema Primary Care Provider: Gildardo Haywood MD 76yo female recently admitted to [facility] 11/16 - 11/19/21 with abdominal distention and bloody emesis - during that visit she was found to have an UGIB secondary to erosive gastritis. She had routine blood work performed today at the request of her PCP. She was instructed to come to the ER due to some abnormalities. Patient reports doing fairly well since returning home. Today, however, she felt very tired. She has some nausea with one episode of nonbloody, nonbilious vomiting today. Also complaining of bilateral lower extremity edema and decreased urinary output. She has slightly worsened cough, shortness of breath and dyspnea on exertion since returning home. She denies any fever, night sweats, body aches. She is also complaining of some forgetfulness and word finding issues as well as some difficulty managing her medications at home. Patient receives therapeutic paracentesis every 2 weeks. She denies abdominal pain. She does have some fairly tense ascites but reports she is not due yet for her paracentesis. Reports poor appetite and decreased oral intake. Allergies Allergy/AdvReac Type Severity Reaction Status Date / Time guaifenesin Allergy Severe Stroke Verified 11/24/21 21:14 like symptoms morphine Allergy Intermediate "FIRE" Verified 11/24/21 21:14 SENSATION IN HEAD Penicillins Allergy Intermediate HIVES Verified 11/24/21 21:14 ethyl alcohol AdvReac Severe STROKE Verified 11/24/21 21:14 LIKE SYMPTOMS shellfish derived AdvReac Severe PT Verified 11/24/21 21:14 DEVELOPED HEPATITIS adhesive AdvReac Intermediate RASH,REDNES Verified 11/24/21 21:14 S verapamil AdvReac Mild H/A Verified 11/24/21 21:14 Home Medications Medication Instructions Recorded Confirmed Type vitamin E 400 unit capsule 400 unit PO HS cap 10/28/20 11/24/21 History OneTouch Delica Plus Lancet 33 #200 ea NS 01/30/21 11/21/21 Rx gauge (lancets) BD Ultra-Fine Obdulia Pen Needle 32 #200 ea NS 02/14/21 11/21/21 Rx gauge x 5/32" (pen needle, diabetic) colestipol 1 gram tablet 1 g PO DAILY #30 tab 07/24/21 11/24/21 Rx cholecalciferol (vitamin D3) 25 1,000 unit PO BID 07/28/21 11/24/21 History mcg (1,000 unit) capsule (Vitamin D3) blood sugar diagnostic (OneTouch ea 08/09/21 11/21/21 History Verio test strips) calcitriol 0.25 mcg capsule 0.25 mcg PO 3XWK #12 cap 09/25/21 11/24/21 Rx (Rocaltrol) pravastatin 20 mg tablet 10 mg PO QPM #90 tab 10/19/21 11/24/21 Rx carvedilol 3.125 mg tablet (Coreg) 3.125 mg PO DAILY #30 tab 11/19/21 11/24/21 Rx ciprofloxacin HCl 500 mg tablet 500 mg PO DAILY #4 tab 11/19/21 11/24/21 Rx famotidine 20 mg tablet 20 mg PO BID 7 Days #30 tab 11/19/21 11/24/21 Rx lactulose 10 gram/15 mL oral 10 g PO DAILY #237 ml 11/19/21 11/24/21 Rx solution pantoprazole 40 mg tablet,delayed 40 mg PO BID #60 tab 11/19/21 11/24/21 Rx release spironolactone 100 mg tablet 100 mg PO DAILY 11/24/21 11/24/21 History Past Med/Surg History Medical History (Updated 11/25/21 @ 04:34 by Erika Oliveira DO) Abdominal ascites Acute upper gastrointestinal bleeding BENNY (acute kidney injury) Anemia HX Asthma INHALERS JUST FOR WINTER > COLD TAKES BREATH AWAY> NO ACTUAL ASTHMA DX Cancer of left breast Hx of, cancer free 2021. s/p chemo/radiation > PORT TO RIGHT CHEST PRESENT Cardiac murmur follows with Dr. Iglesias Cirrhosis Depression Diabetes mellitus, type 2 Erosive esophagitis Esophageal varices determined by endoscopy GERD (gastroesophageal reflux disease) Hypertension IBS (irritable colon syndrome) Malignant neoplasm of central portion of left breast in female, estrogen receptor negative (11/15/17) Mitral regurgitation Mitral valve regurgitation UNSURE OF DETAILS, DOESNT FOLLOW CARDIO Nonalcoholic fatty liver disease Obesity (BMI 30-39.9) Osteopenia Sinus bradycardia PATIENT SAID SHE REMEMBERS SOMEONE TELLING HER OF THIS ON AN EKG ONE TIME, BUT DOESN'T THINK ITS A CHRONIC PROBLEM Sleep apnea cpap T2DM (type 2 diabetes mellitus) Thrombocytopenia Tricuspid valve regurgitation UNSURE OF DETAILS, DOESNT FOLLOW CARDIO Surgical History History of cholecystectomy History of colonoscopy History of dilatation and curettage History of esophagogastroduodenoscopy (EGD) History of left cataract surgery left. 12/23/2019. 2 mg versed. no issues. History of lumpectomy of left breast History of tonsillectomy History of tooth extraction History of total hysterectomy with bilateral salpingo-oophorectomy (BSO) History of vascular access device right side APort in place History of wisdom tooth extraction Hx of left breast biopsy malignant Hx of right breast biopsy benign Family History Grandmother (Maternal) Family history of diabetes mellitus Grandmother (Maternal) No problems noted. Grandmother (Paternal) Breast cancer Aunt Breast cancer Uncle Colorectal cancer Father Hypertension Other Colonic polyp No family history of adverse response to anesthesia Denies family history of Ovarian cancer Prostate cancer Myocardial infarction Social History Smoking Status: Never smoker Second Hand Exposure: No; Hx Alcohol Use: No Hx Substance Use: No Preferred Language: Nepali Communication Ability: Effective Silviculturist Required: No Beliefs That Will Affect Care: Rastafari marital status: Current Living Situation: Spouse Current Living Situation Comment: current occupational status: retired Feels Safe at Home: Yes Safety Concerns: Feels Safe At This Time Childhood Exposure to Second-Hand Smoke: Yes caffeine: No Dental Care, Regularly: Yes Physical Activity Frequency: Declines to Answer Physical Activity Frequency Comment: Not very much right now due to present fluid retention issues Seatbelt Use: always Assistive Devices: Glasses Review of Systems Review of Systems: All systems reviewed & are unremarkable except as noted in HPI & below + Cough, shortness of breath, dyspnea on exertion + Poor appetite and decreased oral intake + Forgetfulness and mild confusion + Nausea and vomiting + Fatigue Physical Exam Physical Exam: General: patient resting comfortably, NAD, chronically ill in appearance but nontoxic. Speech is clear and appropriate but patient often forgets what she was saying Skin: warm, dry, intact, no rashes or lesions HEENT: NC/AT, PERRL, EOMI, anicteric sclera, conjunctiva without injection, external ear normal to inspection and nontender, nares patent, dry mucus membranes, dentition intact, no oropharyngeal lesions, neck supple, trachea midline, no LAD, no thyromegaly, no JVD Heart: +S1/S2, regular, no m/r/g Lungs: equal air entry bilaterally, no rales/rhonchi/wheezes Abd: +BS, soft, nontender, distended with ascites, + fluid wave Ext: warm, 2+ pulses in UE/LE bilaterally, no clubbing/cyanosis, bilateral pitting edema lower extremities left greater than right Neuro: nonfocal, patient AA&O x 4, speech intact, no facial droop, moving all extremities on command with equal strength 5/5 patient with tremor, no asterixis Results & Data Results & Data ([facility]) Vital Signs (Past 12 Hours) Vital Signs Temp Pulse Pulse Resp BP BP Pulse Ox 11/24/21 19:45 74 20 168/77 H 99 11/24/21 17:37 36.2 C L 77 20 123/51 L 99 Laboratory Results Laboratory Results WBC 6.56 K/uL (4.8-10.8) 11/24/21 18:13 RBC 2.54 M/uL (4.2-5.4) L 11/24/21 18:13 Hgb 7.6 g/dL (12.0-16.0) L 11/24/21 18:13 Hct 22.7 % (37-47) L 11/24/21 18:13 MCV 89.4 fL (80-100) 11/24/21 18:13 MCH 29.9 pg (25-34) 11/24/21 18:13 MCHC 33.5 g/dL (32-36) 11/24/21 18:13 RDW Std Deviation 57.4 fL (36.4-46.3) H 11/24/21 18:13 RDW Coeff of Carmelina 17.4 % (11.5-14.5) H 11/24/21 18:13 Plt Count 103 K/uL (130-400) L 11/24/21 18:13 MPV 8.8 fL (7.4-10.4) 11/24/21 18:13 Immature Gran % (Auto) 0.2 % 11/24/21 18:13 Neut % (Auto) 68.8 % 11/24/21 18:13 Lymph % (Auto) 19.8 % 11/24/21 18:13 Lamar % (Auto) 10.1 % 11/24/21 18:13 Eos % (Auto) 0.9 % 11/24/21 18:13 Baso % (Auto) 0.2 % 11/24/21 18:13 Neut # (Auto) 4.52 K/uL (1.4-6.5) 11/24/21 18:13 Lymph # (Auto) 1.30 K/uL (1.2-3.4) 11/24/21 18:13 Lamar # (Auto) 0.66 K/uL (0.11-0.59) H 11/24/21 18:13 Eos # (Auto) 0.06 K/uL (0-0.5) 11/24/21 18:13 Baso # (Auto) 0.01 K/uL (0-0.2) 11/24/21 18:13 Immature Gran # (Auto) 0.01 K/uL (0.00-0.02) 11/24/21 18:13 Polychromasia 1+ 11/24/21 18:13 Echinocytes 1+ 11/24/21 18:13 Sodium 126 mmol/L (136-145) L 11/25/21 00:24 Potassium 5.4 mmol/L (3.5-5.1) H 11/25/21 00:24 Chloride 106 mmol/L (98-107) 11/25/21 00:24 Carbon Dioxide 13 mmol/L (21-32) L 11/25/21 00:24 Anion Gap 7 (3-11) 11/25/21 00:24 BUN 63 mg/dl (6-23) H 11/25/21 00:24 Creatinine 3.19 mg/dl (0.6-1.2) H 11/25/21 00:24 Est Cr Clr Drug Dosing 15.0 ml/min 11/25/21 00:24 Est GFR ( Amer) 15.8 ml/min 11/25/21 00:24 Est GFR (Non-Af Amer) 13.6 ml/min 11/25/21 00:24 BUN/Creatinine Ratio 19.7 (10-20) 11/25/21 00:24 Glucose 108 mg/dl (70-99) H 11/25/21 00:24 Osmolality 292 mOsm/kg (280-300) 11/24/21 18:13 Calcium 8.3 mg/dl (8.5-10.1) L 11/25/21 00:24 Phosphorus 3.8 mg/dl (2.5-4.9) 11/25/21 00:24 Magnesium 1.8 mg/dl (1.7-2.4) 11/25/21 00:24 Total Bilirubin 1.3 mg/dl (0.2-1.0) H 11/24/21 18:13 AST 31 U/L (13-39) 11/24/21 18:13 ALT 11 U/L (7-52) 11/24/21 18:13 Alkaline Phosphatase 101 U/L (34-104) 11/24/21 18:13 Ammonia 38.0 umol/L (18-72) 11/25/21 00:28 Troponin I 0.03 ng/ml (0-0.04) 11/24/21 18:13 Total Protein 6.2 gm/dl (6.0-8.3) 11/24/21 18:13 Albumin 3.0 gm/dl (3.4-5.0) L 11/24/21 18:13 Globulin 3.2 gm/dl (2.5-4.0) 11/24/21 18:13 Albumin/Globulin Ratio 0.9 (0.9-2) 11/24/21 18:13 SARS-CoV-2, RNA, NAAT NEGATIVE (NEGATIVE) 11/24/21 19:42 Impressions Venous Doppler Study 11/24/21 20:25 US venous doppler LE BI CLINICAL HISTORY: Bilateral lower extremity edema COMPARISON: None available at the time of this dictation. TECHNIQUE: Bilateral lower extremity real-time compression venous ultrasound with Color Doppler imaging. Utilizing real-time ultrasonic imaging multiple real time high-resolution ultrasonic images with compression and noncompression maneuvers of the deep venous system in addition to color doppler imaging were performed from the common femoral vein through the proximal calf veins. FINDINGS: Currently there is normal compressibility of the deep venous system from the common femoral vein through the proximal calf veins. No current evidence of acute thrombosis is identified. Impression: No evidence of deep venous thrombus. ACT 112: Negative or not required by law. Electronically signed by: Zi Arteaga M.D. 11/24/2021 9:29 PM PG Care Time/CCT Total # of Minutes Spent Total Time Spent with Patient: Total time spent is greater than 50% in coordination of care (as documented) at patient's floor/unit and/or counseling patient: Coding Level of Care Code 08569 Initial Inpt Care Lvl 3 Diagnoses Acute hyponatremia E87.1 Acute hyperkalemia E87.5 Anemia D64.9 Anemia type: unspecified type Nonalcoholic fatty liver disease K76.0 GERD (gastroesophageal reflux disease) K21.9 CKD (chronic kidney disease) stage 4, GFR 15-29 ml/min N18.4 (1) Anemia Anemia type: unspecified type Qualified Code(s): D64.9 - Anemia, unspecified
--- NOTE | 2021-11-24 21:30 | Ultrasound Report ---
US venous doppler LE BI CLINICAL HISTORY: Bilateral lower extremity edema COMPARISON: None available at the time of this dictation. TECHNIQUE: Bilateral lower extremity real-time compression venous ultrasound with Color Doppler imagi ng. Utilizing real-time ultrasonic imaging multiple real time high-resolution ultrasonic images with comp ression and noncompression maneuvers of the deep venous system in addition to color doppler imaging w ere performed from the common femoral vein through the proximal calf veins. FINDINGS: Currently there is normal compressibility of the deep venous system from the common femoral vein thro ugh the proximal calf veins. No current evidence of acute thrombosis is identified. Impression: No evidence of deep venous thrombus. ACT 112: Negative or not required by law. Electronically signed by: Zi Arteaga M.D. 11/24/2021 9:29 PM
[2021-11-24] MEDS ORDERED: ONDANSETRON INJ 2 MG/ML 2 ML VIAL IV PRN (23:45)
[2021-11-24] MEDS ORDERED: ALBUMIN 5% 250 ML IV ONE (23:45)
[2021-11-24] MEDS ORDERED: ACETAMINOPHEN 325 MG TAB PO PRN (23:45)
[2021-11-25 00:56] LABS: BUN Creatinine Ratio 19.7 (10-20); Calcium 8.3 mg/dl (8.5-10.1); Est GFR (African American) 15.8 ml/min; Est GFR (Non-African American) 13.6 ml/min; Magnesium 1.8 mg/dl (1.7-2.4); Phosphorus 3.8 mg/dl (2.5-4.9); Potassium 5.4 mmol/L (3.5-5.1)
--- NOTE | 2021-11-25 07:18 | Hospitalist Progress Note ---
Date of Service November 25, 2021 Assessment & Plan (1) Acute hyperkalemia: Plan: 76yo female with cirrhosis with resultant peritoneal fluid accumulation requiring regular paracentesis (every two weeks), HTN, DM2, acute UGIB secondary to erosive esophagitis (07/2021 requiring blood transfusion, second episode 11/2021 without need for transfusion), GERD, and breast cancer in remission s/p chemo/radiation (2018; port still in place) who presents with fatigue, nausea, BL LE edema, decreased urine output, cough, and HERRING after being instructed by her PCP to come to the hospital due to abnormal labs. Hyperkalemia Potassium ranging from 5.3 - 5.5 since admission; possibly secondary to worsening CKD EKG without arrhythmia or peaked T waves Rapid lowering of potassium not indicated at this time Hold carvedilol, spironolactone Continue patiromer Nephrology consulted for evaluation of electrolyte abnormalities in the setting of possibly-worsening CKD, appropriateness of spironolactone, and appropriateness of EPO therapy Will trial low-dose lasix and reevaluate in AM Trend BMP Hyponatremia Sodium ranging from 126 - 128 since admission; urine osmolality low (396), urine sodium wnl, serum osmolality normal at 292 Isotonic hyponatremia of unclear etiology, possibly related to hyperglycemia, worsening CKD, others NSS 500mL bolus x2 given in ED Nephrology consulted as above Trend BMP Anemia Patient with history of acute UGIB secondary to erosive esophagitis (07/2021 requiring blood transfusion, again in 11/2021 without need for transfusion) Hgb 7.6 on admission, stable at this time Type/screen ordered, transfuse for Hgb<7 Continue protonix Trend CBC Nephrology consulted regarding appropriateness of EPO therapy CKD4 Creatinine on admission 3.38 (baseline 2.5 - 3.0); differential includes hypovolemia, worsening preexisting CKD, others Continue calcitriol Trend BMP NAFLD cirrhosis, ascites Follows with [facility] GI Meld score 25 (90-day mortality 14-15%) Albumin administered in ED Continue lactulose GERD, erosive esophagitis Continue home protonix, pepcid HLD Continue home pravastatin FEN: low sodium, heart healthy diet Code status: full code DVT ppx: SCDs PT/OT: ordered Dispo: med/surg telemetry (2) Acute hyponatremia: (3) Acute kidney injury superimposed on CKD: (4) Anemia: (5) Cirrhosis, non-alcoholic: (6) Erosive esophagitis: (7) GERD (gastroesophageal reflux disease): (8) Hypertension: (9) Nonalcoholic fatty liver disease: (10) Sleep apnea: (11) T2DM (type 2 diabetes mellitus): Admission and Anticipated Discharge Date Admission Date: November 24, 2021 Supervising Physician Co-Signing Physician Notes Resident Physician Supervision Note: I independently interviewed and examined the patient and verified the parish histo ry and physical, reviewed labs and image studies and agree with resident Dr. Cervantes findings and care plan. Subjective Patient seen and evaluated at bedside this morning. No acute events overnight. Patient feels "great" today and has no acute complaints. Endorses some abdominal distension but denies pain, nausea, vomiting, SOB, or other symptoms. Review of Systems Review of Systems: See HPI Physical Exam Physical Exam: Constitutional: well-appearing, no acute distress, eating breakfast in bed HEENT: MMM CV: regular rhythm, no murmur appreciated, extremities well-perfused, 2+ pitting edema up to the hip Resp: CTABL, no wheezes/rales/rhonchi appreciated, no increased work of breathing GI: soft, distended, nontender, BS present Neuro: alert, oriented, no focal neurologic deficit appreciated Results & Data Results & Data ([facility]) Vital Signs (Past 12 Hours) Vital Signs Temp Pulse Pulse Resp BP BP Pulse Ox 11/25/21 03:49 36.5 C 75 16 115/66 99 11/25/21 00:00 72 11/24/21 23:46 36.3 C L 74 16 157/77 H 100 11/24/21 23:00 85 18 130/65 98 11/24/21 22:30 70 17 144/77 H 98 11/24/21 21:30 74 17 156/76 H 100 11/24/21 21:12 84 19 11/24/21 20:31 74 18 143/58 H 99 11/24/21 20:00 74 22 100 11/24/21 19:53 71 18 98 11/24/21 19:45 74 20 168/77 H 99 Resident Activity Tracking Resident Involvement: Resident Care Provided Care Provided: Adult Hospital Medicine
[2021-11-25] MEDS: CHOLECALCIFEROL 1,000 UNITS 25 MCG TAB PO SCH ×2 (08:05→21:01)
[2021-11-25] MEDS: PANTOprazole 40 MG TAB PO SCH ×2 (08:06→21:02)
[2021-11-25] MEDS: FAMOTIDINE 20 MG TAB PO SCH ×2 (08:06→21:02)
[2021-11-25] MEDS: LACTULOSE SYRUP 20 GM/30 ML UDC PO SCH (08:08)
[2021-11-25 08:48] LABS: Hematocrit (blood only) 22.5 % (37-47); Hemoglobin 7.5 g/dL (12.0-16.0); Mean Corpuscular Hemoglobin 29.8 pg (25-34); Mean Corpuscular Hgb Conc 33.3 g/dL (32-36); Mean Corpuscular Volume 89.3 fL (80-100); RDW Coefficient of Variation 17.4 % (11.5-14.5); RDW Standard Deviation 56.8 fL (36.4-46.3); Red Blood Count 2.52 M/uL (4.2-5.4); White Blood Count 4.29 K/uL (4.8-10.8)
[2021-11-25] MEDS ORDERED: carvediloL 3.125 MG TAB PO SCH (09:00)
[2021-11-25] MEDS ORDERED: SPIRONOLACTONE 100 MG TAB PO SCH (09:00)
[2021-11-25 09:01] LABS: Mean Platelet Volume 8.9 fL (7.4-10.4); Platelet Count 83 K/uL (130-400)
[2021-11-25 09:08] LABS: Albumin Level 3.2 gm/dl (3.4-5.0); BUN Creatinine Ratio 20.3 (10-20); Bilirubin Direct 0.6 mg/dl (0-0.2); Bilirubin,Total 1.4 mg/dl (0.2-1.0); Calcium 8.7 mg/dl (8.5-10.1); Creatinine Clr Calc Pharmacy 14.7 ml/min; Est GFR (African American) 15.5 ml/min; Est GFR (Non-African American) 13.3 ml/min; Potassium 5.3 mmol/L (3.5-5.1)
[2021-11-25 09:20] LABS: Eosinophils # (auto) 0.05 K/uL (0-0.5); Eosinophils % (auto) 1.2 %; Immature Granulocytes # (auto) 0.01 K/uL (0.00-0.02); Immature Granulocytes % (auto) 0.2 %; Lymphocytes # (auto) 0.92 K/uL (1.2-3.4); Lymphocytes % (auto) 21.4 %; Monocytes # (auto) 0.45 K/uL (0.11-0.59); Monocytes % (auto) 10.5 %; Neutrophils # (auto) 2.86 K/uL (1.4-6.5); Neutrophils % (auto) 66.7 %; Polychromasia 1+
--- NOTE | 2021-11-25 09:33 | Electrocardiogram Report ---
Test Reason : Blood Pressure : / mmHG Vent. Rate : 073 BPM Atrial Rate : 073 BPM P-R Int : 140 ms QRS Dur : 124 ms QT Int : 414 ms P-R-T Axes : 061 103 068 degrees QTc Int : 456 ms Poor data quality, interpretation may be adversely affected Normal sinus rhythm Right bundle branch block Rightward axis Abnormal ECG When compared with ECG of 19-NOV-2021 06:25, Premature supraventricular complexes are no longer Present Left anterior fascicular block is no longer Present T wave inversion no longer evident in Inferior leads ?? limb lead reversal Confirmed by Shahid Hull ([id number]) on 11/25/2021 9:33:02 AM Referred By: REFERRED SELF Confirmed By:Shahid Hull
[2021-11-25] MEDS: COLESTIPOL HCL 1 GM TAB PO SCH (10:00)
[2021-11-25] MEDS: PATIROMER CALCIUM SORBITEX 8.4 GM PACK PO SCH (13:30)
[2021-11-25 13:48] LABS: BUN Creatinine Ratio 19.5 (10-20); Calcium 8.2 mg/dl (8.5-10.1); Creatinine Clr Calc Pharmacy 14.3 ml/min; Est GFR (Non-African American) 12.9 ml/min; Potassium 5.4 mmol/L (3.5-5.1)
[2021-11-25] MEDS: PRAVASTATIN SOD 10 MG TAB PO SCH (21:02)
[2021-11-25] MEDS: TOCOPHERYL, DL-ALPHA 400 UNITS 180 MG CAP PO SCH (21:03)
[2021-11-25] MEDS ORDERED: FUROSEMIDE 20 MG TAB PO ONE (21:07)
[2021-11-26] MEDS: HEPARIN 100 UNIT/ML 5ML FLUSH FLUSH PRN ×2 (06:19→15:21)
[2021-11-26 06:40] LABS: Hematocrit (blood only) 20.2 % (37-47); Hemoglobin 6.6 g/dL (12.0-16.0); Mean Corpuscular Hemoglobin 29.3 pg (25-34); Mean Corpuscular Hgb Conc 32.7 g/dL (32-36); Mean Corpuscular Volume 89.8 fL (80-100); Mean Platelet Volume 8.9 fL (7.4-10.4); Platelet Count 74 K/uL (130-400); RDW Coefficient of Variation 17.2 % (11.5-14.5); RDW Standard Deviation 56.5 fL (36.4-46.3); Red Blood Count 2.25 M/uL (4.2-5.4); White Blood Count 3.47 K/uL (4.8-10.8)
[2021-11-26] MEDS ORDERED: SODIUM CHLORIDE 0.9% 250 ML IV PRN (06:44)
[2021-11-26 06:49] LABS: Albumin Level 2.8 gm/dl (3.4-5.0); BUN Creatinine Ratio 17.9 (10-20); Bilirubin,Total 1.2 mg/dl (0.2-1.0); Calcium 8.4 mg/dl (8.5-10.1); Creatinine Clr Calc Pharmacy 13.7 ml/min; Est GFR (African American) 13.8 ml/min; Est GFR (Non-African American) 11.9 ml/min; Globulin 2.7 gm/dl (2.5-4.0); Magnesium 1.9 mg/dl (1.7-2.4); Phosphorus 3.9 mg/dl (2.5-4.9); Potassium 5.5 mmol/L (3.5-5.1); Total Protein 5.5 gm/dl (6.0-8.3)
[2021-11-26 06:53] LABS: Eosinophils # (auto) 0.07 K/uL (0-0.5); Lymphocytes # (auto) 0.79 K/uL (1.2-3.4); Lymphocytes % (auto) 22.8 %; Monocytes # (auto) 0.35 K/uL (0.11-0.59); Monocytes % (auto) 10.1 %; Neutrophils # (auto) 2.26 K/uL (1.4-6.5); Neutrophils % (auto) 65.1 %; Polychromasia 1+
--- NOTE | 2021-11-26 07:07 | Hospitalist Progress Note ---
Date of Service November 26, 2021 Assessment & Plan (1) Acute hyperkalemia: Plan: 76yo female with cirrhosis with resultant peritoneal fluid accumulation requiring regular paracentesis (every two weeks), HTN, DM2, acute UGIB secondary to erosive esophagitis (07/2021 requiring blood transfusion, second episode 11/2021 without need for transfusion), GERD, and breast cancer in remission s/p chemo/radiation (2018; port still in place) who presents with fatigue, nausea, BL LE edema, decreased urine output, cough, and HERRING after being instructed by her PCP to come to the hospital due to abnormal labs. Hyperkalemia Potassium ranging from 5.3 - 5.5 since admission; EKG without arrhythmia or peaked T waves Nephrology consulted: Low potassium diet, HCO3 replacement Hold spironolactone Continue patiromer Trend BMP Hyponatremia - chronic Sodium ranging from 126 - 128 since admission Dilutional, associated with cirrhosis and ascites Nephrology recommends holding IVF and diuretics for now Trend BMP Anemia Patient with history of acute UGIB secondary to erosive esophagitis (07/2021 requiring blood transfusion, again in 11/2021 without need for transfusion), ckd/cirrhosis Hgb 7.6 on admission, decreased to 6.6 (11/26) Transfusing two units pRBC Follow-up h/h ordered FOBT ordered GI consulted Continue protonix Trend CBC BENNY on CKD4 Creatinine on admission 3.38 (baseline 2.5); has gradually worsened since Nephrology consulted; due to superimposed BENNY and HRS, low chance of significantly improved kidney function even in the setting of liver transplant Decreased urine output disconcerting. Strict I/O's to be monitored. Na notably low, <10. Clinical presentation concerning for progressive HRS. History suggestive of HRS II. Volume status acceptable. IV albumin deferred at this time while PRBC transfusion support is being provided. BP reasonably acceptable. UA, renal ultrasound Octreotide added. No emergent need for dialysis Continue calcitriol Trend BMP Hypotension -hold carvedilol NAFLD cirrhosis, ascites Follows with [facility] GI Meld score 28, poor prognosis; GI consulted Albumin administered in ED Continue lactulose - Overall poor prognosis - GI to review transplant candidancy GERD, erosive esophagitis Continue home protonix, pepcid HLD Continue home pravastatin FEN: low sodium, heart healthy diet Code status: full code DVT ppx: SCDs PT/OT: ordered Dispo: med/surg telemetry (2) Acute hyponatremia: (3) Acute kidney injury superimposed on CKD: (4) Anemia: (5) Cirrhosis, non-alcoholic: (6) Erosive esophagitis: (7) GERD (gastroesophageal reflux disease): (8) Hypertension: (9) Nonalcoholic fatty liver disease: (10) Sleep apnea: (11) T2DM (type 2 diabetes mellitus): Admission and Anticipated Discharge Date Admission Date: November 24, 2021 Supervising Physician Co-Signing Physician Notes Resident Physician Supervision Note: I independently interviewed and examined the patient and verified the [place] history and physical, reviewed labs and image studies and agree with resident Dr. Cervantes findings and care plan. Subjective Patient seen and evaluated at bedside this morning. No acute events overnight. This morning patient feels fatigued but otherwise feels well. Denies abdominal pain, CP, pain with BMs, bloody stools, or other symptoms. Patient denies CP, nausea, vomiting, lightheadedness, dizziness, and diarrhea. Review of Systems Review of Systems: See HPI Physical Exam Physical Exam: Constitutional: well-appearing, no acute distress, laying in bed HEENT: MMM CV: regular rhythm, no murmur appreciated, 1+ pitting edema up to hip Resp: CTABL, no wheezes/rales/rhonchi appreciated, no increased work of breathing GI: soft, distended, nontender, BS present Neuro: alert, oriented, no focal neurologic deficit appreciated Results & Data Results & Data ([facility]) Vital Signs (Past 12 Hours) Vital Signs Temp Pulse Pulse Resp BP Pulse Ox 11/26/21 03:14 36.8 C 71 18 113/60 97 11/25/21 23:45 36.6 C 66 16 115/65 100 11/25/21 22:19 69 11/25/21 19:41 36.5 C 69 18 103/61 99 Resident Activity Tracking Resident Involvement: Resident Care Provided Care Provided: Adult Hospital Medicine
[2021-11-26] MEDS: CHOLECALCIFEROL 1,000 UNITS 25 MCG TAB PO SCH ×2 (09:38→20:48)
[2021-11-26] MEDS: FAMOTIDINE 20 MG TAB PO SCH ×2 (09:38→20:49)
[2021-11-26] MEDS: LACTULOSE SYRUP 20 GM/30 ML UDC PO SCH ×2 (09:39→10:53)
[2021-11-26] MEDS: PANTOprazole 40 MG TAB PO SCH ×2 (09:39→20:49)
[2021-11-26] MEDS: PATIROMER CALCIUM SORBITEX 8.4 GM PACK PO SCH (09:39)
[2021-11-26] MEDS ORDERED: FUROSEMIDE INJ 20 MG/2 ML VIAL IV ONE (10:00)
[2021-11-26] MEDS: COLESTIPOL HCL 1 GM TAB PO SCH (10:52)
--- NOTE | 2021-11-26 11:25 | Nephrology Consultation ---
Date of Consultation November 26, 2021 Assessment & Plan (1) Acute kidney injury superimposed on CKD: Decreased urine output disconcerting. Strict I/O's to be monitored. Na notably low, <10. Clinical presentation concerning for progressive HRS. History suggestive of HRS II. Volume status acceptable. IV albumin deferred at this time while PRBC transfusion support is being provided. Octreotide added. BP reasonably acceptable. UA/microscopy and renal US requested. Goals of care reviewed this AM. No emergent indication for dialysis. Monitor metabolic profile daily. Medications appropriate for kidney dysfunction. (2) Acute hyperkalemia: Low potassium diet. HCO3 replacement. No acute EKG changes. Hold spironolactone. (3) Acute hyponatremia: Chronic, hypervolumic. Dilutional associated with cirrhosis and ascites. Decreased EAV. Poor oral solute intake. Unfortunately, unfavorable prognostic marker. Hold additional IVF and diuretics for now. (4) Cirrhosis, non-alcoholic: MELD NA 28. Prognosis unfortunately poor. Suggest GI consultation. Ultimately, Tasneem needs to know transplant candidancy. (5) Anemia: ESLD, CKD, and esophagitis. Suggest GI consultation. 2 u PRBC transfusion support being provided now. (6) CKD (chronic kidney disease) stage 4, GFR 15-29 ml/min: Baseline creatinine 2.5 mg/dL. Kidneys demonstrating progressive atrophy on CT. Superimposed BENNY/HRS but unfortunately due to CKD at baseline chance of significant improvement in kidney function s/p liver transplant can still be considered low. (7) Erosive esophagitis: Repeat H/H s/p PRBC transfusion. Suggest GI consultation. History of Present Illness Reason for Consultation: BENNY/CKD Requesting Physician: Gabriela Villa MD Attending Physician: Gabriela Villa MD History of Present Illness Mrs. Tasneem Conde is a 76-year-old female with advanced liver and kidney dysfunction. She has cirrhosis attributed to NAFLD. She has CKD III-IV with evidence of progressive HRS II. She was treated for invasive ductal breast cancer s/p L lumpectomy in 2017 with Taxol, trastuzumab, and radiation. Tasneem completed chemotherapy in March 2019. No concerning findings on surveillance in October 2020. I know Tasneem from the outpatient nephrology clinic. She presented to the clinic in June with new onset ascites. She has had progressive decline in liver and kidney function and well as multiple hospitalizations since that time. Complications of her cirrhosis include refractory ascites, esophageal varices, and a history of hepatic encephalopathy. Tasneem was admitted to [facility] in July with abdominal pain and melena. EGD revealed large non-bleeding esophageal varices and esophagitis. She received PRBC support. Creatinine peaked at 2.5 mg/dL and with IV fluids and supportive care improved to 1.9 mg/dL. CT demonstrated cirrhosis with large volume ascites. Kidneys normal in appearance. UA notable for >30 WBCs and 4+ bacteria with culture growing pansensitive klebsiella pneumonia. Urine sodium <5. Inderal was started prior to discharge. The medication was later stopped by her PCP due to hypotension. She presented to the nephrology clinic in October with a serum creatinine that had relatively stabilized at 2.5 mg/dL at that time. Creatinine then started to trend upward during hospitalization at [facility] earlier this month. Unfortunately, she was admitted to [facility] in early November with recurrent UGI bleed requiring PBRC transfusion support. EGD demonstrating erosive esophagitis. Nephrology consultation was not obtained. Spironolactone 50 mg daily and carvedilol were started during admission. I was contacted yesterday by the hospitalist team due to concerns associated with hyponatremia, hyperkalemia, and BENNY. Since earlier this month, creatinine has progressively trended upward to 3.5 mg/dL. I spoke to Dr. Cervantes yesterday as well as Dr. Villa. I reviewed the plan of care with Dr. Villa again this AM. Since admission, spironolactone was held and initially IV saline + albumin provided. However, Tasneem was experiencing decreased urine output, edema, and dyspnea. A trial of IV furosemide was provided yesterday evening. This morning, Tasneem is receiving PRBC transfusion support for a hemoglobin which has dropped to 6.6. Tasneem feels reasonably comfortable. She denies melena or hematochezia. She is having a few loose bowel movements daily with lactulose. She reports tense ascites and abdominal discomfort but denies pain. She has not had any fevers or chills. She denies any difficulty voiding her urine. Appetite is poor. She is very concerned about her and children. Tasneem's recently completed treatment for prostate cancer. She knows that he has been very worried about her health and that his anxiety it high. Tasneem's sister at [facility] under the care of a character actor for GI complications of Jerez's syndrome. Her aunt had developed ESLD and was evaluated at [facility] prior to her . Tasneem has been scheduled to meet with hepatology at [facility] later this month on 12/11. Tasneem is not sure whether she would want to proceed with transplant. She told me that she would likely refuse dialysis. She does not consider dialysis to be consistent with an acceptable quality of life. She has not had formal predialysis education. Ct scan of the abdomen on November 06 demonstrated atrophic kidneys without obstruction. Paracentesis for 6 L of straw color fluid was completed on November 17. Urine studies during this admission include a Uosm of 396 and Sarabjit of <10. Urine output not full documented. Allergies Allergy/AdvReac Type Severity Reaction Status Date / Time guaifenesin Allergy Severe Stroke Verified 11/24/21 21:14 like symptoms morphine Allergy Intermediate "FIRE" Verified 11/24/21 21:14 SENSATION IN HEAD Penicillins Allergy Intermediate HIVES Verified 11/24/21 21:14 ethyl alcohol AdvReac Severe STROKE Verified 11/24/21 21:14 LIKE SYMPTOMS shellfish derived AdvReac Severe PT Verified 11/24/21 21:14 DEVELOPED HEPATITIS adhesive AdvReac Intermediate RASH,REDNES Verified 11/24/21 21:14 S verapamil AdvReac Mild H/A Verified 11/24/21 21:14 Home Medications Medication Instructions Recorded Confirmed Type vitamin E 400 unit capsule 400 unit PO HS cap 10/28/20 11/24/21 History OneTouch Delica Plus Lancet 33 #200 ea NS 01/30/21 11/21/21 Rx gauge (lancets) BD Ultra-Fine Obdulia Pen Needle 32 #200 ea NS 02/14/21 11/21/21 Rx gauge x 5/32" (pen needle, diabetic) colestipol 1 gram tablet 1 g PO DAILY #30 tab 07/24/21 11/24/21 Rx cholecalciferol (vitamin D3) 25 1,000 unit PO BID 07/28/21 11/24/21 History mcg (1,000 unit) capsule (Vitamin D3) blood sugar diagnostic (OneTouch ea 08/09/21 11/21/21 History Verio test strips) calcitriol 0.25 mcg capsule 0.25 mcg PO 3XWK #12 cap 09/25/21 11/24/21 Rx (Rocaltrol) pravastatin 20 mg tablet 10 mg PO QPM #90 tab 10/19/21 11/24/21 Rx carvedilol 3.125 mg tablet (Coreg) 3.125 mg PO DAILY #30 tab 11/19/21 11/24/21 Rx ciprofloxacin HCl 500 mg tablet 500 mg PO DAILY #4 tab 11/19/21 11/24/21 Rx famotidine 20 mg tablet 20 mg PO BID 7 Days #30 tab 11/19/21 11/24/21 Rx lactulose 10 gram/15 mL oral 10 g PO DAILY #237 ml 11/19/21 11/24/21 Rx solution pantoprazole 40 mg tablet,delayed 40 mg PO BID #60 tab 11/19/21 11/24/21 Rx release spironolactone 100 mg tablet 100 mg PO DAILY 11/24/21 11/24/21 History Patient History Medical History (Updated 11/25/21 @ 04:34 by Erika Oliveira DO) Abdominal ascites Acute upper gastrointestinal bleeding BENNY (acute kidney injury) Anemia HX Asthma INHALERS JUST FOR WINTER > COLD TAKES BREATH AWAY> NO ACTUAL ASTHMA DX Cancer of left breast Hx of, cancer free 2021. s/p chemo/radiation > PORT TO RIGHT CHEST PRESENT Cardiac murmur follows with Dr. Iglesias Cirrhosis Depression Diabetes mellitus, type 2 Erosive esophagitis Esophageal varices determined by endoscopy GERD (gastroesophageal reflux disease) Hypertension IBS (irritable colon syndrome) Malignant neoplasm of central portion of left breast in female, estrogen receptor negative (11/15/17) Mitral regurgitation Mitral valve regurgitation UNSURE OF DETAILS, DOESNT FOLLOW CARDIO Nonalcoholic fatty liver disease Obesity (BMI 30-39.9) Osteopenia Sinus bradycardia PATIENT SAID SHE REMEMBERS SOMEONE TELLING HER OF THIS ON AN EKG ONE TIME, BUT DOESN'T THINK ITS A CHRONIC PROBLEM Sleep apnea cpap T2DM (type 2 diabetes mellitus) Thrombocytopenia Tricuspid valve regurgitation UNSURE OF DETAILS, DOESNT FOLLOW CARDIO Surgical History History of cholecystectomy History of colonoscopy History of dilatation and curettage History of esophagogastroduodenoscopy (EGD) History of left cataract surgery left. 12/23/2019. 2 mg versed. no issues. History of lumpectomy of left breast History of tonsillectomy History of tooth extraction History of total hysterectomy with bilateral salpingo-oophorectomy (BSO) History of vascular access device right side APort in place History of wisdom tooth extraction Hx of left breast biopsy malignant Hx of right breast biopsy benign Family History Grandmother (Maternal) Family history of diabetes mellitus Grandmother (Maternal) No problems noted. Grandmother (Paternal) Breast cancer Aunt Breast cancer Uncle Colorectal cancer Father Hypertension Other Colonic polyp No family history of adverse response to anesthesia Denies family history of Ovarian cancer Prostate cancer Myocardial infarction Social History Smoking Status: Never smoker Second Hand Exposure: No; Hx Alcohol Use: No Hx Substance Use: No Preferred Language: Montenegrin Communication Ability: Effective Cab Driver Required: No Beliefs That Will Affect Care: Shinto marital status: Current Living Situation: Spouse Current Living Situation Comment: current occupational status: retired Feels Safe at Home: Yes Safety Concerns: Feels Safe At This Time Childhood Exposure to Second-Hand Smoke: Yes caffeine: No Dental Care, Regularly: Yes Physical Activity Frequency: Declines to Answer Physical Activity Frequency Comment: Not very much right now due to present fluid retention issues Seatbelt Use: always Assistive Devices: None Review of Systems Review of Systems: All systems reviewed & are unremarkable except as noted in HPI & below Physical Exam Constitutional: + ill appearing and + frail appearing; no acute distress Eyes: + anicteric sclerae; no corneal abnormality ENMT: Mouth: + dry oral mucous membranes; no oral mucosal abnormality Neck: normal visual inspection and trachea midline Respiratory: normal respiratory effort Auscultation: lungs clear to auscultation bilaterally Cardiovascular: Rate/Rhythm: regular rate Heart Sounds: normal S1, normal S2 and + murmur Extremities: no edema Chest (Breasts): Additional Comments: R mediport Gastrointestinal (Abdomen): Inspection/Auscultation: + abdomen distended Percussion/Palpation: + ascites; no guarding and abdomen not rigid Musculoskeletal: Extremities: no cyanosis and no clubbing Skin: + turgor decreased; no lesions Neurologic: Motor/Sensory: no tremor and no asterixis Psychiatric: Orientation: alert and oriented x 3 Results & Data ([facility]) Vital Signs (Past 12 Hours) Vital Signs Temp Pulse Pulse Pulse Resp BP BP 11/26/21 10:54 36.8 C 71 17 120/65 11/26/21 09:40 36.7 C 64 18 121/67 11/26/21 09:11 36.7 C 65 20 125/71 11/26/21 08:41 36.7 C 69 17 117/71 11/26/21 08:26 36.5 C 74 16 122/72 11/26/21 08:20 36.5 C 74 16 122/72 11/26/21 08:02 36.8 C 72 16 123/73 11/26/21 07:00 36.4 C L 68 16 112/65 11/26/21 03:14 36.8 C 71 18 113/60 11/25/21 23:45 36.6 C 66 16 115/65 Pulse Ox 11/26/21 10:54 99 11/26/21 09:40 100 11/26/21 09:11 99 11/26/21 08:41 100 11/26/21 08:26 100 11/26/21 08:20 98 11/26/21 08:02 99 11/26/21 07:00 98 11/26/21 03:14 97 11/25/21 23:45 100 Laboratory Results Laboratory Results - last 24 hr 11/25/21 11/25/21 11/26/21 08:40 13:11 05:43 WBC 3.47 L RBC 2.25 L Hgb 6.6 L* Hct 20.2 L* MCV 89.8 MCH 29.3 MCHC 32.7 RDW Std Deviation 56.5 H RDW Coeff of Carmelina 17.2 H Plt Count 74 L MPV 8.9 Immature Gran % (Auto) 0.0 Neut % (Auto) 65.1 Lymph % (Auto) 22.8 Kimball % (Auto) 10.1 Eos % (Auto) 2.0 Baso % (Auto) 0.0 Neut # (Auto) 2.26 Lymph # (Auto) 0.79 L Kimball # (Auto) 0.35 Eos # (Auto) 0.07 Baso # (Auto) 0.00 Immature Gran # (Auto) 0.00 Polychromasia 1+ Sodium 126 L Potassium 5.4 H Chloride 106 Carbon Dioxide 15 L Anion Gap 5 BUN 65 H Creatinine 3.34 H Est Cr Clr Drug Dosing 14.3 Est GFR ( Amer) 15.0 Est GFR (Non-Af Amer) 12.9 BUN/Creatinine Ratio 19.5 Glucose 141 H Calcium 8.2 L Phosphorus Magnesium Total Bilirubin AST ALT Alkaline Phosphatase Total Protein Albumin Globulin Albumin/Globulin Ratio Blood Type O Negative Antibody Screen NEGATIVE Crossmatch See Detail 11/26/21 05:43 WBC RBC Hgb Hct MCV MCH MCHC RDW Std Deviation RDW Coeff of Carmelina Plt Count MPV Immature Gran % (Auto) Neut % (Auto) Lymph % (Auto) Kimball % (Auto) Eos % (Auto) Baso % (Auto) Neut # (Auto) Lymph # (Auto) Kimball # (Auto) Eos # (Auto) Baso # (Auto) Immature Gran # (Auto) Polychromasia Sodium 128 L Potassium 5.5 H Chloride 107 Carbon Dioxide 15 L Anion Gap 6 BUN 64 H Creatinine 3.57 H Est Cr Clr Drug Dosing 13.7 Est GFR ( Amer) 13.8 Est GFR (Non-Af Amer) 11.9 BUN/Creatinine Ratio 17.9 Glucose 97 Calcium 8.4 L Phosphorus 3.9 Magnesium 1.9 Total Bilirubin 1.2 H AST 29 ALT 11 Alkaline Phosphatase 93 Total Protein 5.5 L Albumin 2.8 L Globulin 2.7 Albumin/Globulin Ratio 1.0 Blood Type Antibody Screen Crossmatch PG Care Time/CCT Total # of Minutes Spent Total Time Spent with Patient: Total time spent is greater than 50% in coordination of care (as documented) at patient's floor/unit and/or counseling patient: Coding Level of Care Code 60380 Office/OBS Consult Lvl 5 Diagnoses Cirrhosis, non-alcoholic K74.60 Anemia D64.9 CKD (chronic kidney disease) stage 4, GFR 15-29 ml/min N18.4 Acute kidney injury superimposed on CKD N17.9; N18.9 Erosive esophagitis K22.10 Acute hyperkalemia E87.5 Acute hyponatremia E87.1
[2021-11-26] MEDS: OCTREOTIDE ACETATE 100 MCG/ML VIAL SQ SCH ×2 (15:28→20:46)
[2021-11-26] MEDS: SODIUM BICARBONATE 650 MG TAB PO SCH ×2 (15:28→20:47)
--- NOTE | 2021-11-26 17:32 | Ultrasound Report ---
US renal/blad retro comp CLINICAL HISTORY: BENNY. COMPARISON: None. TECHNIQUE: Multiple grayscale and color images of the kidneys and bladder. FINDINGS: Right kidney: The kidney is atrophic. There is no evidence for renal calculus or hydronephrosis. Ther e is no evidence for solid renal mass. There is no evidence for medical renal disease. The kidney kamryn sures approximately 8.8 cm in greatest length. Left kidney: The kidney is atrophic. There is no evidence for renal calculus or hydronephrosis. There is no evidence for solid renal mass. There is no evidence for medical renal disease. The kidney drake ures approximately 7.5 cm in length. Bladder: Not visualized There is evidence for marked abdominal and pelvic ascites. IMPRESSION: 1. Bilateral renal atrophy. 2. Marked abdominal and pelvic ascites. ACT 112: Negative or not required by law. Electronically signed by: Zi Arteaga M.D. 11/26/2021 5:31 PM
[2021-11-26 18:10] LABS: INR 1.3 (0.9-1.1); Prothrombin Time 13.3 Seconds (9.0-12.0)
[2021-11-26 18:13] LABS: Hematocrit (blood only) 30.2 % (37-47); Hemoglobin 9.8 g/dL (12.0-16.0)
--- NOTE | 2021-11-26 18:45 | Consultation Report ---
GASTROENTEROLOGY CONSULTATION DATE OF SERVICE: 11/26/2021 In cross coverage for [facility] Gastroenter[facility]. RACE: . ATTENDING PHYSICIAN: Gabriela Villa MD. CONSULTING PHYSICIAN: Dikr Pierre DO. REASON FOR CONSULTATION: Hepatorenal syndrome. HISTORY OF PRESENT ILLNESS: The patient is a 76-year-old female who was admitted last week from 11/16 until date of discharge on 11/19 secondary to cirrhosis and upper GI bleeding secondary t o LA class C reflux esophagitis. She did undergo upper endoscopy by Dr. Victor Manuel Jimenez on 11/17 and wa s noted to have LA class C reflux esophagitis as well as nonbleeding esophageal varices in the middle third of her esophagus and lower third of the esophagus, there was no evidence of stigmata of recent or current bleeding. The patient was placed on Protonix 40 mg p.o. b.i.d. and was also started prio r to discharge on a nonselective beta estrada at Coreg 3.125 mg daily. During her prior hospitalizat ion, she did undergo a paracentesis with fluid studies collected, which showed no evidence of SBP. S he was encouraged prior to discharge to take her lactulose therapy due to some confusion secondary to hepatic encephalopathy. She returned to the Department of Emergency on 11/24 secondary to the reques t of her primary care physician secondary to generalized weakness and worsening anemia. On discharge from the hospitalization on 11/19, she was noted to have a hemoglobin of 7.8. Her hemoglobin at the time of her arrival at the Department of Emergency on this admission was 8.1. She also was noted to have a worsening creatinine, which was noted to be 2.52 on discharge on 11/19, though 3.38 in the ER upon arrival. She did undergo COVID testing, which was negative on 11/24. She was subsequently admit galen and due to her acute hyponatremia, hyperkalemia and acute kidney injury with a history of chronic kidney disease, she was given IV albumin and was seen by Dr. Randall on this morning of nephrology who f elt that her findings are most consistent with type 2 hepatorenal syndrome. She did not see any need for emergent dialysis and recommended holding her spironolactone due to her hyperkalemia. Since her arrival, her anemia has worsened with a hemoglobin today of 6.6 with a hematocrit of 20.2 and at the time that I saw the patient, she was receiving the first of 2 units of packed red blood cells. It sh ould be noted that she is on both famotidine 20 mg p.o. b.i.d. as well as Protonix 40 mg p.o. b.i.d. Her was at the bedside this afternoon as well when I spoke with her and she does have an [facility] o[facility] appointment with transplant hepatology. She states that she currently gets a large volume parac entesis approximately every 2 weeks. She states that she has been compliant with her Coreg prior to admission; however, admits to not taking her lactulose as prescribed. She denies any abdominal pain, fevers, chills, nausea, vomiting, hematemesis, melena, hematochezia. She denies any jaundice, achol ic stools, dark urine, or pruritus, but she does note extreme fatigue. She denies any further compla ints at present. PAST MEDICAL HISTORY: Significant for BEASLEY cirrhosis, sleep apnea, left-sided breast cancer, GERD, h ormone replacement therapy, hiatal hernia, diverticulosis, depression, peripheral neuropathy, syncope , ascites, hepatic encephalopathy, esophageal varices, anemia, metabolic syndrome, type 2 diabetes, a [id number] kidney disease, hyperkalemia, hyponatremia. PAST SURGICAL HISTORY: Includes cholecystectomy, D and C, left cataract surgery, lumpectomy of the l eft breast, tonsillectomy, PETTY/BSO, third molar extractions, history of right breast biopsy. ALLERGIES: GUAIFENESIN, MORPHINE, PENICILLINS, ETHYL ALCOHOL, SHELLFISH, ADHESIVES AND VERAPAMIL. MEDICATIONS: At present include Tylenol 650 mg p.o. q.4 p.r.n., Rocaltrol 0.25 mcg p.o. Saturday, Sat, Saturday, cholecalciferol 1000 units p.o. b.i.d., Colestid 1 gram p.o. daily, famotidine 20 mg p.o. b.i.d., lactulose 20 g p.o. daily, octreotide 100 mcg subcu q.8 hours, Zofran 4 mg IV q.6 p.r.n. , Protonix 40 mg p.o. b.i.d., pravastatin 10 mg p.o. q.p.m. Of note, her Coreg and spironolactone ar e on hold. Her Lasix was discontinued. SOCIAL HISTORY: She is . She denies any tobacco, alcohol, or illicit drug use. FAMILY HISTORY: Negative for GI malignancy or inflammatory bowel disease. REVIEW OF SYSTEMS: Negative x12 system review other than pertinent positives listed in the HPI. PHYSICAL EXAMINATION: VITAL SIGNS: Include a temperature of 36.5, pulse 67, respirations 18, blood pressure 95/78, pulse o x 100% on room air. GENERAL: Chronic ill-appearing, in no acute distress. HEAD: Normocephalic, atraumatic. EYES: Pupils equal, round. Extraocular muscles are intact. ENT: External evaluation of ears and nose are normal. Oropharynx is clear. NECK: Soft, supple. CHEST: Decreased breath sounds in bilateral bases. CARDIOVASCULAR: Regular rate and rhythm. ABDOMEN: Soft, distended. No appreciable hepatosplenomegaly. Positive fluid wave. EXTREMITIES: No clubbing, cyanosis or edema. PSYCHIATRIC: Alert, oriented x3, cooperative. RADIOGRAPHIC STUDIES AND LABORATORY STUDIES: Were reviewed in the HPI. IMPRESSION: A 76-year-old female with nonalcoholic steatohepatitis cirrhosis complicated b y ascites, hepatic encephalopathy, esophageal varices and hepatorenal syndrome. PLAN: At the present time, the patient is not having any overt GI blood loss, though she is anemic. She does have a recent history of LA class C reflux esophagitis. I would recommend continuing her o n Protonix 40 mg p.o. b.i.d. as well as famotidine 20 mg p.o. b.i.d. in regards to her BEASLEY cirrhosis . She is scheduled to see a transplant hepatology at the end of November. I would defer to them as t o whether or not she is a transplant candidate, though I do believe that her age may preclude her fro m this. I will let them weigh in and give them their opinion. At present, in regards to her ascites, she does receive large volume paracenteses approximately every other week. I would recommend a 2-gr am sodium reduced diet. I will defer to Dr. Randall in regards to reinstituting her Lasix and Aldactone. Though if she cannot tolerate this, other option would be a TIPS procedure, which may be contraindi cated due to her hepatic encephalopathy, though I will again defer to the transplant hepatology team in this regard. She will be continued on octreotide as per Dr. Randall's recommendations. She will be t ransfused as needed per the primary team. I will recommend keeping her n.p.o. after midnight in the event that Dr. Jimenez would want to repeat endoscopy, though I do not believe it is absolutely indica galen as she is having no overt GI bleeding and she does have an identified bleeding source, which was recognized on her prior EGD of LA class C reflux esophagitis. I will follow her clinical course and will sign out to Dr. Jimenez tomorrow morning who will resume her care at that time. If you have any further questions, I am more than happy to give my medical opinion in this regard. Once again, thank s for allowing me to participate in the care of this patient. If you have any further questions, ple ase do not hesitate in contacting me. Job ID: [id number]
[2021-11-26] MEDS: PRAVASTATIN SOD 10 MG TAB PO SCH (20:48)
[2021-11-26] MEDS: TOCOPHERYL, DL-ALPHA 400 UNITS 180 MG CAP PO SCH (20:48)
[2021-11-27 00:20] LABS: Hematocrit (blood only) 29.9 % (37-47)
[2021-11-27] MEDS: OCTREOTIDE ACETATE 100 MCG/ML VIAL SQ SCH ×3 (05:14→20:51)
[2021-11-27 05:44] LABS: Appearance Urine Cloudy (Clear); Bilirubin Urine Negative (Negative); Blood Urine Trace (Negative); Color Urine Yellow; Epithelial Cell Urine Auto >30 /lpf (0-5); Glucose Urine UA Negative (Negative); Ketones Urine Negative (Negative); Leukocyte Esterase Urine 2+ (Negative); Nitrite Urine Negative (Negative); Protein Urine Negative (Negative); RBC Urine Automated 0-4 /hpf (0-4); Specific Gravity Urine 1.013 (1.000-1.030); Urobilinogen Urine Negative (Negative); WBC Urine Automated >30 /hpf (0-5)
[2021-11-27 06:20] LABS: Bacteria Urine Automated 2+ (Negative)
[2021-11-27 06:21] LABS: Cast Urine Automated >30 /lpf (0-5)
--- NOTE | 2021-11-27 06:37 | Hospitalist Progress Note ---
Date of Service November 27, 2021 Assessment & Plan (1) Acute hyperkalemia: Plan: 76yo female with cirrhosis with resultant peritoneal fluid accumulation requiring regular paracentesis (every two weeks), HTN, DM2, acute UGIB secondary to erosive esophagitis (07/2021 requiring blood transfusion, second episode 11/2021 without need for transfusion), GERD, and breast cancer in remission s/p chemo/radiation (2018; port still in place) who presents with fatigue, nausea, BL LE edema, decreased urine output, cough, and HERRING after being instructed by her PCP to come to the hospital due to abnormal labs. Hyperkalemia -Potassium ranging from 5.3 - 5.5 since admission (5.4, down from 5.5 yesterday) -EKG without arrhythmia or peaked T waves -Nephrology consulted: Low potassium diet, HCO3 replacement * Continue Patiromer * Holding home spironolactone, carvedilol * Trend BMP Renal Failure -Cr baseline 2.5-3.2 (3.9 today, increased from 3.57 yesterday) -Nephrology consult: Clinical presentation c/f hepatorenal syndrome, no emergent need for dialysis * Octreotide added (counteract venodilation) * Renal US: Bilateral renal atrophy; marked abdominal and pelvic ascites * UA: 2+ leuk. esterase; 2+ urine bacteria; urine WBC >30 concerning for insidious presentation of SBP, per GI (see below: NAFLD cirrhosis, ascites) * Trend Cr -Added today: * Midodrine 10 mg tid (counteract arterial vasodilation) * IV albumin restarted (maintain intravascular pressure) Chronic hypervolemic hyponatremia -Sodium ranging from 126 - 128 since admission (sodium 128 today, yesterday) -Dilutional, associated with cirrhosis and ascites -Per nephrology: holding IVF and diuretics for now * Trend BMP Anemia -Hx of acute UGIBx2 (07/2021 requiring blood transfusion, again in 11/2021 without need for transfusion) secondary to erosive esophagitis -Hgb 7.6 on admission, decreased to 6.6 (11/26) -Transfused two units pRBC; hemoglobin stable at 10.1, slightly up from 10.0 yesterday * Protonix 40 mg twice daily * Trend CBC -Nephrology consulted regarding appropriateness of EPO therapy: * 10,000 units of Epogen CKD4 -Creatinine on admission 3.38 (baseline 2.5); has gradually worsened since -Nephrology consulted; due to superimposed BENNY and HRS, low chance of significantly improved kidney function even in the setting of liver transplant * Continue calcitriol * Trend BMP NAFLD cirrhosis, ascites -Follows with [facility] GI -MELD score 30 (versus 28 yesterday); poor prognosis; GI consulted -Albumin administered in ED, held during packed red blood cell infusion; restarted (see above: Renal failure) * Continue lactulose -Per GI: supportive care until [facility] appt. * Diagnostic paracentesis ordered due to concern for insidious presentation of SBP (per GI); follow-up on results GERD, erosive esophagitis -Per GI: No gerard bleeding at present * Home pantoprazole, famotidine HLD * Home pravastatin 10 mg every afternoon FEN: low sodium, heart healthy diet Code status: full code DVT ppx: SCDs PT/OT: ordered Dispo: med/surg telemetry (2) Acute hyponatremia: (3) Acute kidney injury superimposed on CKD: (4) Anemia: (5) Cirrhosis, non-alcoholic: (6) Erosive esophagitis: (7) GERD (gastroesophageal reflux disease): (8) Hypertension: (9) Nonalcoholic fatty liver disease: (10) Sleep apnea: (11) T2DM (type 2 diabetes mellitus): Admission and Anticipated Discharge Date Admission Date: November 24, 2021 Supervising Physician Co-Signing Physician Notes I personally examined the patient and verified all [place] points of history and exam, discussed case, and agree with decision making with Dr Alexis quinn more swollen - no pain just hard to move. discussed concerning situation in regards to hepatorenal syndrome. vitals noted nad heent nc at mmm abd soft but markedly distended w fluid wave nontender no guarding no rebound cirrhosis w portal HTN and hepatorenal syndrome - octerotide, albumin, midodrine. ?SBP - dx paracentesis (hold on therapeutic for now since concern on volume shifting) - ?transplant or TIPS eval more urgently if not improving hyperkalemia - worsneing ARF + spironolactone -- unclear when that was started - last admission had her bring in her pills and that was not one of them - definitely will need home nursing to review meds in the home otherwise as above Subjective Patient resting in bed comfortably this morning. No acute events overnight. Per telemetry: NSR in the 70s, occasional PACs. Patient reports feeling fatigued today. She denies shortness of breath, dizziness, palpitations, or abdominal pain. Patient expressed understanding of her disease prognosis, as stated by Dr. Randall. Patient would like to hold off on any palliative/goals of care discussions until her GI appointment at [place] December 11. Review of Systems Review of Systems: All systems reviewed & are unremarkable except as noted in HPI & below Physical Exam Constitutional: no acute distress Respiratory: normal respiratory effort, lungs clear to auscultation Cardiovascular: RRR, no murmur, no edema Extremities: + pedal edema (Bilaterally, to the knee) Gastrointestinal (Abdomen): Inspection/Auscultation: + abdomen distended and normal bowel sounds Percussion/Palpation: + abdomen firm; abdomen nontender Musculoskeletal: Mild erythema, tenderness to palpation observed on the lateral lower left leg. Results & Data Results & Data ([facility]) Vital Signs (Past 12 Hours) Vital Signs Temp Pulse Pulse Resp BP Pulse Ox 11/27/21 03:00 36.7 C 77 20 122/64 96 11/26/21 23:18 36.9 C 67 16 125/83 97 11/26/21 22:20 68 11/26/21 19:00 36.6 C 73 20 119/74 99 Resident Activity Tracking Resident Involvement: Resident Care Provided Care Provided: Adult Hospital Medicine
[2021-11-27] MEDS: PANTOprazole 40 MG TAB PO SCH ×2 (08:03→20:45)
[2021-11-27] MEDS: LACTULOSE SYRUP 20 GM/30 ML UDC PO SCH (08:03)
[2021-11-27] MEDS: SODIUM BICARBONATE 650 MG TAB PO SCH ×2 (08:03→20:44)
[2021-11-27] MEDS: FAMOTIDINE 20 MG TAB PO SCH ×2 (08:03→20:45)
[2021-11-27] MEDS: CHOLECALCIFEROL 1,000 UNITS 25 MCG TAB PO SCH ×2 (08:04→20:46)
[2021-11-27 08:12] LABS: Hematocrit (blood only) 31.3 % (37-47); Hemoglobin 10.1 g/dL (12.0-16.0); Mean Corpuscular Hemoglobin 28.9 pg (25-34); Mean Corpuscular Hgb Conc 32.3 g/dL (32-36); Mean Corpuscular Volume 89.7 fL (80-100); RDW Standard Deviation 58.8 fL (36.4-46.3); Red Blood Count 3.49 M/uL (4.2-5.4); White Blood Count 2.84 K/uL (4.8-10.8)
[2021-11-27 08:13] LABS: Mean Platelet Volume 8.9 fL (7.4-10.4); Platelet Count 61 K/uL (130-400)
[2021-11-27] MEDS: PATIROMER CALCIUM SORBITEX 8.4 GM PACK PO SCH (08:13)
[2021-11-27 08:41] LABS: Basophils # (auto) 0.01 K/uL (0-0.2); Basophils % (auto) 0.4 %; Eosinophils # (auto) 0.05 K/uL (0-0.5); Eosinophils % (auto) 1.8 %; Immature Granulocytes # (auto) 0.01 K/uL (0.00-0.02); Immature Granulocytes % (auto) 0.4 %; Lymphocytes # (auto) 0.43 K/uL (1.2-3.4); Lymphocytes % (auto) 15.1 %; Monocytes # (auto) 0.19 K/uL (0.11-0.59); Monocytes % (auto) 6.7 %; Neutrophils # (auto) 2.15 K/uL (1.4-6.5); Neutrophils % (auto) 75.6 %
[2021-11-27 08:57] LABS: BUN Creatinine Ratio 17.9 (10-20); Bilirubin,Total 2.3 mg/dl (0.2-1.0); Calcium 8.5 mg/dl (8.5-10.1); Creatinine Clr Calc Pharmacy 12.4 ml/min; Est GFR (African American) 12.4 ml/min; Est GFR (Non-African American) 10.7 ml/min; Globulin 2.9 gm/dl (2.5-4.0); Potassium 5.4 mmol/L (3.5-5.1); Total Protein 5.9 gm/dl (6.0-8.3)
[2021-11-27] MEDS ORDERED: CALCITRIOL 0.25 MCG CAPSULE PO SCH (09:00)
[2021-11-27] MEDS: COLESTIPOL HCL 1 GM TAB PO SCH (09:30)
--- NOTE | 2021-11-27 10:07 | Gastroenterology Progress Note ---
Date of Service November 27, 2021 Assessment & Plan (1) Cirrhosis, non-alcoholic: Plan: cirrhosis from [place]--supportive care, pt has C appt later this month ascites--has been managed by paracetesis and is diuretic resistant and diuretics can be contributing to hyperkalemia and worsening renal function. I personally would avoid diuretics ongoing. renal dysfunction--continue to follow recommendations by renal. On Octreotide at present. 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 I recommend looking for additional etiologies to contribute to to worsening so recommend diagnostic paracentesis (not therapeutic to avoid to much volume shifting) to look for SBP which can present with worsening renal function as its only sign. She did have nl PMN count on paracentesis 11/17/2020. Notice urine has >30 WBCs and UTI is another possible reason for worsening renal function in patient with ESLD. esophagitis with hx of bleeding---no gerard bleeding at present---continue Protonix bid and pepcid esophageal varices--patient apparently did not tolerate Inderal in the past. Coreg on hold at present. If she cannot tolerate non selective B blockers then she may need esophageal banding but will need to have esophagitis improved. 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 Notice she is on colestipol which can cause constipation while she has been on lactulose for HSE. Need to sort out need for ongoing colestipol. Admission and Anticipated Discharge Date Admission Date: November 24, 2021 Subjective CC no abd pain HPI Pt has abd distension but no pain. H and H incremented from 6.6 to 9.8 with transfusion and Hgb today 10.1 BUN and Cr continue to worsen despite holding diuretics. Pt was on a low dose of Aldactone prior to admit. Physical Exam Gastrointestinal (Abdomen): pos bs, distended from ascites but not tense, no guarding nor rebound Results & Data ([facility]) Vital Signs (Past 12 Hours) Vital Signs Temp Pulse Pulse Resp BP Pulse Ox 11/27/21 07:36 36.7 C 67 16 137/84 98 11/27/21 07:00 67 11/27/21 03:00 36.7 C 77 20 122/64 96 11/26/21 23:18 36.9 C 67 16 125/83 97 11/26/21 22:20 68
--- NOTE | 2021-11-27 10:57 | Nephrology Progress Note ---
Date of Service November 27, 2021 Assessment & Plan (1) Acute kidney injury superimposed on CKD: Plan: Subjectively non-oliguric but I/O's have not been accurately documented. BP acceptable. Volume status acceptable. 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 Octreotide added yesterday and PRBC transfusion provided. Creatinine continues upward trend. UA/micro >30 epithelial cells, +WBC's, +LE, +bacteria. No urinary symptoms. Microscopy demonstrating hyaline casts. Renal US demonstrates atrophic kidneys without evidence of obstruction. No emergent indication for dialysis. Unfortunately, trajectory of kidney dysfunction is not favorable and ultimately Tasneem needs to know candidacy for liver transplant. Unfortunately, GI can only defer to hepatology and continues to wait for appointment scheduled for December 11. I would strongly encourage anything that can be done to help expedite this process. Diuretics have been held. Monitor metabolic profile daily. Medications appropriate for kidney dysfunction. (2) Acute hyperkalemia: Plan: Low potassium diet. Continue HCO3 replacement. Remains on Patiromer 8.4 grams daily. Hold spironolactone. (3) Acute hyponatremia: Plan: Chronic, stable. Hypervolumic, dilutional associated with cirrhosis and ascites. Decreased EAV. Poor oral solute intake. Unfortunately, unfavorable prognostic marker. Hold additional IVF and diuretics for now. (4) Cirrhosis, non-alcoholic: Plan: MELD NA 30. Prognosis is unfortunately very poor. Appreciate GI consultation. Ultimately, Tasneem needs to see hepatology and know transplant candidacy. (5) Anemia: Plan: 2 u PRBC transfusion support provided yesterday. Epogen 82037 units will be provided today. (6) CKD (chronic kidney disease) stage 4, GFR 15-29 ml/min: Plan: Baseline creatinine 2.5 mg/dL. Chronic changes noted on imaging. Unfortunately due to CKD at baseline, chance of significant improvement in kidney function s/p liver transplant is considered low. (7) Erosive esophagitis: Plan: Remains on PPI therapy and H2 estrada. Admission and Anticipated Discharge Date Admission Date: November 24, 2021 Subjective No acute events overnight. Tasneem feels well this AM. No melena or hematochezia. 1 x BM yesterday. No constipation. Appetite fair. No abdominal pain. Abdominal distention remains bothersome and making it uncomfortable to sit herself up from bed. Tasneem remains very tentative about the idea of dialysis. Review of Systems Review of Systems: All systems reviewed & are unremarkable except as noted in HPI & below Physical Exam Constitutional: + frail appearing; no acute distress Eyes: + anicteric sclerae; no corneal abnormality ENMT: Mouth: no oral mucosal abnormality and oral mucous membranes not dry Neck: normal visual inspection and trachea midline Respiratory: normal respiratory effort Auscultation: lungs clear to auscultation bilaterally Cardiovascular: Rate/Rhythm: regular rate Heart Sounds: normal S1, normal S2 and + murmur Extremities: no edema Gastrointestinal (Abdomen): Inspection/Auscultation: + abdomen distended Percussion/Palpation: + ascites; no guarding and abdomen not rigid Musculoskeletal: Extremities: no cyanosis and no clubbing Skin: + turgor decreased; no lesions Neurologic: Motor/Sensory: no tremor and no asterixis Psychiatric: Orientation: alert and oriented x 3 Results & Data ([facility]) Vital Signs (Past 12 Hours) Vital Signs Temp Pulse Pulse Resp BP Pulse Ox 11/27/21 07:36 36.7 C 67 16 137/84 98 11/27/21 07:00 67 11/27/21 03:00 36.7 C 77 20 122/64 96 11/26/21 23:18 36.9 C 67 16 125/83 97 Laboratory Results Laboratory Results - last 24 hr 11/25/21 11/26/21 11/26/21 08:40 17:47 17:47 WBC RBC Hgb 9.8 L D Hct 30.2 L MCV MCH MCHC RDW Std Deviation RDW Coeff of Carmelina Plt Count MPV Immature Gran % (Auto) Neut % (Auto) Lymph % (Auto) [place] % (Auto) Eos % (Auto) Baso % (Auto) Neut # (Auto) Lymph # (Auto) [place] # (Auto) Eos # (Auto) Baso # (Auto) Immature Gran # (Auto) PT 13.3 H INR 1.3 H Sodium Potassium Chloride Carbon Dioxide Anion Gap BUN Creatinine Est Cr Clr Drug Dosing Est GFR ( Amer) Est GFR (Non-Af Amer) BUN/Creatinine Ratio Glucose Calcium Total Bilirubin AST ALT Alkaline Phosphatase Total Protein Albumin Globulin Albumin/Globulin Ratio Urine Color Urine Appearance Urine pH Ur Specific [place] Urine Protein Urine Glucose (UA) Urine Ketones Urine Blood Urine Nitrite Urine Bilirubin Urine Urobilinogen Ur Leukocyte Esterase Urine WBC (Auto) Urine RBC (Auto) U Hyaline Cast (Auto) U Epithel Cells (Auto) Urine Bacteria (Auto) Urine Yeast Blood Type O Negative Antibody Screen NEGATIVE Crossmatch See Detail 11/27/21 11/27/21 11/27/21 00:04 05:30 07:43 WBC RBC Hgb 10.0 L Hct 29.9 L MCV MCH MCHC RDW Std Deviation RDW Coeff of Carmelina Plt Count MPV Immature Gran % (Auto) Neut % (Auto) Lymph % (Auto) [place] % (Auto) Eos % (Auto) Baso % (Auto) Neut # (Auto) Lymph # (Auto) [place] # (Auto) Eos # (Auto) Baso # (Auto) Immature Gran # (Auto) PT INR Sodium 128 L Potassium 5.4 H Chloride 105 Carbon Dioxide 17 L Anion Gap 6 BUN 70 H Creatinine 3.90 H D Est Cr Clr Drug Dosing 12.4 Est GFR ( Amer) 12.4 Est GFR (Non-Af Amer) 10.7 BUN/Creatinine Ratio 17.9 Glucose 131 H Calcium 8.5 Total Bilirubin 2.3 H D AST 31 ALT 12 Alkaline Phosphatase 105 H Total Protein 5.9 L Albumin 3.0 L Globulin 2.9 Albumin/Globulin Ratio 1.0 Urine Color Yellow Urine Appearance Cloudy A Urine pH 5.0 Ur Specific [place] 1.013 Urine Protein Negative Urine Glucose (UA) Negative Urine Ketones Negative Urine Blood Trace H Urine Nitrite Negative Urine Bilirubin Negative Urine Urobilinogen Negative Ur Leukocyte Esterase 2+ H Urine WBC (Auto) >30 H Urine RBC (Auto) 0-4 U Hyaline Cast (Auto) >30 H U Epithel Cells (Auto) >30 H Urine Bacteria (Auto) 2+ H Urine Yeast Not Reportable Blood Type Antibody Screen Crossmatch 11/27/21 07:43 WBC 2.84 L RBC 3.49 L Hgb 10.1 L Hct 31.3 L MCV 89.7 MCH 28.9 MCHC 32.3 RDW Std Deviation 58.8 H RDW Coeff of Carmelina 18.0 H Plt Count 61 L MPV 8.9 Immature Gran % (Auto) 0.4 Neut % (Auto) 75.6 Lymph % (Auto) 15.1 [place] % (Auto) 6.7 Eos % (Auto) 1.8 Baso % (Auto) 0.4 Neut # (Auto) 2.15 Lymph # (Auto) 0.43 L [place] # (Auto) 0.19 Eos # (Auto) 0.05 Baso # (Auto) 0.01 Immature Gran # (Auto) 0.01 PT INR Sodium Potassium Chloride Carbon Dioxide Anion Gap BUN Creatinine Est Cr Clr Drug Dosing Est GFR ( Amer) Est GFR (Non-Af Amer) BUN/Creatinine Ratio Glucose Calcium Total Bilirubin AST ALT Alkaline Phosphatase Total Protein Albumin Globulin Albumin/Globulin Ratio Urine Color Urine Appearance Urine pH Ur Specific [place] Urine Protein Urine Glucose (UA) Urine Ketones Urine Blood Urine Nitrite Urine Bilirubin Urine Urobilinogen Ur Leukocyte Esterase Urine WBC (Auto) Urine RBC (Auto) U Hyaline Cast (Auto) U Epithel Cells (Auto) Urine Bacteria (Auto) Urine Yeast Blood Type Antibody Screen Crossmatch PG Care Time/CCT Total # of Minutes Spent Total Time Spent with Patient: Total time spent is greater than 50% in coordination of care (as documented) at patient's floor/unit and/or counseling patient: Coding Level of Care Code 76603 Subseq Hosp Care Lvl 3 Diagnoses Acute kidney injury superimposed on CKD N17.9; N18.9 Acute hyperkalemia E87.5 Acute hyponatremia E87.1 Cirrhosis, non-alcoholic K74.60 Anemia D64.9 CKD (chronic kidney disease) stage 4, GFR 15-29 ml/min N18.4 Erosive esophagitis K22.10
[2021-11-27] MEDS ORDERED: EPOETIN ALFA 10,000 UNITS/ML VIAL SQ ONE (11:11)
[2021-11-27] MEDS: ALBUMIN 25% 100 mL 25 GM/100 ML VIAL IV SCH ×3 (12:43→18:42)
[2021-11-27] MEDS: MIDODRINE HCL 10 MG TAB PO SCH ×2 (12:44→17:40)
--- NOTE | 2021-11-27 13:15 | Billing Data ---
Date of Service November 27, 2021 Coding Level of Care Code 25922 Subseq Hosp Care Lvl 3
--- NOTE | 2021-11-27 13:56 | Ultrasound Report ---
PROCEDURE: US paracentesis abd w/image CLINICAL HISTORY: ascites. COMPARISON: None. FINDINGS: The entire procedure was explained to the patient including the risks, expected benefits, alternatives and potential complications. Written informed consent had been obtained. Limited sonography of the abdomen demonstrates ascites. A site for puncture was marked. The patient w as prepped with chloro prep. Sterile technique was utilized. Sterile drapes were applied to the patie nt. 1% lidocaine local anesthesia was administered. A paracentesis needle and catheter was advanced i nto the peritoneal cavity. The catheter was advanced into the peritoneal cavity and the needle was re moved. A total of 1300 milliliters of clear straw-colored fluid was obtained. The catheter was remove d and a bandage was placed over the punctured site. The patient tolerated the procedure well. There w ere no immediate complications. IMPRESSION: Technically successful ultrasound-guided paracentesis for diagnostic evaluation. ACT 112: Negative or not required by law. Electronically signed by: Zi Arteaga M.D. 11/27/2021 1:55 PM
[2021-11-27 14:43] LABS: Albumin Peritoneal Fluid < 0.6 g/dl
[2021-11-27 15:16] LABS: Appearance Peritoneal Fluid CLOUDY; Basophils, Fluid 0 %; Color Peritoneal Fluid STRAW; Eosinophils, Fluid 0 %; Lymphocytes, Fluid 31 %; Mono,Macrophage,Mesothelial 58 %; Neutrophils, Fluid 11 %; RBC Peritoneal Fluid (A) 5000 /uL; WBC Peritoneal Fluid (A) 137 /ul (0-300)
[2021-11-27] MEDS: PRAVASTATIN SOD 10 MG TAB PO SCH (20:44)
[2021-11-27] MEDS: TOCOPHERYL, DL-ALPHA 400 UNITS 180 MG CAP PO SCH (20:46)
[2021-11-28] MEDS: OCTREOTIDE ACETATE 100 MCG/ML VIAL SQ SCH ×3 (04:48→20:30)
[2021-11-28 06:10] LABS: Hematocrit (blood only) 27.6 % (37-47); Hemoglobin 9.1 g/dL (12.0-16.0); Mean Corpuscular Hemoglobin 29.4 pg (25-34); RDW Coefficient of Variation 17.6 % (11.5-14.5); RDW Standard Deviation 57.4 fL (36.4-46.3); White Blood Count 3.43 K/uL (4.8-10.8)
[2021-11-28 06:37] LABS: Mean Platelet Volume 8.9 fL (7.4-10.4); Platelet Count 49 K/uL (130-400)
[2021-11-28 06:38] LABS: Albumin Globulin Ratio 1.5 (0.9-2); Albumin Level 3.3 gm/dl (3.4-5.0); BUN Creatinine Ratio 16.1 (10-20); Bilirubin,Total 1.6 mg/dl (0.2-1.0); Calcium 8.2 mg/dl (8.5-10.1); Creatinine Clr Calc Pharmacy 11.5 ml/min; Est GFR (African American) 11.3 ml/min; Est GFR (Non-African American) 9.7 ml/min; Globulin 2.2 gm/dl (2.5-4.0); Potassium 4.8 mmol/L (3.5-5.1); Total Protein 5.5 gm/dl (6.0-8.3)
[2021-11-28 06:52] LABS: Basophils # (auto) 0.01 K/uL (0-0.2); Basophils % (auto) 0.3 %; Eosinophils # (auto) 0.07 K/uL (0-0.5); Immature Granulocytes # (auto) 0.01 K/uL (0.00-0.02); Immature Granulocytes % (auto) 0.3 %; Lymphocytes % (auto) 20.4 %; Monocytes # (auto) 0.49 K/uL (0.11-0.59); Monocytes % (auto) 14.3 %; Neutrophils # (auto) 2.15 K/uL (1.4-6.5); Neutrophils % (auto) 62.7 %; RBC Morphology Unremarkable
--- NOTE | 2021-11-28 07:37 | Hospitalist Progress Note ---
Date of Service November 28, 2021 Assessment & Plan (1) Acute hyperkalemia: Plan: 76yo female with cirrhosis with resultant peritoneal fluid accumulation requiring regular paracentesis (every two weeks), HTN, DM2, acute UGIB secondary to erosive esophagitis (07/2021 requiring blood transfusion, second episode 11/2021 without need for transfusion), GERD, and breast cancer in remission s/p chemo/radiation (2018; port still in place) who presents with fatigue, nausea, BL LE edema, decreased urine output, cough, and HERRING after being instructed by her PCP to come to the hospital due to abnormal labs. Hyperkalemia -Potassium ranging from 5.3-5.5 since admission (4.8 today down from 5.4 yesterday) -EKG without arrhythmia or peaked T waves -Nephrology consulted: Low potassium diet, HCO3 replacement * Continue Patiromer 8.4 g daily * Continue holding home spironolactone, carvedilol * Trend K+ Renal Failure -Cr baseline 2.5-3.2 (4.22 today, increased from 3.9 yesterday) -Nephrology consult: Clinical presentation c/f hepatorenal syndrome, no emergent need for dialysis -UA: 2+ leuk. esterase; 2+ urine bacteria; urine WBC >30 -Diagnostic paracentesis negative for SBP. -Renal US: Bilateral renal atrophy; marked abdominal and pelvic ascites * Octreotide 100 mcg every 8 hours SQ (to counteract venodilation) * Midodrine 15 mg tid (counteract arterial vasodilation) * IV albumin (maintain intravascular pressure) * Trend Cr * Initiated patient transfer to [facility] for evaluation/discussion on possible liver transplant; patient awaiting bed at [place] (hepatology) in the next 48 hours. Patient aware and in agreement. Chronic hypervolemic hyponatremia -Sodium ranging from 126-128 since admission (sodium unchanged from yesterday at 128) -Dilutional, associated with cirrhosis and ascites -Per nephrology: holding IVF and diuretics for now * Trend BMP Anemia -Hx of acute UGIB x2 (07/2021 requiring blood transfusion, again in 11/2021 without need for transfusion) 2/2 to erosive esophagitis. -Hgb 7.6 on admission, decreased to 6.6 (11/26) -Transfused two units pRBC; hemoglobin stable at 10.1, slightly up from 10.0 yesterday -10,000 units of Epogen administered 11/27/2021 -Hemoglobin 9.1, down from 10.1 yesterday * Protonix 40 mg twice daily * Trend CBC CKD4 -Creatinine on admission 3.38 (baseline 2.5); has steadily worsened since -Nephrology consulted; due to superimposed BENNY and HRS, low chance of significantly improved kidney function even in the setting of liver transplant * Continue calcitriol * Trend BMP NAFLD cirrhosis, ascites -Follows with [facility] GI -MELD score 29 (versus 30 yesterday); poor prognosis; GI consulted -Albumin administered in ED, held during packed red blood cell infusion; restarted (see above: Renal failure) -Diagnostic paracentesis negative for SBP -Currently awaiting transfer to [facility] in the next 48 hours * Continue lactulose GERD, erosive esophagitis -Per GI: No gerard bleeding at present * Home pantoprazole, famotidine HLD * Home pravastatin 10 mg every afternoon FEN: low sodium, heart healthy diet Code status: full code DVT ppx: SCDs PT/OT: ordered Dispo: Likely transfer to [facility] in the next 48 hours (2) Acute hyponatremia: (3) Acute kidney injury superimposed on CKD: (4) Anemia: (5) Cirrhosis, non-alcoholic: (6) Erosive esophagitis: (7) GERD (gastroesophageal reflux disease): (8) Hypertension: (9) Nonalcoholic fatty liver disease: (10) Sleep apnea: (11) T2DM (type 2 diabetes mellitus): Admission and Anticipated Discharge Date Admission Date: November 24, 2021 Supervising Physician Co-Signing Physician Notes I personally examined the patient and verified all [place] points of history and exam, discussed case, and agree with decision making with Dr Espinoza Feels about the same. Understands was going on. Awaiting bed at [facility]. vitals noted nad heent nc at mmm abd soft still distended but slightly less distended than yesterday w fluid wave nontender no guarding no rebound cirrhosis w portal HTN and hepatorenal syndrome -continue octerotide, albumin, midodrine. For transferawaiting bed- ?transplant or TIPS eval hyperkalemia -worsening ARF + spironolactone as culprit. Now improved. Of noteshe was on spironolactone for an uncertain period of time, her last admission I had asked her to bring in all of her medicines and reviewed them personallyand spironolactone was not one of themmaking it clear she is high risk for polypharmacy. After discharge (mother from here or [facility]) would ask that home nursing be consulted to enter the home to evaluate her medications and help straighten out misunderstandings. otherwise as above Subjective No acute events overnight. Per telemetry, NSR in the 50s overnight. Today, she is seated comfortably in the chair. She reports improvement in her fatigue. Otherwise unchanged from yesterday. Review of Systems Review of Systems: All systems reviewed & are unremarkable except as noted in HPI & below Physical Exam Constitutional: no acute distress Respiratory: normal respiratory effort, lungs clear to auscultation Cardiovascular: RRR, no murmur, no edema Extremities: + pedal edema (Bilaterally, to the knee) Gastrointestinal (Abdomen): Inspection/Auscultation: + abdomen distended and normal bowel sounds Percussion/Palpation: + abdomen firm; abdomen nontender Results & Data Results & Data ([facility]) Vital Signs (Past 12 Hours) Vital Signs Temp Pulse Pulse Resp BP Pulse Ox 11/28/21 07:22 36.7 C 59 L 18 116/69 99 11/28/21 05:06 59 L 11/28/21 03:00 36.9 C 55 L 20 119/69 97 11/27/21 22:28 36.5 C 64 16 120/67 97 Resident Activity Tracking Resident Involvement: Resident Care Provided Care Provided: Adult Hospital Medicine
--- NOTE | 2021-11-28 08:43 | Gastroenterology Progress Note ---
Date of Service November 28, 2021 Assessment & Plan (1) Cirrhosis, non-alcoholic: Plan: cirrhosis from [place]--supportive care ascites--has been managed by paracentesis and is diuretic resistant and diuretics can be contributing to hyperkalemia and worsening renal function. Diagnostic paracentesis yesterday with 1300 mL ascites removal negative fluid analysis for SBP. renal dysfunction--worsening. Creatinine today 4.22. Would recommend transfer evaluation to [facility] for hepatology consultation as patient's worsening renal function may be related to hepatorenal syndrome. Discussed with Dr. Mcgee this morning. Continue to follow recommendations by renal. On Octreotide and Midodrine at present. esophagitis with hx of bleeding---no gerard bleeding at present---continue Protonix bid and pepcid esophageal varices--patient apparently did not tolerate Inderal in the past. Coreg on hold at present. If she cannot tolerate non selective B blockers then she may need esophageal banding but will need to have esophagitis improved. Hepatic encephalopathy--history of this clinically, only recent ammonia in the chart 38 on 11/15/2021 normal. Notice she is on colestipol which can cause constipation while she has been on lactulose for HSE. Need to sort out need for ongoing colestipol. Please refer to supervising physician addendum for further recommendations. Admission and Anticipated Discharge Date Admission Date: November 24, 2021 Supervising Physician Co-Signing Physician Notes I have seen and examined the patient. I agree with note above by HOSSEIN Lr except as noted below. HPI Pt states she does not feel good today but no pain. Just weak. Cell count on paracentesis yesterday 137 so no SBP. PE Abdomen pos bs, abdomen distended but soft, no guardign nor rebound. A/P Worsening renal insufficiency--recommended and plan is to continue maximal care here but to transfer to [place] as soon as bed available. I do not know whether she is a liver transplant candidate or not and even if not then perhaps they have other ideas to help what is likely hepatorenal syndrome. Subjective Patient awake alert and oriented this morning. Breakfast is at her bedside although she has not began eating it. She reports some nausea intermittently but denies any vomiting. Denies abdominal pain although her abdomen does feel quite tight and distended per her report. Reports last bowel movement yesterday. Denies melena or hematochezia. Review of Systems Review of Systems: All systems reviewed & are unremarkable except as noted in HPI & below Physical Exam Gastrointestinal (Abdomen): pos bs, distended from ascites but not tense, no guarding nor rebound Results & Data ([facility]) Vital Signs (Past 12 Hours) Vital Signs Temp Pulse Pulse Resp BP Pulse Ox 11/28/21 07:22 36.7 C 59 L 18 116/69 99 11/28/21 05:06 59 L 11/28/21 03:00 36.9 C 55 L 20 119/69 97 11/27/21 22:28 36.5 C 64 16 120/67 97 Laboratory Results Laboratory Results - last 24 hr 11/27/21 11/27/21 11/27/21 07:43 07:43 13:30 WBC RBC Hgb Hct MCV MCH MCHC RDW Std Deviation RDW Coeff of Carmelina Plt Count MPV Immature Gran % (Auto) 0.4 Neut % (Auto) 75.6 Lymph % (Auto) 15.1 Benson % (Auto) 6.7 Eos % (Auto) 1.8 Baso % (Auto) 0.4 Neut # (Auto) 2.15 Lymph # (Auto) 0.43 L Benson # (Auto) 0.19 Eos # (Auto) 0.05 Baso # (Auto) 0.01 Immature Gran # (Auto) 0.01 RBC Morphology Sodium 128 L Potassium 5.4 H Chloride 105 Carbon Dioxide 17 L Anion Gap 6 BUN 70 H Creatinine 3.90 H D Est Cr Clr Drug Dosing 12.4 Est GFR ( Amer) 12.4 Est GFR (Non-Af Amer) 10.7 BUN/Creatinine Ratio 17.9 Glucose 131 H Calcium 8.5 Total Bilirubin 2.3 H D AST 31 ALT 12 Alkaline Phosphatase 105 H Total Protein 5.9 L Albumin 3.0 L Globulin 2.9 Albumin/Globulin Ratio 1.0 Fluid Neutrophils % 11 Fluid Lymphocytes % 31 Fluid Eosinophils % 0 Fluid Basophils % 0 Fluid Meso/Macro/Benson % 58 Fluid Comment Peritoneal Color STRAW Peritoneal Appearance CLOUDY Peritoneal WBC 137 Peritoneal RBC 5000 Peritoneal Tot Protein Peritoneal Albumin 11/27/21 11/28/21 11/28/21 13:30 05:46 05:46 WBC 3.43 L RBC 3.10 L Hgb 9.1 L Hct 27.6 L MCV 89.0 MCH 29.4 MCHC 33.0 RDW Std Deviation 57.4 H RDW Coeff of Carmelina 17.6 H Plt Count 49 L MPV 8.9 Immature Gran % (Auto) 0.3 Neut % (Auto) 62.7 Lymph % (Auto) 20.4 Benson % (Auto) 14.3 Eos % (Auto) 2.0 Baso % (Auto) 0.3 Neut # (Auto) 2.15 Lymph # (Auto) 0.70 L Benson # (Auto) 0.49 Eos # (Auto) 0.07 Baso # (Auto) 0.01 Immature Gran # (Auto) 0.01 RBC Morphology Unremarkable Sodium 128 L Potassium 4.8 Chloride 105 Carbon Dioxide 14 L Anion Gap 9 BUN 68 H Creatinine 4.22 H D Est Cr Clr Drug Dosing 11.5 Est GFR ( Amer) 11.3 Est GFR (Non-Af Amer) 9.7 BUN/Creatinine Ratio 16.1 Glucose 105 H Calcium 8.2 L Total Bilirubin 1.6 H AST 25 ALT 10 Alkaline Phosphatase 78 Total Protein 5.5 L Albumin 3.3 L Globulin 2.2 L Albumin/Globulin Ratio 1.5 Fluid Neutrophils % Fluid Lymphocytes % Fluid Eosinophils % Fluid Basophils % Fluid Meso/Macro/Benson % Fluid Comment Peritoneal Color Peritoneal Appearance Peritoneal WBC Peritoneal RBC Peritoneal Tot Protein 1.0 Peritoneal Albumin < 0.6 Diagnostic Findings Paracentesis Ultrasound 11/27/21 10:49 PROCEDURE: US paracentesis abd w/image CLINICAL HISTORY: ascites. COMPARISON: None. FINDINGS: The entire procedure was explained to the patient including the risks, expected benefits, alternatives and potential complications. Written informed consent had been obtained. Limited sonography of the abdomen demonstrates ascites. A site for puncture was marked. The patient was prepped with chloro prep. Sterile technique was utilized. Sterile drapes were applied to the patient. 1% lidocaine local anesthesia was administered. A paracentesis needle and catheter was advanced into the peritoneal cavity. The catheter was advanced into the peritoneal cavity and the needle was removed. A total of 1300 milliliters of clear straw-colored fluid was obtained. The catheter was removed and a bandage was placed over the punctured site. The patient tolerated the procedure well. There were no immediate complications. IMPRESSION: Technically successful ultrasound-guided paracentesis for diagnostic evaluation. ACT 112: Negative or not required by law. Electronically signed by: Zi Arteaga M.D. 11/27/2021 1:55 PM
[2021-11-28] MEDS: PANTOprazole 40 MG TAB PO SCH ×2 (09:20→20:28)
[2021-11-28] MEDS: LACTULOSE SYRUP 20 GM/30 ML UDC PO SCH ×2 (09:20→11:59)
[2021-11-28] MEDS: MIDODRINE HCL 10 MG TAB PO SCH ×3 (09:20→17:39)
[2021-11-28] MEDS: CHOLECALCIFEROL 1,000 UNITS 25 MCG TAB PO SCH ×2 (09:20→20:29)
[2021-11-28] MEDS: FAMOTIDINE 20 MG TAB PO SCH ×2 (09:20→20:26)
[2021-11-28] MEDS: COLESTIPOL HCL 1 GM TAB PO SCH (09:20)
[2021-11-28] MEDS: SODIUM BICARBONATE 650 MG TAB PO SCH ×2 (09:20→20:28)
[2021-11-28] MEDS: PATIROMER CALCIUM SORBITEX 8.4 GM PACK PO SCH (09:27)
--- NOTE | 2021-11-28 10:40 | Nephrology Progress Note ---
Date of Service November 28, 2021 Assessment & Plan (1) Acute kidney injury superimposed on CKD: Plan: Started on triple therapy with midodrine, albumin, and octreotide. Unfortunately, creatinine continues to rise. Non-oliguric. BP acceptable. Volume status acceptable. 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 Thankfully, no emergent indication for dialysis. Plan for potential transfer to [facility] reviewed. Monitor metabolic profile daily. Medications appropriate for kidney dysfunction. Plan of care reviewed with Dr. Mcgee this AM. (2) Acute hyperkalemia: Plan: Low potassium diet. Continue HCO3 replacement. Remains on Patiromer 8.4 grams daily. Spironolactone discontinued. (3) Acute hyponatremia: Plan: Chronic, stable. Hypervolumic, dilutional associated with cirrhosis and ascites. Decreased EAV. Poor oral solute intake. (4) Cirrhosis, non-alcoholic: Plan: MELD NA 30. Anticipated transfer to [facility] for transplant evaluation. GI consultation appreciated. (5) Anemia: Plan: 2 u PRBC transfusion support provided yesterday. Epogen 23975 units will be provided today. (6) CKD (chronic kidney disease) stage 4, GFR 15-29 ml/min: Plan: Baseline creatinine 2.5 mg/dL. Chronic changes noted on imaging. Unfortunately due to CKD at baseline, chance of significant improvement in kidney function s/p liver transplant is considered low. (7) Erosive esophagitis: Plan: Remains on PPI therapy and H2 estrada. Admission and Anticipated Discharge Date Admission Date: November 24, 2021 Subjective No acute events overnight. Multiple loose bowel movements (4-5 yesterday). Denies melena or hematochezia. Abdomen remains distended and uncomfortable but Tasneem denies pain. Diagnostic para negative for SBP. Out of bed this AM and reports feeling stronger. Non-oliguric per report. Review of Systems Review of Systems: All systems reviewed & are unremarkable except as noted in HPI & below Physical Exam Constitutional: + frail appearing; no acute distress Eyes: + anicteric sclerae; no corneal abnormality ENMT: Mouth: no oral mucosal abnormality and oral mucous membranes not dry Neck: normal visual inspection and trachea midline Respiratory: normal respiratory effort Auscultation: lungs clear to auscultation bilaterally Cardiovascular: Rate/Rhythm: regular rate Heart Sounds: normal S1, normal S2 and + murmur Extremities: no edema Gastrointestinal (Abdomen): Inspection/Auscultation: + abdomen distended Percussion/Palpation: + ascites; no guarding and abdomen not rigid Musculoskeletal: Extremities: no cyanosis and no clubbing Skin: + turgor decreased; no lesions Neurologic: Motor/Sensory: no tremor and no asterixis Psychiatric: Orientation: alert and oriented x 3 Results & Data ([facility]) Vital Signs (Past 12 Hours) Vital Signs Temp Pulse Pulse Resp BP Pulse Ox 11/28/21 07:22 36.7 C 59 L 18 116/69 99 11/28/21 05:06 59 L 11/28/21 03:00 36.9 C 55 L 20 119/69 97 Laboratory Results Laboratory Results - last 24 hr 11/27/21 11/27/21 11/28/21 13:30 13:30 05:46 WBC 3.43 L RBC 3.10 L Hgb 9.1 L Hct 27.6 L MCV 89.0 MCH 29.4 MCHC 33.0 RDW Std Deviation 57.4 H RDW Coeff of Carmelina 17.6 H Plt Count 49 L MPV 8.9 Immature Gran % (Auto) 0.3 Neut % (Auto) 62.7 Lymph % (Auto) 20.4 Becker % (Auto) 14.3 Eos % (Auto) 2.0 Baso % (Auto) 0.3 Neut # (Auto) 2.15 Lymph # (Auto) 0.70 L Becker # (Auto) 0.49 Eos # (Auto) 0.07 Baso # (Auto) 0.01 Immature Gran # (Auto) 0.01 RBC Morphology Unremarkable Sodium Potassium Chloride Carbon Dioxide Anion Gap BUN Creatinine Est Cr Clr Drug Dosing Est GFR ( Amer) Est GFR (Non-Af Amer) BUN/Creatinine Ratio Glucose Calcium Total Bilirubin AST ALT Alkaline Phosphatase Total Protein Albumin Globulin Albumin/Globulin Ratio Fluid Neutrophils % 11 Fluid Lymphocytes % 31 Fluid Eosinophils % 0 Fluid Basophils % 0 Fluid Meso/Macro/Becker % 58 Fluid Comment Peritoneal Color STRAW Peritoneal Appearance CLOUDY Peritoneal WBC 137 Peritoneal RBC 5000 Peritoneal Tot Protein 1.0 Peritoneal Albumin < 0.6 11/28/21 05:46 WBC RBC Hgb Hct MCV MCH MCHC RDW Std Deviation RDW Coeff of Carmelina Plt Count MPV Immature Gran % (Auto) Neut % (Auto) Lymph % (Auto) Becker % (Auto) Eos % (Auto) Baso % (Auto) Neut # (Auto) Lymph # (Auto) Becker # (Auto) Eos # (Auto) Baso # (Auto) Immature Gran # (Auto) RBC Morphology Sodium 128 L Potassium 4.8 Chloride 105 Carbon Dioxide 14 L Anion Gap 9 BUN 68 H Creatinine 4.22 H D Est Cr Clr Drug Dosing 11.5 Est GFR ( Amer) 11.3 Est GFR (Non-Af Amer) 9.7 BUN/Creatinine Ratio 16.1 Glucose 105 H Calcium 8.2 L Total Bilirubin 1.6 H AST 25 ALT 10 Alkaline Phosphatase 78 Total Protein 5.5 L Albumin 3.3 L Globulin 2.2 L Albumin/Globulin Ratio 1.5 Fluid Neutrophils % Fluid Lymphocytes % Fluid Eosinophils % Fluid Basophils % Fluid Meso/Macro/Becker % Fluid Comment Peritoneal Color Peritoneal Appearance Peritoneal WBC Peritoneal RBC Peritoneal Tot Protein Peritoneal Albumin PG Care Time/CCT Total # of Minutes Spent Total Time Spent with Patient: Total time spent is greater than 50% in coordination of care (as documented) at patient's floor/unit and/or counseling patient: Coding Level of Care Code 52378 Subseq Hosp Care Lvl 3 Diagnoses Acute kidney injury superimposed on CKD N17.9; N18.9 Acute hyperkalemia E87.5 Acute hyponatremia E87.1 Cirrhosis, non-alcoholic K74.60 Anemia D64.9 CKD (chronic kidney disease) stage 4, GFR 15-29 ml/min N18.4 Erosive esophagitis K22.10
[2021-11-28] MEDS ORDERED: PATIROMER CALCIUM SORBITEX 8.4 GM PACK PO SCH (15:00)
[2021-11-28] MEDS: ALBUMIN 25% 100 mL 25 GM/100 ML VIAL IV SCH ×2 (15:48→17:47)
--- NOTE | 2021-11-28 16:34 | Billing Data ---
Date of Service November 28, 2021 Coding Level of Care Code 87134 Subseq Hosp Care Lvl 3
[2021-11-28] MEDS: HEPARIN 100 UNIT/ML 5ML FLUSH FLUSH PRN (20:02)
[2021-11-28] MEDS: PRAVASTATIN SOD 10 MG TAB PO SCH (20:26)
[2021-11-28] MEDS: TOCOPHERYL, DL-ALPHA 400 UNITS 180 MG CAP PO SCH (20:29)
[2021-11-28 22:43] VITALS: BP 120/65; PULSE 55; TEMP 97.7; O2SAT 99
--- NOTE | 2021-11-29 06:33 | Discharge Summary ---
Date of Service November 29, 2021 Admission HPI Per Admitting Provider 76yo female recently admitted to [facility] 11/16 - 11/19/21 with abdominal distention and bloody emesis - during that visit she was found to have an UGIB secondary to erosive gastritis. She had routine blood work performed today at the request of her PCP. She was instructed to come to the ER due to some abnormalities. Patient reports doing fairly well since returning home. Today, however, she felt very tired. She has some nausea with one episode of nonbloody, nonbilious vomiting today. Also complaining of bilateral lower extremity edema and decreased urinary output. She has slightly worsened cough, shortness of breath and dyspnea on exertion since returning home. She denies any fever, night sweats, body aches. She is also complaining of some forgetfulness and word finding issues as well as some difficulty managing her medications at home. Patient receives therapeutic paracentesis every 2 weeks. She denies abdominal pain. She does have some fairly tense ascites but reports she is not due yet for her paracentesis. Reports poor appetite and decreased oral intake. Admission Exam Per Admitting Provider General: patient resting comfortably, NAD, chronically ill in appearance but nontoxic. Speech is clear and appropriate but patient often forgets what she was saying Skin: warm, dry, intact, no rashes or lesions HEENT: NC/AT, PERRL, EOMI, anicteric sclera, conjunctiva without injection, external ear normal to inspection and nontender, nares patent, dry mucus membranes, dentition intact, no oropharyngeal lesions, neck supple, trachea midline, no LAD, no thyromegaly, no JVD Heart: +S1/S2, regular, no m/r/g Lungs: equal air entry bilaterally, no rales/rhonchi/wheezes Abd: +BS, soft, nontender, distended with ascites, + fluid wave Ext: warm, 2+ pulses in UE/LE bilaterally, no clubbing/cyanosis, bilateral pitting edema lower extremities left greater than right Neuro: nonfocal, patient AA&O x 4, speech intact, no facial droop, moving all extremities on command with equal strength 5/5 patient with tremor, no asterixis Principal Diagnosis Hepatorenal syndrome secondary to chronic cirrhosis. Discharge Exam Constitutional no acute distress Respiratory normal respiratory effort, lungs clear to auscultation Cardiovascular RRR, no murmur, no edema Extremities: + pedal edema (Bilaterally, to the knee) Gastrointestinal (Abdomen) Inspection/Auscultation: + abdomen distended and normal bowel sounds Percussion/Palpation: + abdomen firm; abdomen nontender Discharge Data Allergies Allergy/AdvReac Type Severity Reaction Status Date / Time guaifenesin Allergy Severe Stroke Verified 11/24/21 21:14 like symptoms morphine Allergy Intermediate "FIRE" Verified 11/24/21 21:14 SENSATION IN HEAD Penicillins Allergy Intermediate HIVES Verified 11/24/21 21:14 ethyl alcohol AdvReac Severe STROKE Verified 11/24/21 21:14 LIKE SYMPTOMS shellfish derived AdvReac Severe PT Verified 11/24/21 21:14 DEVELOPED HEPATITIS adhesive AdvReac Intermediate RASH,REDNES Verified 11/24/21 21:14 S verapamil AdvReac Mild H/A Verified 11/24/21 21:14 Consultations 11/24/21 19:31 ED Decision to Admit Stat 11/25/21 15:05 Consult Nephrology Routine 11/26/21 09:47 Consult Gastroenterology Routine 11/28/21 21:46 Burn CD for patient Stat Ordered Studies 11/24/21 20:25 US venous doppler LE BI Routine 11/26/21 12:24 US renal/blad retro comp Routine 11/27/21 10:49 US paracentesis abd w/image Routine Hospital Course (1) Acute hyperkalemia: 76yo female with cirrhosis with resultant peritoneal fluid accumulation requiring regular paracentesis (every two weeks), HTN, DM2, acute UGIB secondary to erosive esophagitis (07/2021 requiring blood transfusion, second episode 11/2021 without need for transfusion), GERD, and breast cancer in remission s/p chemo/radiation (2018; port still in place) who presented with fatigue, nausea, BL LE edema, decreased urine output, cough, and HERRING after being instructed by her PCP to come to the hospital due to abnormal labs. Hyperkalemia -Potassium ranging from 5.3-5.5 since admission (4.8 today down from 5.4 yesterday) -EKG without arrhythmia or peaked T waves -Nephrology consulted: Low potassium diet, HCO3 replacement * Continue Patiromer 8.4 g daily * Continue holding home spironolactone, carvedilol * Trend K+ Renal Failure -Cr baseline 2.5-3.2 (4.22 today, increased from 3.9 yesterday) -Nephrology consult: Clinical presentation c/f hepatorenal syndrome, no emergent need for dialysis -UA: 2+ leuk. esterase; 2+ urine bacteria; urine WBC >30 -Diagnostic paracentesis negative for SBP. -Renal US: Bilateral renal atrophy; marked abdominal and pelvic ascites * Octreotide 100 mcg every 8 hours SQ (to counteract venodilation) * Midodrine 15 mg tid (counteract arterial vasodilation) * IV albumin (maintain intravascular pressure) * Trend Cr * Initiated patient transfer to [facility] for evaluation/discussion on possible liver transplant; patient awaiting bed at [facility] (hepatology) in the next 48 hours. Patient aware and in agreement. Chronic hypervolemic hyponatremia -Sodium ranging from 126-128 since admission (sodium unchanged from yesterday at 128) -Dilutional, associated with cirrhosis and ascites -Per nephrology: holding IVF and diuretics for now * Trend BMP Anemia -Hx of acute UGIB x2 (07/2021 requiring blood transfusion, again in 11/2021 without need for transfusion) 2/2 to erosive esophagitis. -Hgb 7.6 on admission, decreased to 6.6 (11/26) -Transfused two units pRBC; hemoglobin stable at 10.1, slightly up from 10.0 yesterday -10,000 units of Epogen administered 11/27/2021 -Hemoglobin 9.1, down from 10.1 yesterday * Protonix 40 mg twice daily * Trend CBC CKD4 -Creatinine on admission 3.38 (baseline 2.5); has steadily worsened since -Nephrology consulted; due to superimposed BENNY and HRS, low chance of significantly improved kidney function even in the setting of liver transplant * Continue calcitriol * Trend BMP NAFLD cirrhosis, ascites -Follows with [facility] GI -MELD score 29 (versus 30 yesterday); poor prognosis; GI consulted -Albumin administered in ED, held during packed red blood cell infusion; restarted (see above: Renal failure) -Diagnostic paracentesis negative for SBP -Currently awaiting transfer to [facility] in the next 48 hours * Continue lactulose GERD, erosive esophagitis -Per GI: No gerard bleeding at present * Home pantoprazole, famotidine HLD * Home pravastatin 10 mg every afternoon (2) Acute hyponatremia: (3) Acute kidney injury superimposed on CKD: (4) Anemia: (5) Cirrhosis, non-alcoholic: (6) Erosive esophagitis: (7) GERD (gastroesophageal reflux disease): (8) Hypertension: (9) Nonalcoholic fatty liver disease: (10) Sleep apnea: (11) T2DM (type 2 diabetes mellitus): Total Time Total Time Spent Total Time Spent (In Minutes): 30 Discharge Plan Discharge Items Patient Disposition: Transfer Acute Care Hospital Reason For Visit: EDEMA, ABNORMAL LAB FINDING Discharge Diagnosis: cirrhosis, hepatorenal syndrome Condition on Discharge: Fair Activity: Per Instructions section Non-emergency contact: Hospitalist Call non-emergency contact if: you have any medication questions, your symptoms worsen and you have a fever Follow-up/Referrals: Gildardo Haywood MD [Primary Care Provider] - Diet: Low Potassium (2gm) and Low Sodium (2gm) Addtl Attending Provider Instructions: Medication list below is patient's outpatient meds list. Please see separate attached list for meds she received while inpatient (e.g. midodrine and octreotide which should be continued at the transfer hospital). Plan: 76yo female with cirrhosis with resultant peritoneal fluid accumulation requiring regular paracentesis (every two weeks), HTN, DM2, acute UGIB secondary to erosive esophagitis (07/2021 requiring blood transfusion, second episode 11/2021 without need for transfusion), GERD, and breast cancer in remission s/p chemo/radiation (2018; port still in place) who presents with fatigue, nausea, BL LE edema, decreased urine output, cough, and HERRING after being instructed by her PCP to come to the hospital due to abnormal labs. She presents with hepatorenal syndrome and will be transferred to [facility] for evaluation of liver transplant vs. TIPS procedure. Hepatorenal syndrome -Continue octerotide, albumin, midodrine. NAFLD cirrhosis, ascites -Follows with [facility] GI -MELD score 29 (versus 30 yesterday); poor prognosis; GI consulted -Albumin administered in ED, held during packed red blood cell infusion; restarted (see above: Renal failure) -Diagnostic paracentesis negative for SBP -Currently awaiting transfer to [facility] in the next 48 hours * Continue lactulose Renal Failure -Cr baseline 2.5-3.2 (4.22 today, increased from 3.9 yesterday) -Nephrology consult: Clinical presentation c/f hepatorenal syndrome, no emergent need for dialysis -UA: 2+ leuk. esterase; 2+ urine bacteria; urine WBC >30 -Diagnostic paracentesis negative for SBP. -Renal US: Bilateral renal atrophy; marked abdominal and pelvic ascites * Octreotide 100 mcg every 8 hours SQ (to counteract venodilation) * Midodrine 15 mg tid (counteract arterial vasodilation) * IV albumin (maintain intravascular pressure) * Trend Cr * Initiated patient transfer to [facility] for evaluation/discussion on possible liver transplant; patient awaiting bed at [facility] (hepatology) in the next 48 hours. Patient aware and in agreement. CKD4 -Creatinine on admission 3.38 (baseline 2.5); has steadily worsened since -Nephrology consulted; due to superimposed BENNY and HRS, low chance of significantly improved kidney function even in the setting of liver transplant * Continue calcitriol * Trend BMP Hyperkalemia -Potassium ranging from 5.3-5.5 since admission (4.8 today down from 5.4 yesterday) -EKG without arrhythmia or peaked T waves -Nephrology consulted: Low potassium diet, HCO3 replacement * Continue Patiromer 8.4 g daily * Continue holding home spironolactone, carvedilol * Trend K+ Chronic hypervolemic hyponatremia -Sodium ranging from 126-128 since admission (sodium unchanged from yesterday at 128) -Dilutional, associated with cirrhosis and ascites -Per nephrology: holding IVF and diuretics for now * Trend BMP Anemia -Hx of acute UGIB x2 (07/2021 requiring blood transfusion, again in 11/2021 without need for transfusion) 2/2 to erosive esophagitis. -Hgb 7.6 on admission, decreased to 6.6 (11/26) -Transfused two units pRBC; hemoglobin stable at 10.1, slightly up from 10.0 yesterday -10,000 units of Epogen administered 11/27/2021 -Hemoglobin 9.1, down from 10.1 yesterday * Protonix 40 mg twice daily * Trend CBC GERD, erosive esophagitis -Per GI: No gerard bleeding at present * Home pantoprazole, famotidine HLD * Home pravastatin 10 mg every afternoon FEN: low sodium, heart healthy diet Code status: full code DVT ppx: SCDs PT/OT: ordered Dispo: Likely transfer to [facility] in the next 48 hours Pending Studies at Discharge: No Stand-Alone Forms: My [facility] Skilled Items Patient informed of condition?: Yes DNR: No Discharge Level of Care: Other Communicable Disease: No Discharge Prognosis: Stable Lines: Peripheral IV Urinary Catheter: No Medications and DC Order Prescriptions: Continued (DME) lancets [OneTouch Delica Plus Lancet] 33 gauge misc See Dose Instructions .ROUTE .MEDSUPPLY Qty: 200 RF: 5 (DME) pen needle, diabetic [BD Ultra-Fine Obdulia Pen Needle] 32 gauge x 5/32" needle See Rx Instructions [id number] .MEDSUPPLY Qty: 200 RF: 3 calcitriol [Rocaltrol] 0.25 mcg capsule 0.25 mcg PO [id number] Qty: 12 RF: 5 pravastatin 20 mg tablet 10 mg PO QPM Qty: 90 RF: 3 colestipol 1 gram tablet 1 g PO DAILY Qty: 30 RF: 6 (DME) OneTouch Verio test strips Strip See Rx Instructions .ROUTE .MEDSUPPLY RF: 0 vitamin E 400 unit capsule 400 unit PO HS RF: 0 cholecalciferol (vitamin D3) [Vitamin D3] 25 mcg (1,000 unit) Capsule 1,000 unit PO BID RF: 0 lactulose 10 gram/15 mL solution 10 g PO DAILY Qty: 237 RF: 0 carvedilol [Coreg] 3.125 mg tablet 3.125 mg PO DAILY Qty: 30 RF: 0 famotidine 20 mg tablet 20 mg PO BID 7 Days Qty: 30 RF: 0 pantoprazole 40 mg Tablet,Delayed Release (Dr/Ec) 40 mg PO BID Qty: 60 RF: 2 spironolactone 100 mg tablet 100 mg PO DAILY RF: 0 Discontinued ciprofloxacin HCl 500 mg tablet 500 mg PO DAILY Qty: 4 RF: 0 Discharge Orders: Discharge Order (Routine); Ordered 11/28/21 Ordered By: Mark Brownlee Admission Data Admit Date/Time: 11/24/21 20:16 Attending Provider: Delmer Mcgee Admit Provider: Erika Oliveira Primary Care Provider: Gildardo Haywood Other Providers: Erika Oliveira ; Ross Randall ; Victor Manuel Jimenez ; Gabriela Villa Other Interventions: Discharge Summary Assessment (RN) Last Done: 11/29/21 04:32 Resident Activity Tracking Resident Involvement: Resident Care Provided Care Provided: Adult Hospital Medicine
== END 2021-11-29 00:50 | disposition short-term general hospital (02) | DRG 682 ==
LOC: ED 17:21 → 2N 20:16 → SUATTDRO 20:16 → 2N 23:13

== ENCOUNTER 2022-03-22 11:39 | Inpatient (IN) ==
[2022-03-22] MEDS ORDERED: SODIUM CHLORIDE 0.9% 1000ML 500 ML IV ONE (12:07)
--- NOTE | 2022-03-22 12:12 | Emergency Department Note ---
Impression & Plan Acute hyponatremia, Acute hyperkalemia, End stage renal disease, Liver cirrhosis secondary to JUÁREZ, Acute hypotension ED Provider Note NAME: KIRSTY HERNÁNDEZ AGE: 76 SEX: F : 1945 ARRIVES VIA: Walk-In INFORMANT: Patient ED PROVIDER(S): Delmer Nair DO CHIEF COMPLAINT: hypotension HPI: Patient is a 76-year-old female who presents the ER with a past medical history of JUÁREZ, GERD, hypertension, diabetes, CKD on dialysis from radiology. She was scheduled today to have paracentesis. She gets generally every other week. She missed last week. She was hypotensive over there today. She has no other complaints. No headache or change in vision. No chest pain or shortness of breath. No nausea, vomiting, or diarrhea. She notes intermittently her blo od pressure will be on the low side. She has not missed any course of dialysis. No urinary symptoms as she does not make any urine. She does not feel weak or rundown. ROS: See above HPI for pertinent positives & negatives. A total of 10 systems reviewed and were otherwise negative. PAST MEDICAL HISTORY:See Below PAST SURGICAL HISTORY:See Below FAMILY HISTORY:See Below SOCIAL HISTORY:See Below HOME MEDICATIONS:See Below ALLERGIES:See Below VITALS:See Below PHYSICAL EXAMINATION: GENERAL: Sitting up in bed, alert, chronically ill-appearing, disheveled EYE EXAM: normal conjunctiva. PERRL and EOM's grossly intact. OROPHARYNX: no exudate, no erythema, lips, buccal mucosa, and tongue normal and mucous membranes are moist NECK: supple, no nuchal rigidity, no adenopathy, non-tender LUNGS: Clear to auscultation. Normal chest wall mechanics HEART: no murmurs, S1 normal and S2 normal ABDOMEN: abdomen distended,non-tender, normo-active bowel sounds, no masses, no rebound or guarding. UPPER EXTREMITIES: upper extremities are grossly normal. LOWER EXTREMITIES: No pitting edema. NEURO EXAM: Normal sensorium, cranial nerves II-XII grossly intact, normal speech, no gross weakness of arms, no gross weakness of legs. MEDICAL DECISION MAKING: Patient is a 76-year-old female with past medical history of Juárez that presents the ER from radiology for hypotension with systolic pressures of 70. She has no other complaints. She has dialysis dependent Saturday. IV was established blood work is obtained. Labs show no significant leukocytosis. Mild anemia 11. Platelets were low at 50 consistent with previous. BMP with mild hyponatremia and hypokalemia. Creatinine at 4. T bili slightly up at 2.6. Troponin was elevated at 31. Lipase was unremarkable. COVID-negative. Discussed with hospitalist after receiving 750 mL of fluids and systolic pressures trending up to 80s. She had no other complaints. She admitted for further work-up. Chest x-ray with effusions. Triage Nursing notes reviewed. Limited review of prior medical records performed Vital Signs: reviewed and remarkable for HTN Differential diagnosis: Infection, dehydration, metabolic abnormality, hypo/hyperglycemia, electrolyte disturbance, anemia, hypoxia, cardiac sources, intracerebral event, toxicologic, neurologic, as well as other pathologies. ER treatment provided: See below Diagnostics interpreted by me: ECG: Sinus rhythm rate of 66 Left axis Right bundle branch block T wave inversion in septal leads T wave flattening V3 through V6 In comparison to February 19, 2022 T wave flattening is new in the 3 through V6 Cardiac Monitoring: An order was placed for continuous cardiac monitoring. The monitor shows a rate of 70 with sinus rhythm. Laboratory studies: As stated above and show below. Imaging studies: Chest x-ray as discussed above Consultation(s): Discussed with Dr. Collier Procedures: none Critical Care: None Past Med/Surg History Medical History Abdominal ascites Acute upper gastrointestinal bleeding Acute upper GI bleed BENNY (acute kidney injury) Anemia HX Arrhythmia Asthma INHALERS JUST FOR WINTER > COLD TAKES BREATH AWAY> NO ACTUAL ASTHMA DX Cancer of left breast Hx of, cancer free 2021. s/p chemo/radiation > PORT TO RIGHT CHEST PRESENT Cardiac murmur follows with Dr. Iglesias Cirrhosis Decreased libido Depression Depression Diabetes mellitus, type 2 Disc degeneration, lumbar Diverticulosis End stage renal disease Erosive esophagitis Fatigue Gait disturbance Hiatal hernia Hormone replacement therapy Hypertension IBS (irritable colon syndrome) Loss of sensation Malignant neoplasm of central portion of left breast in female, estrogen receptor negative (11/15/17) Mitral regurgitation Mitral valve regurgitation UNSURE OF DETAILS, DOESNT FOLLOW CARDIO Nonalcoholic fatty liver disease Obesity (BMI 30-39.9) Osteopenia Peripheral neuropathy Sinus bradycardia Sinus bradycardia PATIENT SAID SHE REMEMBERS SOMEONE TELLING HER OF THIS ON AN EKG ONE TIME, BUT DOESN'T THINK ITS A CHRONIC PROBLEM Sleep apnea cpap T2DM (type 2 diabetes mellitus) Thrombocytopenia Tricuspid regurgitation Tricuspid valve regurgitation UNSURE OF DETAILS, DOESNT FOLLOW CARDIO Surgical History History of cholecystectomy History of colonoscopy History of dilatation and curettage History of esophagogastroduodenoscopy (EGD) History of left cataract surgery left. 12/23/2019. 2 mg versed. no issues. History of lumpectomy of left breast History of tonsillectomy History of tooth extraction History of total hysterectomy with bilateral salpingo-oophorectomy (BSO) History of vascular access device right side APort in place History of wisdom tooth extraction Hx of left breast biopsy malignant Hx of right breast biopsy benign Family History Grandmother (Maternal) Family history of diabetes mellitus Grandmother (Maternal) No problems noted. Grandmother (Paternal) Breast cancer Aunt Breast cancer Uncle Colorectal cancer Father Hypertension Other Colonic polyp No family history of adverse response to anesthesia Denies family history of Ovarian cancer Prostate cancer Myocardial infarction Social History Smoking Status: Never smoker Second Hand Exposure: No; Hx Alcohol Use: No Hx Substance Use: No Preferred Language: Syriac Communication Ability: Effective Tax Examiner Required: No Beliefs That Will Affect Care: None marital status: Current Living Situation: Spouse Current Living Situation Comment: current occupational status: retired Feels Safe at Home: Yes Safety Concerns: Feels Safe At This Time Childhood Exposure to Second-Hand Smoke: Yes caffeine: No Dental Care, Regularly: Yes Physical Activity Frequency: Declines to Answer Physical Activity Frequency Comment: Not very much right now due to present fluid retention issues Seatbelt Use: always Assistive Devices: Glasses and Walker Allergies Allergies Allergy/AdvReac Type Severity Reaction Status Date / Time guaifenesin Allergy Severe Stroke Verified 03/22/22 10:27 like symptoms morphine Allergy Intermediate "FIRE" Verified 03/22/22 10:27 SENSATION IN HEAD Penicillins Allergy Intermediate HIVES Verified 03/22/22 10:27 ethyl alcohol AdvReac Severe STROKE Verified 03/22/22 10:27 LIKE SYMPTOMS shellfish derived AdvReac Severe PT Verified 03/22/22 10:27 DEVELOPED HEPATITIS adhesive AdvReac Intermediate RASH,REDNES Verified 03/22/22 10:27 S verapamil AdvReac Mild H/A Verified 03/22/22 10:27 Home Meds Home Medications Medication Instructions Recorded Confirmed vitamin E 400 unit capsule 400 unit PO HS cap 10/28/20 03/22/22 cholecalciferol (vitamin D3) 25 1,000 unit PO BID 07/28/21 03/22/22 mcg (1,000 unit) capsule (Vitamin D3) blood sugar diagnostic (OneTouch ea 08/09/21 03/22/22 Verio test strips) sertraline 50 mg tablet (Zoloft) 50 mg PO QAM 02/01/22 03/22/22 calcitriol 0.25 mcg capsule 0.25 mcg PO 3XWK 02/19/22 03/22/22 (Rocaltrol) famotidine 20 mg tablet (Pepcid) 20 mg PO BID 03/01/22 03/22/22 carvedilol 3.125 mg tablet 3.125 mg PO BID 03/22/22 03/22/22 esomeprazole magnesium 40 mg 40 mg PO QAM 03/22/22 03/22/22 capsule,delayed release (Nexium) pravastatin 20 mg tablet 10 mg PO HS 03/22/22 03/22/22 Previous Rx's Medication Instructions Recorded [facility] Delica Plus Lancet 33 #200 ea NS 01/30/21 gauge (lancets) BD Ultra-Fine Obdulia Pen Needle 32 #200 ea NS 02/14/21 gauge x 5/32" (pen needle, diabetic) rifaximin 550 mg tablet (Xifaxan) 550 mg PO BID #100 tab 01/24/22 midodrine 5 mg tablet 15 mg PO BID #180 tab 02/19/22 Results & Data (ED) Vital Signs Vital Signs - 24 hr 03/22/22 11:49 03/22/22 12:45 03/22/22 13:00 Temperature 36.3 C L Temperature Source Oral Pulse Rate 67 Pulse Rate [Apical] 67 Pulse Rhythm [Apical] Regular Respiratory Rate 16 16 Respiratory Effort / Characteristics Non-Labored Non-Labored Respiratory Depth Normal Normal Blood Pressure 71/44 L Blood Pressure [Right Arm] 73/47 L Blood Pressure Mean 53 Blood Pressure Mean [Right Arm] 55 Pulse Oximetry 98 97 98 Oxygen Delivery Method Room Air Room Air Room Air Sepsis Recent Fever Within 48 Hours No Sepsis New/Unexplained Change in Mental Status No Sepsis Action Taken by Nursing No Action Required 03/22/22 13:30 03/22/22 14:30 Temperature Temperature Source Pulse Rate Pulse Rate [Apical] 72 68 Pulse Rhythm [Apical] Regular Regular Respiratory Rate 16 16 Respiratory Effort / Characteristics Non-Labored Non-Labored Respiratory Depth Normal Normal Blood Pressure Blood Pressure [Right Arm] 80/52 L 72/48 L Blood Pressure Mean Blood Pressure Mean [Right Arm] 61 56 Pulse Oximetry 97 98 Oxygen Delivery Method Room Air Room Air Sepsis Recent Fever Within 48 Hours Sepsis New/Unexplained Change in Mental Status Sepsis Action Taken by Nursing Laboratory Data Result diagrams: 03/22/22 12:50 03/22/22 12:50 Lab Results 03/22/22 03/22/22 03/22/22 Range/Units 12:50 12:50 14:00 WBC 5.81 (4.8-10.8) K/uL RBC 3.07 L (4.2-5.4) M/uL Hgb 11.0 L (12.0-16.0) g/dL Hct 32.7 L (37-47) % MCV 106.5 H (80-100) fL MCH 35.8 H (25-34) pg MCHC 33.6 (32-36) g/dL RDW Std Deviation 65.7 H (36.4-46.3) fL RDW Coeff of Carmelina 17.1 H (11.5-14.5) % Plt Count 50 L (130-400) K/uL MPV 10.5 H (7.4-10.4) fL Immature Gran % (Auto) 0.2 % Neut % (Auto) 68.3 % Lymph % (Auto) 21.2 % Person % (Auto) 10.0 % Eos % (Auto) 0.3 % Baso % (Auto) 0.0 % Neut # (Auto) 3.97 (1.4-6.5) K/uL Lymph # (Auto) 1.23 (1.2-3.4) K/uL Person # (Auto) 0.58 (0.11-0.59) K/uL Eos # (Auto) 0.02 (0-0.5) K/uL Baso # (Auto) 0.00 (0-0.2) K/uL Immature Gran # (Auto) 0.01 (0.00-0.02) K/uL Sodium 130 L (136-145) mmol/L Potassium 3.0 L (3.5-5.1) mmol/L Chloride 96 L (98-107) mmol/L Carbon Dioxide 24 (21-32) mmol/L Anion Gap 10 (3-11) BUN 28 H (6-23) mg/dl Creatinine 4.19 H (0.6-1.2) mg/dl Est Cr Clr Drug Dosing Not Reportable Est GFR ( Amer) 11.4 ml/min Est GFR (Non-Af Amer) 9.8 ml/min BUN/Creatinine Ratio 6.7 L (10-20) Glucose 156 H (70-99(Fasting)) mg/dl Calcium 8.8 (8.5-10.1) mg/dl Total Bilirubin 2.6 H (0.2-1.0) mg/dl AST 55 H (13-39) U/L ALT 27 (7-52) U/L Alkaline Phosphatase 103 (34-104) U/L Troponin I High Sens 31.1 H (0-14) pg/ml Total Protein 5.3 L (6.0-8.3) gm/dl Albumin 2.5 L (3.4-5.0) gm/dl Globulin 2.8 (2.5-4.0) gm/dl Albumin/Globulin Ratio 0.9 (0.9-2) Lipase 22 (11-82) U/L SARS-CoV-2, RNA, NAAT NEGATIVE (NEGATIVE) Administered Medications Albumin Human (Albumin 25% 100 Ml) 25 gm in 100 mls @ 50 mls/hr IV Q2H JESI Stop: 03/22/22 20:36 Last Admin: 03/22/22 17:09 Dose: 50 mls/hr Documented by: [id number] Insulin Aspart (Insulin Aspart Per Unit) 0 units SC ACHS JESI Stop: 04/21/22 16:36 Last Admin: 03/22/22 17:10 Dose: 2 units Documented by: [id number] Cosigned by: [id number] Discontinued Medications Sodium Chloride (Nss 1000ml) 500 mls @ 999 mls/hr IV .Q31M ONE Stop: 03/22/22 12:37 Last Infusion: 03/22/22 13:27 Dose: 0 mls/hr Documented by: [id number] Admin: 03/22/22 12:51 Dose: 999 mls/hr Documented by: [id number] Sodium Chloride (Nss) 250 mls @ 999 mls/hr IV .Q16M ONE Stop: 03/22/22 14:03 Last Infusion: 03/22/22 14:49 Dose: 0 mls/hr Documented by: [id number] Admin: 03/22/22 14:03 Dose: 999 mls/hr Documented by: [id number] Potassium Chloride (Potassium Chloride 10 Meq Tabcr) 10 meq PO NOW STA Stop: 03/22/22 13:49 Last Admin: 03/22/22 14:03 Dose: 10 meq Documented by: [id number] Imaging Data Radiologist's Impression: Chest X-Ray 03/22/22 12:07 XR chest 1V portable HISTORY: Atypical Chest Pain COMPARISON: Chest 02/19/2022. FINDINGS: There are low lung volumes. No pneumothorax. Small left pleural effusion. Suspect a trace right pleural effusion which has improved. The heart is mildly enlarged. Bilateral central venous catheters are unchanged in position. There is mild central pulmonary vascular congestion without overt edema. This is improved in the interval. Bibasilar linear densities are noted. IMPRESSION: 1. Cardiomegaly with mild central pulmonary vascular congestion. This has improved in the interval. 2. Small left pleural effusion has slightly progressed. The right pleural effusion has improved/resolved. 3. Bibasilar densities are nonspecific but may represent atelectasis. A pneumonia could also a similar appearance. ACT 112: Negative or not required by law. Electronically signed by: Nagi Nguyen M.D. 03/22/2022 12:41 PM Discharge Plan Visit Data Chief Complaint: Chest Pain Stated Complaint: CHEST PAIN ED Provider: Delmer Nair Discharge Problem: Acute hyponatremia, Acute hyperkalemia, End stage renal disease, Liver cirrhosis secondary to JUÁREZ, Acute hypotension Patient Disposition: Admitted As Inpatient Discharge Instructions Interventions: ED Discharge Assessment Last Done: 03/22/22 16:12
--- NOTE | 2022-03-22 12:42 | XRay Report ---
XR chest 1V portable HISTORY: Atypical Chest Pain COMPARISON: Chest 02/19/2022. FINDINGS: There are low lung volumes. No pneumothorax. Small left pleural effusion. Suspect a trace r ight pleural effusion which has improved. The heart is mildly enlarged. Bilateral central venous cath eters are unchanged in position. There is mild central pulmonary vascular congestion without overt ed heather. This is improved in the interval. Bibasilar linear densities are noted. IMPRESSION: 1. Cardiomegaly with mild central pulmonary vascular congestion. This has improved in the interval. 2. Small left pleural effusion has slightly progressed. The right pleural effusion has improved/resol rusty. 3. Bibasilar densities are nonspecific but may represent atelectasis. A pneumonia could also a simila r appearance. ACT 112: Negative or not required by law. Electronically signed by: Nagi Nguyen M.D. 03/22/2022 12:41 PM
[2022-03-22 13:13] LABS: Hematocrit (blood only) 32.7 % (37-47); Mean Corpuscular Hemoglobin 35.8 pg (25-34); Mean Corpuscular Hgb Conc 33.6 g/dL (32-36); Mean Corpuscular Volume 106.5 fL (80-100); RDW Coefficient of Variation 17.1 % (11.5-14.5); RDW Standard Deviation 65.7 fL (36.4-46.3); Red Blood Count 3.07 M/uL (4.2-5.4); White Blood Count 5.81 K/uL (4.8-10.8)
[2022-03-22 13:16] LABS: Mean Platelet Volume 10.5 fL (7.4-10.4); Platelet Count 50 K/uL (130-400)
[2022-03-22 13:26] LABS: Alanine Aminotransferase 27 U/L (7-52); Albumin Globulin Ratio 0.9 (0.9-2); Albumin Level 2.5 gm/dl (3.4-5.0); Alkaline Phosphatase 103 U/L (34-104); Anion Gap 10 (3-11); Aspartate Aminotransferase 55 U/L (13-39); BUN Creatinine Ratio 6.7 (10-20); Bilirubin,Total 2.6 mg/dl (0.2-1.0); Blood Urea Nitrogen 28 mg/dl (6-23); Calcium 8.8 mg/dl (8.5-10.1); Carbon Dioxide 24 mmol/L (21-32); Chloride 96 mmol/L (98-107); Est GFR (African American) 11.4 ml/min; Est GFR (Non-African American) 9.8 ml/min; Globulin 2.8 gm/dl (2.5-4.0); Glucose 156 mg/dl (70-99(Fasting)); Lipase 22 U/L (11-82); Sodium 130 mmol/L (136-145); Total Protein 5.3 gm/dl (6.0-8.3)
[2022-03-22 13:28] LABS: Troponin I High Sensitivity 31.1 pg/ml (0-14)
[2022-03-22 13:42] LABS: Eosinophils # (auto) 0.02 K/uL (0-0.5); Eosinophils % (auto) 0.3 %; Immature Granulocytes # (auto) 0.01 K/uL (0.00-0.02); Immature Granulocytes % (auto) 0.2 %; Lymphocytes # (auto) 1.23 K/uL (1.2-3.4); Lymphocytes % (auto) 21.2 %; Monocytes # (auto) 0.58 K/uL (0.11-0.59); Neutrophils # (auto) 3.97 K/uL (1.4-6.5); Neutrophils % (auto) 68.3 %
[2022-03-22] MEDS ORDERED: POTASSIUM CHLORIDE 10 MEQ TABCR PO STA (13:48)
[2022-03-22] MEDS ORDERED: SODIUM CHLORIDE 0.9% 250 ML IV ONE (13:48)
--- NOTE | 2022-03-22 14:50 | History & Physical Report ---
Date of Service March 22, 2022 Assessment & Plan (1) Hypotension: Plan: Likely multifactorial, may be in part to third spacing from advanced ESLD Place in nonmonitored observation Check orthostatics Patient consented for blood products, will give albumin 25%, 50 g x 2 bags. Consider further crystalloid depending on symptoms and progress but may worsen ascites Patient is on midodrine at home, will continue this as well (2) Nonalcoholic fatty liver disease: Plan: Follows with GI. Has therapeutic thoracentesis every week Consider in the next 1-2 days if patient's blood pressure improves. May need further albumin due to fluid shift We will asked GI to follow-up with patient in hospital for further recommendations (3) ESRD (end stage renal disease): Plan: Patient is typically on a Saturday, Saturday, and Saturday schedule. Has not missed any sessions Will consult to arrange hemodialysis, presumably on 03/23 (4) T2DM (type 2 diabetes mellitus): Plan: Await med rec regarding patient's insulin usage. I do not see anything listed on her med rec so far. Current glucose on labs is 156 Will start sliding scale insulin. Continue to monitor. (5) Acute hyponatremia: Plan: Likely secondary to her end-stage liver disease and fluid overload. Continue to monitor (6) Hypokalemia: Plan: As above, likely secondary to her liver disease. Continue to monitor History of Present Illness Primary Care Provider: Gildardo Haywood MD This is a 76-year-old female with a history of BEASLEY/ESLD, ESRD on hemodialysis Saturday, diabetes, hypertension that presents with hypotension. Patient is pleasant and a good historian. Patient typically has a therapeutic paracentesis on a weekly basis with interventional radiology. This is typically done on an outpatient basis and the patient arrives today to have her scheduled paracentesis. She was found to be hypotensive with blood pressure as low as 71/40 per the staff the same day. Patient tells me that she had no symptoms at all outside her normal, this includes chest pain, shortness of breath, palpitations, headache, vertigo, or orthostasis. Patient tells me she essentially feels at her baseline despite the lower blood pressure. Typically her blood pressure does range in the low 80s to low 100 systolic. In the ER, she was found to be in the 70s her last blood pressure was 80/52. Patient continues to be comfortable with no complaints. Allergies Allergy/AdvReac Type Severity Reaction Status Date / Time guaifenesin Allergy Severe Stroke Verified 03/22/22 10:27 like symptoms morphine Allergy Intermediate "FIRE" Verified 03/22/22 10:27 SENSATION IN HEAD Penicillins Allergy Intermediate HIVES Verified 03/22/22 10:27 ethyl alcohol AdvReac Severe STROKE Verified 03/22/22 10:27 LIKE SYMPTOMS shellfish derived AdvReac Severe PT Verified 03/22/22 10:27 DEVELOPED HEPATITIS adhesive AdvReac Intermediate RASH,REDNES Verified 03/22/22 10:27 S verapamil AdvReac Mild H/A Verified 03/22/22 10:27 Home Medications Medication Instructions Recorded Confirmed Type vitamin E 400 unit capsule 400 unit PO HS cap 10/28/20 03/22/22 History OneTouch Delica Plus Lancet 33 #200 ea NS 01/30/21 03/22/22 Rx gauge (lancets) BD Ultra-Fine Obdulia Pen Needle 32 #200 ea NS 02/14/21 03/22/22 Rx gauge x 5/32" (pen needle, diabetic) cholecalciferol (vitamin D3) 25 1,000 unit PO BID 07/28/21 03/22/22 History mcg (1,000 unit) capsule (Vitamin D3) blood sugar diagnostic (OneTouch ea 08/09/21 03/22/22 History Verio test strips) rifaximin 550 mg tablet (Xifaxan) 550 mg PO BID #100 tab 01/24/22 03/22/22 Rx sertraline 50 mg tablet (Zoloft) 50 mg PO DAILY 02/01/22 03/22/22 History calcitriol 0.25 mcg capsule 0.25 mcg PO 3XWK 02/19/22 03/22/22 History (Rocaltrol) midodrine 5 mg tablet 15 mg PO BID #180 tab 02/19/22 03/22/22 Rx famotidine 20 mg tablet (Pepcid) 20 mg PO BID 03/01/22 03/22/22 History carvedilol 3.125 mg tablet 3.125 mg PO BID 03/22/22 03/22/22 History esomeprazole magnesium 40 mg 40 mg PO QAM 03/22/22 03/22/22 History capsule,delayed release (Nexium) pravastatin 20 mg tablet 10 mg PO HS 03/22/22 03/22/22 History Past Med/Surg History Medical History Abdominal ascites Acute upper gastrointestinal bleeding Acute upper GI bleed BENNY (acute kidney injury) Anemia HX Arrhythmia Asthma INHALERS JUST FOR WINTER > COLD TAKES BREATH AWAY> NO ACTUAL ASTHMA DX Cancer of left breast Hx of, cancer free 2021. s/p chemo/radiation > PORT TO RIGHT CHEST PRESENT Cardiac murmur follows with Dr. Iglesias Cirrhosis Decreased libido Depression Depression Diabetes mellitus, type 2 Disc degeneration, lumbar Diverticulosis End stage renal disease Erosive esophagitis Fatigue Gait disturbance Hiatal hernia Hormone replacement therapy Hypertension IBS (irritable colon syndrome) Loss of sensation Malignant neoplasm of central portion of left breast in female, estrogen recepto r negative (11/15/17) Mitral regurgitation Mitral valve regurgitation UNSURE OF DETAILS, DOESNT FOLLOW CARDIO Nonalcoholic fatty liver disease Obesity (BMI 30-39.9) Osteopenia Peripheral neuropathy Sinus bradycardia Sinus bradycardia PATIENT SAID SHE REMEMBERS SOMEONE TELLING HER OF THIS ON AN EKG ONE TIME, BUT DOESN'T THINK ITS A CHRONIC PROBLEM Sleep apnea cpap T2DM (type 2 diabetes mellitus) Thrombocytopenia Tricuspid regurgitation Tricuspid valve regurgitation UNSURE OF DETAILS, DOESNT FOLLOW CARDIO Surgical History History of cholecystectomy History of colonoscopy History of dilatation and curettage History of esophagogastroduodenoscopy (EGD) History of left cataract surgery left. 12/23/2019. 2 mg versed. no issues. History of lumpectomy of left breast History of tonsillectomy History of tooth extraction History of total hysterectomy with bilateral salpingo-oophorectomy (BSO) History of vascular access device right side APort in place History of wisdom tooth extraction Hx of left breast biopsy malignant Hx of right breast biopsy benign Family History Grandmother (Maternal) Family history of diabetes mellitus Grandmother (Maternal) No problems noted. Grandmother (Paternal) Breast cancer Aunt Breast cancer Uncle Colorectal cancer Father Hypertension Other Colonic polyp No family history of adverse response to anesthesia Denies family history of Ovarian cancer Prostate cancer Myocardial infarction Social History Smoking Status: Never smoker Second Hand Exposure: No; Hx Alcohol Use: No Hx Substance Use: No Preferred Language: Kiswahili Communication Ability: Effective High Tension Tester Required: No Beliefs That Will Affect Care: None marital status: Current Living Situation: Spouse Current Living Situation Comment: current occupational status: retired Feels Safe at Home: Yes Childhood Exposure to Second-Hand Smoke: Yes caffeine: No Dental Care, Regularly: Yes Physical Activity Frequency: Declines to Answer Physical Activity Frequency Comment: Not very much right now due to present fluid retention issues Seatbelt Use: always Assistive Devices: Glasses and Walker Review of Systems Constitutional: no fever, no chills, no weakness, no weight loss and no weight gain Eyes: as per Subjective / HPI Respiratory: no cough, no chest congestion, no dyspnea and no dyspnea on exertion Cardiovascular: no chest pain, no orthopnea, no palpitations, no lightheadedness and no edema Gastrointestinal: as per Subjective / HPI; no abdominal pain, no nausea, no vomiting, no constipation and no diarrhea/loose stools Genitourinary: no dysuria, no difficulty urinating, no urinary frequency, no urinary hesitancy, no urinary urgency and no flank pain Musculoskeletal: no back pain, no neck pain, no joint pain, no stiffness and no myalgia Integumentary: no rash Neurologic: no gait abnormality, no unsteadiness, no falls and no generalized weakness Physical Exam Constitutional: + cachectic and cooperative; no acute distress Neck: trachea midline, no thyromegaly Respiratory: normal respiratory effort Auscultation: lungs clear to auscultation bilaterally; no crackles, no rales, no rhonchi and no wheezes Cardiovascular: Rate/Rhythm: regular rate and regular rhythm Heart Sounds: normal S1, normal S2 and + murmur Gastrointestinal (Abdomen): Inspection/Auscultation: + caput medusae present (firm, grossly distended from ascites) Percussion/Palpation: + ascites, + fluid wave and + abdomen firm; abdomen nontender, no guarding and no hepatosplenomegaly Skin: no rashes, warm and dry nonjaundiced Neurologic: patellar DTR's 2+ bilat, sensation intact Results & Data Results & Data ([facility]) Vital Signs (Past 12 Hours) Vital Signs Temp Pulse Pulse Resp BP BP Pulse Ox 03/22/22 13:30 72 16 80/52 L 97 03/22/22 13:00 67 16 73/47 L 98 03/22/22 12:45 97 03/22/22 11:49 36.3 C L 67 16 71/44 L 98 Laboratory Results Laboratory Results WBC 5.81 K/uL (4.8-10.8) 03/22/22 12:50 RBC 3.07 M/uL (4.2-5.4) L 03/22/22 12:50 Hgb 11.0 g/dL (12.0-16.0) L 03/22/22 12:50 Hct 32.7 % (37-47) L 03/22/22 12:50 MCV 106.5 fL (80-100) H 03/22/22 12:50 MCH 35.8 pg (25-34) H 03/22/22 12:50 MCHC 33.6 g/dL (32-36) 03/22/22 12:50 RDW Std Deviation 65.7 fL (36.4-46.3) H 03/22/22 12:50 RDW Coeff of Carmelina 17.1 % (11.5-14.5) H 03/22/22 12:50 Plt Count 50 K/uL (130-400) L 03/22/22 12:50 MPV 10.5 fL (7.4-10.4) H 03/22/22 12:50 Immature Gran % (Auto) 0.2 % 03/22/22 12:50 Neut % (Auto) 68.3 % 03/22/22 12:50 Lymph % (Auto) 21.2 % 03/22/22 12:50 [place] % (Auto) 10.0 % 03/22/22 12:50 Eos % (Auto) 0.3 % 03/22/22 12:50 Baso % (Auto) 0.0 % 03/22/22 12:50 Neut # (Auto) 3.97 K/uL (1.4-6.5) 03/22/22 12:50 Lymph # (Auto) 1.23 K/uL (1.2-3.4) 03/22/22 12:50 [place] # (Auto) 0.58 K/uL (0.11-0.59) 03/22/22 12:50 Eos # (Auto) 0.02 K/uL (0-0.5) 03/22/22 12:50 Baso # (Auto) 0.00 K/uL (0-0.2) 03/22/22 12:50 Immature Gran # (Auto) 0.01 K/uL (0.00-0.02) 03/22/22 12:50 Sodium 130 mmol/L (136-145) L 03/22/22 12:50 Potassium 3.0 mmol/L (3.5-5.1) L 03/22/22 12:50 Chloride 96 mmol/L (98-107) L 03/22/22 12:50 Carbon Dioxide 24 mmol/L (21-32) 03/22/22 12:50 Anion Gap 10 (3-11) 03/22/22 12:50 BUN 28 mg/dl (6-23) H 03/22/22 12:50 Creatinine 4.19 mg/dl (0.6-1.2) H 03/22/22 12:50 Est Cr Clr Drug Dosing Not Reportable 03/22/22 12:50 Est GFR ( Amer) 11.4 ml/min 03/22/22 12:50 Est GFR (Non-Af Amer) 9.8 ml/min 03/22/22 12:50 BUN/Creatinine Ratio 6.7 (10-20) L 03/22/22 12:50 Glucose 156 mg/dl (70-99(Fasting)) H 03/22/22 12:50 Calcium 8.8 mg/dl (8.5-10.1) 03/22/22 12:50 Total Bilirubin 2.6 mg/dl (0.2-1.0) H 03/22/22 12:50 AST 55 U/L (13-39) H 03/22/22 12:50 ALT 27 U/L (7-52) 03/22/22 12:50 Alkaline Phosphatase 103 U/L (34-104) 03/22/22 12:50 Troponin I High Sens 31.1 pg/ml (0-14) H 03/22/22 12:50 Total Protein 5.3 gm/dl (6.0-8.3) L 03/22/22 12:50 Albumin 2.5 gm/dl (3.4-5.0) L 03/22/22 12:50 Globulin 2.8 gm/dl (2.5-4.0) 03/22/22 12:50 Albumin/Globulin Ratio 0.9 (0.9-2) 03/22/22 12:50 Lipase 22 U/L (11-82) 03/22/22 12:50 Impressions Chest X-Ray 03/22/22 12:07 XR chest 1V portable HISTORY: Atypical Chest Pain COMPARISON: Chest 02/19/2022. FINDINGS: There are low lung volumes. No pneumothorax. Small left pleural effusion. Suspect a trace right pleural effusion which has improved. The heart is mildly enlarged. Bilateral central venous catheters are unchanged in position. There is mild central pulmonary vascular congestion without overt edema. This is improved in the interval. Bibasilar linear densities are noted. IMPRESSION: 1. Cardiomegaly with mild central pulmonary vascular congestion. This has improved in the interval. 2. Small left pleural effusion has slightly progressed. The right pleural effusion has improved/resolved. 3. Bibasilar densities are nonspecific but may represent atelectasis. A pneumonia could also a similar appearance. ACT 112: Negative or not required by law. Electronically signed by: Nagi Nguyen M.D. 03/22/2022 12:41 PM PG Care Time/CCT Total # of Minutes Spent Total Time Spent with Patient: Total time spent is greater than 50% in coordination of care (as documented) at patient's floor/unit and/or counseling patient: Coding Level of Care Code 04495 Initial Inpt Care Lvl 3 Diagnoses Hypotension I95.9 Nonalcoholic fatty liver disease K76.0 T2DM (type 2 diabetes mellitus) E11.9 ESRD (end stage renal disease) N18.6 Acute hyponatremia E87.1 Hypokalemia E87.6
[2022-03-22] MEDS ORDERED: DEXTROSE 50% 50 ML SYRINGE IV PRN (16:37)
[2022-03-22] MEDS ORDERED: GLUCOSE 10 TABS/TUBE PO PRN (16:37)
[2022-03-22] MEDS ORDERED: GLUCAGON FOR INJ 1 MG VIAL SQ PRN (16:37)
[2022-03-22] MEDS ORDERED: ONDANSETRON INJ 2 MG/ML 2 ML VIAL IV PRN (16:37)
[2022-03-22] MEDS ORDERED: CARBOHYDRATES FOR HYPOGLYCEMIA PO PRN (16:37)
[2022-03-22] MEDS ORDERED: GLUCOSE 40% GEL 15 GM TUBE PO PRN (16:37)
[2022-03-22] MEDS: ALBUMIN 25% 100 mL 25 GM/100 ML VIAL IV SCH ×2 (17:09→18:46)
[2022-03-22] MEDS: INSULIN ASPART PER UNIT SC SCH ×2 (17:10→20:14)
--- NOTE | 2022-03-22 19:21 | Gastrointestinal Consultation ---
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 Therapeutic paracentesis is not critical at this time and should be postponed as this will exacerbate the hypotension. She should be given IV albumin for intravascular volume expansion, carvedilol should be discontinued, and nephrology consulted for fluid and dialysis management. Given end stage liver disease and renal disease, the prognosis is guarded. History of Present Illness Reason for Consultation: Advanced chronic liver disease with ascites and hypotension Attending Physician: Heath Collier, History of Present Illness Ms. Codne is a 76 year old woman with advanced chronic liver disease (decompensated cirrhosis) secondary to BEASLEY, complicated by portal hypertension, ascites and edema, varices and coagulopathy, hyponatremia and hypoalbuminemia, anemia and thrombocytopenia, encephalopathy, SBP, and renal failure (acute on chronic kidney disease) believed to be hepatorenal syndrome, on dialysis three times weekly beginning in December 2021. She has been getting therapeutic paracentesis with removal of 4-6 liters of serosanguineous fluid weekly. According to the patient, last paracentesis was 2 weeks ago, with removal of an extra 2 liters of fluid. She stated that she has not been taking her home medications regularly and is confused about what medications to take and the timing of medications, due to dialysis. Ms. Conde stated that she had an episode of substernal chest pain in the evening on 03-19-22, which resolved spontaneously after 10 minutes. Other than that, there have been no new symptoms noted. She denied nausea, vomiting, dyspnea, abdominal pain, hematemesis, melena. She did complain of progressive weakness and fatigue. Ms. Conde came to [facility] today for her scheduled therapeutic paracentesis, and was found to be hypotensive, with BP 71/40. Paracentesis was postponed and she was sent to the ER for evaluation. Allergies Allergy/AdvReac Type Severity Reaction Status Date / Time guaifenesin Allergy Severe Stroke Verified 03/22/22 10:27 like symptoms morphine Allergy Intermediate "FIRE" Verified 03/22/22 10:27 SENSATION IN HEAD Penicillins Allergy Intermediate HIVES Verified 03/22/22 10:27 ethyl alcohol AdvReac Severe STROKE Verified 03/22/22 10:27 LIKE SYMPTOMS shellfish derived AdvReac Severe PT Verified 03/22/22 10:27 DEVELOPED HEPATITIS adhesive AdvReac Intermediate RASH,REDNES Verified 03/22/22 10:27 S verapamil AdvReac Mild H/A Verified 03/22/22 10:27 Home Medications Medication Instructions Recorded Confirmed Type vitamin E 400 unit capsule 400 unit PO HS cap 10/28/20 03/22/22 History OneTouch Delica Plus Lancet 33 #200 ea NS 01/30/21 03/22/22 Rx gauge (lancets) BD Ultra-Fine Obdulia Pen Needle 32 #200 ea NS 02/14/21 03/22/22 Rx gauge x 5/32" (pen needle, diabetic) cholecalciferol (vitamin D3) 25 1,000 unit PO BID 07/28/21 03/22/22 History mcg (1,000 unit) capsule (Vitamin D3) blood sugar diagnostic (OneTouch ea 08/09/21 03/22/22 History Verio test strips) rifaximin 550 mg tablet (Xifaxan) 550 mg PO BID #100 tab 01/24/22 03/22/22 Rx sertraline 50 mg tablet (Zoloft) 50 mg PO QAM 02/01/22 03/22/22 History calcitriol 0.25 mcg capsule 0.25 mcg PO 3XWK 02/19/22 03/22/22 History (Rocaltrol) midodrine 5 mg tablet 15 mg PO BID #180 tab 02/19/22 03/22/22 Rx famotidine 20 mg tablet (Pepcid) 20 mg PO BID 03/01/22 03/22/22 History carvedilol 3.125 mg tablet 3.125 mg PO BID 03/22/22 03/22/22 History esomeprazole magnesium 40 mg 40 mg PO QAM 03/22/22 03/22/22 History capsule,delayed release (Nexium) pravastatin 20 mg tablet 10 mg PO HS 03/22/22 03/22/22 History Patient History Medical History (Updated 03/22/22 @ 19:51 by Jhonatan Velarde MD) Abdominal ascites Acute upper gastrointestinal bleeding Acute upper GI bleed BENNY (acute kidney injury) Anemia HX Arrhythmia Ascites Asthma INHALERS JUST FOR WINTER > COLD TAKES BREATH AWAY> NO ACTUAL ASTHMA DX Cancer of left breast Hx of, cancer free 2021. s/p chemo/radiation > PORT TO RIGHT CHEST PRESENT Cardiac murmur follows with Dr. Iglesias Cirrhosis Decreased libido Depression Depression Diabetes mellitus, type 2 Disc degeneration, lumbar Diverticulosis End stage renal disease Erosive esophagitis Fatigue Gait disturbance Hiatal hernia Hormone replacement therapy Hypertension IBS (irritable colon syndrome) Loss of sensation Malignant neoplasm of central portion of left breast in female, estrogen receptor negative (11/15/17) Mitral regurgitation Mitral valve regurgitation UNSURE OF DETAILS, DOESNT FOLLOW CARDIO Nonalcoholic fatty liver disease Obesity (BMI 30-39.9) Osteopenia Peripheral neuropathy Sinus bradycardia Sinus bradycardia PATIENT SAID SHE REMEMBERS SOMEONE TELLING HER OF THIS ON AN EKG ONE TIME, BUT DOESN'T THINK ITS A CHRONIC PROBLEM Sleep apnea cpap T2DM (type 2 diabetes mellitus) Thrombocytopenia Tricuspid regurgitation Tricuspid valve regurgitation UNSURE OF DETAILS, DOESNT FOLLOW CARDIO Surgical History History of cholecystectomy History of colonoscopy History of dilatation and curettage History of esophagogastroduodenoscopy (EGD) History of left cataract surgery left. 12/23/2019. 2 mg versed. no issues. History of lumpectomy of left breast History of tonsillectomy History of tooth extraction History of total hysterectomy with bilateral salpingo-oophorectomy (BSO) History of vascular access device right side APort in place History of wisdom tooth extraction Hx of left breast biopsy malignant Hx of right breast biopsy benign Family History Grandmother (Maternal) Family history of diabetes mellitus Grandmother (Maternal) No problems noted. Grandmother (Paternal) Breast cancer Aunt Breast cancer Uncle Colorectal cancer Father Hypertension Other Colonic polyp No family history of adverse response to anesthesia Denies family history of Ovarian cancer Prostate cancer Myocardial infarction Social History Smoking Status: Never smoker Second Hand Exposure: No; Hx Alcohol Use: No Hx Substance Use: No Preferred Language: Sinhala Communication Ability: Effective Programming Instructor Required: No Beliefs That Will Affect Care: None marital status: Current Living Situation: Spouse Current Living Situation Comment: current occupational status: retired Feels Safe at Home: Yes Safety Concerns: Feels Safe At This Time Childhood Exposure to Second-Hand Smoke: Yes caffeine: No Dental Care, Regularly: Yes Physical Activity Frequency: Declines to Answer Physical Activity Frequency Comment: Not very much right now due to present fluid retention issues Seatbelt Use: always Assistive Devices: Glasses and Walker Review of Systems Review of Systems: All systems reviewed & are unremarkable except as noted in Subjective Physical Exam Constitutional: Elderly cachectic jaundiced Eyes: scleral icterus noted Respiratory: normal respiratory effort, lungs clear to auscultation Cardiovascular: distant heart tones, regular rate and rhythm Gastrointestinal (Abdomen): The abdomen is distended and firm, dullness to percussion, nontender to palpation Musculoskeletal: generalized muscle wasting, lower extremity pitting edema, 2+ on the left, 1+ on the right Skin: Jaundice Neurologic: Alert and responsive, speech is normal, generalized weakness Psychiatric: A+Ox3, euthymic affect Thought Process: clear/coherent thought process Results & Data ([facility]) Vital Signs (Past 12 Hours) Vital Signs Temp Pulse Pulse Resp BP BP Pulse Ox 03/22/22 16:30 67 17 95 03/22/22 16:13 74 19 82/52 L 93 03/22/22 16:12 66 9 L 74/51 L 03/22/22 16:11 36.6 C 66 16 82/52 L 94 03/22/22 16:09 95 03/22/22 15:30 72 18 74/53 L 99 03/22/22 14:30 68 16 72/48 L 98 03/22/22 13:30 72 16 80/52 L 97 03/22/22 13:00 67 16 73/47 L 98 03/22/22 12:45 97 03/22/22 11:49 36.3 C L 67 16 71/44 L 98 Laboratory Results Laboratory Results WBC 5.81 K/uL (4.8-10.8) 03/22/22 12:50 RBC 3.07 M/uL (4.2-5.4) L 03/22/22 12:50 Hgb 11.0 g/dL (12.0-16.0) L 03/22/22 12:50 Hct 32.7 % (37-47) L 03/22/22 12:50 MCV 106.5 fL (80-100) H 03/22/22 12:50 MCH 35.8 pg (25-34) H 03/22/22 12:50 MCHC 33.6 g/dL (32-36) 03/22/22 12:50 RDW Std Deviation 65.7 fL (36.4-46.3) H 03/22/22 12:50 RDW Coeff of Carmelina 17.1 % (11.5-14.5) H 03/22/22 12:50 Plt Count 50 K/uL (130-400) L 03/22/22 12:50 MPV 10.5 fL (7.4-10.4) H 03/22/22 12:50 Immature Gran % (Auto) 0.2 % 03/22/22 12:50 Neut % (Auto) 68.3 % 03/22/22 12:50 Lymph % (Auto) 21.2 % 03/22/22 12:50 [place] % (Auto) 10.0 % 03/22/22 12:50 Eos % (Auto) 0.3 % 03/22/22 12:50 Baso % (Auto) 0.0 % 03/22/22 12:50 Neut # (Auto) 3.97 K/uL (1.4-6.5) 03/22/22 12:50 Lymph # (Auto) 1.23 K/uL (1.2-3.4) 03/22/22 12:50 [place] # (Auto) 0.58 K/uL (0.11-0.59) 03/22/22 12:50 Eos # (Auto) 0.02 K/uL (0-0.5) 03/22/22 12:50 Baso # (Auto) 0.00 K/uL (0-0.2) 03/22/22 12:50 Immature Gran # (Auto) 0.01 K/uL (0.00-0.02) 03/22/22 12:50 Sodium 130 mmol/L (136-145) L 03/22/22 12:50 Potassium 3.0 mmol/L (3.5-5.1) L 03/22/22 12:50 Chloride 96 mmol/L (98-107) L 03/22/22 12:50 Carbon Dioxide 24 mmol/L (21-32) 03/22/22 12:50 Anion Gap 10 (3-11) 03/22/22 12:50 BUN 28 mg/dl (6-23) H 03/22/22 12:50 Creatinine 4.19 mg/dl (0.6-1.2) H 03/22/22 12:50 Est Cr Clr Drug Dosing Not Reportable 03/22/22 12:50 Est GFR ( Amer) 11.4 ml/min 03/22/22 12:50 Est GFR (Non-Af Amer) 9.8 ml/min 03/22/22 12:50 BUN/Creatinine Ratio 6.7 (10-20) L 03/22/22 12:50 Glucose 156 mg/dl (70-99(Fasting)) H 03/22/22 12:50 POC Glucose 108 mg/dl (70-99) H 03/22/22 17:08 Calcium 8.8 mg/dl (8.5-10.1) 03/22/22 12:50 Total Bilirubin 2.6 mg/dl (0.2-1.0) H 03/22/22 12:50 AST 55 U/L (13-39) H 03/22/22 12:50 ALT 27 U/L (7-52) 03/22/22 12:50 Alkaline Phosphatase 103 U/L (34-104) 03/22/22 12:50 Troponin I High Sens 31.1 pg/ml (0-14) H 03/22/22 12:50 Total Protein 5.3 gm/dl (6.0-8.3) L 03/22/22 12:50 Albumin 2.5 gm/dl (3.4-5.0) L 03/22/22 12:50 Globulin 2.8 gm/dl (2.5-4.0) 03/22/22 12:50 Albumin/Globulin Ratio 0.9 (0.9-2) 03/22/22 12:50 Lipase 22 U/L (11-82) 03/22/22 12:50 SARS-CoV-2, RNA, NAAT NEGATIVE (NEGATIVE) 03/22/22 14:00 Impressions Chest X-Ray 03/22/22 12:07 XR chest 1V portable HISTORY: Atypical Chest Pain COMPARISON: Chest 02/19/2022. FINDINGS: There are low lung volumes. No pneumothorax. Small left pleural effusion. Suspect a trace right pleural effusion which has improved. The heart is mildly enlarged. Bilateral central venous catheters are unchanged in position. There is mild central pulmonary vascular congestion without overt edema. This is improved in the interval. Bibasilar linear densities are noted. IMPRESSION: 1. Cardiomegaly with mild central pulmonary vascular congestion. This has improved in the interval. 2. Small left pleural effusion has slightly progressed. The right pleural effusion has improved/resolved. 3. Bibasilar densities are nonspecific but may represent atelectasis. A pneumonia could also a similar appearance. ACT 112: Negative or not required by law. Electronically signed by: Nagi Nguyen M.D. 03/22/2022 12:41 PM
[2022-03-22] MEDS: MIDODRINE HCL 10 MG TAB PO SCH (20:15)
[2022-03-23] MEDS ORDERED: HEPARIN 100 UNIT/ML 5ML FLUSH FLUSH PRN (00:52)
[2022-03-23 05:47] LABS: Hematocrit (blood only) 30.1 % (37-47); Hemoglobin 10.2 g/dL (12.0-16.0); Mean Corpuscular Hemoglobin 35.9 pg (25-34); Mean Corpuscular Hgb Conc 33.9 g/dL (32-36); RDW Coefficient of Variation 17.1 % (11.5-14.5); RDW Standard Deviation 65.4 fL (36.4-46.3); Red Blood Count 2.84 M/uL (4.2-5.4); White Blood Count 5.33 K/uL (4.8-10.8)
[2022-03-23 05:52] LABS: Albumin Globulin Ratio 1.5 (0.9-2); Albumin Level 3.2 gm/dl (3.4-5.0); BUN Creatinine Ratio 6.4 (10-20); Bilirubin,Total 2.4 mg/dl (0.2-1.0); Calcium 9.1 mg/dl (8.5-10.1); Creatinine Clr Calc Pharmacy 9.1 ml/min; Est GFR (African American) 9.6 ml/min; Est GFR (Non-African American) 8.3 ml/min; Globulin 2.2 gm/dl (2.5-4.0); Mean Platelet Volume 10.1 fL (7.4-10.4); Platelet Count 50 K/uL (130-400); Potassium 3.1 mmol/L (3.5-5.1); Total Protein 5.4 gm/dl (6.0-8.3)
[2022-03-23 06:22] LABS: Eosinophils # (auto) 0.05 K/uL (0-0.5); Eosinophils % (auto) 0.9 %; Immature Granulocytes # (auto) 0.01 K/uL (0.00-0.02); Immature Granulocytes % (auto) 0.2 %; Lymphocytes # (auto) 1.24 K/uL (1.2-3.4); Lymphocytes % (auto) 23.3 %; Monocytes # (auto) 0.59 K/uL (0.11-0.59); Monocytes % (auto) 11.1 %; Neutrophils # (auto) 3.44 K/uL (1.4-6.5); Neutrophils % (auto) 64.5 %; RBC Morphology Unremarkable
[2022-03-23] MEDS: INSULIN ASPART PER UNIT SC SCH ×4 (07:55→21:22)
--- NOTE | 2022-03-23 08:48 | Nephrology Consultation ---
Date of Consultation March 23, 2022 Assessment & Plan (1) ESRD (end stage renal disease): * BP has improved following administration of Midodrine, saline and IV albumin * Will provide 2 hours heparin free HD today using 4K bath and no UF. Will provide additional 25g IV albumin at the start of the dialysis treatment * Monitor PRP * Discussed goals of care w/ Ms. Conde this morning. She wishes to continue HD at this time but acknowledges that her medical condition is tenuous. If her BP becomes unstable then she will stop HD and transition to comfort measures (2) Liver cirrhosis secondary to BEASLEY: * ESLD. Not a transplant candidate due to malignancy in 2018 * May require paracentesis this hospitalization. Recommend limiting paracentesis volume to 4 L or less with each tap and coadministration of IV albumin History of Present Illness Reason for Consultation: ESKD on IHD Attending Physician: Bryan Leger MD History of Present Illness Ms. Conde is a 76 year old white female who is seen at the request of the [facility] to provide inpatient HD. Medical records in the EMR were reviewed today and are summarized as follows: Ms. Conde has cirrhosis due to BEASLEY. In 12/02 she developed HRS and was transferred to [facility] for consideration of liver transplant. She was started on HD but then noted to have a h/o breast CA w/ L partial mastectomy in 2018. Transplant was declined due to recent malignancy. HD was continued as an outpatient at the [facility] HD unit. Patient dialyzed MWF for 3 hours w/ EDW 65kg. He dialysis access remains a TCC. Dialysis is being provided on a palliative basis. Ms. Conde undergoes large volume paracentesis on a weekly basis. Her SBP during treatments has ranged from 70 - 90 mmHg. Ms. Conde has indicated that if her condition worsens that she will stop dialysis and transition to comfort measures. Yesterday Ms. Conde presented to [facility] for paracentesis. She had not taken Midodrine for the last 2 weeks. She was noted to be hypotensive, the procedure was cancelled and she was admitted to the hospitalist service. Midodrine has been restarted, 25g Albumin administered along with 750 cc 0.9% NS. SBP has improved to the mid 80's but patient has tense abdominal ascites. Allergies Allergy/AdvReac Type Severity Reaction Status Date / Time guaifenesin Allergy Severe Stroke Verified 03/22/22 10:27 like symptoms morphine Allergy Intermediate "FIRE" Verified 03/22/22 10:27 SENSATION IN HEAD Penicillins Allergy Intermediate HIVES Verified 03/22/22 10:27 ethyl alcohol AdvReac Severe STROKE Verified 03/22/22 10:27 LIKE SYMPTOMS shellfish derived AdvReac Severe PT Verified 03/22/22 10:27 DEVELOPED HEPATITIS adhesive AdvReac Intermediate RASH,REDNES Verified 03/22/22 10:27 S verapamil AdvReac Mild H/A Verified 03/22/22 10:27 Home Medications Medication Instructions Recorded Confirmed Type vitamin E 400 unit capsule 400 unit PO HS cap 10/28/20 03/22/22 History OneTouch Delica Plus Lancet 33 #200 ea NS 01/30/21 03/22/22 Rx gauge (lancets) BD Ultra-Fine Obdulia Pen Needle 32 #200 ea NS 02/14/21 03/22/22 Rx gauge x 5/32" (pen needle, diabetic) cholecalciferol (vitamin D3) 25 1,000 unit PO BID 07/28/21 03/22/22 History mcg (1,000 unit) capsule (Vitamin D3) blood sugar diagnostic (OneTouch ea 08/09/21 03/22/22 History Verio test strips) rifaximin 550 mg tablet (Xifaxan) 550 mg PO BID #100 tab 01/24/22 03/22/22 Rx sertraline 50 mg tablet (Zoloft) 50 mg PO QAM 02/01/22 03/22/22 History calcitriol 0.25 mcg capsule 0.25 mcg PO 3XWK 02/19/22 03/22/22 History (Rocaltrol) midodrine 5 mg tablet 15 mg PO BID #180 tab 02/19/22 03/22/22 Rx famotidine 20 mg tablet (Pepcid) 20 mg PO BID 03/01/22 03/22/22 History carvedilol 3.125 mg tablet 3.125 mg PO BID 03/22/22 03/22/22 History esomeprazole magnesium 40 mg 40 mg PO QAM 03/22/22 03/22/22 History capsule,delayed release (Nexium) pravastatin 20 mg tablet 10 mg PO HS 03/22/22 03/22/22 History Patient History Medical History Abdominal ascites Acute upper gastrointestinal bleeding Acute upper GI bleed BENNY (acute kidney injury) Anemia HX Arrhythmia Ascites Asthma INHALERS JUST FOR WINTER > COLD TAKES BREATH AWAY> NO ACTUAL ASTHMA DX Cancer of left breast Hx of, cancer free 2021. s/p chemo/radiation > PORT TO RIGHT CHEST PRESENT Cardiac murmur follows with Dr. Iglesias Cirrhosis Decreased libido Depression Depression Diabetes mellitus, type 2 Disc degeneration, lumbar Diverticulosis End stage renal disease Erosive esophagitis Fatigue Gait disturbance Hiatal hernia Hormone replacement therapy Hypertension IBS (irritable colon syndrome) Loss of sensation Malignant neoplasm of central portion of left breast in female, estrogen receptor negative (11/15/17) Mitral regurgitation Mitral valve regurgitation UNSURE OF DETAILS, DOESNT FOLLOW CARDIO Nonalcoholic fatty liver disease Obesity (BMI 30-39.9) Osteopenia Peripheral neuropathy Sinus bradycardia Sinus bradycardia PATIENT SAID SHE REMEMBERS SOMEONE TELLING HER OF THIS ON AN EKG ONE TIME, BUT DOESN'T THINK ITS A CHRONIC PROBLEM Sleep apnea cpap T2DM (type 2 diabetes mellitus) Thrombocytopenia Tricuspid regurgitation Tricuspid valve regurgitation UNSURE OF DETAILS, DOESNT FOLLOW CARDIO Surgical History History of cholecystectomy History of colonoscopy History of dilatation and curettage History of esophagogastroduodenoscopy (EGD) History of left cataract surgery left. 12/23/2019. 2 mg versed. no issues. History of lumpectomy of left breast History of tonsillectomy History of tooth extraction History of total hysterectomy with bilateral salpingo-oophorectomy (BSO) History of vascular access device right side APort in place History of wisdom tooth extraction Hx of left breast biopsy malignant Hx of right breast biopsy benign Family History Grandmother (Maternal) Family history of diabetes mellitus Grandmother (Maternal) No problems noted. Grandmother (Paternal) Breast cancer Aunt Breast cancer Uncle Colorectal cancer Father Hypertension Other Colonic polyp No family history of adverse response to anesthesia Denies family history of Ovarian cancer Prostate cancer Myocardial infarction Social History Smoking Status: Never smoker Second Hand Exposure: No; Hx Alcohol Use: No Hx Substance Use: No Preferred Language: Greenlandic Communication Ability: Effective Rug Sample Beveler Required: No Beliefs That Will Affect Care: None marital status: Current Living Situation: Spouse Current Living Situation Comment: current occupational status: retired Feels Safe at Home: Yes Safety Concerns: Feels Safe At This Time Childhood Exposure to Second-Hand Smoke: Yes caffeine: No Dental Care, Regularly: Yes Physical Activity Frequency: Declines to Answer Physical Activity Frequency Comment: Not very much right now due to present fluid retention issues Seatbelt Use: always Assistive Devices: Glasses and Walker Review of Systems Constitutional: + weakness; no fever Eyes: no worsening vision Ear, Nose, Mouth, Throat: no problem reported Respiratory: no cough and no dyspnea Cardiovascular: no chest pain, no palpitations and no edema Gastrointestinal: + bloating; no abdominal pain, no nausea and no vomiting Integumentary: no rash Neurologic: no confusion Physical Exam Constitutional: + ill appearing and + frail appearing Eyes: PERRL ENMT: external ear and nose normal, oropharynx normal Neck: trachea midline, no thyromegaly Respiratory: normal respiratory effort, lungs clear to auscultation Cardiovascular: Rate/Rhythm: regular rate and regular rhythm Extremities: + edema (trace) Gastrointestinal (Abdomen): Inspection/Auscultation: + abdomen distended and + hypoactive bowel sounds Skin: no rashes, warm and dry Neurologic: awake; not confused Results & Data ([facility]) Vital Signs (Past 12 Hours) Vital Signs Temp Pulse Pulse Resp BP BP Pulse Ox 03/23/22 08:00 69 03/23/22 07:30 36.4 C L 71 20 76/43 L 94 03/23/22 04:30 61 20 94 03/23/22 04:20 60 23 94 03/23/22 04:10 60 17 95 03/23/22 04:00 36.0 C L 63 21 100/43 L 03/23/22 03:50 62 18 74/41 L 95 03/23/22 03:40 61 18 96 03/23/22 03:30 61 15 96 03/23/22 03:20 61 15 95 03/23/22 03:10 63 18 95 03/23/22 03:00 62 19 96 03/23/22 02:50 61 20 95 03/23/22 02:40 62 20 96 03/23/22 02:30 65 19 95 03/23/22 02:20 62 13 93 03/23/22 02:10 60 12 93 03/23/22 02:00 60 18 72/44 L 94 03/23/22 01:50 63 20 95 03/23/22 01:40 62 14 94 03/23/22 01:30 61 15 95 03/23/22 01:20 62 13 95 03/23/22 01:10 62 22 95 03/23/22 01:00 60 22 95 03/23/22 00:56 62 03/23/22 00:50 64 24 95 03/23/22 00:40 64 21 96 03/23/22 00:30 63 21 96 03/23/22 00:20 63 19 95 03/23/22 00:10 62 17 97 03/23/22 00:00 63 19 79/49 L 93 03/22/22 23:55 36.6 C 03/22/22 23:50 63 17 96 03/22/22 23:40 62 22 96 03/22/22 23:30 60 15 94 03/22/22 23:20 60 18 95 03/22/22 23:10 60 15 94 03/22/22 23:00 62 22 98 03/22/22 22:50 64 25 H 96 03/22/22 22:40 59 L 22 96 03/22/22 22:30 62 23 95 03/22/22 22:20 61 20 95 03/22/22 22:10 62 15 94 03/22/22 22:02 62 13 74/46 L 94 03/22/22 22:00 63 16 75/42 L 93 03/22/22 21:50 63 15 94 03/22/22 21:40 66 25 H 96 03/22/22 21:30 63 13 94 03/22/22 21:20 62 20 94 03/22/22 21:10 63 19 96 03/22/22 21:00 66 18 96 03/22/22 20:50 67 20 96 Laboratory Results Laboratory Tests 03/23/22 03/23/22 04:59 04:59 WBC 5.33 Hgb 10.2 L Hct 30.1 L Plt Count 50 L Sodium 132 L Potassium 3.1 L Chloride 97 L Carbon Dioxide 25 BUN 31 H Creatinine 4.82 H* D Calcium 9.1 AST 49 H ALT 22 Albumin 3.2 L PG Care Time/CCT Total # of Minutes Spent Total Time Spent with Patient: Total time spent is greater than 50% in coordination of care (as documented) at patient's floor/unit and/or counseling patient: Coding Level of Care Code 76342 Inpt Consult Level 5 Diagnoses ESRD (end stage renal disease) N18.6 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
[2022-03-23] MEDS: PANTOprazole 40 MG TAB PO SCH (08:52)
[2022-03-23] MEDS: SERTRALINE HCL 50 MG TABLET PO SCH (08:52)
[2022-03-23] MEDS: MIDODRINE HCL 10 MG TAB PO SCH ×3 (08:52→21:22)
[2022-03-23] MEDS: FAMOTIDINE 20 MG TAB PO SCH (08:52)
[2022-03-23] MEDS ORDERED: SODIUM CHLORIDE 0.9% 1000ML 1,000 ML IV PRN (10:14)
[2022-03-23] MEDS ORDERED: ALBUMIN 25% 100 mL 25 GM/100 ML VIAL IV ONE ×2 (10:17→16:00)
--- NOTE | 2022-03-23 12:07 | Hospitalist Progress Note ---
Date of Service March 23, 2022 Assessment & Plan (1) Hypotension: Plan: Likely multifactorial, suspect mostly third spacing in setting of ESRD and liver cirrhosis. Hopefully as carvedilol comes out of her system her BP will improve but since she is on a low dose and not taking her evening doses I am not sure there is much improvement to make. She appears to be perfusing her brain well and cap refill in peripheries still good even with systolic BP in 70s and MAP < 65. I discussed vasopressors with the patient but given lack of reversible etiology I think there is little to gain from this. Patient consented for blood products, albumin 25%, 50 g x 2 bags given yest erday. Albumin will be give with dialysis today. Patient is on midodrine at home, will increase to three times daily Discussed with nephrology and no role of octreotide since she is already on dialysis (2) Nonalcoholic fatty liver disease: Plan: Follows with GI. Has therapeutic paracentesis every week Consider in the next 1-2 days if patient's blood pressure improves. Will need albumin. Appreciate GI consult - discussed with Dr Velarde and given the patient is having dialysis today and paracentesis not urgent will delay this. (3) ESRD (end stage renal disease): Plan: Patient is typically on a Saturday, Saturday, and Saturday schedule. Has not missed any sessions. Appreciate nephrology consult planning on seeing if she tolerates dialysis today with albumin. (4) T2DM (type 2 diabetes mellitus): Plan: HbA1C not accurate in setting of ESRD on dialysis Novolog: Goal BSG Range: Low 100_mg/dL, High 140 _mg/dL Correction Factor: 50_mg/dL/unit Carbohydrate ratio = _25_ g/unit BSGs ACHS if eating, q6h if npo (5) Acute hyponatremia: Plan: Likely secondary to her end-stage liver disease and fluid overload. Continue to monitor. Stable. (6) Hypokalemia: Plan: Will defer supplementation to nephrology if necessary given risk of hyperkalemia with ESRD. Admission and Anticipated Discharge Date Admission Date: March 22, 2022 Subjective No chest pain, dizziness or shortness of breath. She reports feeling her baseline self. Nephrology planning on dialysis today. She reportedly hasn't been taking her evening medications for the last week. Updated her daughter over the phone. Given she wishes to continue on dialysis she has not been a hospice candidate but if unable to tolerate this going forward we would have a family discussion to this. She will be in to see the patient tomorrow. Review of Systems Review of Systems: All systems reviewed & are unremarkable except as noted in Subjective Physical Exam Constitutional: well developed; + not well nourished and no acute distress Eyes: + anicteric sclerae; normal pupil size ENMT: Mouth: oral mucous membranes not dry Respiratory: normal respiratory effort, lungs clear to auscultation Cardiovascular: Rate/Rhythm: regular rate and regular rhythm Heart Sounds: no murmur Extremities: normal capillary refill and + pedal edema (2+ equal b/l) Gastrointestinal (Abdomen): Percussion/Palpation: abdomen soft; abdomen nontender Skin: no rashes, warm and dry Neurologic: moves all extremities and awake; not confused Psychiatric: A+Ox3, euthymic affect Results & Data Results & Data ([facility]) Vital Signs (Past 12 Hours) Vital Signs Temp Pulse Pulse Resp BP BP Pulse Ox 03/23/22 11:28 36.6 C 56 L 16 83/49 L 95 03/23/22 09:19 81/42 L 03/23/22 08:00 69 03/23/22 07:30 36.4 C L 71 20 76/43 L 94 03/23/22 04:30 61 20 94 03/23/22 04:20 60 23 94 03/23/22 04:10 60 17 95 03/23/22 04:00 36.0 C L 63 21 100/43 L 03/23/22 03:50 62 18 74/41 L 95 03/23/22 03:40 61 18 96 03/23/22 03:30 61 15 96 03/23/22 03:20 61 15 95 03/23/22 03:10 63 18 95 03/23/22 03:00 62 19 96 03/23/22 02:50 61 20 95 03/23/22 02:40 62 20 96 03/23/22 02:30 65 19 95 03/23/22 02:20 62 13 93 03/23/22 02:10 60 12 93 03/23/22 02:00 60 18 72/44 L 94 03/23/22 01:50 63 20 95 03/23/22 01:40 62 14 94 03/23/22 01:30 61 15 95 03/23/22 01:20 62 13 95 03/23/22 01:10 62 22 95 03/23/22 01:00 60 22 95 03/23/22 00:56 62 03/23/22 00:50 64 24 95 03/23/22 00:40 64 21 96 03/23/22 00:30 63 21 96 03/23/22 00:20 63 19 95 03/23/22 00:10 62 17 97 PG Care Time/CCT Total # of Minutes Spent Total Time Spent with Patient: Total time spent is greater than 50% in coordination of care (as documented) at patient's floor/unit and/or counseling patient: Coding Level of Care Code 26728 Subseq Obs Care Lvl 3 Diagnoses Hypotension I95.9 Nonalcoholic fatty liver disease K76.0 ESRD (end stage renal disease) N18.6 T2DM (type 2 diabetes mellitus) E11.9 Acute hyponatremia E87.1 Hypokalemia E87.6
[2022-03-23] MEDS: CALCITRIOL 0.25 MCG CAPSULE PO SCH (12:13)
[2022-03-23] MEDS ORDERED: MIDODRINE HCL 2.5 MG TAB PO SCH (14:00)
--- NOTE | 2022-03-23 16:14 | Gastroenterology Progress Note ---
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 Octreotide drip for HRS not indicated as she is on dialysis Admission and Anticipated Discharge Date Admission Date: March 22, 2022 Subjective Patient seen this afternoon during dialysis. She has no additional complaints, denies dyspnea, abdominal pain, nausea, vomiting. Hypotension has been treated with IV albumin, saline, and PO midodrine, with systolic BPs 75 - 83, most recent BP at 1500 was 75/40. Review of Systems Review of Systems: No additional findings on systems review Physical Exam Constitutional: chronically ill, cachectic appearance Respiratory: normal respiratory effort, lungs clear to auscultation Gastrointestinal (Abdomen): Distended firm abdomen with ascites, no tenderness to palpation, no guarding Musculoskeletal: Mild dependent edema Neurologic: generalized weakness without focal signs Psychiatric: A+Ox3, euthymic affect Thought Process: clear/coherent thought process Results & Data ([facility]) Vital Signs (Past 12 Hours) Vital Signs Temp Pulse Pulse Resp BP BP Pulse Ox 03/23/22 15:43 64 03/23/22 15:00 36.4 C L 65 18 75/40 L 95 03/23/22 11:28 36.6 C 56 L 16 83/49 L 95 03/23/22 09:19 81/42 L 03/23/22 08:00 69 03/23/22 07:30 36.4 C L 71 20 76/43 L 94 03/23/22 04:30 61 20 94 03/23/22 04:20 60 23 94 03/23/22 04:10 60 17 95 Laboratory Results 03/23/22 03/23/22 03/23/22 Range/Units 12:08 12:08 12:08 WBC (4.8-10.8) K/uL RBC (4.2-5.4) M/uL Hgb (12.0-16.0) g/dL Hct (37-47) % MCV (80-100) fL MCH (25-34) pg MCHC (32-36) g/dL RDW Std Deviation (36.4-46.3) fL RDW Coeff of Carmelina (11.5-14.5) % Plt Count (130-400) K/uL MPV (7.4-10.4) fL Immature Gran % (Auto) % Neut % (Auto) % Lymph % (Auto) % [place] % (Auto) % Eos % (Auto) % Baso % (Auto) % Neut # (Auto) (1.4-6.5) K/uL Lymph # (Auto) (1.2-3.4) K/uL [place] # (Auto) (0.11-0.59) K/uL Eos # (Auto) (0-0.5) K/uL Baso # (Auto) (0-0.2) K/uL Immature Gran # (Auto) (0.00-0.02) K/uL RBC Morphology Sodium (136-145) mmol/L Potassium (3.5-5.1) mmol/L Chloride (98-107) mmol/L Carbon Dioxide (21-32) mmol/L Anion Gap (3-11) BUN (6-23) mg/dl Creatinine (0.6-1.2) mg/dl Est Cr Clr Drug Dosing ml/min Est GFR ( Amer) ml/min Est GFR (Non-Af Amer) ml/min BUN/Creatinine Ratio (10-20) Glucose (70-99(Fasting)) mg/dl POC Glucose (70-99) mg/dl Calcium (8.5-10.1) mg/dl Total Bilirubin (0.2-1.0) mg/dl AST (13-39) U/L ALT (7-52) U/L Alkaline Phosphatase (34-104) U/L Total Protein (6.0-8.3) gm/dl Albumin (3.4-5.0) gm/dl Globulin (2.5-4.0) gm/dl Albumin/Globulin Ratio (0.9-2) Hepatitis B Ab, Qual Pending Hep Bs Antigen Pending Hep Bs Ag Confirmation Pending Hep B Core IgM Ab Pending 03/23/22 03/23/22 03/23/22 Range/Units 11:23 07:23 04:59 WBC (4.8-10.8) K/uL RBC (4.2-5.4) M/uL Hgb (12.0-16.0) g/dL Hct (37-47) % MCV (80-100) fL MCH (25-34) pg MCHC (32-36) g/dL RDW Std Deviation (36.4-46.3) fL RDW Coeff of Carmelina (11.5-14.5) % Plt Count (130-400) K/uL MPV (7.4-10.4) fL Immature Gran % (Auto) % Neut % (Auto) % Lymph % (Auto) % [place] % (Auto) % Eos % (Auto) % Baso % (Auto) % Neut # (Auto) (1.4-6.5) K/uL Lymph # (Auto) (1.2-3.4) K/uL [place] # (Auto) (0.11-0.59) K/uL Eos # (Auto) (0-0.5) K/uL Baso # (Auto) (0-0.2) K/uL Immature Gran # (Auto) (0.00-0.02) K/uL RBC Morphology Sodium 132 L (136-145) mmol/L Potassium 3.1 L (3.5-5.1) mmol/L Chloride 97 L (98-107) mmol/L Carbon Dioxide 25 (21-32) mmol/L Anion Gap 10 (3-11) BUN 31 H (6-23) mg/dl Creatinine 4.82 H* D (0.6-1.2) mg/dl Est Cr Clr Drug Dosing 9.1 ml/min Est GFR ( Amer) 9.6 ml/min Est GFR (Non-Af Amer) 8.3 ml/min BUN/Creatinine Ratio 6.4 L (10-20) Glucose 78 (70-99(Fasting)) mg/dl POC Glucose 173 H 76 (70-99) mg/dl Calcium 9.1 (8.5-10.1) mg/dl Total Bilirubin 2.4 H (0.2-1.0) mg/dl AST 49 H (13-39) U/L ALT 22 (7-52) U/L Alkaline Phosphatase 91 (34-104) U/L Total Protein 5.4 L (6.0-8.3) gm/dl Albumin 3.2 L (3.4-5.0) gm/dl Globulin 2.2 L (2.5-4.0) gm/dl Albumin/Globulin Ratio 1.5 (0.9-2) Hepatitis B Ab, Qual Hep Bs Antigen Hep Bs Ag Confirmation Hep B Core IgM Ab 03/23/22 03/22/22 03/22/22 Range/Units 04:59 20:10 17:08 WBC 5.33 (4.8-10.8) K/uL RBC 2.84 L (4.2-5.4) M/uL Hgb 10.2 L (12.0-16.0) g/dL Hct 30.1 L (37-47) % MCV 106.0 H (80-100) fL MCH 35.9 H (25-34) pg MCHC 33.9 (32-36) g/dL RDW Std Deviation 65.4 H (36.4-46.3) fL RDW Coeff of Carmelina 17.1 H (11.5-14.5) % Plt Count 50 L (130-400) K/uL MPV 10.1 (7.4-10.4) fL Immature Gran % (Auto) 0.2 % Neut % (Auto) 64.5 % Lymph % (Auto) 23.3 % [place] % (Auto) 11.1 % Eos % (Auto) 0.9 % Baso % (Auto) 0.0 % Neut # (Auto) 3.44 (1.4-6.5) K/uL Lymph # (Auto) 1.24 (1.2-3.4) K/uL [place] # (Auto) 0.59 (0.11-0.59) K/uL Eos # (Auto) 0.05 (0-0.5) K/uL Baso # (Auto) 0.00 (0-0.2) K/uL Immature Gran # (Auto) 0.01 (0.00-0.02) K/uL RBC Morphology Unremarkable Sodium (136-145) mmol/L Potassium (3.5-5.1) mmol/L Chloride (98-107) mmol/L Carbon Dioxide (21-32) mmol/L Anion Gap (3-11) BUN (6-23) mg/dl Creatinine (0.6-1.2) mg/dl Est Cr Clr Drug Dosing ml/min Est GFR ( Amer) ml/min Est GFR (Non-Af Amer) ml/min BUN/Creatinine Ratio (10-20) Glucose (70-99(Fasting)) mg/dl POC Glucose 110 H 108 H (70-99) mg/dl Calcium (8.5-10.1) mg/dl Total Bilirubin (0.2-1.0) mg/dl AST (13-39) U/L ALT (7-52) U/L Alkaline Phosphatase (34-104) U/L Total Protein (6.0-8.3) gm/dl Albumin (3.4-5.0) gm/dl Globulin (2.5-4.0) gm/dl Albumin/Globulin Ratio (0.9-2) Hepatitis B Ab, Qual Hep Bs Antigen Hep Bs Ag Confirmation Hep B Core IgM Ab
--- NOTE | 2022-03-23 18:08 | Electrocardiogram Report ---
Test Reason : Blood Pressure : / mmHG Vent. Rate : 066 BPM Atrial Rate : 066 BPM P-R Int : 136 ms QRS Dur : 138 ms QT Int : 504 ms P-R-T Axes : -25 -46 -19 degrees QTc Int : 528 ms Normal sinus rhythm Right bundle branch block Left anterior fascicular block Bifascicular block Possible Anterolateral infarct (cited on or before 19-FEB-2022) Abnormal ECG When compared with ECG of 19-FEB-2022 15:51, No significant change Confirmed by Huy Garcia ([id number]) on 03/23/2022 6:08:42 PM Referred By: REFERRED SELF Confirmed By:Huy Garcia
[2022-03-24 05:37] LABS: Hematocrit (blood only) 30.4 % (37-47); Hemoglobin 10.2 g/dL (12.0-16.0); Mean Corpuscular Hemoglobin 35.9 pg (25-34); Mean Corpuscular Hgb Conc 33.6 g/dL (32-36); Mean Platelet Volume 9.8 fL (7.4-10.4); Platelet Count 55 K/uL (130-400); RDW Coefficient of Variation 17.4 % (11.5-14.5); RDW Standard Deviation 67.3 fL (36.4-46.3); Red Blood Count 2.84 M/uL (4.2-5.4)
[2022-03-24 05:58] LABS: BUN Creatinine Ratio 6.3 (10-20); Calcium 8.8 mg/dl (8.5-10.1); Creatinine Clr Calc Pharmacy 11.1 ml/min; Est GFR (African American) 12.1 ml/min; Est GFR (Non-African American) 10.4 ml/min; Potassium 3.5 mmol/L (3.5-5.1)
[2022-03-24 06:00] LABS: Basophils # (auto) 0.01 K/uL (0-0.2); Basophils % (auto) 0.2 %; Eosinophils # (auto) 0.03 K/uL (0-0.5); Eosinophils % (auto) 0.5 %; Immature Granulocytes # (auto) 0.01 K/uL (0.00-0.02); Immature Granulocytes % (auto) 0.2 %; Lymphocytes # (auto) 1.24 K/uL (1.2-3.4); Monocytes # (auto) 0.82 K/uL (0.11-0.59); Monocytes % (auto) 13.9 %; Neutrophils # (auto) 3.79 K/uL (1.4-6.5); Neutrophils % (auto) 64.2 %
[2022-03-24 06:21] LABS: HBSAG NON-REACTIVE (NON-REACTIVE)
[2022-03-24 08:00] LABS: INR 1.6 (0.9-1.1); Prothrombin Time 16.3 Seconds (9.0-12.0)
[2022-03-24] MEDS: INSULIN ASPART PER UNIT SC SCH ×4 (08:29→21:07)
[2022-03-24] MEDS: FAMOTIDINE 20 MG TAB PO SCH (08:30)
[2022-03-24] MEDS: MIDODRINE HCL 10 MG TAB PO SCH ×3 (08:30→20:15)
[2022-03-24] MEDS: PANTOprazole 40 MG TAB PO SCH (08:30)
[2022-03-24] MEDS: SERTRALINE HCL 50 MG TABLET PO SCH (08:30)
--- NOTE | 2022-03-24 10:13 | Nephrology Progress Note ---
Date of Service March 24, 2022 Assessment & Plan (1) ESRD (end stage renal disease): Plan: * Completed 2 hours heparin free HD yesterday using 4K bath and no UF. Midodrine and IV albumin provided to sustain BP through treatment. * Monitor PRP * Discussed goals of care w/ Ms. Conde and her daughter Ketty by this morning. She wishes to continue HD but acknowledges that her medical condition is tenuous. If her BP becomes unstable then she will stop HD and transition to comfort measures (2) Liver cirrhosis secondary to BEASLEY: Plan: * ESLD. Not a transplant candidate due to malignancy in 2018 * May require paracentesis this hospitalization. Recommend limiting paracentesis volume to 4 L or less with each tap and coadministration of IV albumin Admission and Anticipated Discharge Date Admission Date: March 22, 2022 Subjective No acute events overnight. Tasneem states that she feels well this AM. She is pleasant and generally answers questions appropriately but obviously somewhat confused. She is not oriented to time. She is aware that she is in the hospital. She avoids answering questions directly. There were no specific answers and responses were often tangential. When asked how long she has been in the hospital, she answered "a couple days... a few days...." When asked about dialysis, "I don't seem to be having the problems that we were having. I understand everyone's concerns." I asked her to describe the concerns and she told me "concerns about dialysis." I asked her about her blood pressure and she responded by saying, "it's up and down. It had been doing a lot better." She told me that she understands that her blood pressure is low but that she feels okay. At different times during our conversation, she described her baseline functional status differently. When asked why she is in the hospital, she old me to have her abdomen worked on. She did seem to understand that her condition is progressing to a point where hemodialysis may not be an option much longer. She asked me to speak with her daughter Ketty in this regard. I called and spoke to Ketty by phone. She expressed understanding. Ketty plans to meet with her brother and father today to discuss overall goals of care. Ketty is not the POA. She expressed understanding that low blood pressure is complicating and may eventually lead to inability to continue paracentesis and hemodialysis. Based on prior discussions, Tasneem and family have been considering hospice at home. Tasneem completed an short dialysis treatment without complications. No UF. Review of Systems Review of Systems: All systems reviewed & are unremarkable except as noted in HPI & below Physical Exam Constitutional: + ill appearing and + frail appearing Eyes: PERRL ENMT: external ear and nose normal, oropharynx normal Neck: trachea midline, no thyromegaly TDC Respiratory: normal respiratory effort, lungs clear to auscultation Cardiovascular: Rate/Rhythm: regular rate and regular rhythm Extremities: + edema (trace) Gastrointestinal (Abdomen): Inspection/Auscultation: + abdomen distended and + hypoactive bowel sounds Skin: no rashes, warm and dry Neurologic: awake; not confused Results & Data ([facility]) Vital Signs (Past 12 Hours) Vital Signs Temp Pulse Resp BP Pulse Ox 03/24/22 09:00 68 25 H 94 03/24/22 08:24 65 18 74/44 L 94 03/24/22 08:00 36.8 C 63 23 78/47 L 93 03/24/22 07:00 60 20 92 03/24/22 00:00 62 15 89 L 03/23/22 23:00 63 19 92 03/23/22 22:00 65 17 63/34 L 96 Laboratory Results Laboratory Results - last 24 hr 03/23/22 03/23/22 03/23/22 11:23 12:08 12:08 WBC RBC Hgb Hct MCV MCH MCHC RDW Std Deviation RDW Coeff of Carmelina Plt Count MPV Immature Gran % (Auto) Neut % (Auto) Lymph % (Auto) [place] % (Auto) Eos % (Auto) Baso % (Auto) Neut # (Auto) Lymph # (Auto) [place] # (Auto) Eos # (Auto) Baso # (Auto) Immature Gran # (Auto) PT INR Sodium Potassium Chloride Carbon Dioxide Anion Gap BUN Creatinine Est Cr Clr Drug Dosing Est GFR ( Amer) Est GFR (Non-Af Amer) BUN/Creatinine Ratio Glucose POC Glucose 173 H Lactate Calcium Hepatitis B Ab, Qual Hep Bs Antigen NON-REACTIVE Hep Bs Ag Confirmation TNP Hep B Core IgM Ab NON-REACTIVE 03/23/22 03/23/22 03/23/22 12:08 18:34 20:34 WBC RBC Hgb Hct MCV MCH MCHC RDW Std Deviation RDW Coeff of Carmelina Plt Count MPV Immature Gran % (Auto) Neut % (Auto) Lymph % (Auto) [place] % (Auto) Eos % (Auto) Baso % (Auto) Neut # (Auto) Lymph # (Auto) [place] # (Auto) Eos # (Auto) Baso # (Auto) Immature Gran # (Auto) PT INR Sodium Potassium Chloride Carbon Dioxide Anion Gap BUN Creatinine Est Cr Clr Drug Dosing Est GFR ( Amer) Est GFR (Non-Af Amer) BUN/Creatinine Ratio Glucose POC Glucose 72 88 Lactate Calcium Hepatitis B Ab, Qual BORDERLINE A Hep Bs Antigen Hep Bs Ag Confirmation Hep B Core IgM Ab 03/24/22 03/24/22 03/24/22 05:18 05:18 05:18 WBC 5.90 RBC 2.84 L Hgb 10.2 L Hct 30.4 L MCV 107.0 H MCH 35.9 H MCHC 33.6 RDW Std Deviation 67.3 H RDW Coeff of Carmelina 17.4 H Plt Count 55 L MPV 9.8 Immature Gran % (Auto) 0.2 Neut % (Auto) 64.2 Lymph % (Auto) 21.0 [place] % (Auto) 13.9 Eos % (Auto) 0.5 Baso % (Auto) 0.2 Neut # (Auto) 3.79 Lymph # (Auto) 1.24 [place] # (Auto) 0.82 H Eos # (Auto) 0.03 Baso # (Auto) 0.01 Immature Gran # (Auto) 0.01 PT INR Sodium 134 L Potassium 3.5 Chloride 102 Carbon Dioxide 23 Anion Gap 9 BUN 25 H Creatinine 3.99 H D Est Cr Clr Drug Dosing 11.1 Est GFR ( Amer) 12.1 Est GFR (Non-Af Amer) 10.4 BUN/Creatinine Ratio 6.3 L Glucose 76 POC Glucose Lactate 1.4 Calcium 8.8 Hepatitis B Ab, Qual Hep Bs Antigen Hep Bs Ag Confirmation Hep B Core IgM Ab 03/24/22 03/24/22 06:04 08:28 WBC RBC Hgb Hct MCV MCH MCHC RDW Std Deviation RDW Coeff of Carmelina Plt Count MPV Immature Gran % (Auto) Neut % (Auto) Lymph % (Auto) [place] % (Auto) Eos % (Auto) Baso % (Auto) Neut # (Auto) Lymph # (Auto) [place] # (Auto) Eos # (Auto) Baso # (Auto) Immature Gran # (Auto) PT 16.3 H INR 1.6 H Sodium Potassium Chloride Carbon Dioxide Anion Gap BUN Creatinine Est Cr Clr Drug Dosing Est GFR ( Amer) Est GFR (Non-Af Amer) BUN/Creatinine Ratio Glucose POC Glucose 84 Lactate Calcium Hepatitis B Ab, Qual Hep Bs Antigen Hep Bs Ag Confirmation Hep B Core IgM Ab PG Care Time/CCT Total # of Minutes Spent Total Time Spent with Patient: Total time spent is greater than 50% in coordination of care (as documented) at patient's floor/unit and/or counseling patient: Coding Level of Care Code 39560 Subseq Hosp Care Lvl 3 Diagnoses ESRD (end stage renal disease) N18.6 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
--- NOTE | 2022-03-24 10:35 | Gastroenterology Progress Note ---
Date of Service March 24, 2022 Assessment & Plan (1) Hypotension: (2) Ascites: (3) Liver cirrhosis secondary to BEASLEY: (4) ESRD (end stage renal disease): (5) Portal hypertension: (6) Hypokalemia: (7) Hypoalbuminemia: (8) Hyponatremia: Plan: Hypotension persists post dialysis yesterday with systolic BP consistently less than 80 and BP as low as 63/34 last night, not causing additional symptoms. Therapeutic paracentesis not critical today, risk exceeds any potential benefit, and should be postponed indefinitely, re evaluated daily. IV albumin 1 gm/kg today and tomorrow recommended for circulatory support, management of HRS. Underlying conditions (decompensated hepatic cirrhosis and anuric renal failure) are irreversible, prognosis is guarded. Continue active treatment, palliative care, and conditional code status as requested. Admission and Anticipated Discharge Date Admission Date: March 22, 2022 Supervising Physician Co-Signing Physician Notes As the consulting physician I have spent_45_ minutes of discrete time performing the activities of this consultation which include but are not limited to: 1. Review of past and current medical records 2. Patient interview, physical examination, discussion of the assessment and plan of care with the patient and family if present 3. Documentation of the consultation in the medical record including orders and discussion of the plan of care with members of the healthcare team Subjective Ms. Conde is alert and responsive, head of bed elevated, drinking Boost on rounds this morning. She denied chest or. abdominal pain, shortness of breath, nausea or vomiting, her only symptoms remain fatigue and generalized weakness Review of Systems Review of Systems: No additional findings on systems review Physical Exam Constitutional: She appears cachectic and emaciated, jaundiced, with protuberant abdominal distension and lower extremity edema Eyes: + scleral icterus Respiratory: normal respiratory effort, lungs clear to auscultation Cardiovascular: Rate/Rhythm: regular rate and regular rhythm distant cardiac tones Gastrointestinal (Abdomen): Inspection/Auscultation: + abdomen distended and + hypoactive bowel sounds Percussion/Palpation: + ascites, + dullness to percussion and + abdomen firm Musculoskeletal: generalized muscle wasting, pitting edema of lower extremities, L>R Skin: Jaundice Neurologic: not overtly encephalopathic, generalized weakness without focal signs Psychiatric: A+Ox3, euthymic affect Thought Process: clear/coherent thought process Results & Data ([facility]) Vital Signs (Past 12 Hours) Vital Signs Temp Pulse Resp BP Pulse Ox 03/24/22 09:00 68 25 H 94 03/24/22 08:24 65 18 74/44 L 94 03/24/22 08:00 36.8 C 63 23 78/47 L 93 03/24/22 07:00 60 20 92 03/24/22 00:00 62 15 89 L 03/23/22 23:00 63 19 92 Laboratory Results Laboratory Results WBC 5.90 K/uL (4.8-10.8) 03/24/22 05:18 RBC 2.84 M/uL (4.2-5.4) L 03/24/22 05:18 Hgb 10.2 g/dL (12.0-16.0) L 03/24/22 05:18 Hct 30.4 % (37-47) L 03/24/22 05:18 MCV 107.0 fL (80-100) H 03/24/22 05:18 MCH 35.9 pg (25-34) H 03/24/22 05:18 MCHC 33.6 g/dL (32-36) 03/24/22 05:18 RDW Std Deviation 67.3 fL (36.4-46.3) H 03/24/22 05:18 RDW Coeff of Carmelina 17.4 % (11.5-14.5) H 03/24/22 05:18 Plt Count 55 K/uL (130-400) L 03/24/22 05:18 MPV 9.8 fL (7.4-10.4) 03/24/22 05:18 Immature Gran % (Auto) 0.2 % 03/24/22 05:18 Neut % (Auto) 64.2 % 03/24/22 05:18 Lymph % (Auto) 21.0 % 03/24/22 05:18 [place] % (Auto) 13.9 % 03/24/22 05:18 Eos % (Auto) 0.5 % 03/24/22 05:18 Baso % (Auto) 0.2 % 03/24/22 05:18 Neut # (Auto) 3.79 K/uL (1.4-6.5) 03/24/22 05:18 Lymph # (Auto) 1.24 K/uL (1.2-3.4) 03/24/22 05:18 [place] # (Auto) 0.82 K/uL (0.11-0.59) H 03/24/22 05:18 Eos # (Auto) 0.03 K/uL (0-0.5) 03/24/22 05:18 Baso # (Auto) 0.01 K/uL (0-0.2) 03/24/22 05:18 Immature Gran # (Auto) 0.01 K/uL (0.00-0.02) 03/24/22 05:18 RBC Morphology Unremarkable 03/23/22 04:59 PT 16.3 Seconds (9.0-12.0) H 03/24/22 06:04 INR 1.6 (0.9-1.1) H 03/24/22 06:04 Sodium 134 mmol/L (136-145) L 03/24/22 05:18 Potassium 3.5 mmol/L (3.5-5.1) 03/24/22 05:18 Chloride 102 mmol/L (98-107) 03/24/22 05:18 Carbon Dioxide 23 mmol/L (21-32) 03/24/22 05:18 Anion Gap 9 (3-11) 03/24/22 05:18 BUN 25 mg/dl (6-23) H 03/24/22 05:18 Creatinine 3.99 mg/dl (0.6-1.2) H D 03/24/22 05:18 Est Cr Clr Drug Dosing 11.1 ml/min 03/24/22 05:18 Est GFR ( Amer) 12.1 ml/min 03/24/22 05:18 Est GFR (Non-Af Amer) 10.4 ml/min 03/24/22 05:18 BUN/Creatinine Ratio 6.3 (10-20) L 03/24/22 05:18 Glucose 76 mg/dl (70-99(Fasting)) 03/24/22 05:18 POC Glucose 84 mg/dl (70-99) 03/24/22 08:28 Lactate 1.4 mmol/L (0.4-2.0) 03/24/22 05:18 Calcium 8.8 mg/dl (8.5-10.1) 03/24/22 05:18 Total Bilirubin 2.4 mg/dl (0.2-1.0) H 03/23/22 04:59 AST 49 U/L (13-39) H 03/23/22 04:59 ALT 22 U/L (7-52) 03/23/22 04:59 Alkaline Phosphatase 91 U/L (34-104) 03/23/22 04:59 Troponin I High Sens 31.1 pg/ml (0-14) H 03/22/22 12:50 Total Protein 5.4 gm/dl (6.0-8.3) L 03/23/22 04:59 Albumin 3.2 gm/dl (3.4-5.0) L 03/23/22 04:59 Globulin 2.2 gm/dl (2.5-4.0) L 03/23/22 04:59 Albumin/Globulin Ratio 1.5 (0.9-2) 03/23/22 04:59 Lipase 22 U/L (11-82) 03/22/22 12:50 Hepatitis B Ab, Qual BORDERLINE (NON-REACTIVE) A 03/23/22 12:08 Hep Bs Antigen NON-REACTIVE (NON-REACTIVE) 03/23/22 12:08 Hep Bs Ag Confirmation TNP 03/23/22 12:08 Hep B Core IgM Ab NON-REACTIVE (NON-REACTIVE) 03/23/22 12:08 SARS-CoV-2, RNA, NAAT NEGATIVE (NEGATIVE) 03/22/22 14:00 Impressions Chest X-Ray 03/22/22 12:07 XR chest 1V portable HISTORY: Atypical Chest Pain COMPARISON: Chest 02/19/2022. FINDINGS: There are low lung volumes. No pneumothorax. Small left pleural effusion. Suspect a trace right pleural effusion which has improved. The heart is mildly enlarged. Bilateral central venous catheters are unchanged in position. There is mild central pulmonary vascular congestion without overt edema. This is improved in the interval. Bibasilar linear densities are noted. IMPRESSION: 1. Cardiomegaly with mild central pulmonary vascular congestion. This has improved in the interval. 2. Small left pleural effusion has slightly progressed. The right pleural effusion has improved/resolved. 3. Bibasilar densities are nonspecific but may represent atelectasis. A pneumonia could also a similar appearance. ACT 112: Negative or not required by law. Electronically signed by: Nagi Nguyen M.D. 03/22/2022 12:41 PM Home Medications Medication Instructions Recorded Confirmed Last Taken vitamin E 400 unit capsule 400 unit PO HS cap 10/28/20 03/22/22 03/21/22 18:00 OneTouch Delica Plus Lancet 33 #200 ea NS 01/30/21 03/22/22 Unknown gauge (lancets) BD Ultra-Fine Obdulia Pen Needle 32 #200 ea NS 02/14/21 03/22/22 Unknown gauge x 5/32" (pen needle, diabetic) cholecalciferol (vitamin D3) 25 1,000 unit PO BID 07/28/21 03/22/22 03/21/22 12:00 mcg (1,000 unit) capsule (Vitamin D3) blood sugar diagnostic (OneTouch ea 08/09/21 03/22/22 Unknown Verio test strips) rifaximin 550 mg tablet (Xifaxan) 550 mg PO BID #100 tab 01/24/22 03/22/22 03/20/22 sertraline 50 mg tablet (Zoloft) 50 mg PO QAM 02/01/22 03/22/22 03/21/22 09:00 calcitriol 0.25 mcg capsule 0.25 mcg PO 3XWK 02/19/22 03/22/22 03/21/22 20:00 (Rocaltrol) midodrine 5 mg tablet 15 mg PO BID #180 tab 02/19/22 03/22/22 03/21/22 18:00 famotidine 20 mg tablet (Pepcid) 20 mg PO BID 03/01/22 03/22/22 03/21/22 18:00 carvedilol 3.125 mg tablet 3.125 mg PO BID 03/22/22 03/22/22 03/20/22 esomeprazole magnesium 40 mg 40 mg PO QAM 03/22/22 03/22/22 03/20/22 capsule,delayed release (Nexium) pravastatin 20 mg tablet 10 mg PO HS 03/22/22 03/22/22 03/20/22 Active Medications Generic Name Dose Route Start Last Admin Trade Name Freq PRN Reason Stop Dose Admin Calcitriol 0.25 mcg 03/23/22 12:00 03/23/22 12:13 Calcitriol 0.25 Mcg Capsule PO 04/22/22 11:59 0.25 mcg [id number]@[id number] JESI Administration Famotidine 20 mg 03/23/22 09:00 03/24/22 08:30 Famotidine 20 Mg Tab PO 04/22/22 08:59 20 mg DAILY JESI Administration Insulin Aspart 0 units 03/22/22 16:37 03/24/22 08:29 Insulin Aspart Per Unit SC 04/21/22 16:36 Not Given ACHS JESI Midodrine 15 mg 03/23/22 14:00 03/24/22 08:30 Midodrine Hcl 10 Mg Tab PO 04/22/22 13:59 15 mg TID JESI Administration Pantoprazole Sodium 40 mg 03/23/22 09:00 03/24/22 08:30 Pantoprazole 40 Mg Tab PO 04/22/22 08:59 40 mg DAILY JESI Administration Protocol Sertraline HCl 50 mg 03/23/22 09:00 03/24/22 08:30 Sertraline Hcl 50 Mg Tablet PO 04/22/22 08:59 50 mg QAM JESI Administration
--- NOTE | 2022-03-24 13:45 | Hospitalist Progress Note ---
Date of Service March 24, 2022 Assessment & Plan (1) Hypotension: Plan: Likely multifactorial, suspect mostly third spacing in setting of ESRD and liver cirrhosis. Also unclear how accurate a reading the BP cuff is as she has BPs in the 60/30 range with no indication of end-organ dysfunction. - Patient consented for blood products, albumin 25%, 50 g x 2 bags given yesterday. Albumin will be give with dialysis. - Patient is on midodrine at home. -> Continue midodrine 15 mg PO TID - Per nephrology, no role of octreotide since she is already on dialysis (2) Nonalcoholic fatty liver disease: Plan: Follows with GI. Has therapeutic paracentesis every week. - Consider in the next 1-2 days if patient's blood pressure improves. Will need albumin. - Appreciate GI consult (3) ESRD (end stage renal disease): Plan: Patient is typically on a Saturday, Saturday, and Saturday schedule. Has not missed any sessions. - Appreciate nephrology consult. (4) T2DM (type 2 diabetes mellitus): Plan: HbA1C not accurate in setting of ESRD on dialysis. - Sliding scale insulin (5) Acute hyponatremia: Plan: Likely secondary to her end-stage liver disease and fluid overload. - Continue to monitor. Stable. Admission and Anticipated Discharge Date Admission Date: March 22, 2022 Subjective Doing well today. Honestly denies any complaints at all in the morning. Reports no fevers/chills, chest pain, shortness of breath, abdominal pain, nausea, or vomiting. Physical Exam Constitutional: WD/WN, vitals as above Eyes: EOM intact bilaterally; no conjunctival abnormality ENMT: external ear and nose normal, oropharynx normal Neck: trachea midline, no thyromegaly normal visual inspection Respiratory: normal respiratory effort, lungs clear to auscultation no respiratory distress Cardiovascular: RRR, no murmur, no edema Gastrointestinal (Abdomen): Inspection/Auscultation: abdomen normal to inspection; abdomen not distended Musculoskeletal: no cyanosis or clubbing, extremities motor strength 5/5 Skin: no rashes, warm and dry Neurologic: moves all extremities and awake Psychiatric: Orientation: alert, oriented to person and cooperative Results & Data Results & Data ([facility]) Vital Signs (Past 12 Hours) Vital Signs Temp Pulse Pulse Resp BP BP Pulse Ox 03/24/22 10:43 37.0 C 68 18 85/46 L 98 03/24/22 09:00 68 25 H 94 03/24/22 08:24 65 18 74/44 L 94 03/24/22 08:00 36.8 C 63 23 78/47 L 93 03/24/22 07:00 60 20 92 PG Care Time/CCT Total # of Minutes Spent Total Time Spent with Patient: Total time spent is greater than 50% in coordination of care (as documented) at patient's floor/unit and/or counseling patient: Coding Level of Care Code 81038 Subseq Hosp Care Lvl 2 Diagnoses Hypotension I95.9 Nonalcoholic fatty liver disease K76.0 ESRD (end stage renal disease) N18.6 T2DM (type 2 diabetes mellitus) E11.9 Acute hyponatremia E87.1
[2022-03-25 06:56] LABS: Hemoglobin 10.6 g/dL (12.0-16.0); Mean Corpuscular Hemoglobin 35.5 pg (25-34); Mean Corpuscular Hgb Conc 33.1 g/dL (32-36); RDW Coefficient of Variation 17.7 % (11.5-14.5); RDW Standard Deviation 68.7 fL (36.4-46.3); Red Blood Count 2.99 M/uL (4.2-5.4); White Blood Count 7.21 K/uL (4.8-10.8)
[2022-03-25 07:21] LABS: BUN Creatinine Ratio 7.1 (10-20); Creatinine Clr Calc Pharmacy 9.7 ml/min; Est GFR (African American) 9.6 ml/min; Est GFR (Non-African American) 8.3 ml/min; Potassium 3.8 mmol/L (3.5-5.1)
[2022-03-25 07:30] LABS: Mean Platelet Volume 10.3 fL (7.4-10.4); Platelet Count 60 K/uL (130-400)
[2022-03-25] MEDS: MIDODRINE HCL 10 MG TAB PO SCH ×3 (07:46→20:33)
[2022-03-25] MEDS: FAMOTIDINE 20 MG TAB PO SCH (07:47)
[2022-03-25] MEDS: SERTRALINE HCL 50 MG TABLET PO SCH (07:47)
[2022-03-25] MEDS: PANTOprazole 40 MG TAB PO SCH (07:47)
[2022-03-25] MEDS: INSULIN ASPART PER UNIT SC SCH ×4 (08:05→20:11)
--- NOTE | 2022-03-25 10:29 | Nephrology Progress Note ---
Date of Service March 25, 2022 Assessment & Plan (1) ESRD (end stage renal disease): Plan: * Completed 2 hours heparin free HD Saturday using 4K bath and no UF. Midodrine and IV albumin provided to sustain BP through treatment. * Tasneem is considering stopping HD but currently would like to see how her BP and see if she can tolerate treatment. * Repeat metabolic profile tomorrow AM. * I discussed goals of care w/ Ms. Conde and her daughter Ketty by this morning. She wishes to continue HD but acknowledges that her medical condition is tenuous. If her BP becomes unstable then she will stop HD and transition to comfort measures. (2) Hypotension: Plan: * Continue midodrine 15 mg (3) Liver cirrhosis secondary to BEASLEY: Plan: * Not a transplant candidate due to malignancy in 2018. * Appreciate GI consultation. * Prognosis guarded. (4) Ascites: Plan: * Recommend limiting paracentesis volume to 4 L or less with each tap and coadministration of IV albumin Admission and Anticipated Discharge Date Admission Date: March 24, 2022 Subjective No acute events overnight. Tasneem was resting comfortably in bed this morning. She denies any acute complaints and states that overall she feels well. Abdomen fullness increased but denies significant pain or discomfort. Tasneem had several long conversations with her family yesterday. Her , Phillip, and son, Alton met with Dr. Sharp. Ketty also spoke to Dr. Sharp. I reviewed Tasneem's plan of care in detail with Dr. Sharp this morning. I also called and spoke to Ketty. Ketty and Tasneem both confirmed that Tasneem does not want any added measures. At this point, she continues to take things one day at at time. She is hoping to have some fluid removed from her abdomen at some point. If her BP is acceptable tomorrow and she is feeling strong enough, she would like to try dialysis. However, if there are indications that treatment may be more complicated than her recent outpatient treatments, she is understanding. Ultimately, her goal is to spend as much quality time with her family as she can. Review of Systems Review of Systems: All systems reviewed & are unremarkable except as noted in HPI & below Constitutional: + fatigue, + weakness and + anorexia; no fever Physical Exam Constitutional: + ill appearing and + frail appearing Eyes: sclerae not anicteric ENMT: external ear and nose normal, oropharynx normal Neck: trachea midline, no thyromegaly TDC Respiratory: normal respiratory effort, lungs clear to auscultation Cardiovascular: Rate/Rhythm: regular rate and regular rhythm Extremities: + edema (trace) Gastrointestinal (Abdomen): Inspection/Auscultation: + abdomen distended and + hypoactive bowel sounds Skin: + turgor decreased and + jaundice Neurologic: awake; not confused Results & Data ([facility]) Vital Signs (Past 12 Hours) Vital Signs Temp Pulse Resp BP Pulse Ox 03/25/22 08:00 36.8 C 86 18 91/51 L 95 03/25/22 03:24 36.7 C 75 18 86/43 L 92 03/24/22 23:21 36.8 C 74 18 90/48 L 98 Laboratory Results Laboratory Results - last 24 hr 03/24/22 03/24/22 03/24/22 11:01 16:09 18:25 WBC RBC Hgb Hct MCV MCH MCHC RDW Std Deviation RDW Coeff of Carmelina Plt Count MPV Sodium Potassium Chloride Carbon Dioxide Anion Gap BUN Creatinine Est Cr Clr Drug Dosing Est GFR ( Amer) Est GFR (Non-Af Amer) BUN/Creatinine Ratio Glucose POC Glucose 93 130 H Calcium Magnesium Ammonia 37.0 03/24/22 03/25/22 03/25/22 20:24 06:37 06:37 WBC 7.21 RBC 2.99 L Hgb 10.6 L Hct 32.0 L MCV 107.0 H MCH 35.5 H MCHC 33.1 RDW Std Deviation 68.7 H RDW Coeff of Carmelina 17.7 H Plt Count 60 L MPV 10.3 Sodium 134 L Potassium 3.8 Chloride 101 Carbon Dioxide 23 Anion Gap 10 BUN 34 H Creatinine 4.80 H* D Est Cr Clr Drug Dosing 9.7 Est GFR ( Amer) 9.6 Est GFR (Non-Af Amer) 8.3 BUN/Creatinine Ratio 7.1 L Glucose 79 POC Glucose 117 H Calcium 9.0 Magnesium 2.0 Ammonia 03/25/22 07:31 WBC RBC Hgb Hct MCV MCH MCHC RDW Std Deviation RDW Coeff of Carmelina Plt Count MPV Sodium Potassium Chloride Carbon Dioxide Anion Gap BUN Creatinine Est Cr Clr Drug Dosing Est GFR ( Amer) Est GFR (Non-Af Amer) BUN/Creatinine Ratio Glucose POC Glucose 97 Calcium Magnesium Ammonia PG Care Time/CCT Total # of Minutes Spent Total Time Spent with Patient: Total time spent is greater than 50% in coordination of care (as documented) at patient's floor/unit and/or counseling patient: Coding Level of Care Code 19134 Subseq Hosp Care Lvl 3 Diagnoses Ascites R18.8 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 ESRD (end stage renal disease) N18.6 Hypotension I95.9
--- NOTE | 2022-03-25 11:23 | Gastroenterology Progress Note ---
Date of Service March 25, 2022 Assessment & Plan (1) Hypotension: (2) Ascites: (3) Liver cirrhosis secondary to BEASLEY: (4) ESRD (end stage renal disease): (5) Portal hypertension: (6) Hypoalbuminemia: Plan: Hypotension has improved, systolic pressures now consistently above 80 mm Hg, ascites appears stable, not causing critical side effects. Paracentesis not indicated today. Tomorrow is a dialysis day, so therapeutic paracentesis (if needed) delayed to 03-27-22. Recommend PT consult to assess mobility. Admission and Anticipated Discharge Date Admission Date: March 24, 2022 Supervising Physician Co-Signing Physician Notes As a consulting physician I have spent 45 minutes of discrete time performing the activities of this consultation which include but are not limited to: 1. Review of past and current medical records 2. Patient interview, physical examination, discussion of the assessment and plan of care with the patient and family if present 3. Documentation of the consultation in the medical record including orders and discussion of the plan of care with members of the healthcare team Subjective Ms. Conde alert, oriented responsive on rounds this morning, with no complaints, she denied nausea, vomiting, shortness of breath, abdominal pain. BP improved to 91/54 this morning. hypokalemia, hypomagnesemia resolved, hyponatremia improving. She has been confined to bed since admission Review of Systems Constitutional: generalized weakness and fatigue Respiratory: as per Subjective / HPI; no cough and no dyspnea Cardiovascular: as per Subjective / HPI; no chest pain and no dyspnea at rest Gastrointestinal: as per Subjective / HPI; no abdominal pain, no heartburn, no nausea, no vomiting, no coffee ground emesis, no hematemesis, no dysphagia and no change in stools Physical Exam Constitutional: Jaundiced, cachectic, with abdominal distension and protuberance Eyes: + scleral icterus Cardiovascular: Rate/Rhythm: regular rate and regular rhythm Extremities: + pedal edema (lower extremity edema has decreased) and + edema Gastrointestinal (Abdomen): Inspection/Auscultation: + abdomen distended, + caput medusae present and + hypoactive bowel sounds Percussion/Palpation: + ascites, + dullness to percussion and + abdomen firm Musculoskeletal: Extremities: + muscle atrophy Skin: + jaundice Results & Data ([facility]) Vital Signs (Past 12 Hours) Vital Signs Temp Pulse Resp BP Pulse Ox 03/25/22 08:00 36.8 C 86 18 91/51 L 95 03/25/22 03:24 36.7 C 75 18 86/43 L 92 03/24/22 23:21 36.8 C 74 18 90/48 L 98
--- NOTE | 2022-03-25 13:00 | Hospitalist Progress Note ---
Date of Service March 25, 2022 Assessment & Plan (1) Hypotension: Plan: Likely multifactorial, suspect mostly third spacing in setting of ESRD and liver cirrhosis. Also unclear how accurate a reading the BP cuff is as she has BPs in the 60/30 range with no indication of end-organ dysfunction. - Patient consented for blood products, albumin 25%, 50 g x 2 bags given yesterday. Albumin will be give with dialysis. - Patient is on midodrine at home. -> Continue midodrine 15 mg PO TID - Per nephrology, no role of octreotide since she is already on dialysis. (2) Nonalcoholic fatty liver disease: Plan: Follows with GI. Has therapeutic paracentesis every week. - Will likely attempt paracentesis today. I reached out to GI to see if they feel it is contraindicated. If not, will take off 4L - 5L with albumin afterward. - Appreciate GI consult (3) ESRD (end stage renal disease): Plan: Patient is typically on a Saturday, Saturday, and Saturday schedule. Has not missed any sessions. - Appreciate nephrology consult. (4) T2DM (type 2 diabetes mellitus): Plan: HbA1C not accurate in setting of ESRD on dialysis. - Sliding scale insulin - BSs over last 24 hours have been 80 - 120. (5) Acute hyponatremia: Plan: Likely secondary to her end-stage liver disease and fluid overload. - Continue to monitor. Stable today at 134. Admission and Anticipated Discharge Date Admission Date: March 24, 2022 Subjective No major complaints today. The abdomen is more distended, but she reports no fevers/chills, chest pain, shortness of breath, abdominal pain, nausea, or vomiting. Physical Exam Constitutional: WD/WN, vitals as above Eyes: EOM intact bilaterally; no conjunctival abnormality ENMT: external ear and nose normal, oropharynx normal Neck: trachea midline, no thyromegaly normal visual inspection Respiratory: normal respiratory effort, lungs clear to auscultation no respiratory distress Cardiovascular: RRR, no murmur, no edema Gastrointestinal (Abdomen): Inspection/Auscultation: + abdomen distended Percussion/Palpation: abdomen soft and + ascites; abdomen nontender, no guarding and abdomen not rigid Musculoskeletal: no cyanosis or clubbing, extremities motor strength 5/5 Skin: no rashes, warm and dry Neurologic: moves all extremities and awake Psychiatric: Orientation: alert, oriented to person and cooperative Results & Data Results & Data ([facility]) Vital Signs (Past 12 Hours) Vital Signs Temp Pulse Resp BP Pulse Ox 03/25/22 11:31 84/36 L 03/25/22 11:27 37.1 C 62 18 72/45 L 95 03/25/22 08:00 36.8 C 86 18 91/51 L 95 03/25/22 03:24 36.7 C 75 18 86/43 L 92 PG Care Time/CCT Total # of Minutes Spent Total Time Spent with Patient: Total time spent is greater than 50% in coordination of care (as documented) at patient's floor/unit and/or counseling patient: Coding Level of Care Code 01545 Subseq Hosp Care Lvl 2 Diagnoses Hypotension I95.9 Nonalcoholic fatty liver disease K76.0 ESRD (end stage renal disease) N18.6 T2DM (type 2 diabetes mellitus) E11.9 Acute hyponatremia E87.1
[2022-03-25] MEDS ORDERED: ALBUMIN 5% 250 ML IV ONE (16:15)
--- NOTE | 2022-03-25 16:18 | Procedure Note ---
Procedure Note Date of Service March 25, 2022 Note Therapeutic paracentesis performed with indication being increased abdominal distension and pain along with increased shortness of breath. Informed consent was performed with the patient and present. Time out was performed with patient, , and RN. Location was found with ultrasound machine. Pocket of fluid was >4 cm deep with no visible bowel. Site was numbed with lidocaine. Needle was advanced into the peritoneal space with return of clear, yellow fluid. Tract was numbed with lidocaine. Small hillary was made at the site, and the catheter was advanced until return of clear, yellow fluid. Needle was removed as catheter was advanced. The patient had no pain during this time. 4L of clear ascites fluid was removed. The patient's BP was monitored throughout and remained stable at 88/40 - 92/40. She had no pain and no other symptoms during this time. After 4L was removed, the catheter was removed and was inspected and found to be intact. A small bandage was placed over the paracentesis site. There was scant drainage from the site at the time of catheter removal which had stopped by the end of the procedure. No bleeding. The patient tolerated the procedure well. BP was checked afterward and was found to be 71/41, but this is in line with prior BPs this admission. The patient was asymptomatic. Albumin was ordered, and the patient's status will be closely monitored. Coding CPT Codes Abdomen - Abdominal: 84247 Abdominal Paracentesis (diagnostic or therapeutic); W/O imaging ([id number]) [facility] [place] Procedure Codes (Charges) Abdomen Abdominal: 77668 Abdominal Paracentesis (diagnostic or therapeutic); W/O imaging
[2022-03-26 04:16] VITALS: TEMP 98.2
[2022-03-26 05:58] LABS: Hematocrit (blood only) 29.3 % (37-47); Hemoglobin 9.9 g/dL (12.0-16.0); Mean Corpuscular Hemoglobin 36.1 pg (25-34); Mean Corpuscular Hgb Conc 33.8 g/dL (32-36); Mean Corpuscular Volume 106.9 fL (80-100); RDW Coefficient of Variation 17.6 % (11.5-14.5); RDW Standard Deviation 67.5 fL (36.4-46.3); Red Blood Count 2.74 M/uL (4.2-5.4); White Blood Count 5.87 K/uL (4.8-10.8)
[2022-03-26 06:03] LABS: Mean Platelet Volume 10.5 fL (7.4-10.4); Platelet Count 43 K/uL (130-400)
[2022-03-26 06:53] LABS: BUN Creatinine Ratio 8.1 (10-20); Calcium 8.9 mg/dl (8.5-10.1); Creatinine Clr Calc Pharmacy 8.6 ml/min; Est GFR (African American) 8.5 ml/min; Est GFR (Non-African American) 7.3 ml/min; Potassium 3.9 mmol/L (3.5-5.1)
[2022-03-26] MEDS: MIDODRINE HCL 10 MG TAB PO SCH (07:45)
[2022-03-26] MEDS: INSULIN ASPART PER UNIT SC SCH ×2 (08:38→12:09)
[2022-03-26] MEDS: PANTOprazole 40 MG TAB PO SCH (09:13)
[2022-03-26] MEDS: SERTRALINE HCL 50 MG TABLET PO SCH (09:13)
[2022-03-26] MEDS: FAMOTIDINE 20 MG TAB PO SCH (09:13)
--- NOTE | 2022-03-26 12:30 | Nephrology Progress Note ---
Date of Service March 26, 2022 Assessment & Plan (1) ESRD (end stage renal disease): (2) Hypotension: (3) Hypoalbuminemia: (4) Liver cirrhosis secondary to BEASLEY: (5) Hyponatremia: (6) Anemia: Plan: ESRD on HD, has advanced cirrhosis with BEASLEY, persistent hypotension despite being on high dose of midodrine. had paracentesis yesterday. -- Plan for dialysis today to see how the patient tolerates dialysis with systolic blood pressure as low as 60s overnight. Although blood pressure has been staying 60s overnight she is otherwise feeling well, not dizzy or lightheaded and mentating well. If she does not tolerate dialysis than eventually to plan for discharge with home hospice. -- Continue on midodrine 15 mg t.i.d. -- Dose medications for GFR less than 10 will follow. Admission and Anticipated Discharge Date Admission Date: March 24, 2022 Dominic Boateng was seen and evaluated in her room this morning. She has been otherwise feeling well, denies any dizziness, lightheadedness. BP Has been mostly in high 60s overnight. Review of Systems Review of Systems: Detail ROS was otherwise unremarkable. Physical Exam Constitutional: WD/WN, vitals as above + ill appearing and + frail appearing; no acute distress Eyes: + anicteric sclerae ENMT: Ears: no hearing impairment Respiratory: Auscultation: lungs clear to auscultation bilaterally Cardiovascular: Rate/Rhythm: regular rate and regular rhythm Extremities: no edema Skin: no rashes Neurologic: no focal motor deficits and not confused Psychiatric: Orientation: alert and oriented x 3 Results & Data ([facility]) Vital Signs (Past 12 Hours) Vital Signs Temp Pulse Pulse Resp BP BP Pulse Ox 03/26/22 12:00 65 72/41 L 03/26/22 11:30 62 74/46 L 03/26/22 11:00 63 78/44 L 03/26/22 10:30 67 76/48 L 03/26/22 10:00 66 85/46 L 03/26/22 09:27 36.8 C 61 03/26/22 07:21 64 03/26/22 04:16 36.8 C 62 18 66/38 L 93 PG Care Time/CCT Total # of Minutes Spent Total Time Spent with Patient: Total time spent is greater than 50% in coordination of care (as documented) at patient's floor/unit and/or counseling patient: Coding Level of Care Code 08466 Subseq Hosp Care Lvl 2 Diagnoses ESRD (end stage renal disease) N18.6 Hypotension I95.9 Hypoalbuminemia E88.09 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 Hyponatremia E87.1 Anemia D64.9
[2022-03-26] MEDS: CALCITRIOL 0.25 MCG CAPSULE PO SCH (12:54)
[2022-03-26] MEDS ORDERED: MIDODRINE HCL 10 MG TAB PO SCH (13:00)
[2022-03-26 13:20] VITALS: BP 83/45; PULSE 73; O2SAT 95
--- NOTE | 2022-03-26 13:21 | Discharge Summary ---
Date of Service March 26, 2022 Admission HPI Per Admitting Provider This is a 76-year-old female with a history of BEASLEY/ESLD, ESRD on hemodialysis Saturday, diabetes, hypertension that presents with hypotension. Patient is pleasant and a good historian. Patient typically has a therapeutic paracentesis on a weekly basis with interventional radiology. This is typically done on an outpatient basis and the patient arrives today to have her scheduled paracentesis. She was found to be hypotensive with blood pressure as low as 71/40 per the staff the same day. Patient tells me that she had no symptoms at all outside her normal, this includes chest pain, shortness of breath, palpitations, headache, vertigo, or orthostasis. Patient tells me she essentially feels at her baseline despite the lower blood pressure. Typically her blood pressure does range in the low 80s to low 100 systolic. In the ER, she was found to be in the 70s her last blood pressure was 80/52. Patient continues to be comfortable with no complaints. Principal Diagnosis Low blood pressure from renal and liver disease Discharge Exam Constitutional WD/WN, vitals as above Eyes EOM intact bilaterally; no conjunctival abnormality ENMT external ear and nose normal, oropharynx normal Neck trachea midline, no thyromegaly normal visual inspection Respiratory normal respiratory effort, lungs clear to auscultation no respiratory distress Cardiovascular RRR, no murmur, no edema Gastrointestinal (Abdomen) Inspection/Auscultation: + abdomen distended Percussion/Palpation: abdomen soft and + ascites; abdomen nontender, no guarding and abdomen not rigid Musculoskeletal no cyanosis or clubbing, extremities motor strength 5/5 Skin no rashes, warm and dry Neurologic moves all extremities and awake Psychiatric Orientation: alert, oriented to person and cooperative Discharge Data Allergies Allergy/AdvReac Type Severity Reaction Status Date / Time guaifenesin Allergy Severe Stroke Verified 03/22/22 10:27 like symptoms morphine Allergy Intermediate "FIRE" Verified 03/22/22 10:27 SENSATION IN HEAD Penicillins Allergy Intermediate HIVES Verified 03/22/22 10:27 ethyl alcohol AdvReac Severe STROKE Verified 03/22/22 10:27 LIKE SYMPTOMS shellfish derived AdvReac Severe PT Verified 03/22/22 10:27 DEVELOPED HEPATITIS adhesive AdvReac Intermediate RASH,REDNES Verified 03/22/22 10:27 S verapamil AdvReac Mild H/A Verified 03/22/22 10:27 Consultations 03/22/22 13:49 ED Decision to Admit Stat 03/22/22 16:37 Consult Gastroenterology Routine Consult Nephrology Routine Hospital Course (1) Hypotension: Likely multifactorial, suspect mostly third spacing in setting of ESRD and liver cirrhosis. Also unclear how accurate a reading the BP cuff is as she has BPs in the 60/30 range with no indication of end-organ dysfunction. - Patient is on midodrine at home. -> Continue midodrine 15 mg PO TID - Stop carvedilol on discharge. -> Patient's BP cuff is likely somewhat inaccurate from calcified vessels. Likely also does have low BP from her liver and renal issues; however, all indications are that she maintains adequate perfusion even with a BP cuff reading of 65/35. She is not dizzy, lightheaded, confused (past her baseline memory issues), and has normal lactate. I would not necessarily stop HD just because of her BP readings. However, we did attempt to optimize her by stopping her beta-estrada and increasing midodrine. Will defer to nephrology re: further HD. (2) Nonalcoholic fatty liver disease: Follows with GI. Has therapeutic paracentesis every week. - Paracentesis on 03/25 with 4L removed. No complications. Albumin given afterward. - Appreciate GI consult (3) ESRD (end stage renal disease): Patient is typically on a Saturday, Saturday, and Saturday schedule. Has not missed any sessions. - Appreciate nephrology consult. (4) T2DM (type 2 diabetes mellitus): HbA1C not accurate in setting of ESRD on dialysis. - Sliding scale insulin - BSs over last 24 hours have been 80 - 120. (5) Acute hyponatremia: Likely secondary to her end-stage liver disease and fluid overload. - Continue to monitor. Stable today at 134. 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 Randall at your dialysis visit.) Kimberly Alva CRNP [Nurse Practitioner] - (Please follow-up with your GI team at your earliest convenience.) Diet: Dialysis Renal Addtl Attending Provider Instructions: Ms. Conde was admitted to the hospital with low blood pressure which is from her renal and liver issues. Her beta estrada was stopped, and she was increased on her midodrine. She tolerated a paracentesis on 03/25 without any major issues. She also had hemodialysis on 03/26 and also did well. Her blood pressures run quite low (as low as 68/35 on blood pressure cuff), but she is asymptomatic and her labs (eg lactate, CBC, BMP) indicate normal perfusion. As such, her HD was continued without issue. Pending Studies at Discharge: No Stand-Alone Forms: Quench, Smoking Cessation Medications and DC Order Prescriptions: Continued (DME) lancets [OneTouch Delica Plus Lancet] 33 gauge misc See Dose Instructions .ROUTE .MEDSUPPLY Qty: 200 RF: 5 (DME) pen needle, diabetic [BD Ultra-Fine Obdulia Pen Needle] 32 gauge x 5/32" needle See Rx Instructions [id number] .MEDSUPPLY Qty: 200 RF: 3 Xifaxan 550 mg tablet 550 mg PO BID Qty: 100 RF: 11 (DME) OneTouch Verio test strips Strip See Rx Instructions .ROUTE .MEDSUPPLY RF: 0 vitamin E 400 unit capsule 400 unit PO HS RF: 0 cholecalciferol (vitamin D3) [Vitamin D3] 25 mcg (1,000 unit) Capsule 1,000 unit PO BID RF: 0 sertraline [Zoloft] 50 mg tablet 50 mg PO QAM RF: 0 famotidine [Pepcid] 20 mg tablet 20 mg PO BID RF: 0 esomeprazole magnesium [Nexium] 40 mg capsule,delayed release(DR/EC) 40 mg PO QAM RF: 0 pravastatin 20 mg tablet 10 mg PO HS RF: 0 lactulose 10 gram/15 mL solution 20 g PO TID PRN (Reason: 3-4 BMs per day) RF: 0 calcitriol [Rocaltrol] 0.25 mcg capsule 0.25 mcg PO 3XWK RF: 0 Changed midodrine 5 mg tablet 15 mg PO TID Qty: 180 RF: 5 Discontinued carvedilol 3.125 mg tablet 3.125 mg PO BID RF: 0 Discharge Orders: Discharge Order (Routine); Ordered 03/26/22 Ordered By: Beau Sharp Admission Data Admit Date/Time: 03/24/22 15:47 Attending Provider: Beau Sharp Admit Provider: Heath Collier Primary Care Provider: Gildardo Haywood Other Providers: Kimberly Alva ; Ross Randall ; [place] ; Baeu Sharp Coding Level of Care Code D/C DAY MANAGEMENT >30 MINS Diagnoses Hypotension I95.9 Nonalcoholic fatty liver disease K76.0 ESRD (end stage renal disease) N18.6 T2DM (type 2 diabetes mellitus) E11.9 Acute hyponatremia E87.1
[2022-03-29 22:07] LABS: Hepatitis BE Antibody Nonreactive; Hepatitis BE Antigen Nonreactive
== END 2022-03-26 15:52 | disposition home health service (06) | DRG 314 ==
LOC: ED 11:39 → 1E 11:39 → SUATTDRO 15:09 → 1E 16:12 → 2S 03-24 10:46
DX: Z85.3 Personal history of malignant neoplasm of breast; Z90.49 Acquired absence of other specified parts of digestive tract; Z90.710 Acquired absence of both cervix and uterus; N18.6 End stage renal disease; K74.60 Unspecified cirrhosis of liver; F32.A Depression, unspecified; E87.6 Hypokalemia; J45.909 Unspecified asthma, uncomplicated; E11.22 Type 2 diabetes mellitus with diabetic chronic kidney disease; I12.0 Hypertensive chronic kidney disease with stage 5 chronic kidney disease or end stage renal disease; Z99.2 Dependence on renal dialysis; E87.1 Hypo-osmolality and hyponatremia; R18.8 Other ascites; Z88.6 Allergy status to analgesic agent; Z91.048 Other nonmedicinal substance allergy status; Z88.0 Allergy status to penicillin; I95.89 Other hypotension; K76.7 Hepatorenal syndrome; Z90.722 Acquired absence of ovaries, bilateral; Z90.09 Acquired absence of other part of head and neck; Z88.1 Allergy status to other antibiotic agents; D68.9 Coagulation defect, unspecified; K76.0 Fatty (change of) liver, not elsewhere classified; D63.1 Anemia in chronic kidney disease; K21.9 Gastro-esophageal reflux disease without esophagitis; Z88.8 Allergy status to other drugs, medicaments and biological substances; I08.1 Rheumatic disorders of both mitral and tricuspid valves; Z91.013 Allergy to seafood; E11.42 Type 2 diabetes mellitus with diabetic polyneuropathy

== ENCOUNTER 2022-04-09 13:17 | Inpatient (IN) ==
[2022-04-09] MEDS ORDERED: SODIUM CHLORIDE 0.9% 1000ML 1,000 ML IV ONE (14:08)
--- NOTE | 2022-04-09 15:12 | XRay Report ---
XR chest 1V portable CLINICAL HISTORY: SEPSIS TECHNIQUE: Single frontal radiograph of the chest was obtained. Comparison: Comparison is made to chest radiograph 03/22/2022 FINDINGS: Lines and tubes are stable. Calcified aortic knob is seen. The lungs are clear. There is a small blun ting of the right costophrenic angle. IMPRESSION: Small blunting of the right costophrenic angle may represent trace effusion. ACT 112: Negative or not required by law. Electronically signed by: Manish Bacon M.D. 04/09/2022 3:10 PM
[2022-04-09 15:22] LABS: Influenza A virus by PCR Negative (Neg); Influenza B virus by PCR Negative (Neg); RSV by PCR Negative (Neg); SARS CoV2 RNA(COVID-19) InHosp NEGATIVE (Negative)
[2022-04-09 15:34] LABS: Hematocrit (blood only) 34.5 % (37-47); Mean Corpuscular Hemoglobin 37.3 pg (25-34); Mean Corpuscular Hgb Conc 34.8 g/dL (32-36); Mean Corpuscular Volume 107.1 fL (80-100); RDW Coefficient of Variation 17.9 % (11.5-14.5); RDW Standard Deviation 68.5 fL (36.4-46.3); Red Blood Count 3.22 M/uL (4.2-5.4); White Blood Count 7.07 K/uL (4.8-10.8)
[2022-04-09 15:42] LABS: Mean Platelet Volume 9.3 fL (7.4-10.4); Platelet Count 71 K/uL (130-400)
[2022-04-09 15:43] LABS: Base Excess VBG 4.1 mEq/L; HCO3 VBG 30 mmol/L; Oxygen Saturation VBG < 60.0 %; PCO2 VBG 48 mmHg (38-50); PO2 VBG 21 mmHg; pH VBG 7.41 (7.36-7.41)
[2022-04-09 15:54] LABS: Partial Thromboplastin Ratio 1.5; Partial Thromboplastin Time 41.6 Seconds (21.0-31.0); Prothrombin Time 20.1 Seconds (9.0-12.0)
[2022-04-09 16:05] LABS: Acetaminophen < 3 ug/ml (10-30); Salicylate < 3.0 mg/dl (3.0-30); Troponin I High Sensitivity 28.1 pg/ml (0-14)
[2022-04-09 16:06] LABS: Immature Granulocytes # (auto) 0.03 K/uL (0.00-0.02); Immature Granulocytes % (auto) 0.4 %; Lymphocytes % (auto) 15.6 %; Monocytes # (auto) 0.49 K/uL (0.11-0.59); Monocytes % (auto) 6.9 %; Neutrophils # (auto) 5.45 K/uL (1.4-6.5); Neutrophils % (auto) 77.1 %; Ovalocytes 1+
[2022-04-09 16:07] LABS: Albumin Globulin Ratio 1.1 (0.9-2); Albumin Level 3.4 gm/dl (3.4-5.0); Bilirubin,Total 5.3 mg/dl (0.2-1.0); Calcium 9.5 mg/dl (8.5-10.1); Creatinine Clr Calc Pharmacy 13.3 ml/min; Est GFR (African American) 15.1 ml/min; Magnesium 2.1 mg/dl (1.7-2.4); Potassium 3.2 mmol/L (3.5-5.1); Total Protein 6.4 gm/dl (6.0-8.3)
--- NOTE | 2022-04-09 16:33 | CT Scan Report ---
CT head/brain wo con CLINICAL HISTORY: ams Technique: Contiguous axial CT images of the head were acquired from the base of the skull to the wendi sunil without intravenous contrast administration. Images were viewed in brain, subdural and [facility]. Automated dose lowering techniques and/or adjustment according to patient size were utilized for this exam. Comparison: Comparison is made to CT head 06/17/2015 Findings: Areas of decreased attenuation are present in the periventricular and subcortical white matter bilate rally consistent with small vessel ischemic disease. Generalized cerebral atrophy with commensurate e nlargement of the ventricles, sulci, and cisterns is also present. There is no acute intracranial hem orrhage or evidence of acute territorial infarction. No shift of the midline structures, mass effect, or extra-axial abnormalities are shown. Atherosclerotic calcifications are present in the intracran ial segments of the internal carotid arteries. Imaged portions of the paranasal sinuses and mastoid air cells are clear. The orbits appear normal. There are no acute fractures of the calvaria or scalp swelling. Impression: No acute intracranial hemorrhage, no evidence of acute territorial infarction or other acute intracra nial disease process. ACT 112: Negative or not required by law. Electronically signed by: Manish Bacon M.D. 04/09/2022 4:31 PM
--- NOTE | 2022-04-09 16:40 | CT Scan Report ---
CT cervical spine wo con CLINICAL HISTORY: fall TECHNIQUE: Multidetector row helical CT of the cervical spine was performed without administration of intravenous contrast. Coronal and sagittal reformations were obtained. Automated dose lowering techn iques and/or adjustment according to patient size were utilized for this exam. Comparison: None available at the time of this dictation. FINDINGS: No acute fractures or subluxations are identified. Degenerative changes are seen in the visualized sp ine. Fusion of the lateral columns of L2 and L3 are seen on the left. The alignment is normal. Soft t issues are unremarkable. IMPRESSION: No evidence of acute bony injury. ACT 112: Negative or not required by law. Electronically signed by: Manish Bacon M.D. 04/09/2022 4:37 PM
[2022-04-09] MEDS ORDERED: DEXTROSE 50% 50 ML SYRINGE IV ONE (17:05)
[2022-04-09] MEDS ORDERED: LIDOCAINE 1%/EPINEPHRINE 1:100,000 50 ML VIAL ONE (17:12)
[2022-04-09] MEDS ORDERED: PHYTONADIONE 10 MG in DEXTROSE 5% 50 ML IV ONE (17:13)
[2022-04-09] MEDS ORDERED: LIDOCAINE 1%/EPINEPHRINE 1:100,000 50 ML VIAL INFIL ONE (17:13)
--- NOTE | 2022-04-09 17:56 | History & Physical Report ---
Date of Service April 09, 2022 Assessment & Plan (1) Altered mental status: (2) Elevated lactic acid level: (3) Elevated troponin I level: (4) ESRD (end stage renal disease): (5) Liver cirrhosis secondary to BEASLEY: (6) Ascites: (7) Hypotension: (8) T2DM (type 2 diabetes mellitus): (9) Hematemesis: (10) Severe protein-calorie malnutrition: Plan: 15+ kg weight loss since November 2021 Plan: 76yo F PMH BEASLEY/ESLD with weekly pericentesis, ESRD hemodialysis --, DM2, Hypotension hx breast cancer b/l s/p mastectomy here for AMS towards end of dialysis, also had had hematemasis elevated lactate and troponin ()AMS -found to be AMS after dialysis -low glucose at 67 given D50 -CT wo contrast head C-spine unremarkable -CXR: Small blunting of the right costophrenic angle may represent trace effusion. -COVID neg -knows birthday and president, knows this is a hospital, uncertain if dementia at baseline -may be 2/2 to low BP, low BS, may not have taken midodrine before dialysis today -cortisol pending ()Hematemasis -Hbg 12, continue to monitor -on esomeprazole -discussed starting octreotide, will hold for now ()Elevated Lactate -bcx pending -CBC procal unremarkable -CRP pending -obtained diagnostic paracentesis WBC wnl -elevated at 3.5, repeat pending -gave LR 500ml bolus in ED -given immuno-compromised state will order Vanc Cefepime prophylactically 48hr if bcx negative can dc ()Elevated Troponin -EKG: NSR, RBBB, LAFR, bifasicular block, possible lateral infarct compared to prev EKG -elevated at 28.1, 2nd trop pending ()ESLD -PT 20.1 (baseline 12-16) -INR 2 (baseline 1.2-1.6) -INR 41.6 -Ammonia 28 wnl -received vitamin K in ED -continue home midodrine, rifaximin, PRN lactulose -given worsening liver disease may require palliative care in near future ()ESRD -consulted nephrology, dialysis schedule --, please contact them in AM -Dialysis catheter and port intact on CXR, stitches and dressing exposed not intact, will contact vascular surgery. ()Hypotension -BP 77/45 (baseline 70-90/40-57) -may not have gotten midodrine this morning before dialysis -BP systolic 90's after midodrine, 500ml LR bolus ()DM2 -glucose check for low BS ()Depression -continue sertraline ()HLD -continue pravastatin ()Vitamin D Deficiency -continue vitamin D, calcitriol -continue vitamin E FENa: renal diet Code Status: full DVT PPX: SCD, NUHA stockings PT/OT: ordered Consults: Nephrology Case Management: pending Dispo: PICU Gina Augustin Do PGY 1, FCM History of Present Illness Chief Complaint: Altered Mental Status Primary Care Provider: Gildardo Haywood MD 76yo F PMH BEASLEY/ESLD with weekly pericentesis on , ESRD hemodialysis , DM2, Hypotension hx breast cancer b/l s/p mastectomy presented to hospital with altered mental status after dialysis reported by dialysis staff, this occurred towards the end of her dialysis session. Patient recalls she was in [facility] prior to hospitalization and remembers having a headache since this morning and recent nausea and vomiting with coffee ground emesis, cannot recall what procedure she was getting. Patient states she may have had palpitations ea rlier but not chest pain, belly pain, SOB. States occasional dizziness shifting from laying to sitting. Patient frequently pauses to search for words. She understands she is in a hospital but cannot recall which one, states it is late spring, said year was in the 0's, president [place]. Patient correctly recalled her birthday and husbands name. She states she frequently forgets things at home, she and her live together without outside assistance, they help each other with their medication and take them daily. Patient states she usually has swelling in her legs and abdomen, states her abdominal fluid has been drained before. was present in the room, states patient might be at her baseline, is unsure if she is forgetful at home, is unsure if her legs are more swollen than usual, states patient has been in hospital a few times is unsure what happened this time. He states patient does not walk at baseline, requires assistance to go from laying to sitting. Per daughter family is hoping patient can walk again, may have dementia, possible patient may not have taken midodrine before dialysis today. Pericentesis on . Patient sleeping all day only drinking boost. States patient's left and right chest ports are used regularly. Per hospital notes patient recieves dialysis M-W-F, pericentesis weekly, wheelchair bound at baseline, has home health nursing through [facility]. Was recently hospitalized 03/24/22-03/26/22 for low BP from renal and liver today. Concern BP are inaccurate given calcified vessels. PDMP negative for restricted substances. Allergies Allergy/AdvReac Type Severity Reaction Status Date / Time guaifenesin Allergy Severe Stroke Verified 04/05/22 11:38 like symptoms morphine Allergy Intermediate "FIRE" Verified 04/05/22 11:38 SENSATION IN HEAD Penicillins Allergy Intermediate HIVES Verified 04/05/22 11:38 ethyl alcohol AdvReac Severe STROKE Verified 04/05/22 11:38 LIKE SYMPTOMS shellfish derived AdvReac Severe PT Verified 04/05/22 11:38 DEVELOPED HEPATITIS adhesive AdvReac Intermediate RASH,REDNES Verified 04/05/22 11:38 S verapamil AdvReac Mild H/A Verified 04/05/22 11:38 Home Medications Medication Instructions Recorded Confirmed Type vitamin E 400 unit capsule 400 unit PO HS cap 10/28/20 04/05/22 History OneTouch Delica Plus Lancet 33 #200 ea NS 01/30/21 04/05/22 Rx gauge (lancets) BD Ultra-Fine Obdulia Pen Needle 32 #200 ea NS 02/14/21 04/05/22 Rx gauge x 5/32" (pen needle, diabetic) cholecalciferol (vitamin D3) 25 1,000 unit PO BID 07/28/21 04/05/22 History mcg (1,000 unit) capsule (Vitamin D3) blood sugar diagnostic (OneTouch ea 08/09/21 04/05/22 History Verio test strips) rifaximin 550 mg tablet (Xifaxan) 550 mg PO BID #100 tab 01/24/22 04/05/22 Rx sertraline 50 mg tablet (Zoloft) 50 mg PO QAM 02/01/22 04/05/22 History calcitriol 0.25 mcg capsule 0.25 mcg PO 3XWK 02/19/22 04/05/22 History (Rocaltrol) pravastatin 20 mg tablet 10 mg PO HS 03/22/22 04/05/22 History lactulose 10 gram/15 mL oral 20 g PO TID PRN 03/26/22 04/05/22 History solution midodrine 5 mg tablet 15 mg PO TID #180 tab 03/26/22 04/05/22 Rx esomeprazole magnesium 40 mg 40 mg PO QAM #90 cap 04/02/22 04/05/22 Rx capsule,delayed release (Nexium) Past Med/Surg History Medical History Abdominal ascites Acute upper gastrointestinal bleeding Acute upper GI bleed BENNY (acute kidney injury) Anemia HX Arrhythmia Ascites Asthma INHALERS JUST FOR WINTER > COLD TAKES BREATH AWAY> NO ACTUAL ASTHMA DX Cancer of left breast Hx of, cancer free 2021. s/p chemo/radiation > PORT TO RIGHT CHEST PRESENT Cardiac murmur follows with Dr. Iglesias Cirrhosis Decreased libido Depression Depression Diabetes mellitus, type 2 Disc degeneration, lumbar Diverticulosis End stage renal disease Erosive esophagitis Fatigue Gait disturbance Hiatal hernia Hormone replacement therapy Hypertension IBS (irritable colon syndrome) Loss of sensation Malignant neoplasm of central portion of left breast in female, estrogen receptor negative (11/15/17) Mitral regurgitation Mitral valve regurgitation UNSURE OF DETAILS, DOESNT FOLLOW CARDIO Nonalcoholic fatty liver disease Obesity (BMI 30-39.9) Osteopenia Peripheral neuropathy Sinus bradycardia Sinus bradycardia PATIENT SAID SHE REMEMBERS SOMEONE TELLING HER OF THIS ON AN EKG ONE TIME, BUT DOESN'T THINK ITS A CHRONIC PROBLEM Sleep apnea cpap T2DM (type 2 diabetes mellitus) Thrombocytopenia Tricuspid regurgitation Tricuspid valve regurgitation UNSURE OF DETAILS, DOESNT FOLLOW CARDIO Surgical History History of cholecystectomy History of colonoscopy History of dilatation and curettage History of esophagogastroduodenoscopy (EGD) History of left cataract surgery left. 12/23/2019. 2 mg versed. no issues. History of lumpectomy of left breast History of tonsillectomy History of tooth extraction History of total hysterectomy with bilateral salpingo-oophorectomy (BSO) History of vascular access device right side APort in place History of wisdom tooth extraction Hx of left breast biopsy malignant Hx of right breast biopsy benign Family History Grandmother (Maternal) Family history of diabetes mellitus Grandmother (Maternal) No problems noted. Grandmother (Paternal) Breast cancer Aunt Breast cancer Uncle Colorectal cancer Father Hypertension Other Colonic polyp No family history of adverse response to anesthesia Denies family history of Ovarian cancer Prostate cancer Myocardial infarction Social History Smoking Status: Never smoker Second Hand Exposure: No; Do You Dip or Chew Tobacco: No; Tobacco Cessation Education Requested by Patient: No Hx Alcohol Use: No Hx Substance Use: No Preferred Language: Macedonian Communication Ability: Effective Senior Government Program Analyst Required: No Beliefs That Will Affect Care: None marital status: Current Living Situation: Spouse Current Living Situation Comment: deaf current occupational status: retired How many Children do You have: 2 Other Information That Helps Us Care for You: No Feels Safe at Home: Yes Safety Concerns: Feels Safe At This Time Childhood Exposure to Second-Hand Smoke: Yes caffeine: No Dental Care, Regularly: Yes Physical Activity Frequency: Declines to Answer Physical Activity Frequency Comment: Not very much right now due to present fluid retention issues Seatbelt Use: always Assistive Devices: Walker and Wheelchair Review of Systems Review of Systems: see hpi Physical Exam Constitutional: + ill appearing, cooperative and comfortable Eyes: normal visual echols by confrontation and reactive pupils Jaundiced sclera ENMT: Lips cracked with green residue, oropharynx dry Neck: trachea midline, no thyromegaly Respiratory: normal respiratory effort, lungs clear to auscultation Cardiovascular: Rate/Rhythm: regular rate and regular rhythm Heart Sounds: normal S1 and normal S2 Extremities: + edema (of legs up to thigh and abdomen) Chest (Breasts): Chest: + vascular access device or port (on left chest) Additional Comments: stitches and dressing not intact. Port present on right chest. Gastrointestinal (Abdomen): Inspection/Auscultation: + abdomen distended, normal bowel sounds and + abdominal edema Percussion/Palpation: abdomen soft and + ascites; abdomen nontender Skin: + turgor decreased and + purpura Neurologic: CN2-12 intact b/l, sensation intact throughout Psychiatric: Orientation: alert, oriented to person and cooperative Results & Data Results & Data ([facility]) Vital Signs (Past 12 Hours) Vital Signs Temp Pulse Resp BP Pulse Ox 04/09/22 17:01 95 04/09/22 16:30 73 13 83/54 L 97 04/09/22 16:15 76 17 81/50 L 04/09/22 16:14 74 23 93/55 L 04/09/22 16:00 76 15 04/09/22 15:30 75 15 04/09/22 15:00 77 15 75/41 L 04/09/22 14:30 74 19 04/09/22 14:12 74 24 75/41 L 04/09/22 14:00 74 14 04/09/22 13:54 75 13 04/09/22 13:20 36.5 C 72 20 78/53 L 98 Laboratory Results 04/09/22 04/09/22 04/09/22 Range/Units 17:38 17:38 15:10 WBC (4.8-10.8) K/uL RBC (4.2-5.4) M/uL Hgb (12.0-16.0) g/dL Hct (37-47) % MCV (80-100) fL MCH (25-34) pg MCHC (32-36) g/dL RDW Std Deviation (36.4-46.3) fL RDW Coeff of Carmelina (11.5-14.5) % Plt Count (130-400) K/uL MPV (7.4-10.4) fL Immature Gran % (Auto) % Neut % (Auto) % Lymph % (Auto) % [place] % (Auto) % Eos % (Auto) % Baso % (Auto) % Neut # (Auto) (1.4-6.5) K/uL Lymph # (Auto) (1.2-3.4) K/uL [place] # (Auto) (0.11-0.59) K/uL Eos # (Auto) (0-0.5) K/uL Baso # (Auto) (0-0.2) K/uL Immature Gran # (Auto) (0.00-0.02) K/uL Ovalocytes PT (9.0-12.0) Seconds INR (0.9-1.1) APTT (21.0-31.0) Seconds PTT Ratio VBG pH 7.41 (7.36-7.41) VBG pCO2 48 (38-50) mmHg VBG pO2 21 mmHg VBG HCO3 30 mmol/L VBG O2 Saturation < 60.0 % VBG Base Excess 4.1 mEq/L Barometric Pressure 733.2 mm/Hg Sodium (136-145) mmol/L Potassium (3.5-5.1) mmol/L Chloride (98-107) mmol/L Carbon Dioxide (21-32) mmol/L Anion Gap (3-11) BUN (6-23) mg/dl Creatinine (0.6-1.2) mg/dl Est Cr Clr Drug Dosing ml/min Est GFR ( Amer) ml/min Est GFR (Non-Af Amer) ml/min BUN/Creatinine Ratio (10-20) Glucose (70-99(Fasting)) mg/dl Lactate (0.4-2.0) mmol/L Calcium (8.5-10.1) mg/dl Magnesium (1.7-2.4) mg/dl Total Bilirubin (0.2-1.0) mg/dl AST (13-39) U/L ALT (7-52) U/L Alkaline Phosphatase (34-104) U/L Ammonia (18-72) umol/L Troponin I High Sens (0-14) pg/ml Total Protein (6.0-8.3) gm/dl Albumin (3.4-5.0) gm/dl Globulin (2.5-4.0) gm/dl Albumin/Globulin Ratio (0.9-2) Procalcitonin (0-0.5) ng/ml Fluid Neutrophils % Pending Fluid Lymphocytes % Pending Fluid Eosinophils % Pending Fluid Meso/Macro/[place] % Pending Fluid Comment Peritoneal Color MILLER<.br> Peritoneal Appearance CLOUDY Peritoneal WBC 125 (0-300) /ul [place] [address] /uL Peritoneal Tot Protein < 3.0 gm/dl Peritoneal Albumin < 1.5 gm/dl Salicylates (3.0-30) mg/dl Acetaminophen (10-30) ug/ml Ethyl Alcohol mg/dL (<10.0) mg/dl SARS-CoV-2 (PCR) (Negative) Influenza Type A (PCR) (Neg) Influenza Type B (PCR) (Neg) RSV (RT-PCR) (Neg) 04/09/22 04/09/22 04/09/22 Range/Units 15:10 15:10 15:10 WBC (4.8-10.8) K/uL RBC (4.2-5.4) M/uL Hgb (12.0-16.0) g/dL Hct (37-47) % MCV (80-100) fL MCH (25-34) pg MCHC (32-36) g/dL RDW Std Deviation (36.4-46.3) fL RDW Coeff of Carmelina (11.5-14.5) % Plt Count (130-400) K/uL MPV (7.4-10.4) fL Immature Gran % (Auto) % Neut % (Auto) % Lymph % (Auto) % [place] % (Auto) % Eos % (Auto) % Baso % (Auto) % Neut # (Auto) (1.4-6.5) K/uL Lymph # (Auto) (1.2-3.4) K/uL [place] # (Auto) (0.11-0.59) K/uL Eos # (Auto) (0-0.5) K/uL Baso # (Auto) (0-0.2) K/uL Immature Gran # (Auto) (0.00-0.02) K/uL Ovalocytes PT (9.0-12.0) Seconds INR (0.9-1.1) APTT (21.0-31.0) Seconds PTT Ratio VBG pH (7.36-7.41) VBG pCO2 (38-50) mmHg VBG pO2 mmHg VBG HCO3 mmol/L VBG O2 Saturation % VBG Base Excess mEq/L Barometric Pressure mm/Hg Sodium (136-145) mmol/L Potassium (3.5-5.1) mmol/L Chloride (98-107) mmol/L Carbon Dioxide (21-32) mmol/L Anion Gap (3-11) BUN (6-23) mg/dl Creatinine (0.6-1.2) mg/dl Est Cr Clr Drug Dosing ml/min Est GFR ( Amer) ml/min Est GFR (Non-Af Amer) ml/min BUN/Creatinine Ratio (10-20) Glucose (70-99(Fasting)) mg/dl Lactate (0.4-2.0) mmol/L Calcium (8.5-10.1) mg/dl Magnesium (1.7-2.4) mg/dl Total Bilirubin (0.2-1.0) mg/dl AST (13-39) U/L ALT (7-52) U/L Alkaline Phosphatase (34-104) U/L Ammonia 28.0 (18-72) umol/L Troponin I High Sens (0-14) pg/ml Total Protein (6.0-8.3) gm/dl Albumin (3.4-5.0) gm/dl Globulin (2.5-4.0) gm/dl Albumin/Globulin Ratio (0.9-2) Procalcitonin (0-0.5) ng/ml Fluid Neutrophils % Fluid Lymphocytes % Fluid Eosinophils % Fluid Meso/Macro/[place] % Fluid Comment Peritoneal Color Peritoneal Appearance Peritoneal WBC (0-300) /ul Peritoneal RBC /uL Peritoneal Tot Protein gm/dl Peritoneal Albumin gm/dl Salicylates < 3.0 L (3.0-30) mg/dl Acetaminophen < 3 L (10-30) ug/ml Ethyl Alcohol mg/dL < 10.0 (<10.0) mg/dl SARS-CoV-2 (PCR) (Negative) Influenza Type A (PCR) (Neg) Influenza Type B (PCR) (Neg) RSV (RT-PCR) (Neg) 04/09/22 04/09/22 04/09/22 Range/Units 15:10 15:10 15:10 WBC (4.8-10.8) K/uL RBC (4.2-5.4) M/uL Hgb (12.0-16.0) g/dL Hct (37-47) % MCV (80-100) fL MCH (25-34) pg MCHC (32-36) g/dL RDW Std Deviation (36.4-46.3) fL RDW Coeff of Carmelina (11.5-14.5) % Plt Count (130-400) K/uL MPV (7.4-10.4) fL Immature Gran % (Auto) % Neut % (Auto) % Lymph % (Auto) % [place] % (Auto) % Eos % (Auto) % Baso % (Auto) % Neut # (Auto) (1.4-6.5) K/uL Lymph # (Auto) (1.2-3.4) K/uL [place] # (Auto) (0.11-0.59) K/uL Eos # (Auto) (0-0.5) K/uL Baso # (Auto) (0-0.2) K/uL Immature Gran # (Auto) (0.00-0.02) K/uL Ovalocytes PT (9.0-12.0) Seconds INR (0.9-1.1) APTT (21.0-31.0) Seconds PTT Ratio VBG pH (7.36-7.41) VBG pCO2 (38-50) mmHg VBG pO2 mmHg VBG HCO3 mmol/L VBG O2 Saturation % VBG Base Excess mEq/L Barometric Pressure mm/Hg Sodium 136 (136-145) mmol/L Potassium 3.2 L (3.5-5.1) mmol/L Chloride 94 L (98-107) mmol/L Carbon Dioxide 28 (21-32) mmol/L Anion Gap 14 H (3-11) BUN 20 (6-23) mg/dl Creatinine 3.32 H (0.6-1.2) mg/dl Est Cr Clr Drug Dosing 13.3 ml/min Est GFR ( Amer) 15.1 ml/min Est GFR (Non-Af Amer) 13.0 ml/min BUN/Creatinine Ratio 6.0 L (10-20) Glucose 67 L (70-99(Fasting)) mg/dl Lactate 3.5 H* (0.4-2.0) mmol/L Calcium 9.5 (8.5-10.1) mg/dl Magnesium 2.1 (1.7-2.4) mg/dl Total Bilirubin 5.3 H (0.2-1.0) mg/dl AST 58 H (13-39) U/L ALT 22 (7-52) U/L Alkaline Phosphatase 108 H (34-104) U/L Ammonia (18-72) umol/L Troponin I High Sens 28.1 H (0-14) pg/ml Total Protein 6.4 (6.0-8.3) gm/dl Albumin 3.4 (3.4-5.0) gm/dl Globulin 3.0 (2.5-4.0) gm/dl Albumin/Globulin Ratio 1.1 (0.9-2) Procalcitonin 0.41 (0-0.5) ng/ml Fluid Neutrophils % Fluid Lymphocytes % Fluid Eosinophils % Fluid Meso/Macro/[place] % Fluid Comment Peritoneal Color Peritoneal Appearance Peritoneal WBC (0-300) /ul Peritoneal RBC /uL Peritoneal Tot Protein gm/dl Peritoneal Albumin gm/dl Salicylates (3.0-30) mg/dl Acetaminophen (10-30) ug/ml Ethyl Alcohol mg/dL (<10.0) mg/dl SARS-CoV-2 (PCR) (Negative) Influenza Type A (PCR) (Neg) Influenza Type B (PCR) (Neg) RSV (RT-PCR) (Neg) 04/09/22 04/09/22 04/09/22 Range/Units 15:10 15:10 14:31 WBC 7.07 (4.8-10.8) K/uL RBC 3.22 L (4.2-5.4) M/uL Hgb 12.0 (12.0-16.0) g/dL Hct 34.5 L (37-47) % MCV 107.1 H (80-100) fL MCH 37.3 H (25-34) pg MCHC 34.8 (32-36) g/dL RDW Std Deviation 68.5 H (36.4-46.3) fL RDW Coeff of Carmelina 17.9 H (11.5-14.5) % Plt Count 71 L (130-400) K/uL MPV 9.3 (7.4-10.4) fL Immature Gran % (Auto) 0.4 % Neut % (Auto) 77.1 % Lymph % (Auto) 15.6 % [place] % (Auto) 6.9 % Eos % (Auto) 0.0 % Baso % (Auto) 0.0 % Neut # (Auto) 5.45 (1.4-6.5) K/uL Lymph # (Auto) 1.10 L (1.2-3.4) K/uL [place] # (Auto) 0.49 (0.11-0.59) K/uL Eos # (Auto) 0.00 (0-0.5) K/uL Baso # (Auto) 0.00 (0-0.2) K/uL Immature Gran # (Auto) 0.03 H (0.00-0.02) K/uL Ovalocytes 1+ PT 20.1 H (9.0-12.0) Seconds INR 2.0 H (0.9-1.1) APTT 41.6 H (21.0-31.0) Seconds PTT Ratio 1.5 VBG pH (7.36-7.41) VBG pCO2 (38-50) mmHg VBG pO2 mmHg VBG HCO3 mmol/L VBG O2 Saturation % VBG Base Excess mEq/L Barometric Pressure mm/Hg Sodium (136-145) mmol/L Potassium (3.5-5.1) mmol/L Chloride (98-107) mmol/L Carbon Dioxide (21-32) mmol/L Anion Gap (3-11) BUN (6-23) mg/dl Creatinine (0.6-1.2) mg/dl Est Cr Clr Drug Dosing ml/min Est GFR ( Amer) ml/min Est GFR (Non-Af Amer) ml/min BUN/Creatinine Ratio (10-20) Glucose (70-99(Fasting)) mg/dl Lactate (0.4-2.0) mmol/L Calcium (8.5-10.1) mg/dl Magnesium (1.7-2.4) mg/dl Total Bilirubin (0.2-1.0) mg/dl AST (13-39) U/L ALT (7-52) U/L Alkaline Phosphatase (34-104) U/L Ammonia (18-72) umol/L Troponin I High Sens (0-14) pg/ml Total Protein (6.0-8.3) gm/dl Albumin (3.4-5.0) gm/dl Globulin (2.5-4.0) gm/dl Albumin/Globulin Ratio (0.9-2) Procalcitonin (0-0.5) ng/ml Fluid Neutrophils % Fluid Lymphocytes % Fluid Eosinophils % Fluid Meso/Macro/[place] % Fluid Comment Peritoneal Color Peritoneal Appearance Peritoneal WBC (0-300) /ul Peritoneal RBC /uL Peritoneal Tot Protein gm/dl Peritoneal Albumin gm/dl Salicylates (3.0-30) mg/dl Acetaminophen (10-30) ug/ml Ethyl Alcohol mg/dL (<10.0) mg/dl SARS-CoV-2 (PCR) NEGATIVE (Negative) Influenza Type A (PCR) Negative (Neg) Influenza Type B (PCR) Negative (Neg) RSV (RT-PCR) Negative (Neg) Code Status & VTE Plan Code Status full code Supervising Physician Co-Signing Physician Notes Attending Attestation & Admission Note: Pt seen/examined, chart reviewed, care plan d/w PGY1 Dr Gina Augustin. I agree with the parish components of her admission documentation. Very unfortunate 76yo female with ESRD on HD M/W/F, End-stage liver disease (BEASLEY? 2nd HRS?) with refractory ascites s/p weekly therapeutic paracentesis, recent issues with severe hypotension, severe failure to thrive, severe protein calorie malnutrition, prior h/o T2DM, prior h/o morbid obesity, prior h/o breast ca - presents from [facility] HD unit in [place] with altered mental status. Patient is confused and cannot provide any meaningful history. is at bedside and cannot provide any meaningful history either. Daughter did arrive and provided parish information. Daughter reports patient has been spending most days (when not at dialysis or on the days when she receives paracentesis) sleeping in the bed or chair. Quality of life has been poor. Hasn't been able to ambulate in nearly a month. A few days ago was more awake/alert. Daughter confirms that the lethargy and confusion today is quite severe. Daughter reports her mother has hardly been eating or drinking except an occasional Boost nutrition drink. During the visit I asked the patient if she was in pain in any location - responded no. She was unable to provide any ROS, however. [facility] arrival to [facility] today her BSG was 67. Initial BP was 78/53. PMH/PSH/allergies/meds/sochx/famhx - reviewed vitals - BPs low; following IV fluids SBP now 90s following dextrose - BSG now >100 gen - chronically unwell, cachectic, lethargic, confused, opens eyes and follows basic commands but quickly falls back asleep eyes - PERRL; icteric sclera mouth - MM very dry; green substance on lips neck - no JVD chest - a-port R upper chest clean; L upper chest tunneled IJ HD catheter; dressing not in place securely; suture material is not attached to skin heart - RRR, s1 s2 lungs - decreased BS bases, CTA b/l otherwise abd - severe distension 2nd to ascites, NT ext - edema from feet to the thighs, pulses 1+ b/l skin - extensive ecchymoses on limbs, back, etc; poor turgor neuro - no obvious asterixis labs reviewed - INR 2 ammonia wnl wbc wnl mild thrombocytopenia t bili 5.3 lactate elevated cxr wnl blood cx's pending CT head neg ascites - WBCs <250 A/P: 1. acute metabolic encephalopathy - suspect combination of hypoglycemia and hypotension led to such; cannot rule out early sepsis. Cannot rule out primary RESIDENT CAREGIVER disturbance (stroke, etc). 2. possible early sepsis - cannot rule out bacteremia, cannot rule out other source of infection. Patient is anuric thus cannot rule out UTI. COVID neg. CXR neg. Cefepime/IV vanco empirically while awaiting blood cultures. No evidence of SBP. 3. severe protein calorie malnutrition 2nd to ESLD/ESRD. 4. severe failure to thrive. 5. ESLD with refractory ascites & weekly paracentesis - VERY POOR prognostic sign. MELD is 35. 6. ESRD on HD M/W/. 7. acute/chronic hypotension - acute likely due to volume contraction from poor PO intake; cannot rule out early sepsis; cannot rule out addisonian state. Check cortisol. Fluid bolus once again. Midodrine 15mg TID. 8. hypoglycemia - resolved s/p dextrose supplementation. May need dextrose infusion if unable to maintain euglycemia. Check BSGs q6h. Suspect poor glycogen stores, no hepatic gluconeogenesis, and poor PO intake all causing such. 9. coagulopathy 2nd to #5 - WORSE - s/p vit K but unlikely to have benefit. Another sign of progressive ESLD. Suspect she is approaching end-of-life given her ESLD and ESRD. SEVERE failure to thrive with very, very poor quality of life. Can attempt simple measures next 1-2 days to see if any improvement but suspect hospice will be our best option. Bryan Stover MD Resident Activity Tracking Resident Involvement: Resident Care Provided Care Provided: Adult [facility]
[2022-04-09] MEDS ORDERED: POLYETHYLENE (MIRALAX) 17 GM PACK PO PRN (18:27)
[2022-04-09] MEDS ORDERED: LACTULOSE SYRUP 20 GM/30 ML UDC PO PRN (18:39)
[2022-04-09 18:42] LABS: Appearance Peritoneal Fluid CLOUDY; RBC Peritoneal Fluid (A) 12000 /uL; WBC Peritoneal Fluid (A) 125 /ul (0-300)
[2022-04-09] MEDS ORDERED: LACTATED RINGER'S 500 ML IV ONE (18:42)
[2022-04-09 18:56] LABS: Albumin Peritoneal Fluid < 1.5 gm/dl; Total Protein Peritoneal Fluid < 3.0 gm/dl
[2022-04-09] MEDS ORDERED: VANCOMYCIN CONSULT ACTIVE PRN (19:03)
[2022-04-09] MEDS ORDERED: VANCOMYCIN HCL 1,000 MG in SODIUM CHLORIDE 0.9% 500 ML IV SCH (19:15)
[2022-04-09] MEDS ORDERED: CEFEPIME 2,000 MG in SYRINGE 0 ML IV SCH (19:15)
[2022-04-09 19:39] LABS: Basophils, Fluid 0 %; Eosinophils, Fluid 0 %; Lymphocytes, Fluid 38 %; Mono,Macrophage,Mesothelial 33 %; Neutrophils, Fluid 29 %
--- NOTE | 2022-04-09 19:43 | Emergency Department Note ---
History of Present Illness General Chief complaint: Weakness Stated complaint: WEAKNESS Time Seen by Provider: 04/09/22 14:07 Source: family Limitations: altered mental status History of Present Illness Provider complaint: Altered mental status Onset (ago): hour(s) 1 76-year-old female end-stage renal disease on hemodialysis Saturday presents emergency department for altered mental status. Patient reports she was having difficulty walking after dialysis today. Patient does not seem very oriented stating that she had a paracentesis done today although the at bedside states she has not. reports that the patient fell 2 weeks ago. Home Medications Medication Instructions Recorded Confirmed Type vitamin E 400 unit capsule 400 unit PO HS cap 10/28/20 04/05/22 History OneTouch Delica Plus Lancet 33 #200 ea NS 01/30/21 04/05/22 Rx gauge (lancets) BD Ultra-Fine Obdulia Pen Needle 32 #200 ea NS 02/14/21 04/05/22 Rx gauge x 5/32" (pen needle, diabetic) cholecalciferol (vitamin D3) 25 1,000 unit PO BID 07/28/21 04/05/22 History mcg (1,000 unit) capsule (Vitamin D3) blood sugar diagnostic (OneTouch ea 08/09/21 04/05/22 History Verio test strips) rifaximin 550 mg tablet (Xifaxan) 550 mg PO BID #100 tab 01/24/22 04/05/22 Rx sertraline 50 mg tablet (Zoloft) 50 mg PO QAM 02/01/22 04/05/22 History calcitriol 0.25 mcg capsule 0.25 mcg PO 3XWK 02/19/22 04/05/22 History (Rocaltrol) pravastatin 20 mg tablet 10 mg PO HS 03/22/22 04/05/22 History lactulose 10 gram/15 mL oral 20 g PO TID PRN 03/26/22 04/05/22 History solution midodrine 5 mg tablet 15 mg PO TID #180 tab 03/26/22 04/05/22 Rx esomeprazole magnesium 40 mg 40 mg PO QAM #90 cap 04/02/22 04/05/22 Rx capsule,delayed release (Nexium) Allergies Allergy/AdvReac Type Severity Reaction Status Date / Time guaifenesin Allergy Severe Stroke Verified 04/05/22 11:38 like symptoms morphine Allergy Intermediate "FIRE" Verified 04/05/22 11:38 SENSATION IN HEAD Penicillins Allergy Intermediate HIVES Verified 04/05/22 11:38 ethyl alcohol AdvReac Severe STROKE Verified 04/05/22 11:38 LIKE SYMPTOMS shellfish derived AdvReac Severe PT Verified 04/05/22 11:38 DEVELOPED HEPATITIS adhesive AdvReac Intermediate RASH,REDNES Verified 04/05/22 11:38 S verapamil AdvReac Mild H/A Verified 04/05/22 11:38 Past Med/Surg History Medical History Abdominal ascites Acute upper gastrointestinal bleeding Acute upper GI bleed BENNY (acute kidney injury) Anemia HX Arrhythmia Ascites Asthma INHALERS JUST FOR WINTER > COLD TAKES BREATH AWAY> NO ACTUAL ASTHMA DX Cancer of left breast Hx of, cancer free 2021. s/p chemo/radiation > PORT TO RIGHT CHEST PRESENT Cardiac murmur follows with Dr. Iglesias Cirrhosis Decreased libido Depression Depression Diabetes mellitus, type 2 Disc degeneration, lumbar Diverticulosis End stage renal disease Erosive esophagitis Fatigue Gait disturbance Hiatal hernia Hormone replacement therapy Hypertension IBS (irritable colon syndrome) Loss of sensation Malignant neoplasm of central portion of left breast in female, estrogen receptor negative (11/15/17) Mitral regurgitation Mitral valve regurgitation UNSURE OF DETAILS, DOESNT FOLLOW CARDIO Nonalcoholic fatty liver disease Obesity (BMI 30-39.9) Osteopenia Peripheral neuropathy Sinus bradycardia Sinus bradycardia PATIENT SAID SHE REMEMBERS SOMEONE TELLING HER OF THIS ON AN EKG ONE TIME, BUT DOESN'T THINK ITS A CHRONIC PROBLEM Sleep apnea cpap T2DM (type 2 diabetes mellitus) Thrombocytopenia Tricuspid regurgitation Tricuspid valve regurgitation UNSURE OF DETAILS, DOESNT FOLLOW CARDIO Surgical History History of cholecystectomy History of colonoscopy History of dilatation and curettage History of esophagogastroduodenoscopy (EGD) History of left cataract surgery left. 12/23/2019. 2 mg versed. no issues. History of lumpectomy of left breast History of tonsillectomy History of tooth extraction History of total hysterectomy with bilateral salpingo-oophorectomy (BSO) History of vascular access device right side APort in place History of wisdom tooth extraction Hx of left breast biopsy malignant Hx of right breast biopsy benign Family History Grandmother (Maternal) Family history of diabetes mellitus Grandmother (Maternal) No problems noted. Grandmother (Paternal) Breast cancer Aunt Breast cancer Uncle Colorectal cancer Father Hypertension Other Colonic polyp No family history of adverse response to anesthesia Denies family history of Ovarian cancer Prostate cancer Myocardial infarction Social History Smoking Status: Never smoker Second Hand Exposure: No; Hx Alcohol Use: No Hx Substance Use: No Preferred Language: Sinhala Communication Ability: Effective County Court Judge Required: No Beliefs That Will Affect Care: None marital status: Current Living Situation: Spouse Current Living Situation Comment: current occupational status: retired Feels Safe at Home: Yes Childhood Exposure to Second-Hand Smoke: Yes caffeine: No Dental Care, Regularly: Yes Physical Activity Frequency: Declines to Answer Physical Activity Frequency Comment: Not very much right now due to present fluid retention issues Seatbelt Use: always Assistive Devices: Walker Review of Systems Unobtainable due to cognitive status Physical Exam Vital Signs Vital Signs - 24 hr 04/09/22 13:20 04/09/22 13:54 04/09/22 14:00 Temperature 36.5 C Temperature Source Oral Pulse Rate 72 75 74 Pulse Rate from SpO2 Sensor Pulse Rhythm Regular Pulse Strength Normal Respiratory Rate 20 13 14 Respiratory Effort / Characteristics Non-Labored Spontaneous Respiratory Depth Normal Respiratory Pattern Regular Blood Pressure 78/53 L Blood Pressure Mean 61 Pulse Oximetry 98 Oxygen Delivery Method Room Air Sepsis Recent Fever Within 48 Hours No Sepsis New/Unexplained Change in Mental Status N/A Sepsis Action Taken by Nursing No Action Required 04/09/22 14:07 04/09/22 14:12 04/09/22 14:30 Temperature Temperature Source Pulse Rate 74 74 Pulse Rate from SpO2 Sensor Pulse Rhythm Pulse Strength Respiratory Rate 24 19 Respiratory Effort / Characteristics Non-Labored Respiratory Depth Respiratory Pattern Blood Pressure 75/41 L Blood Pressure Mean 52 Pulse Oximetry Oxygen Delivery Method Sepsis Recent Fever Within 48 Hours Sepsis New/Unexplained Change in Mental Status Sepsis Action Taken by Nursing 04/09/22 14:37 04/09/22 15:00 04/09/22 15:07 Temperature Temperature Source Pulse Rate 77 Pulse Rate from SpO2 Sensor Pulse Rhythm Pulse Strength Respiratory Rate 15 Respiratory Effort / Characteristics Non-Labored Non-Labored Respiratory Depth Respiratory Pattern Blood Pressure 75/41 L Blood Pressure Mean 52 Pulse Oximetry Oxygen Delivery Method Sepsis Recent Fever Within 48 Hours Sepsis New/Unexplained Change in Mental Status Sepsis Action Taken by Nursing 04/09/22 15:30 04/09/22 16:00 04/09/22 16:14 Temperature Temperature Source Pulse Rate 75 76 74 Pulse Rate from SpO2 Sensor Pulse Rhythm Pulse Strength Respiratory Rate 15 15 23 Respiratory Effort / Characteristics Non-Labored Non-Labored Respiratory Depth Respiratory Pattern Blood Pressure 93/55 L Blood Pressure Mean 67 Pulse Oximetry Oxygen Delivery Method Sepsis Recent Fever Within 48 Hours Sepsis New/Unexplained Change in Mental Status Sepsis Action Taken by Nursing 04/09/22 16:15 04/09/22 16:30 04/09/22 17:00 Temperature Temperature Source Pulse Rate 76 73 73 Pulse Rate from SpO2 Sensor 76 73 Pulse Rhythm Pulse Strength Respiratory Rate 17 13 18 Respiratory Effort / Characteristics Non-Labored Non-Labored Respiratory Depth Respiratory Pattern Blood Pressure 81/50 L 83/54 L 80/48 L Blood Pressure Mean 60 63 58 Pulse Oximetry 97 98 Oxygen Delivery Method Sepsis Recent Fever Within 48 Hours Sepsis New/Unexplained Change in Mental Status Sepsis Action Taken by Nursing 04/09/22 17:01 04/09/22 17:21 04/09/22 17:30 Temperature Temperature Source Pulse Rate 74 78 Pulse Rate from SpO2 Sensor 75 75 Pulse Rhythm Pulse Strength Respiratory Rate 19 24 Respiratory Effort / Characteristics Respiratory Depth Respiratory Pattern Blood Pressure 86/46 L Blood Pressure Mean 59 Pulse Oximetry 95 92 88 L Oxygen Delivery Method Room Air Sepsis Recent Fever Within 48 Hours Sepsis New/Unexplained Change in Mental Status Sepsis Action Taken by Nursing 04/09/22 17:46 04/09/22 18:00 04/09/22 18:15 Temperature Temperature Source Pulse Rate 80 81 81 Pulse Rate from SpO2 Sensor 82 80 Pulse Rhythm Pulse Strength Respiratory Rate 21 17 19 Respiratory Effort / Characteristics Respiratory Depth Respiratory Pattern Blood Pressure 75/54 L 82/51 L 77/45 L Blood Pressure Mean 61 61 55 Pulse Oximetry 95 98 93 Oxygen Delivery Method Sepsis Recent Fever Within 48 Hours Sepsis New/Unexplained Change in Mental Status Sepsis Action Taken by Nursing 04/09/22 18:17 04/09/22 18:19 Temperature Temperature Source Pulse Rate Pulse Rate from SpO2 Sensor Pulse Rhythm Pulse Strength Respiratory Rate Respiratory Effort / Characteristics Non-Labored Respiratory Depth Normal Respiratory Pattern Blood Pressure Blood Pressure Mean Pulse Oximetry Oxygen Delivery Method Room Air Sepsis Recent Fever Within 48 Hours Sepsis New/Unexplained Change in Mental Status Sepsis Action Taken by Nursing Physical Exam GENERAL: Patient is ill-appearing HENT: Exam performed. -Head: Normocephalic and atraumatic. -Right Ear: External ear normal. No mastoid tenderness. -Left Ear: External ear normal. No mastoid tenderness. -Mouth/Throat: The oropharynx is clear and moist. No trismus in the jaw. No dental abscesses or uvula swelling. No oropharyngeal exudate or tonsillar abscesses. EYES: Conjunctivae and EOM are normal. Pupils are equal, round, and reactive to light. Right eye exhibits no discharge. Left eye exhibits no discharge. No scle ral icterus. NECK: Normal range of motion. Neck supple. No JVD present. No spinous process tenderness present. No carotid bruit present. No rigidity. No tracheal deviation and normal range of motion present. No Brudzinski's sign and no Kernig's sign noted. CV: Normal rate, regular rhythm, normal heart sounds and intact distal pulses. There is no peripheral edema. Palpable radial pulses bue. PULM/CHEST: Effort normal and breath sounds normal. No respiratory distress. No stridor. She has no wheezes. She has no rales. -Chest Wall: She exhibits no tenderness. ABD: The abdomen is distended. Positive fluid wave. No pain on palpation of the abdomen. NEURO: Patient is alert but not oriented to person place or time. Motor and sensation are grossly intact. SKIN: Ecchymosis over the bilateral upper and lower extremities. Procedures Paracentesis Time Out Performed: Yes Local Anesthetic: lidocaine 1% and with epi Amount of anesthesia used (mL): 4 Fluid: cloudy and bloody Post Procedure Exam: awake, alert, normal BP, normal HR and normal SpO2 Patient Tolerated Procedure: well Complications: none Course Course 1407: The patient was evaluated in room C1. A complete history and physical exam was performed Cardiac monitoring: An order was placed for continuous cardiac monitoring. The monitor shows a rate of 80 with sinus rhythm Patient hypotensive on arrival. EMR reviewed. Patient is chronically hypotensive. 1715: Vital signs stable with the patient remaining at her baseline blood pres sure. Imaging within normal limits. Labs show an elevated lactic acid level of 3.5. Glucose 67. 1 amp D50 ordered for the patient. INR 2.0. Patient is not on Coumadin. White blood cell count within normal limits. Discussed case with Dr. Noble. He states he will admit the patient but he recommends that the patient have a diagnostic paracentesis performed. I will perform this. INR is 2.0 so vitamin K ordered for the patient. Dr. Noble states to hold off on antibiotics until the results of the paracentesis are back. 1940: Vital signs stable. Diagnostic paracentesis was performed. Patient tolerated procedure well. See procedure note. Peritoneal fluid shows no evidence of SBP. Patient admitted to the [facility] team. Administered Medications Discontinued Medications Dextrose (Dextrose 50% 50 Ml Syringe) 50 ml IV NOW ONE Stop: 04/09/22 17:06 Last Admin: 04/09/22 17:27 Dose: 50 ml Documented by: [id number] Sodium Chloride (Nss 1000ml) 1,000 mls @ 999 mls/hr IV .[id number] ONE Stop: 04/09/22 15:08 Last Admin: 04/09/22 14:42 Dose: Not Given Documented by: [id number] Phytonadione 10 mg/ Dextrose 51 mls @ 102 mls/hr IV ONE ONE Stop: 04/09/22 17:42 Last Admin: 04/09/22 18:17 Dose: 102 mls/hr Documented by: [id number] Lidocaine/Epinephrine (Lidocaine 1%/Epinephrine 1:100,000 50 Ml Vial) Confirm Administered Dose 50 ml .ROUTE .STK-MED ONE Stop: 04/09/22 17:13 Last Admin: 04/09/22 17:28 Dose: Not Given Documented by: [id number] Lidocaine/Epinephrine (Lidocaine 1%/Epinephrine 1:100,000 50 Ml Vial) 50 ml INFIL NOW ONE Stop: 04/09/22 17:14 Last Admin: 04/09/22 17:27 Dose: 50 ml Documented by: [id number] Medical Decision Making Laboratory Data Result diagrams: 04/09/22 15:10 04/09/22 15:10 Lab Results 04/09/22 04/09/22 04/09/22 Range/Units 14:31 15:10 15:10 WBC 7.07 (4.8-10.8) K/uL RBC 3.22 L (4.2-5.4) M/uL Hgb 12.0 (12.0-16.0) g/dL Hct 34.5 L (37-47) % MCV 107.1 H (80-100) fL MCH 37.3 H (25-34) pg MCHC 34.8 (32-36) g/dL RDW Std Deviation 68.5 H (36.4-46.3) fL RDW Coeff of Carmelina 17.9 H (11.5-14.5) % Plt Count 71 L (130-400) K/uL MPV 9.3 (7.4-10.4) fL Immature Gran % (Auto) 0.4 % Neut % (Auto) 77.1 % Lymph % (Auto) 15.6 % Campbell % (Auto) 6.9 % Eos % (Auto) 0.0 % Baso % (Auto) 0.0 % Neut # (Auto) 5.45 (1.4-6.5) K/uL Lymph # (Auto) 1.10 L (1.2-3.4) K/uL Campbell # (Auto) 0.49 (0.11-0.59) K/uL Eos # (Auto) 0.00 (0-0.5) K/uL Baso # (Auto) 0.00 (0-0.2) K/uL Immature Gran # (Auto) 0.03 H (0.00-0.02) K/uL Ovalocytes 1+ PT 20.1 H (9.0-12.0) Seconds INR 2.0 H (0.9-1.1) APTT 41.6 H (21.0-31.0) Seconds PTT Ratio 1.5 VBG pH (7.36-7.41) VBG pCO2 (38-50) mmHg VBG pO2 mmHg VBG HCO3 mmol/L VBG O2 Saturation % VBG Base Excess mEq/L Barometric Pressure mm/Hg Sodium (136-145) mmol/L Potassium (3.5-5.1) mmol/L Chloride (98-107) mmol/L Carbon Dioxide (21-32) mmol/L Anion Gap (3-11) BUN (6-23) mg/dl Creatinine (0.6-1.2) mg/dl Est Cr Clr Drug Dosing ml/min Est GFR ( Amer) ml/min Est GFR (Non-Af Amer) ml/min BUN/Creatinine Ratio (10-20) Glucose (70-99(Fasting)) mg/dl POC Glucose (70-99) mg/dl Lactate (0.4-2.0) mmol/L Calcium (8.5-10.1) mg/dl Magnesium (1.7-2.4) mg/dl Total Bilirubin (0.2-1.0) mg/dl AST (13-39) U/L ALT (7-52) U/L Alkaline Phosphatase (34-104) U/L Ammonia (18-72) umol/L Troponin I High Sens (0-14) pg/ml Total Protein (6.0-8.3) gm/dl Albumin (3.4-5.0) gm/dl Globulin (2.5-4.0) gm/dl Albumin/Globulin Ratio (0.9-2) Procalcitonin (0-0.5) ng/ml Fluid Comment Peritoneal Color Peritoneal Appearance Peritoneal WBC (0-300) /ul Peritoneal RBC /uL Peritoneal Tot Protein gm/dl Peritoneal Albumin gm/dl Salicylates (3.0-30) mg/dl Acetaminophen (10-30) ug/ml Ethyl Alcohol mg/dL (<10.0) mg/dl SARS-CoV-2 (PCR) NEGATIVE (Negative) Influenza Type A (PCR) Negative (Neg) Influenza Type B (PCR) Negative (Neg) RSV (RT-PCR) Negative (Neg) 04/09/22 04/09/22 04/09/22 Range/Units 15:10 15:10 15:10 WBC (4.8-10.8) K/uL RBC (4.2-5.4) M/uL Hgb (12.0-16.0) g/dL Hct (37-47) % MCV (80-100) fL MCH (25-34) pg MCHC (32-36) g/dL RDW Std Deviation (36.4-46.3) fL RDW Coeff of Carmelina (11.5-14.5) % Plt Count (130-400) K/uL MPV (7.4-10.4) fL Immature Gran % (Auto) % Neut % (Auto) % Lymph % (Auto) % Campbell % (Auto) % Eos % (Auto) % Baso % (Auto) % Neut # (Auto) (1.4-6.5) K/uL Lymph # (Auto) (1.2-3.4) K/uL Campbell # (Auto) (0.11-0.59) K/uL Eos # (Auto) (0-0.5) K/uL Baso # (Auto) (0-0.2) K/uL Immature Gran # (Auto) (0.00-0.02) K/uL Ovalocytes PT (9.0-12.0) Seconds INR (0.9-1.1) APTT (21.0-31.0) Seconds PTT Ratio VBG pH (7.36-7.41) VBG pCO2 (38-50) mmHg VBG pO2 mmHg VBG HCO3 mmol/L VBG O2 Saturation % VBG Base Excess mEq/L Barometric Pressure mm/Hg Sodium 136 (136-145) mmol/L Potassium 3.2 L (3.5-5.1) mmol/L Chloride 94 L (98-107) mmol/L Carbon Dioxide 28 (21-32) mmol/L Anion Gap 14 H (3-11) BUN 20 (6-23) mg/dl Creatinine 3.32 H (0.6-1.2) mg/dl Est Cr Clr Drug Dosing 13.3 ml/min Est GFR ( Amer) 15.1 ml/min Est GFR (Non-Af Amer) 13.0 ml/min BUN/Creatinine Ratio 6.0 L (10-20) Glucose 67 L (70-99(Fasting)) mg/dl POC Glucose (70-99) mg/dl Lactate 3.5 H* (0.4-2.0) mmol/L Calcium 9.5 (8.5-10.1) mg/dl Magnesium 2.1 (1.7-2.4) mg/dl Total Bilirubin 5.3 H (0.2-1.0) mg/dl AST 58 H (13-39) U/L ALT 22 (7-52) U/L Alkaline Phosphatase 108 H (34-104) U/L Ammonia (18-72) umol/L Troponin I High Sens 28.1 H (0-14) pg/ml Total Protein 6.4 (6.0-8.3) gm/dl Albumin 3.4 (3.4-5.0) gm/dl Globulin 3.0 (2.5-4.0) gm/dl Albumin/Globulin Ratio 1.1 (0.9-2) Procalcitonin 0.41 (0-0.5) ng/ml Fluid Comment Peritoneal Color Peritoneal Appearance Peritoneal WBC (0-300) /ul Peritoneal RBC /uL Peritoneal Tot Protein gm/dl Peritoneal Albumin gm/dl Salicylates (3.0-30) mg/dl Acetaminophen (10-30) ug/ml Ethyl Alcohol mg/dL (<10.0) mg/dl SARS-CoV-2 (PCR) (Negative) Influenza Type A (PCR) (Neg) Influenza Type B (PCR) (Neg) RSV (RT-PCR) (Neg) 04/09/22 04/09/22 04/09/22 Range/Units 15:10 15:10 15:10 WBC (4.8-10.8) K/uL RBC (4.2-5.4) M/uL Hgb (12.0-16.0) g/dL Hct (37-47) % MCV (80-100) fL MCH (25-34) pg MCHC (32-36) g/dL RDW Std Deviation (36.4-46.3) fL RDW Coeff of Carmelina (11.5-14.5) % Plt Count (130-400) K/uL MPV (7.4-10.4) fL Immature Gran % (Auto) % Neut % (Auto) % Lymph % (Auto) % Campbell % (Auto) % Eos % (Auto) % Baso % (Auto) % Neut # (Auto) (1.4-6.5) K/uL Lymph # (Auto) (1.2-3.4) K/uL Campbell # (Auto) (0.11-0.59) K/uL Eos # (Auto) (0-0.5) K/uL Baso # (Auto) (0-0.2) K/uL Immature Gran # (Auto) (0.00-0.02) K/uL Ovalocytes PT (9.0-12.0) Seconds INR (0.9-1.1) APTT (21.0-31.0) Seconds PTT Ratio VBG pH (7.36-7.41) VBG pCO2 (38-50) mmHg VBG pO2 mmHg VBG HCO3 mmol/L VBG O2 Saturation % VBG Base Excess mEq/L Barometric Pressure mm/Hg Sodium (136-145) mmol/L Potassium (3.5-5.1) mmol/L Chloride (98-107) mmol/L Carbon Dioxide (21-32) mmol/L Anion Gap (3-11) BUN (6-23) mg/dl Creatinine (0.6-1.2) mg/dl Est Cr Clr Drug Dosing ml/min Est GFR ( Amer) ml/min Est GFR (Non-Af Amer) ml/min BUN/Creatinine Ratio (10-20) Glucose (70-99(Fasting)) mg/dl POC Glucose (70-99) mg/dl Lactate (0.4-2.0) mmol/L Calcium (8.5-10.1) mg/dl Magnesium (1.7-2.4) mg/dl Total Bilirubin (0.2-1.0) mg/dl AST (13-39) U/L ALT (7-52) U/L Alkaline Phosphatase (34-104) U/L Ammonia 28.0 (18-72) umol/L Troponin I High Sens (0-14) pg/ml Total Protein (6.0-8.3) gm/dl Albumin (3.4-5.0) gm/dl Globulin (2.5-4.0) gm/dl Albumin/Globulin Ratio (0.9-2) Procalcitonin (0-0.5) ng/ml Fluid Comment Peritoneal Color Peritoneal Appearance Peritoneal WBC (0-300) /ul Peritoneal RBC /uL Peritoneal Tot Protein gm/dl Peritoneal Albumin gm/dl Salicylates < 3.0 L (3.0-30) mg/dl Acetaminophen < 3 L (10-30) ug/ml Ethyl Alcohol mg/dL < 10.0 (<10.0) mg/dl SARS-CoV-2 (PCR) (Negative) Influenza Type A (PCR) (Neg) Influenza Type B (PCR) (Neg) RSV (RT-PCR) (Neg) 04/09/22 04/09/22 04/09/22 Range/Units 15:10 17:38 17:38 WBC (4.8-10.8) K/uL RBC (4.2-5.4) M/uL Hgb (12.0-16.0) g/dL Hct (37-47) % MCV (80-100) fL MCH (25-34) pg MCHC (32-36) g/dL RDW Std Deviation (36.4-46.3) fL RDW Coeff of Carmelina (11.5-14.5) % Plt Count (130-400) K/uL MPV (7.4-10.4) fL Immature Gran % (Auto) % Neut % (Auto) % Lymph % (Auto) % Campbell % (Auto) % Eos % (Auto) % Baso % (Auto) % Neut # (Auto) (1.4-6.5) K/uL Lymph # (Auto) (1.2-3.4) K/uL Campbell # (Auto) (0.11-0.59) K/uL Eos # (Auto) (0-0.5) K/uL Baso # (Auto) (0-0.2) K/uL Immature Gran # (Auto) (0.00-0.02) K/uL Ovalocytes PT (9.0-12.0) Seconds INR (0.9-1.1) APTT (21.0-31.0) Seconds PTT Ratio VBG pH 7.41 (7.36-7.41) VBG pCO2 48 (38-50) mmHg VBG pO2 21 mmHg VBG HCO3 30 mmol/L VBG O2 Saturation < 60.0 % VBG Base Excess 4.1 mEq/L Barometric Pressure 733.2 mm/Hg Sodium (136-145) mmol/L Potassium (3.5-5.1) mmol/L Chloride (98-107) mmol/L Carbon Dioxide (21-32) mmol/L Anion Gap (3-11) BUN (6-23) mg/dl Creatinine (0.6-1.2) mg/dl Est Cr Clr Drug Dosing ml/min Est GFR ( Amer) ml/min Est GFR (Non-Af Amer) ml/min BUN/Creatinine Ratio (10-20) Glucose (70-99(Fasting)) mg/dl POC Glucose (70-99) mg/dl Lactate (0.4-2.0) mmol/L Calcium (8.5-10.1) mg/dl Magnesium (1.7-2.4) mg/dl Total Bilirubin (0.2-1.0) mg/dl AST (13-39) U/L ALT (7-52) U/L Alkaline Phosphatase (34-104) U/L Ammonia (18-72) umol/L Troponin I High Sens (0-14) pg/ml Total Protein (6.0-8.3) gm/dl Albumin (3.4-5.0) gm/dl Globulin (2.5-4.0) gm/dl Albumin/Globulin Ratio (0.9-2) Procalcitonin (0-0.5) ng/ml Fluid Comment Peritoneal Color MILLER<.br> Peritoneal Appearance CLOUDY Peritoneal WBC 125 (0-300) /ul [place] [address] /uL Peritoneal Tot Protein < 3.0 gm/dl Peritoneal Albumin < 1.5 gm/dl Salicylates (3.0-30) mg/dl Acetaminophen (10-30) ug/ml Ethyl Alcohol mg/dL (<10.0) mg/dl SARS-CoV-2 (PCR) (Negative) Influenza Type A (PCR) (Neg) Influenza Type B (PCR) (Neg) RSV (RT-PCR) (Neg) 04/09/22 Range/Units 19:27 WBC (4.8-10.8) K/uL RBC (4.2-5.4) M/uL Hgb (12.0-16.0) g/dL Hct (37-47) % MCV (80-100) fL MCH (25-34) pg MCHC (32-36) g/dL RDW Std Deviation (36.4-46.3) fL RDW Coeff of Carmelina (11.5-14.5) % Plt Count (130-400) K/uL MPV (7.4-10.4) fL Immature Gran % (Auto) % Neut % (Auto) % Lymph % (Auto) % Campbell % (Auto) % Eos % (Auto) % Baso % (Auto) % Neut # (Auto) (1.4-6.5) K/uL Lymph # (Auto) (1.2-3.4) K/uL Campbell # (Auto) (0.11-0.59) K/uL Eos # (Auto) (0-0.5) K/uL Baso # (Auto) (0-0.2) K/uL Immature Gran # (Auto) (0.00-0.02) K/uL Ovalocytes PT (9.0-12.0) Seconds INR (0.9-1.1) APTT (21.0-31.0) Seconds PTT Ratio VBG pH (7.36-7.41) VBG pCO2 (38-50) mmHg VBG pO2 mmHg VBG HCO3 mmol/L VBG O2 Saturation % VBG Base Excess mEq/L Barometric Pressure mm/Hg Sodium (136-145) mmol/L Potassium (3.5-5.1) mmol/L Chloride (98-107) mmol/L Carbon Dioxide (21-32) mmol/L Anion Gap (3-11) BUN (6-23) mg/dl Creatinine (0.6-1.2) mg/dl Est Cr Clr Drug Dosing ml/min Est GFR ( Amer) ml/min Est GFR (Non-Af Amer) ml/min BUN/Creatinine Ratio (10-20) Glucose (70-99(Fasting)) mg/dl POC Glucose 109 H (70-99) mg/dl Lactate (0.4-2.0) mmol/L Calcium (8.5-10.1) mg/dl Magnesium (1.7-2.4) mg/dl Total Bilirubin (0.2-1.0) mg/dl AST (13-39) U/L ALT (7-52) U/L Alkaline Phosphatase (34-104) U/L Ammonia (18-72) umol/L Troponin I High Sens (0-14) pg/ml Total Protein (6.0-8.3) gm/dl Albumin (3.4-5.0) gm/dl Globulin (2.5-4.0) gm/dl Albumin/Globulin Ratio (0.9-2) Procalcitonin (0-0.5) ng/ml Fluid Comment Peritoneal Color Peritoneal Appearance Peritoneal WBC (0-300) /ul Peritoneal RBC /uL Peritoneal Tot Protein gm/dl Peritoneal Albumin gm/dl Salicylates (3.0-30) mg/dl Acetaminophen (10-30) ug/ml Ethyl Alcohol mg/dL (<10.0) mg/dl SARS-CoV-2 (PCR) (Negative) Influenza Type A (PCR) (Neg) Influenza Type B (PCR) (Neg) RSV (RT-PCR) (Neg) Imaging Data Radiologist's Impression: Chest X-Ray 04/09/22 14:07 XR chest 1V portable CLINICAL HISTORY: SEPSIS TECHNIQUE: Single frontal radiograph of the chest was obtained. Comparison: Comparison is made to chest radiograph 03/22/2022 FINDINGS: Lines and tubes are stable. Calcified aortic knob is seen. The lungs are clear. There is a small blunting of the right costophrenic angle. IMPRESSION: Small blunting of the right costophrenic angle may represent trace effusion. ACT 112: Negative or not required by law. Electronically signed by: Manish Bacon M.D. 04/09/2022 3:[address] 04/09/22 14:08 CT head/brain wo con CLINICAL HISTORY: ams Technique: Contiguous axial CT images of the head were acquired from the base of the skull to the vertex without intravenous contrast administration. Images were viewed in brain, subdural and bone windows. Automated dose lowering techniques and/or adjustment according to patient size were utilized for this exam. Comparison: Comparison is made to CT head 06/17/2015 Findings: Areas of decreased attenuation are present in the periventricular and subcortical white matter bilaterally consistent with small vessel ischemic disease. Generalized cerebral atrophy with commensurate enlargement of the ventricles, sulci, and cisterns is also present. There is no acute intracranial hemorrhage or evidence of acute territorial infarction. No shift of the midline structures, mass effect, or extra-axial abnormalities are shown. Atherosclerotic calcifications are present in the intracranial segments of the internal carotid arteries. Imaged portions of the paranasal sinuses and mastoid air cells are clear. The orbits appear normal. There are no acute fractures of the calvaria or scalp swelling. Impression: No acute intracranial hemorrhage, no evidence of acute territorial infarction or other acute intracranial disease process. ACT 112: Negative or not required by law. Electronically signed by: Manish Bacon M.D. 04/09/2022 4:[address] 04/09/22 14:23 CT cervical spine wo con CLINICAL HISTORY: fall TECHNIQUE: Multidetector row helical CT of the cervical spine was performed without administration of intravenous contrast. Coronal and sagittal reformations were obtained. Automated dose lowering techniques and/or adjustment according to patient size were utilized for this exam. Comparison: None available at the time of this dictation. FINDINGS: No acute fractures or subluxations are identified. Degenerative changes are seen in the visualized spine. Fusion of the lateral columns of L2 and L3 are seen on the left. The alignment is normal. Soft tissues are unremarkable. IMPRESSION: No evidence of acute bony injury. ACT 112: Negative or not required by law. Electronically signed by: Mainsh Bacon M.D. 04/09/2022 4:37 PM ECG Data Additional Comments: Sinus rhythm with rate of 77. KS 138 QRS 126 QTC 547. Bifascicular block pres ent. No ST elevation ST depression [facility] Narrative 1407: The patient was evaluated in room C1. A complete history and physical exam was performed Cardiac monitoring: An order was placed for continuous cardiac monitoring. The monitor shows a rate of 80 with sinus rhythm Patient hypotensive on arrival. EMR reviewed. Patient is chronically hypotens veronique. 1715: Vital signs stable with the patient remaining at her baseline blood pressure. Imaging within normal limits. Labs show an elevated lactic acid level of 3.5. Glucose 67. 1 amp D50 ordered for the patient. INR 2.0. Patient is not on Coumadin. White blood cell count within normal limits. Discussed case with Dr. Noble. He states he will admit the patient but he recommends that the patient have a diagnostic paracentesis performed. I will perform this. INR is 2.0 so vitamin K ordered for the patient. Dr. Noble states to hold off on antibiotics until the results of the paracentesis are back. 1940: Vital signs stable. Diagnostic paracentesis was performed. Patient tolerated procedure well. See procedure note. Peritoneal fluid shows no evidence of SBP. Patient admitted to the [facility] hospitalist team. Impression & Plan Altered mental status, Hypoglycemia, Lactic acidemia Discharge Plan Visit Data Chief Complaint: Weakness Stated Complaint: WEAKNESS Discharge Problem: Altered mental status, Hypoglycemia, Lactic acidemia Patient Disposition: Admitted As Inpatient Forms Stand Alone Forms: My [facility], Virtual Emergency Department, Important Visit Information Prescriptions Prescriptions: No Action (DME) lancets [OneTouch Delica Plus Lancet] 33 gauge misc See Dose Instructions .ROUTE .MEDSUPPLY Qty: 200 RF: 5 (DME) pen needle, diabetic [BD Ultra-Fine Obdulia Pen Needle] 32 gauge x 5/32" needle See Rx Instructions [id number] .MEDSUPPLY Qty: 200 RF: 3 Xifaxan 550 mg tablet 550 mg PO BID Qty: 100 RF: 11 esomeprazole magnesium [Nexium] 40 mg capsule,delayed release(DR/EC) 40 mg PO QAM Qty: 90 RF: 3 (DME) OneTouch Verio test strips Strip See Rx Instructions .ROUTE .MEDSUPPLY RF: 0 vitamin E 400 unit capsule 400 unit PO HS RF: 0 cholecalciferol (vitamin D3) [Vitamin D3] 25 mcg (1,000 unit) Capsule 1,000 unit PO BID RF: 0 sertraline [Zoloft] 50 mg tablet 50 mg PO QAM RF: 0 pravastatin 20 mg tablet 10 mg PO HS RF: 0 midodrine 5 mg tablet 15 mg PO TID Qty: 180 RF: 5 lactulose 10 gram/15 mL solution 20 g PO TID PRN (Reason: 3-4 BMs per day) RF: 0 calcitriol [Rocaltrol] 0.25 mcg capsule 0.25 mcg PO 3XWK RF: 0 Referrals Referrals: Gildardo Haywood MD [Primary Care Provider] -
[2022-04-09] MEDS ORDERED: POTASSIUM CHLORIDE CRTAB 20 MEQ TABCR PO STA (20:10)
[2022-04-09] MEDS ORDERED: CEFEPIME 1,000 MG in SYRINGE 0 ML IV ONE (20:15)
[2022-04-09] MEDS ORDERED: VANCOMYCIN HCL 1,500 MG in SODIUM CHLORIDE 0.9% 500 ML IV ONE (20:15)
[2022-04-09] MEDS: CALCITRIOL 0.25 MCG CAPSULE PO SCH (21:33)
[2022-04-09] MEDS: TOCOPHERYL, DL-ALPHA 400 UNITS 180 MG CAP PO SCH (21:33)
[2022-04-09] MEDS: CHOLECALCIFEROL 1,000 UNITS 25 MCG TAB PO SCH (21:34)
[2022-04-09] MEDS: PRAVASTATIN SOD 10 MG TAB PO SCH (21:34)
[2022-04-09] MEDS: rifAXIMin 550 MG TABLET PO SCH (21:34)
--- NOTE | 2022-04-09 21:34 | Pharmacy Report ---
Pharmacy PK ABX Note - Date of Service April 09, 2022 - Assessment and Plan Assessment 76 year old F receiving vancomycin and cefepime empirically for possible infection in light of elevated lactate and multiple comorbidities. Pertinent microbiologic data includes: Blood cultures x 2 and abdomen cultures pending. Per H&P, patient received hemodialysis today prior to admission. Day # 1 of antimicrobial therapy. Plan Vancomycin * Loading dose: 1500 mg IV x 1 (~22 mg/kg) * Will dose by random level in light of intermittent HD * Random level ordered for 04/11/22 prior to next hemodialysis session Cefepime * 1 g IV q24h - appropriate for patient on intermittent HD Pharmacy will continue to follow and will adjust dose/frequency as necessary. Thank you. Pharmacy has transitioned to AUC monitoring for vancomycin. AUC/JACK is the preferred PK/PD target and is associated with decreased risk of nephrotoxicity compared to traditional trough targets.
[2022-04-09] MEDS ORDERED: MIDODRINE HCL 10 MG TAB PO ONE (22:30)
[2022-04-09 22:45] LABS: C Reactive Protein 5.59 mg/dl (0-0.5)
[2022-04-09 22:46] LABS: Troponin I High Sensitivity 27.2 pg/ml (0-14)
--- NOTE | 2022-04-10 08:15 | Electrocardiogram Report ---
Test Reason : Blood Pressure : / mmHG Vent. Rate : 077 BPM Atrial Rate : 077 BPM P-R Int : 138 ms QRS Dur : 126 ms QT Int : 484 ms P-R-T Axes : 063 -48 036 degrees QTc Int : 547 ms Normal sinus rhythm Right bundle branch block Left anterior fascicular block Possible Old Anterolateral infarct (cited on or before 19-FEB-2022) Abnormal ECG When compared with ECG of 22-MAR-2022 11:45, No significant change Confirmed by Reynaldo Munoz ([id number]) on 04/10/2022 8:14:58 AM Referred By: REFERRED SELF Confirmed By:Reynaldo Munoz
[2022-04-10] MEDS: MIDODRINE HCL 10 MG TAB PO SCH ×3 (08:24→16:52)
[2022-04-10] MEDS: CHOLECALCIFEROL 1,000 UNITS 25 MCG TAB PO SCH ×2 (08:31→20:31)
[2022-04-10] MEDS: rifAXIMin 550 MG TABLET PO SCH ×2 (08:31→20:31)
[2022-04-10] MEDS: PANTOprazole 40 MG TAB PO SCH (08:31)
[2022-04-10] MEDS: SERTRALINE HCL 50 MG TABLET PO SCH (08:31)
--- NOTE | 2022-04-10 09:16 | Nephrology Consultation ---
Date of Consultation April 10, 2022 Assessment & Plan (1) ESRD (end stage renal disease): * Electrolyte balance is currently acceptable. No acute indication for HD today. Will schedule next treatment for am * Monitor PRP * Recommend consultation w/ Palliative Care to discuss goals of care w/ POA. Patient is unable to make informed decisions at this time. Hypotension limits UF on dialysis and poses a significant risk to outpatient treatments. Patient is requiring frequent hospitalization. 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 Not a transplant candidate due to malignancy in 2018 * May require paracentesis this hospitalization. Recommend limiting paracentesis volume to 4 L or less with each tap and coadministration of IV albumin (3) Altered mental status: * Mild elevation of bilirubin. NH3 level remains wnl. Blood and peritoneal fluid cultures are pending * Patient is on empiric IV Cefepime (4) Hypotension, chronic: * On Midodrine 15 mg po TID History of Present Illness Reason for Consultation: ESKD on HD Attending Physician: Bryan Stover History of Present Illness Mrs. Conde is a 76 year old white female who is seen at the request of the [facility] Hospitalist Group to provide inpatient HD. Medical records in the EMR were reviewed today and are summarized as follows: Mrs. Conde has cirrhosis due to BEASLEY. In 12/02 she developed HRS and was transferred to [facility] for liver transplant evaluation. She was started on HD but then noted to have a h/o breast CA w/ L partial mastectomy in 2018. Transplant was declined due to recent malignancy. HD was continued as an outpatient at the [facility] HD unit. Patient dialyzes MWF for 3 hours w/ EDW 65kg. Her dialysis access is a L IJ TCC. AVF creation is not being considered since dialysis is being provided on a palliative basis. Mrs. Conde requires large volume paracentesis on a weekly basis. She suffers from chronic hypotension and weakness. Mrs. Conde is prescribed TID Midodrine. Her SBP during dialysis treatments has ranged from 70 - 90 mmHg despite Midodrine therapy. Mrs. Conde has indicated that if her condition worsens that she will stop dialysis and transition to comfort measures. Yesterday Mrs. Conde became unresponsive near the end of her dialysis treatment. Treatment was stopped and she was transported to the [facility] for evaluation. She is now admitted for evaluation of potential infection or ischemic cause. She has both an indwelling a-port and IJ TCC. She has tense abdominal ascites. She was last hospitalized 03/23/22 - 03/26/22 for mental status changes, hypotension and UGI bleed. Allergies Allergy/AdvReac Type Severity Reaction Status Date / Time guaifenesin Allergy Severe Stroke Verified 04/05/22 11:38 like symptoms morphine Allergy Intermediate "FIRE" Verified 04/05/22 11:38 SENSATION IN HEAD Penicillins Allergy Intermediate HIVES Verified 04/05/22 11:38 ethyl alcohol AdvReac Severe STROKE Verified 04/05/22 11:38 LIKE SYMPTOMS shellfish derived AdvReac Severe PT Verified 04/05/22 11:38 DEVELOPED HEPATITIS adhesive AdvReac Intermediate RASH,REDNES Verified 04/05/22 11:38 S verapamil AdvReac Mild H/A Verified 04/05/22 11:38 Home Medications Medication Instructions Recorded Confirmed Type vitamin E 400 unit capsule 400 unit PO HS cap 10/28/20 04/05/22 History OneTouch Delica Plus Lancet 33 #200 ea NS 01/30/21 04/05/22 Rx gauge (lancets) BD Ultra-Fine Obdulia Pen Needle 32 #200 ea NS 02/14/21 04/05/22 Rx gauge x 5/32" (pen needle, diabetic) cholecalciferol (vitamin D3) 25 1,000 unit PO BID 07/28/21 04/05/22 History mcg (1,000 unit) capsule (Vitamin D3) blood sugar diagnostic (OneTouch ea 08/09/21 04/05/22 History Verio test strips) rifaximin 550 mg tablet (Xifaxan) 550 mg PO BID #100 tab 01/24/22 04/05/22 Rx sertraline 50 mg tablet (Zoloft) 50 mg PO QAM 02/01/22 04/05/22 History calcitriol 0.25 mcg capsule 0.25 mcg PO 3XWK 02/19/22 04/05/22 History (Rocaltrol) pravastatin 20 mg tablet 10 mg PO HS 03/22/22 04/05/22 History lactulose 10 gram/15 mL oral 20 g PO TID PRN 03/26/22 04/05/22 History solution midodrine 5 mg tablet 15 mg PO TID #180 tab 03/26/22 04/05/22 Rx esomeprazole magnesium 40 mg 40 mg PO QAM #90 cap 04/02/22 04/05/22 Rx capsule,delayed release (Nexium) Patient History Medical History Abdominal ascites Acute upper gastrointestinal bleeding Acute upper GI bleed BENNY (acute kidney injury) Anemia HX Arrhythmia Ascites Asthma INHALERS JUST FOR WINTER > COLD TAKES BREATH AWAY> NO ACTUAL ASTHMA DX Cancer of left breast Hx of, cancer free 2021. s/p chemo/radiation > PORT TO RIGHT CHEST PRESENT Cardiac murmur follows with Dr. Iglesias Cirrhosis Decreased libido Depression Depression Diabetes mellitus, type 2 Disc degeneration, lumbar Diverticulosis End stage renal disease Erosive esophagitis Fatigue Gait disturbance Hiatal hernia Hormone replacement therapy Hypertension IBS (irritable colon syndrome) Loss of sensation Malignant neoplasm of central portion of left breast in female, estrogen receptor negative (11/15/17) Mitral regurgitation Mitral valve regurgitation UNSURE OF DETAILS, DOESNT FOLLOW CARDIO Nonalcoholic fatty liver disease Obesity (BMI 30-39.9) Osteopenia Peripheral neuropathy Sinus bradycardia Sinus bradycardia PATIENT SAID SHE REMEMBERS SOMEONE TELLING HER OF THIS ON AN EKG ONE TIME, BUT DOESN'T THINK ITS A CHRONIC PROBLEM Sleep apnea cpap T2DM (type 2 diabetes mellitus) Thrombocytopenia Tricuspid regurgitation Tricuspid valve regurgitation UNSURE OF DETAILS, DOESNT FOLLOW CARDIO Surgical History History of cholecystectomy History of colonoscopy History of dilatation and curettage History of esophagogastroduodenoscopy (EGD) History of left cataract surgery left. 12/23/2019. 2 mg versed. no issues. History of lumpectomy of left breast History of tonsillectomy History of tooth extraction History of total hysterectomy with bilateral salpingo-oophorectomy (BSO) History of vascular access device right side APort in place History of wisdom tooth extraction Hx of left breast biopsy malignant Hx of right breast biopsy benign Family History Grandmother (Maternal) Family history of diabetes mellitus Grandmother (Maternal) No problems noted. Grandmother (Paternal) Breast cancer Aunt Breast cancer Uncle Colorectal cancer Father Hypertension Other Colonic polyp No family history of adverse response to anesthesia Denies family history of Ovarian cancer Prostate cancer Myocardial infarction Social History Smoking Status: Never smoker Second Hand Exposure: No; Do You Dip or Chew Tobacco: No; Tobacco Cessation Education Requested by Patient: No Hx Alcohol Use: No Hx Substance Use: No Preferred Language: Yoruba Communication Ability: Effective Photo Checker And Assembler Required: No Beliefs That Will Affect Care: None marital status: Current Living Situation: Spouse Current Living Situation Comment: deaf current occupational status: retired Other Information That Helps Us Care for You: No Feels Safe at Home: Yes Safety Concerns: Feels Safe At This Time Childhood Exposure to Second-Hand Smoke: Yes caffeine: No Dental Care, Regularly: Yes Physical Activity Frequency: Declines to Answer Physical Activity Frequency Comment: Not very much right now due to present fluid retention issues Seatbelt Use: always Assistive Devices: Glasses and Walker Review of Systems Review of Systems: Unobtainable due to cognitive status (Oriented to self only. Believes that it is May. Uncertain where she is currently) Physical Exam Constitutional: + cachectic and + frail appearing Eyes: PERRL (mild scleral icterus) ENMT: Mouth: + dry oral mucous membranes Neck: trachea midline, no thyromegaly Respiratory: normal respiratory effort, lungs clear to auscultation Cardiovascular: Rate/Rhythm: regular rate and regular rhythm Extremities: + edema (trace) Gastrointestinal (Abdomen): Inspection/Auscultation: + abdomen distended and + hypoactive bowel sounds Percussion/Palpation: + ascites and + fluid wave Neurologic: awake; not confused Results & Data ([facility]) Vital Signs (Past 12 Hours) Vital Signs Temp Pulse Resp BP Pulse Ox 04/10/22 07:35 36.4 C L 81 18 105/66 94 04/09/22 23:00 36.5 C 74 16 85/50 L 98 Laboratory Results Laboratory Tests 04/09/22 15:10 WBC 7.07 Hgb 12.0 Hct 34.5 L Plt Count 71 L Neut % (Auto) 77.1 Neut # (Auto) 5.45 Laboratory Tests 04/09/22 04/09/22 04/10/22 15:10 15:10 09:09 Sodium 134 L Potassium 3.8 Chloride 96 L Carbon Dioxide 24 BUN 29 H Creatinine 4.16 H D Glucose 87 Calcium 9.5 Total Bilirubin 5.3 H AST 58 H ALT 22 Ammonia 28.0 Vitamin B12 04/10/22 09:09 Sodium Potassium Chloride Carbon Dioxide BUN Creatinine Glucose Calcium Total Bilirubin AST ALT Ammonia Vitamin B12 > 1500 H Diagnostic Findings 04/09/22 CXR: Lines and tubes are stable. Calcified aortic knob is seen. The lungs are clear. There is a small blunting of the right costophrenic angle. 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
[2022-04-10 09:26] LABS: Hematocrit (blood only) 32.4 % (37-47); Hemoglobin 11.3 g/dL (12.0-16.0); Mean Corpuscular Hemoglobin 36.8 pg (25-34); Mean Corpuscular Hgb Conc 34.9 g/dL (32-36); Mean Corpuscular Volume 105.5 fL (80-100); RDW Coefficient of Variation 18.4 % (11.5-14.5); RDW Standard Deviation 68.3 fL (36.4-46.3); Red Blood Count 3.07 M/uL (4.2-5.4); White Blood Count 7.52 K/uL (4.8-10.8)
--- NOTE | 2022-04-10 09:31 | Surgery Progress Note ---
Date of Service April 10, 2022 Assessment & Plan (1) ESRD (end stage renal disease): Plan: Suture removed and catheter is secured by cuff. Can cover with gauze or remove as needed for comfort. Admission and Anticipated Discharge Date Admission Date: April 09, 2022 Subjective 76 y/o female admitted for mental status change after dialysis yesterday. Alert and oriented today. We were asked to evaluate dialysis catheter placed by [facility] 12/05/21. Physical Exam Constitutional: + frail appearing Left IJ cath has loose nylon suture but otherwise benign appearing entry site and secure in position Results & Data ([facility]) Vital Signs (Past 12 Hours) Vital Signs Temp Pulse Resp BP Pulse Ox 04/10/22 07:35 36.4 C L 81 18 105/66 94 04/09/22 23:00 36.5 C 74 16 85/50 L 98 PG Care Time/CCT Total # of Minutes Spent Total Time Spent with Patient: Total time spent is greater than 50% in coordination of care (as documented) at patient's floor/unit and/or counseling patient: Coding Level of Care Code 83936 Subseq Hosp Care Lvl 1 Diagnoses ESRD (end stage renal disease) N18.6
[2022-04-10 09:37] LABS: Prothrombin Time 20.7 Seconds (9.0-12.0)
[2022-04-10 09:47] LABS: Mean Platelet Volume 9.7 fL (7.4-10.4); Platelet Count 75 K/uL (130-400)
[2022-04-10 10:14] LABS: Folate (Folic Acid) 3.95 ng/ml (>5.38); Vitamin B12 > 1500 pg/ml (180-914)
[2022-04-10 10:18] LABS: Calcium 9.5 mg/dl (8.5-10.1); Creatinine Clr Calc Pharmacy 10.6 ml/min; Est GFR (African American) 11.5 ml/min; Est GFR (Non-African American) 9.9 ml/min; Potassium 3.8 mmol/L (3.5-5.1)
[2022-04-10] MEDS ORDERED: FOLIC ACID 1 MG in SYRINGE 9.8 ML IV STA (10:33)
[2022-04-10] MEDS: DEXTROSE 5% 500 ML IV SCH (17:14)
[2022-04-10] MEDS: PRAVASTATIN SOD 10 MG TAB PO SCH (20:31)
[2022-04-10] MEDS: TOCOPHERYL, DL-ALPHA 400 UNITS 180 MG CAP PO SCH (20:31)
[2022-04-10] MEDS ORDERED: CEFEPIME 1,000 MG in SYRINGE 0 ML IV SCH (21:00)
--- NOTE | 2022-04-10 21:35 | Hospitalist Progress Note ---
Date of Service April 10, 2022 Assessment & Plan (1) Acute metabolic encephalopathy: Plan: Ongoing. Head CT at admission negative for acute findings. Ammonia level yesterday wnl. I repeated her ammonia level today - still wnl. No infectious etiology found thus far. BSGs are normal at this time. Most recent VBG without hypercarbia. At time of ER presentation her low BSG (67) and low BP (systolic of 70) thought to be the cause of altered MS. However, her sugars are now normal and SBPs are mildly better and she remains lethargic. I believe she is entering end-of-life. Her cirrhosis is advanced with evidence of worsening failure including markedly elevated INR, rising t.bili, etc. She has been unwell for weeks/months per family - largely bed-bound or chair- bound, sleeping all day, not being able to participate in activities, etc. Until formal palliative care consult is completed will place on D5W at 20cc/hr to maintain euglycemia. Spoke with pt's daughter this evening - she and her family recognize that her mother is near end-of-life. Consult Dr Enriquez on 04/11/22. (2) Sepsis: Plan: Concern for / possible. Thus far no infectious etiology found, however. remains on empiric cefepime/vanco IV while awaiting blood cx's. (3) Hypotension, chronic: Plan: Cortisol level wnl. LOW BPs likely due to advanced cirrhotic state. Cont midodrine 15mg TID. (4) Hypoglycemia: Plan: 2nd to poor glycogen stores, probably no hepatic gluconeogenesis in setting of cirrhosis, poor PO intake, etc. D5W at 20cc/hr to maintain euglycemia. (5) Lactic acidemia: Plan: at time of admission. likely 2nd to severe hypotension. no infectious etiology found thus far. (6) Elevated troponin I level: Plan: myocardial demand ischemia in setting of severe hypotension, ESRD status, etc. doubt ACS. 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 (worsening INR, etc) requiring qweekly therapeutic/palliative paracentesis. s/p diagnostic paracentesis yesterday - no evidence of SBP. I explained to pt's daughter that when we get to a point where someone is requiring weekly paracentesis prognosis is very, very poor. (8) ESRD (end stage renal disease): Plan: on HD M/W/F (9) Sleep apnea: (10) GERD (gastroesophageal reflux disease): (11) Anemia: (12) T2DM (type 2 diabetes mellitus): Plan: now with hypoglycemia see above (13) History of spontaneous bacterial peritonitis: (14) Failure to thrive: Plan: SEVERE (15) Sacral decubitus ulcer: (16) Counseling regarding end of life decision making: Plan: long discussion held with pt's daughter by phone this evening daughter and her family recognize that Ms Conde is nearing end-of-life and that her quality of life has been very, very poor we both discussed that the combination of ESLD and ESRD will lead to her passing likely in the near-future the combination of these 2 grave diagnoses is causing severe failure to thrive, etc she is very agreeable to formal palliative care consult and transition to hospice will consult Dr Enriquez tomorrow Admission and Anticipated Discharge Date Admission Date: April 09, 2022 Subjective tele overnight wnl patient very sleepy/lethargic during the visit mainly sleeping - awakens briefly to name being called but quickly goes back to sleep appetite is very, very poor - next to no intake at bedside - clearly dismayed by her current status he asks "what can we do to help her doc?" staff report that she has a sacral decub Review of Systems Review of Systems: Unobtainable due to cognitive status Physical Exam Physical Exam: gen - chronically unwell, mild myoclonic jerks noted of arms/legs, cachectic with muscle wasting of facial muscles/arms/etc, lethargic mouth - MM dry neck - no JVD chest - L tunneled IJ HD catheter; a-port right chest heart - RRR, s1 s2, 2/6 systolic murmur lungs - CTA b/l abd - severe distension (ascites); NT; BS+ ext - edema b/l extending from feet to thighs, pulses 1-2+ b/l neuro -asterixis vs myoclonic jerks of arms/hands psych - oriented to person only skin - extensive bruising on flank, arms, back, etc; sacral decub- large -stage 1, with a tiny stage 2 ulcer in central portion of the decubitus Results & Data Results & Data ([facility]) Vital Signs (Past 12 Hours) Vital Signs Temp Pulse Pulse Resp BP Pulse Ox 04/10/22 19:50 36.9 C 64 24 87/53 L 95 04/10/22 15:30 36.4 C L 84 20 87/51 L 91 04/10/22 14:40 83 04/10/22 11:40 36.5 C 88 20 96/53 L 91 Laboratory Results Laboratory Results - last 24 hr 04/10/22 04/10/22 04/10/22 09:09 09:09 09:09 WBC 7.52 RBC 3.07 L Hgb 11.3 L Hct 32.4 L MCV 105.5 H MCH 36.8 H MCHC 34.9 RDW Std Deviation 68.3 H RDW Coeff of Carmelina 18.4 H Plt Count 75 L MPV 9.7 PT 20.7 H INR 2.0 H Sodium 134 L Potassium 3.8 Chloride 96 L Carbon Dioxide 24 Anion Gap 14 H BUN 29 H Creatinine 4.16 H D Est Cr Clr Drug Dosing 10.6 Est GFR ( Amer) 11.5 Est GFR (Non-Af Amer) 9.9 BUN/Creatinine Ratio 7.0 L Glucose 87 POC Glucose Calcium 9.5 Ammonia Vitamin B12 Folate Hep Bs Antigen Hep Bs Ag Confirmation Hep Bs Antibody, Quant 04/10/22 04/10/22 04/10/22 09:09 09:09 11:31 WBC RBC Hgb Hct MCV MCH MCHC RDW Std Deviation RDW Coeff of Carmelina Plt Count MPV PT INR Sodium Potassium Chloride Carbon Dioxide Anion Gap BUN Creatinine Est Cr Clr Drug Dosing Est GFR ( Amer) Est GFR (Non-Af Amer) BUN/Creatinine Ratio Glucose POC Glucose 73 Calcium Ammonia Vitamin B12 > 1500 H Folate 3.95 L Hep Bs Antigen NON-REACTIVE Hep Bs Ag Confirmation TNP Hep Bs Antibody, Quant 8 L 04/10/22 04/10/22 04/10/22 16:30 16:34 20:31 WBC RBC Hgb Hct MCV MCH MCHC RDW Std Deviation RDW Coeff of Carmelina Plt Count MPV PT INR Sodium Potassium Chloride Carbon Dioxide Anion Gap BUN Creatinine Est Cr Clr Drug Dosing Est GFR ( Amer) Est GFR (Non-Af Amer) BUN/Creatinine Ratio Glucose POC Glucose 84 93 Calcium Ammonia 44.0 Vitamin B12 Folate Hep Bs Antigen Hep Bs Ag Confirmation Hep Bs Antibody, Quant PG Care Time/CCT Total # of Minutes Spent Total Time Spent with Patient: Total time spent is greater than 50% in coordination of care (as documented) at patient's floor/unit and/or counseling patient: Coding Level of Care Code 23895 Subseq Hosp Care Lvl 3 Diagnoses Acute metabolic encephalopathy G93.41 Sepsis A41.9 Hypotension, chronic I95.89 Hypoglycemia E16.2 Lactic acidemia E87.2 Elevated troponin I level R77.8 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
[2022-04-11 06:36] LABS: HBSAG NON-REACTIVE (NON-REACTIVE); Hepatitis B Surface Ab, Quant 8 mIU/mL (> OR = 10)
[2022-04-11] MEDS ORDERED: SODIUM CHLORIDE 0.9% 1000ML 1,000 ML IV PRN (07:00)
[2022-04-11] MEDS: rifAXIMin 550 MG TABLET PO SCH (08:16)
[2022-04-11] MEDS: SERTRALINE HCL 50 MG TABLET PO SCH (08:16)
[2022-04-11] MEDS: CHOLECALCIFEROL 1,000 UNITS 25 MCG TAB PO SCH (08:16)
[2022-04-11] MEDS: MIDODRINE HCL 10 MG TAB PO SCH ×3 (08:16→16:42)
[2022-04-11] MEDS: PANTOprazole 40 MG TAB PO SCH (08:18)
--- NOTE | 2022-04-11 08:25 | Nephrology Progress Note ---
Date of Service April 11, 2022 Assessment & Plan (1) ESRD (end stage renal disease): Plan: * HD today to maintain patient's MWF schedule. Will only attempt 1L UF due to patient's relative hypotension and severe ascites * Monitor PRP * Recommend consultation w/ Palliative Care to discuss goals of care w/ POA. Patient is unable to make informed decisions at this time. Hypotension limits UF on dialysis and poses a significant risk to outpatient treatments. Patient is requiring frequent hospitalization. If evaluation for infectious cause of hypotension/mental status changes is unrevealing, then transition to comfort measures may be in her best interest to avoid out of hospital emergency/arrest (2) Liver cirrhosis secondary to BEASLEY: Plan: * ESLD. Not a transplant candidate due to malignancy in 2018 * Has required paracentesis on a weekly basis. She now has tense ascites. Relative hypotension may make paracentesis challenging (3) Altered mental status: Plan: * Mild elevation of bilirubin. NH3 level remains wnl. Blood and peritoneal fluid cultures are pending * Patient is on empiric IV Cefepime (4) Hypotension, chronic: Plan: * On Midodrine 15 mg po TID Admission and Anticipated Discharge Date Admission Date: April 09, 2022 Subjective Mrs. Conde was evaluated in the dialysis unit immediately prior to starting HD. She appeared lethargic but would open her eyes to verbal command and quickly drift back off to sleep. SBP was only 85 mm Hg. She did receive Midodrine 15 mg po this am prior to transport to the HD unit Review of Systems Review of Systems: Unobtainable due to cognitive status Physical Exam Constitutional: + cachectic and + frail appearing Eyes: PERRL (mild scleral icterus) ENMT: external ear and nose normal, oropharynx normal Mouth: + dry oral mucous membranes Neck: trachea midline, no thyromegaly Respiratory: normal respiratory effort, lungs clear to auscultation Cardiovascular: Rate/Rhythm: regular rate and regular rhythm Extremities: + edema (trace) Gastrointestinal (Abdomen): Inspection/Auscultation: + hypoactive bowel sounds Percussion/Palpation: + ascites (tense ascites) Skin: no rashes, warm and dry Neurologic: awake; not confused Results & Data ([facility]) Vital Signs (Past 12 Hours) Vital Signs Temp Pulse Pulse Resp BP Pulse Ox 04/11/22 07:17 36.8 C 79 18 88/49 L 94 04/11/22 04:30 36.7 C 65 15 80/53 L 98 04/10/22 23:00 36.7 C 85 20 77/50 L 95 04/10/22 22:17 86 PG Care Time/CCT Total # of Minutes Spent Total Time Spent with Patient: Total time spent is greater than 50% in coordination of care (as documented) at patient's floor/unit and/or counseling patient: Coding Level of Care Code 29776 Subseq Hosp Care Lvl 3 Diagnoses ESRD (end stage renal disease) N18.6 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 Altered mental status R41.82 Altered mental status type: unspecified Hypotension, chronic I95.89 (1) Altered mental status Altered mental status type: unspecified Qualified Code(s): R41.82 - Altered mental status, unspecified
[2022-04-11] MEDS ORDERED: FOLIC ACID 1 MG in SYRINGE 9.8 ML IV SCH (09:00)
--- NOTE | 2022-04-11 09:13 | Hospitalist Progress Note ---
Date of Service April 11, 2022 Assessment & Plan (1) Need for comfort care: Plan: Met her earlier today he elected to have the daughter and son be his spokesperson as he is hard of hearing. Met daughter and son towards the end of the day patient was lethargic and obtunded. She was in mild discomfort. Daughter and son both believe the patient should be entered into comfort care understanding that she will in the hospital. If she does linger they are p repared to take her home on hospice however it is my medical opinion that she will not likely last more than 48 hours. Patient is family is comfortable stopping dialysis stopping additional paracentesis not checking laboratories and stopping other medications that would be considered life-sustaining at this point in time focusing on symptom control. Despite some arrhythmia the patient be transferred off telemetry being on comfort care measures only request to stay at the bedside as long as possible. (2) Acute metabolic encephalopathy: Plan: persists Head CT at admission negative for acute findings. Ammonia level 04/10 nl No infectious etiology found thus far. BSGs are normal VBG without hypercarbia. At time of ER presentation her low BSG (67) and low BP (systolic of 70) thought to be the cause of altered MS. low blood pressures secondary to poor glycogen stores, probably no hepatic gluconeogenesis in setting of cirrhosis, poor PO intake, etc. D5W at 20cc/hr to maintain euglycemia. she is entering end-of-life. Her cirrhosis is advanced with evidence of worsening failure including markedly elevated INR, rising t.bili, etc. She has been unwell for weeks/months per family - largely bed-bound or chair- bound, sleeping all day, not being able to participate in activities, etc. Spoke with pt's daughter this evening - she and her family recognize that her mother is near end-of-life. (3) Liver cirrhosis secondary to BEASLEY: Plan: advanced, and getting worse MELD score 35, 52% 3 month mortality requiring qweekly therapeutic/palliative paracentesis. s/p diagnostic paracentesis 04/09/22 - no evidence of SBP. (4) Sepsis: Plan: remains on empiric cefepime/vanco IV blood cx's 04/09/22 negative initial elevated lactic acid felt secondary to low blood pressue and poor perfusion (5) Hypotension, chronic: Plan: Cortisol level wnl. Cont midodrine 15mg TID. (6) Elevated troponin I level: Plan: myocardial demand ischemia in setting of severe hypotension, ESRD status, etc. doubt ACS. repeat ECG 04/11/22 does not show acs (7) ESRD (end stage renal disease): Plan: on HD M/W/F (8) Sleep apnea: (9) GERD (gastroesophageal reflux disease): (10) Anemia: (11) T2DM (type 2 diabetes mellitus): (12) History of spontaneous bacterial peritonitis: (13) Failure to thrive: (14) Sacral decubitus ulcer: (15) Counseling regarding end of life decision making: Admission and Anticipated Discharge Date Admission Date: April 09, 2022 Subjective pt in pain that cannot be localized but maybe left chest area ecg does not show ACS after pain medicine she became obtunded and required narcan, then was in pain again overall pt is declining and family supposed to arrive tonight to discuss Review of Systems Review of Systems: Unobtainable due to cognitive status Physical Exam Physical Exam: The patient appeared chronically ill and declining Vital signs as documented. lower blood pressure Neck is with JVD, thyromegaly, or carotid bruits. Lungs are diminshed Cardiac exam, Rhythm is regular.. No murmurs, rubs or gallops. Abdominal exam reveals distended and dull Extremities are edematous Neurologic exam is obtunded Skin is with jaundice Results & Data Results & Data ([facility]) Vital Signs (Past 12 Hours) Vital Signs Temp Pulse Pulse Resp BP Pulse Ox 04/11/22 07:17 98.2 F 79 18 88/49 L 94 04/11/22 04:30 98.1 F 65 15 80/53 L 98 04/10/22 23:00 98.1 F 85 20 77/50 L 95 04/10/22 22:17 86 ECG Additional Comments: nsr RBBB inferior t wave changes PG Care Time/CCT Total # of Minutes Spent Total Time Spent with Patient: Total time spent is greater than 50% in coordination of care (as documented) at patient's floor/unit and/or counseling patient: Coding Level of Care Code 98638 Subseq Hosp Care Lvl 3 Diagnoses Acute metabolic encephalopathy G93.41 Sepsis A41.9 Hypotension, chronic I95.89 Elevated troponin I level R77.8 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 ESRD (end stage renal disease) N18.6 Sleep apnea G47.30 GERD (gastroesophageal reflux disease) K21.9 Anemia D64.9 T2DM (type 2 diabetes mellitus) E11.9 History of spontaneous bacterial peritonitis Z86.19 Failure to thrive Sacral decubitus ulcer L89.159 Counseling regarding end of life decision making Z71.89 Need for comfort care
--- NOTE | 2022-04-11 10:15 | Billing Data ---
Date of Service April 09, 2022 Coding Level of Care Code 47954 Initial Inpt Care Lvl 3
[2022-04-11] MEDS ORDERED: HYDROmorphone INJ 0.5 MG/0.5 ML SYR IV PRN (11:36)
[2022-04-11] MEDS: CALCITRIOL 0.25 MCG CAPSULE PO SCH (13:11)
[2022-04-11 14:42] LABS: Hematocrit (blood only) 32.4 % (37-47); Hemoglobin 11.1 g/dL (12.0-16.0); Mean Corpuscular Hemoglobin 37.4 pg (25-34); Mean Corpuscular Hgb Conc 34.3 g/dL (32-36); Mean Corpuscular Volume 109.1 fL (80-100); Mean Platelet Volume 10.2 fL (7.4-10.4); Platelet Count 64 K/uL (130-400); RDW Coefficient of Variation 18.8 % (11.5-14.5); RDW Standard Deviation 72.1 fL (36.4-46.3); Red Blood Count 2.97 M/uL (4.2-5.4); White Blood Count 6.44 K/uL (4.8-10.8)
[2022-04-11 14:51] LABS: INR 2.7 (0.9-1.1); Prothrombin Time 27.2 Seconds (9.0-12.0)
[2022-04-11 15:02] LABS: Potassium 3.9 mmol/L (3.5-5.1)
[2022-04-11 15:03] LABS: Albumin Globulin Ratio 1.1 (0.9-2); BUN Creatinine Ratio 6.1 (10-20); Calcium 8.8 mg/dl (8.5-10.1); Creatinine Clr Calc Pharmacy 16.6 ml/min; Est GFR (African American) 20.1 ml/min; Est GFR (Non-African American) 17.3 ml/min; Globulin 2.8 gm/dl (2.5-4.0); Total Protein 5.8 gm/dl (6.0-8.3)
[2022-04-11] MEDS ORDERED: NALOXONE HCL 0.4 MG/1 ML VIAL/CARP ONE (15:36)
[2022-04-11 15:42] VITALS: TEMP 97.5
[2022-04-11] MEDS: DEXTROSE 5% 500 ML IV SCH (16:43)
[2022-04-11] MEDS ORDERED: DEXTROSE 50% 50 ML SYRINGE IV ONE (16:50)
[2022-04-11] MEDS: HYDROmorphone INJ 0.5 MG/0.5 ML SYR IV PRN ×2 (19:11→21:59)
[2022-04-11 19:50] VITALS: BP 88/48; PULSE 76; O2SAT 92
[2022-04-11] MEDS ORDERED: ONDANSETRON INJ 2 MG/ML 2 ML VIAL IV PRN (20:13)
[2022-04-11] MEDS ORDERED: LORazepam 2 MG/1 ML VIAL IV PRN (20:13)
[2022-04-11] MEDS: GLYCOPYRROLATE 0.2 MG/ML VIAL IV PRN (21:59)
[2022-04-12] MEDS ORDERED: HYDROmorphone INJ 0.5 MG/0.5 ML SYR IV PRN (01:00)
[2022-04-12] MEDS ORDERED: HYDROmorphone INJ 0.5 MG/0.5 ML SYR IV STA (02:20)
[2022-04-12] MEDS ORDERED: STAT IV Infusion **Titration per Protocol STA (02:41)
[2022-04-12] MEDS ORDERED: HYDROmorphone/NSS 100 MG/100 ML BAG IV SCH (03:15)
[2022-04-12] MEDS: GLYCOPYRROLATE 0.2 MG/ML VIAL IV PRN (11:11)
--- NOTE | 2022-04-12 14:24 | Discharge Summary ---
Date of Service April 12, 2022 Admission HPI Per Admitting Provider 76yo F PMH BEASLEY/ESLD with weekly pericentesis on , ESRD hemodialysis M-W-F, DM2, Hypotension hx breast cancer b/l s/p mastectomy presented to hospital with altered mental status after dialysis reported by dialysis staff, this occurred towards the end of her dialysis session. Patient recalls she was in [place] prior to hospitalization and remembers having a headache since this morning and recent nausea and vomiting with coffee ground emesis, cannot recall what procedure she was getting. Patient states she may have had palpitations earlier but not chest pain, belly pain, SOB. States occasional dizziness s hifting from laying to sitting. Patient frequently pauses to search for words. She understands she is in a hospital but cannot recall which one, states it is late spring, said year was in the [place], president [place]. Patient correctly recalled her birthday and husbands name. She states she frequently forgets things at home, she and her live together without outside assistance, they help each other with their medication and take them daily. Patient states she usually has swelling in her legs and abdomen, states her abdominal fluid has been drained before. was present in the room, states patient might be at her baseline, is unsure if she is forgetful at home, is unsure if her legs are more swollen than usual, states patient has been in hospital a few times is unsure what happened this time. He states patient does not walk at baseline, requires assistance to go from laying to sitting. Per daughter family is hoping patient can walk again, may have dementia, possible patient may not have taken midodrine before dialysis today. Pericentesis on . Patient sleeping all day only drinking boost. States patient's left and right chest ports are used regularly. Per hospital notes patient recieves dialysis M-W-F, pericentesis weekly, wheelchair bound at baseline, has home health nursing through [facility]. Was recently hospitalized 03/24/22-03/26/22 for low BP from renal and liver today. Concern BP are inaccurate given calcified vessels. PDMP negative for restricted substances. Principal Diagnosis end stage liver disease Discharge Exam Pt was pronounced at 1327 hours on 04/12/22 family at bedside Discharge Data Allergies Allergy/AdvReac Type Severity Reaction Status Date / Time guaifenesin Allergy Severe Stroke Verified 04/05/22 11:38 like symptoms morphine Allergy Intermediate "FIRE" Verified 04/05/22 11:38 SENSATION IN HEAD Penicillins Allergy Intermediate HIVES Verified 04/05/22 11:38 ethyl alcohol AdvReac Severe STROKE Verified 04/05/22 11:38 LIKE SYMPTOMS shellfish derived AdvReac Severe PT Verified 04/05/22 11:38 DEVELOPED HEPATITIS adhesive AdvReac Intermediate RASH,REDNES Verified 04/05/22 11:38 S verapamil AdvReac Mild H/A Verified 04/05/22 11:38 Consultations 04/09/22 16:54 ED Decision to Admit Stat 04/09/22 18:57 Consult Nephrology Routine 04/10/22 08:53 Consult General Surgery Routine 04/10/22 16:12 Consult Palliative Care Routine 04/11/22 20:13 Consult Palliative Care Routine Ordered Studies 04/09/22 14:08 CT head/brain wo con Stat 04/09/22 14:23 CT cervical spine wo con Stat Hospital Course (1) Need for comfort care: Pt transitioned to comfort care on 04/11/22 Pt with family at bedside due to progression of End stage liver disease from BEASLEY at 1327 hours on 04/12/22 the notation below is from earlier in her hospital stay (2) Acute metabolic encephalopathy: persists Head CT at admission negative for acute findings. Ammonia level 04/10 nl No infectious etiology found thus far. BSGs are normal VBG without hypercarbia. At time of ER presentation her low BSG (67) and low BP (systolic of 70) thought to be the cause of altered MS. low blood pressures secondary to poor glycogen stores, probably no hepatic gluconeogenesis in setting of cirrhosis, poor PO intake, etc. Her cirrhosis is advanced with evidence of worsening failure including markedly elevated INR, rising t.bili, etc. (3) Liver cirrhosis secondary to BEASLEY: advanced, and getting worse MELD score 35, 52% 3 month mortality requiring qweekly therapeutic/palliative paracentesis. s/p diagnostic paracentesis 04/09/22 - no evidence of SBP. (4) Sepsis: blood cx's 04/09/22 negative initial elevated lactic acid felt secondary to low blood pressure and poor perfusion (5) Hypotension, chronic: Cortisol level wnl. (6) Elevated troponin I level: myocardial demand ischemia in setting of severe hypotension, ESRD status, etc. doubt ACS. repeat ECG 04/11/22 does not show acs (7) ESRD (end stage renal disease): (8) Sleep apnea: (9) GERD (gastroesophageal reflux disease): (10) Anemia: (11) T2DM (type 2 diabetes mellitus): (12) History of spontaneous bacterial peritonitis: (13) Failure to thrive: (14) Sacral decubitus ulcer: (15) Counseling regarding end of life decision making: Total Time Total Time Spent Total Time Spent (In Minutes): It required greater than 30 minutes to prepare this patient for discharge Discharge Plan Discharge Items Patient Disposition: Discharge Diagnosis: end stage liver disease end stage kidney disease Other Date/Time: 04/12/22 13:27 Coding Level of Care Code D/C DAY MANAGEMENT >30 MINS Diagnoses Need for comfort care Acute metabolic encephalopathy G93.41 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 Sepsis A41.9 Hypotension, chronic I95.89 Elevated troponin I level R77.8 ESRD (end stage renal disease) N18.6 Sleep apnea G47.30 GERD (gastroesophageal reflux disease) K21.9 Anemia D64.9 T2DM (type 2 diabetes mellitus) E11.9 History of spontaneous bacterial peritonitis Z86.19 Failure to thrive Sacral decubitus ulcer L89.159 Counseling regarding end of life decision making Z71.89
--- NOTE | 2022-04-12 14:24 | Electrocardiogram Report ---
Test Reason : Blood Pressure : / mmHG Vent. Rate : 094 BPM Atrial Rate : 094 BPM P-R Int : 130 ms QRS Dur : 116 ms QT Int : 428 ms P-R-T Axes : 019 -66 042 degrees QTc Int : 535 ms Normal sinus rhythm Low voltage QRS Right bundle branch block with repolarization abnormality Left anterior fascicular block Possible Old Anterolateral infarct (cited on or before 19-FEB-2022) Prolonged QT Abnormal ECG When compared with ECG of 09-APR-2022 13:40, No significant change was found Confirmed by Reynaldo Munoz ([id number]) on 04/12/2022 2:23:53 PM Referred By: REFERRED SELF Confirmed By:Reynaldo Mnuoz
--- NOTE | 2022-04-12 14:36 | Palliative Care Consultation ---
Date of Consultation April 12, 2022 Assessment & Plan (1) Pain: Controlled on hydromorphone infusion. Would not recommend further titration with concerns for opioid toxicity given her renal failure. Discussed with RN to use prn hydromorphone if needed. Per RN, she does not arouse or have any facial grimace with routine care. (2) Terminal respiratory secretions: Continue prn glycopyrrolate. (3) Palliative care encounter: Talked with family about what to expect. Discussed what to watch for signs of discomfort. Son asked about prognosis. She is likely to within a day or two. (4) Liver cirrhosis secondary to BEASLEY: (5) ESRD (end stage renal disease): (6) Acute metabolic encephalopathy: History of Present Illness Reason for Consultation: comfort measures Requesting Physician: Dr. Street Attending Physician: Augustin Street MD History of Present Illness 76 yo lady with ESLD from BEASLEY and ESRD on hemodialysis. She was admitted with altered mental status and hypotension. She has worsening liver disease with elevated T bili and PT/INR, though her ammonia level on admission was within normal range. She was also on limited dialysis due to hypotension. Discussion between Dr. Street and family led to decision to shift focus of care to comfort measures only. She did have dialysis yesterday. She has had complaints of abdominal pain though she is currently obtunded. At one point, she received narcan after opioid due to her altered mental status. With focus on comfort, she initially had prn hydromorphone but apparently had increased pain overnight and is now on a hydromorphone infusion. Her and son are at bedside. Mrs. Conde currently appears comfortable and family denies concerns about pain or discomfort at this time. Allergies Allergy/AdvReac Type Severity Reaction Status Date / Time guaifenesin Allergy Severe Stroke Verified 04/05/22 11:38 like symptoms morphine Allergy Intermediate "FIRE" Verified 04/05/22 11:38 SENSATION IN HEAD Penicillins Allergy Intermediate HIVES Verified 04/05/22 11:38 ethyl alcohol AdvReac Severe STROKE Verified 04/05/22 11:38 LIKE SYMPTOMS shellfish derived AdvReac Severe PT Verified 04/05/22 11:38 DEVELOPED HEPATITIS adhesive AdvReac Intermediate RASH,REDNES Verified 04/05/22 11:38 S verapamil AdvReac Mild H/A Verified 04/05/22 11:38 Home Medications Medication Instructions Recorded Confirmed Type vitamin E 400 unit capsule 400 unit PO HS cap 10/28/20 04/05/22 History OneTouch Delica Plus Lancet 33 #200 ea NS 01/30/21 04/05/22 Rx gauge (lancets) BD Ultra-Fine Obdulia Pen Needle 32 #200 ea NS 02/14/21 04/05/22 Rx gauge x 5/32" (pen needle, diabetic) cholecalciferol (vitamin D3) 25 1,000 unit PO BID 07/28/21 04/05/22 History mcg (1,000 unit) capsule (Vitamin D3) blood sugar diagnostic (OneTouch ea 08/09/21 04/05/22 History Verio test strips) rifaximin 550 mg tablet (Xifaxan) 550 mg PO BID #100 tab 01/24/22 04/05/22 Rx sertraline 50 mg tablet (Zoloft) 50 mg PO QAM 02/01/22 04/05/22 History calcitriol 0.25 mcg capsule 0.25 mcg PO 3XWK 02/19/22 04/05/22 History (Rocaltrol) pravastatin 20 mg tablet 10 mg PO HS 03/22/22 04/05/22 History lactulose 10 gram/15 mL oral 20 g PO TID PRN 03/26/22 04/05/22 History solution midodrine 5 mg tablet 15 mg PO TID #180 tab 03/26/22 04/05/22 Rx esomeprazole magnesium 40 mg 40 mg PO QAM #90 cap 04/02/22 04/05/22 Rx capsule,delayed release (Nexium) Patient History Medical History Abdominal ascites Acute upper gastrointestinal bleeding Acute upper GI bleed BENNY (acute kidney injury) Anemia HX Arrhythmia Ascites Asthma INHALERS JUST FOR WINTER > COLD TAKES BREATH AWAY> NO ACTUAL ASTHMA DX Cancer of left breast Hx of, cancer free 2021. s/p chemo/radiation > PORT TO RIGHT CHEST PRESENT Cardiac murmur follows with Dr. Iglesias Cirrhosis Decreased libido Depression Depression Diabetes mellitus, type 2 Disc degeneration, lumbar Diverticulosis End stage renal disease Erosive esophagitis Fatigue Gait disturbance Hiatal hernia Hormone replacement therapy Hypertension IBS (irritable colon syndrome) Loss of sensation Malignant neoplasm of central portion of left breast in female, estrogen receptor negative (11/15/17) Mitral regurgitation Mitral valve regurgitation UNSURE OF DETAILS, DOESNT FOLLOW CARDIO Nonalcoholic fatty liver disease Obesity (BMI 30-39.9) Osteopenia Peripheral neuropathy Sinus bradycardia Sinus bradycardia PATIENT SAID SHE REMEMBERS SOMEONE TELLING HER OF THIS ON AN EKG ONE TIME, BUT DOESN'T THINK ITS A CHRONIC PROBLEM Sleep apnea cpap T2DM (type 2 diabetes mellitus) Thrombocytopenia Tricuspid regurgitation Tricuspid valve regurgitation UNSURE OF DETAILS, DOESNT FOLLOW CARDIO Surgical History History of cholecystectomy History of colonoscopy History of dilatation and curettage History of esophagogastroduodenoscopy (EGD) History of left cataract surgery left. 12/23/2019. 2 mg versed. no issues. History of lumpectomy of left breast History of tonsillectomy History of tooth extraction History of total hysterectomy with bilateral salpingo-oophorectomy (BSO) History of vascular access device right side APort in place History of wisdom tooth extraction Hx of left breast biopsy malignant Hx of right breast biopsy benign Family History Grandmother (Maternal) Family history of diabetes mellitus Grandmother (Maternal) No problems noted. Grandmother (Paternal) Breast cancer Aunt Breast cancer Uncle Colorectal cancer Father Hypertension Other Colonic polyp No family history of adverse response to anesthesia Denies family history of Ovarian cancer Prostate cancer Myocardial infarction Social History Smoking Status: Never smoker Second Hand Exposure: No; Do You Dip or Chew Tobacco: No; Tobacco Cessation Education Requested by Patient: No Hx Alcohol Use: No Hx Substance Use: No Preferred Language: Divehi Communication Ability: Effective Reconditioning Associate Required: No Beliefs That Will Affect Care: None marital status: Current Living Situation: Spouse Current Living Situation Comment: deaf current occupational status: retired How many Children do You have: 2 Other Information That Helps Us Care for You: No Feels Safe at Home: Yes Safety Concerns: Feels Safe At This Time Childhood Exposure to Second-Hand Smoke: Yes caffeine: No Dental Care, Regularly: Yes Physical Activity Frequency: Declines to Answer Physical Activity Frequency Comment: Not very much right now due to present fluid retention issues Seatbelt Use: always Assistive Devices: Walker and Wheelchair Review of Systems Review of Systems: Unobtainable due to reduced consciousness [place] Symptom Assessment Scale Pain by observation 0/3 Dyspnea by observation 0/3 Drowsiness 3/3 Palliative Performance Score 10% Physical Exam Constitutional: + ill appearing; no acute distress ENMT: Mouth: + dry oral mucous membranes Respiratory: normal respiratory effort; no labored breathing mild tracheal secretions Cardiovascular: mottling of knees Gastrointestinal (Abdomen): distended Skin: + jaundice Neurologic: + obtunded no apparent allodynia, no myoclonus noted PG Care Time/CCT Total # of Minutes Spent Total Time Spent with Patient: Total time spent is greater than 50% in coordination of care (as documented) at patient's floor/unit and/or counseling patient: Coding Level of Care Code 78413 Initial Inpt Care Lvl 2 Diagnoses Pain R52 Palliative care encounter Z51.5 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 ESRD (end stage renal disease) N18.6 Acute metabolic encephalopathy G93.41 Terminal respiratory secretions R09.89
--- NOTE | 2022-04-15 11:20 | Coding Query ---
PRESENT ON ADMISSION QUERY To promote full compliance with coding requirements relating to pateint care, physician participation is requested in all cases of mechanical technologist uncertainty. Please assist us with the question(s) below: Please place an X within the parenthesis (x). The following diagnosis(es) listed in this patient's medical record require physician assistance to determine if they were present on admission (POA) or not. Please advise for each diagnosis whether it was present on admission, not present on admission, or if it was clinically undetermined. 1. SACRAL DECUBITUS ULCER - documentation begins on the 04/10 Progress Note and the physical description documents, "skin - extensive bruising on flank, arms, back, etc; sacral decub- large -stage 1, with a tiny stage 2 ulcer in central portion of the decubitus ". (x ) Present On Admission ( ) Not Present On Admission ( ) Clinically Undetermined Thank you Hiral Roland *Definition of the present on admission (POA)-Present on admission is defined as present at the time the order for inpatient admission occurs. Conditions that develop during an outpatient encounter prior to a written order for inpatient admission (including emergency department, observation, or outpatient surgery) are considered present on admission. MTDD
== END 2022-04-12 13:15 | disposition expired | DRG 432 ==
LOC: ED 13:17 → 2S 18:30 → SUATTDRO 18:30 → 2S 19:45 → 3E 04-11 20:04